=== PATIENT | male | born 1945 | race Caucasian/White ===

== ENCOUNTER 2018-05-27 09:39 | Inpatient (IN) ==
--- NOTE | 2018-05-27 11:04 | XR ---
EXAM DATE: 05/27/2018 10:58 AM EDT AGE/SEX: 72 years / Male INDICATIONS: Fever, chest pain and shortness of breath. CLINICAL DATA: This is the patient's initial encounter. Patient reports that signs and symptoms have been present for 1 week and indicates a pain score of 5/10. MEDICAL/SURGICAL HISTORY: Hypertension. AFIB. Metastatic adenocarcinoma. Arteriosclerotic heart disease. Splenectomy. Right lobectomy. COMPARISON: No prior exams available for comparison. FINDINGS: Elevated left hemidiaphragm. There is parenchymal density in the right mid to lower lung zone which i s likely related to scarring. Remote left sixth and seventh posterior rib fractures are seen. CONCLUSION: Parenchymal scarring right lung suspected and elevated left hemidiaphragm. Electronically signed by: Kvng Trevino MD 05/27/2018 11:03 AM EDT
[2018-05-27 11:24] LABS: Hematocrit 35.2 % (39.0-51.0); Hemoglobin 11.8 gm/dL (13.0-17.0); Mean Corpuscular HGB Conc 33.6 % (32.0-36.0); Mean Corpuscular Hemoglobin 33.4 pg (27.0-34.0); Mean Corpuscular Volume 99.3 fL (80.0-100.0); Mean Platelet Volume 8.7 fL (7.0-11.0); Platelet Count 131 th/mm3 (150-450); Red Blood Count 3.55 mil/mm3 (4.50-5.90); Red Cell Distribution Width 13.5 % (11.6-17.2)
[2018-05-27 11:39] LABS: Alanine Aminotransferase 30 U/L (12-78); Albumin 2.7 g/dL (3.4-5.0); Anion Gap 9 meq/L (5-15); Aspartate Aminotransferase 18 U/L (15-37); Blood Urea Nitrogen 27 mg/dL (7-18); Carbon Dioxide 25.3 meq/L (21.0-32.0); Chloride 104 meq/L (98-107); Glomerular Filtration Rate 38 mL/min (>89); Glucose,Random 104 mg/dL (74-106); Potassium 4.7 meq/L (3.5-5.1); Sodium 138 meq/L (136-145)
[2018-05-27 11:42] LABS: Alkaline Phosphatase 80 U/L (45-117); Total Protein 6.6 g/dL (6.4-8.2)
[2018-05-27 11:43] LABS: Bacteria,Urine Rare /hpf; Bilirubin,Urine Negative (Negative); Clarity,Urine Hazy (Clear); Color,Urine Yellow (Yellw/Straw); Glucose,Urine (UA) Negative (Negative); Leukocyte Esterase,Urine Negative (Negative); Mucus,Urine Few /lpf (Occasional); Nitrite,Urine Negative (Negative); Specific Gravity,Urine 1.017 (1.002-1.035); Squamous Epithelial Cell,Urine 1 /hpf (0-5)
[2018-05-27] MEDS ORDERED: Vancomycin Inj 1 GM/200 ML PIGGYBACK IV.SIG ONE (12:01)
--- NOTE | 2018-05-27 12:12 | ED ---
HPI General Chief Complaint: Fever Stated Complaint: fever Time Seen by Provider: 05/27/18 10:21 Source: patient Mode of arrival: ambulatory Limitations: no limitations History of Present Illness complaint: fever Onset (ago): hour(s) Temperature Source: oral Context: on chemotherapy Associated symptoms: cough and rash (Redness and warmth of the right lower extremity) Relieving factors: other (It spontaneously resolved prior to presentation) Exacerbating factors: nothing Treatments prior to arrival fever: none Related Data Home Medications Medication Instructions Recorded Confirmed albuterol sulfate 2 puff INHALATION Q4-6H PRN 05/27/18 05/27/18 amlodipine 10 mg PO DAILY 05/27/18 05/27/18 atorvastatin 80 mg PO DAILY 05/27/18 05/27/18 bupropion HCl 100 mg PO BID 05/27/18 05/27/18 colchicine 0.6 mg PO DAILY 05/27/18 05/27/18 digoxin 0.125 mg PO DAILY 05/27/18 05/27/18 folic acid 1 mg PO DAILY 05/27/18 05/27/18 metoprolol tartrate 1 mg/kg PO BID 05/27/18 05/27/18 ondansetron [Zofran ODT] 8 mg PO PRN 05/27/18 warfarin 05/27/18 05/27/18 Allergies Allergy/AdvReac Type Severity Reaction Status Date / Time penicillin G Allergy Severe EDEMA Verified 05/27/18 12:05 Review of Systems ROS: all other systems reviewed are negative [facility] Medical History Medical History Bone metastases (Acute) Gout (Acute) High cholesterol (Acute) Hypertension (Acute) Lung cancer (Acute) Social History Social History Substance History: Unable to Obtain Smoking Status: Unknown if ever smoked How Often Do You Have a Drink Containing Alcohol: Unable to Obtain Recent Travel in [facility] within the Last 8 Weeks: No Recent Out of Country Travel within the Last 8 Weeks: No Immunization History Tetanus Immunization: Unsure Exam Const General: cooperative, healthy appearing, comfortable, no acute distress and well developed Orientation: alert, awake and oriented x3 HENMT Head: normal to inspection, normocephalic and atraumatic Eyes Alignment and Position: alignment normal and position abnormal Conjunctivae: conjunctivae normal Sclera: sclerae normal EOM: EOM intact bilaterally Neck Neck: normal visual inspection and full ROM Chest Chest: normal inspection of the chest Resp Effort & Inspection: normal respiratory effort and able to speak in complete sentences Auscultation: clear to auscultation bilaterally Cardio Rate: regular rate Rhythm: regular rhythm GI Inspection: normal to inspection Palpation: soft Back/Spine/Pelvis Cervical Spine: cervical ROM normal Thoracic/Lumbar Spine: thoraco-lumbar ROM normal Skin General: no rashes or lesions noted, turgor normal, dry skin and erythema ( Right lower extremity redness, swelling and warmth from about one third of the way distal to the patella and extending to the foot) Neuro General: alert, awake, oriented x3, moves all extremities and CN's II-XI intact bilaterally Extrem General: normal to inspection and full ROM Psych Appearance: grossly normal Mental Status: mental status grossly normal Speech and Movement: speech and movement normal Mood: congruent mood Affect: normal affect Attitude: cooperative Thought Process: normal Thought Content: normal Judgment: judgment good Course Consultations Consultation #1: Dr. Powers Time: 12:49 Initial Documented Vital Signs Temperature 98.6 F 05/27/18 09:55 Pulse Rate 78 05/27/18 09:55 Respiratory Rate 16 05/27/18 09:55 Blood Pressure 129/78 05/27/18 09:55 Pulse Oximetry 98 05/27/18 09:55 Last Documented Vital Signs Temperature 98.6 F 05/27/18 09:55 Pulse Rate 78 05/27/18 09:55 Respiratory Rate 16 05/27/18 09:55 Blood Pressure 129/78 05/27/18 09:55 Pulse Oximetry 98 05/27/18 09:55 Medical Decision Making [facility] Narrative Medical decision making narrative: This is a patient who completed his first round of chemotherapy on May 18 who presents now with a fever. T-max was 100.7 at home last night. The most likely etiology for the fever is cellulitis of his right lower extremity. He has had a plantar foot wound for a while now which has been treated by wound care. He has recently developed the redness and the redness has become acutely worse and is now warm to the touch. Septic workup was initiated. The patient has been treated empirically for neutropenic fever with cefepime and vancomycin. I added the vancomycin because of the cellulitis of the right lower extremity. 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 Medical Screen Exam Complete: Yes Emergency Medical Condition: Yes Differential Diagnosis Differential Diagnosis: Differential diagnosis of fever includes but is not limited to viral illness, strep throat, otitis media, pneumonia, sepsis, UTI Lab Data Lab results reviewed: Yes I reviewed the patient's lab results. Lab results narrative: He is neutropenic Result diagrams: 05/27/18 11:10 05/27/18 11:10 Lab Results 05/27/18 05/27/18 05/27/18 Range/Units 11:10 11:10 11:15 WBC 1.0 L (4.0-11.0) th/mm3 RBC 3.55 L (4.50-5.90) mil/mm3 Hgb 11.8 L (13.0-17.0) gm/dL Hct 35.2 L (39.0-51.0) % MCV 99.3 (80.0-100.0) fL MCH 33.4 (27.0-34.0) pg MCHC 33.6 (32.0-36.0) % RDW 13.5 (11.6-17.2) % Plt Count 131 L (150-450) th/mm3 MPV 8.7 (7.0-11.0) fL Prelim Diff (Auto) Manual diff required WBC Differential Manual diff final Seg Neuts % (Manual) 3 L (16-70) % Lymphocytes % (Manual) 33 (9-44) % Monocytes % (Manual) 56 H (0-8) % Eosinophils % (Manual) 3 (0-4) % Basophils % (Manual) 4 H (0-2) % Blast Cells % (Manual) 1 H (0-0) % Abs Neuts (Manual) 0.0 L* (1.8-7.7) th/mm3 Differential Comment . Platelet Estimate Low L (Normal) Platelet Morphology Enlarged H (Normal) [place] Bodies Present H (None) Acanthocytes (Spur) Occ H (None) Sodium 138 (136-145) meq/L Potassium 4.7 (3.5-5.1) meq/L Chloride 104 (98-107) meq/L Carbon Dioxide 25.3 (21.0-32.0) meq/L Anion Gap 9 (5-15) meq/L BUN 27 H (7-18) mg/dL Creatinine 1.75 H (0.60-1.30) mg/dL Estimated GFR 38 L (>89) mL/min Random Glucose 104 (74-106) mg/dL Lactic Acid 1.1 (0.4-2.0) mmol/L Calcium 8.0 L (8.5-10.1) mg/dL Total Bilirubin 1.3 H (0.2-1.0) mg/dL AST 18 (15-37) U/L ALT 30 (12-78) U/L Alkaline Phosphatase 80 (45-117) U/L Total Protein 6.6 (6.4-8.2) g/dL Albumin 2.7 L (3.4-5.0) g/dL Urine Color (Yellw/Straw) Urine Clarity (Clear) Urine pH (5.0-8.5) Ur Specific [place] (1.002-1.035) Urine Protein (Neg-Trace) mg/dL Urine Glucose (UA) (Negative) mg/dL Urine Ketones (Negative) mg/dL Urine Occult Blood (Negative) Urine Nitrate (Negative) Urine Bilirubin (Negative) Urine Urobilinogen (Less than 2) mg/dL Ur Leukocyte Esterase (Negative) Urine RBC (0-3) /hpf Urine WBC (0-5) /hpf Ur Squamous Epith Cells (0-5) /hpf Urine Bacteria (None) /hpf Urine Mucus (Occasional) /lpf Micro UA Comment Ur Microscopic Review Urine Culture Comments 05/27/18 Range/Units 11:30 WBC (4.0-11.0) th/mm3 RBC (4.50-5.90) mil/mm3 Hgb (13.0-17.0) gm/dL Hct (39.0-51.0) % MCV (80.0-100.0) fL MCH (27.0-34.0) pg MCHC (32.0-36.0) % RDW (11.6-17.2) % Plt Count (150-450) th/mm3 MPV (7.0-11.0) fL Prelim Diff (Auto) WBC Differential Seg Neuts % (Manual) (16-70) % Lymphocytes % (Manual) (9-44) % Monocytes % (Manual) (0-8) % Eosinophils % (Manual) (0-4) % Basophils % (Manual) (0-2) % Blast Cells % (Manual) (0-0) % Abs Neuts (Manual) (1.8-7.7) th/mm3 Differential Comment Platelet Estimate (Normal) Platelet Morphology (Normal) [place] Bodies (None) Acanthocytes (Spur) (None) Sodium (136-145) meq/L Potassium (3.5-5.1) meq/L Chloride (98-107) meq/L Carbon Dioxide (21.0-32.0) meq/L Anion Gap (5-15) meq/L BUN (7-18) mg/dL Creatinine (0.60-1.30) mg/dL Estimated GFR (>89) mL/min Random Glucose (74-106) mg/dL Lactic Acid (0.4-2.0) mmol/L Calcium (8.5-10.1) mg/dL Total Bilirubin (0.2-1.0) mg/dL AST (15-37) U/L ALT (12-78) U/L Alkaline Phosphatase (45-117) U/L Total Protein (6.4-8.2) g/dL Albumin (3.4-5.0) g/dL Urine Color Yellow (Yellw/Straw) Urine Clarity Hazy H (Clear) Urine pH 5.0 (5.0-8.5) Ur Specific [place] 1.017 (1.002-1.035) Urine Protein 100 H (Neg-Trace) mg/dL Urine Glucose (UA) Negative (Negative) mg/dL Urine Ketones Negative (Negative) mg/dL Urine Occult Blood Small H (Negative) Urine Nitrate Negative (Negative) Urine Bilirubin Negative (Negative) Urine Urobilinogen Less than 2 (Less than 2) mg/dL Ur Leukocyte Esterase Negative (Negative) Urine RBC 2 (0-3) /hpf Urine WBC 1 (0-5) /hpf Ur Squamous Epith Cells 1 (0-5) /hpf Urine Bacteria Rare H (None) /hpf Urine Mucus Few H (Occasional) /lpf Micro UA Comment Culture not ind Ur Microscopic Review Not Reportable Urine Culture Comments Culture not ind Imaging Data Attestation: I personally reviewed and interpreted this imaging study as follows : Radiologist's impression: Chest X-Ray 05/27/18 10:20 CONCLUSION: Parenchymal scarring right lung suspected and elevated left hemidiaphragm. ECG Data EKG Prior to Arrival: Yes Attestation: I personally reviewed and interpreted this ECG as follows: (EKG shows atrial fibrillation with rate of 90. No acute STT wave changes.) Prior ECG tracings: available for review (He has had atrial fibrillation in the past.) Discharge Plan Discharge Disposition Patient Disposition: 30 Still Patient Discharge Details Diagnosis: Neutropenia with fever, Cellulitis Physicians Team ED Provider: Sammie Vines Primary Care Provider: Odette Rodas Rxs /Orders / Referrals /Forms Prescriptions: No Action atorvastatin 80 mg Tablet 80 mg PO DAILY RF: 0 metoprolol tartrate 100 mg Tablet 1 mg/kg PO BID RF: 0 bupropion HCl 100 mg Tablet Extended Release 12 Hr 100 mg PO BID RF: 0 ondansetron [Zofran ODT] 8 mg Tablet,Disintegrating 8 mg PO PRN (Reason: Nausea) RF: 0 warfarin 4 mg Tablet RF: 0 amlodipine 10 mg Tablet 10 mg PO DAILY RF: 0 folic acid 1 mg Tablet 1 mg PO DAILY RF: 0 digoxin 125 mcg Tablet 0.125 mg PO DAILY RF: 0 albuterol sulfate 90 mcg/actuation Hfa Aerosol Inhaler 2 puff INHALATION Q4-6H PRN (Reason: Shortness Of Breath Or Wheezing) RF: 0 colchicine 0.6 mg Capsule 0.6 mg PO DAILY RF: 0 Status ED Status: Pending Admission
[2018-05-27 12:24] LABS: Blast Cells 1 % (0-0); Eosinophils 3 % (0-4); Lymphocytes 33 % (9-44); Monocytes 56 % (0-8)
[2018-05-27 12:28] LABS: Acanthocytes Occ; Howell-Jolly Bodies Present
[2018-05-27] MEDS ORDERED: Bisacodyl 10 MG Supp RECTAL PRN (12:46)
--- NOTE | 2018-05-27 12:53 | P.HP ---
History of Present Illness Primary Care Physician: Odette Rodas History of Present Illness: The patient is a very pleasant 72-year-old male with past medical history of lung cancer with bone metastasis, gout, hyperlipidemia, hypertension. The patient came to the emergency room for further evaluation of fevers, shortness of breath. Patient also had diarrhea recently. He was recently hospitalized to another hospital with ileus which resolved. Since he does not have any more diarrhea and had a normal bowel movement. He was started on chemo paclitaxel and carboplatin per oncology. Follows with the [place] oncologist but also has seen Dr. Alonso. Will consult Dr. Knight oncology doctor. Patient is also complaining of left food redness and swelling. Labs reviewed this patient with neutropenia. Patient also with left foot cellulitis started on IV antibiotics. Blood cultures obtained in the emergency room. Creatinine is 1.7 at this time per patient baseline creatinine is 2. PMFSH - History History Provided By: Patient, Family Member - Medical History Medical History: Medical History (Last Updated 05/27/18 @ 13:47 by Debbie Powers MD) Aneurysm Bone metastases Gout High cholesterol Hypertension Lung cancer - Surgical History Surgical History: Surgical History (Last Reviewed 05/27/18 @ 17:57 by Debbie Powers MD) H/O pneumonectomy History of total right knee replacement - Family History Family History: Family History (Last Updated 05/27/18 @ 13:46 by Debbie Powers MD) Sister Aneurysm Father Heart attack Stroke - Tobacco History Tobacco Use In Past 30 Days: No Smoking Status: Former smoker (smoked for 20 years, quit 15 years ago) Packs Per Day: 2 Years Smoked: 20 - Alcohol History How Often Do You Have a Drink Containing Alcohol: Never - Substance Use History Substance History: No History of Abuse - Travel History History of Recent Travel: No Recent Travel in the [place] Within the Last 8 Weeks: No Recent Travel Out of the Country Within the Last 8 Weeks: No - Immunization History Tetanus Immunization: Unsure Medications and Allergies Active Medications: Active Medications Acetaminophen (Tylenol) 650 mg PO Q4H PRN PRN Reason: Temp > 100.4 Al Hydroxide/Mg Hydroxide (Milk Of Magnesia Liq) 30 ml PO Q12H PRN PRN Reason: Mild Constipation Bisacodyl (Dulcolax Supp) 10 mg RECTAL DAILY PRN PRN Reason: SEVERE CONSITIPATION Enoxaparin Sodium (Lovenox Inj) 40 mg SQ Q24H MAUDE Vancomycin HCl 1,000 mg/ (Sodium Chloride) 250 mls @ 250 mls/hr IV.SIG ONCE ONE Stop: 05/27/18 13:59 Lactated Ringer's (Lr 1000 Ml Inj) 1,000 mls @ 100 mls/hr IV.CONT .Q10H MAUDE Lactulose (Lactulose Liq) 30 ml PO DAILY PRN PRN Reason: SEVERE CONSITIPATION Metoclopramide HCl (Reglan Inj) 5 mg IV.PUSH Q6HR PRN; Protocol PRN Reason: NAUSEA OR VOMITING Senna/Docusate Sodium (Salma-Colace) 1 tab PO BID MAUDE Sennosides (Senokot) 17.2 mg PO Q12H PRN PRN Reason: Moderate Constipation Allergies Allergy/AdvReac Type Severity Reaction Status Date / Time penicillin G Allergy Severe EDEMA Verified 05/27/18 12:05 Home Medications Medication Instructions Recorded Confirmed Type albuterol sulfate 2 puff INHALATION Q4-6H PRN 05/27/18 05/27/18 History amlodipine 10 mg PO DAILY 05/27/18 05/27/18 History atorvastatin 80 mg PO DAILY 05/27/18 05/27/18 History bupropion HCl 100 mg PO BID 05/27/18 05/27/18 History colchicine 0.6 mg PO DAILY 05/27/18 05/27/18 History digoxin 0.125 mg PO DAILY 05/27/18 05/27/18 History folic acid 1 mg PO DAILY 05/27/18 05/27/18 History metoprolol tartrate 1 mg/kg PO BID 05/27/18 05/27/18 History ondansetron [Zofran ODT] 8 mg PO PRN 05/27/18 History warfarin 05/27/18 05/27/18 History Exam Vital signs: Vital Signs 05/27/18 09:55 Temperature 98.6 F Pulse Rate 78 Respiratory Rate 16 Blood Pressure 129/78 Pulse Oximetry 98 Intake & Output 05/26/18 05/27/18 05/27/18 18:59 06:59 18:59 Weight 106.594 kg Narrative: GENERAL: 72 yo male, in bed, doesn't appear in distress. SKIN: Right lower extremity with rash, redness and warmth, slightly tender to palpation, erythema up to the knee. HEAD: Atraumatic. Normocephalic. EYES: Pupils equal and round. No scleral icterus. No injection or drainage. ENT: No nasal bleeding or discharge. Mucous membranes pink and moist. NECK: Trachea midline. No JVD. CARDIOVASCULAR: Regular rate and rhythm. RESPIRATORY: No accessory muscle use. Decreased best breath sounds right lung. Surgical scar over the right side of chest extending to the back. GASTROINTESTINAL: Abdomen soft, old surgical scars, abdominal hernia reducible, non-tender, nondistended. Hepatic and splenic margins not palpable. MUSCULOSKELETAL: Extremities without clubbing, cyanosis, or edema. No obvious deformities. NEUROLOGICAL: Awake and alert. No obvious cranial nerve deficits. Motor grossly within normal limits. Five out of 5 muscle strength in the arms and legs. Normal speech. PSYCHIATRIC: Appropriate mood and affect; insight and judgment normal. Results - Labs CBC & Chem 7: 05/27/18 11:10 05/27/18 11:10 Labs: Laboratory Results - last 24 hr 05/27/18 05/27/18 05/27/18 11:10 11:10 11:15 WBC 1.0 L RBC 3.55 L Hgb 11.8 L Hct 35.2 L MCV 99.3 MCH 33.4 MCHC 33.6 RDW 13.5 Plt Count 131 L MPV 8.7 Prelim Diff (Auto) Manual diff required WBC Differential Manual diff final Seg Neuts % (Manual) 3 L Lymphocytes % (Manual) 33 Monocytes % (Manual) 56 H Eosinophils % (Manual) 3 Basophils % (Manual) 4 H Blast Cells % (Manual) 1 H Abs Neuts (Manual) 0.0 L* Differential Comment . Platelet Estimate Low L Platelet Morphology Enlarged H [place] Bodies Present H Acanthocytes (Spur) Occ H Sodium 138 Potassium 4.7 Chloride 104 Carbon Dioxide 25.3 Anion Gap 9 BUN 27 H Creatinine 1.75 H Estimated GFR 38 L Random Glucose 104 Lactic Acid 1.1 Calcium 8.0 L Total Bilirubin 1.3 H AST 18 ALT 30 Alkaline Phosphatase 80 Total Protein 6.6 Albumin 2.7 L Urine Color Urine Clarity Urine pH Ur Specific [place] Urine Protein Urine Glucose (UA) Urine Ketones Urine Occult Blood Urine Nitrate Urine Bilirubin Urine Urobilinogen Ur Leukocyte Esterase Urine RBC Urine WBC Ur Squamous Epith Cells Urine Bacteria Urine Mucus Micro UA Comment Ur Microscopic Review Urine Culture Comments 05/27/18 11:30 WBC RBC Hgb Hct MCV MCH MCHC RDW Plt Count MPV Prelim Diff (Auto) WBC Differential Seg Neuts % (Manual) Lymphocytes % (Manual) Monocytes % (Manual) Eosinophils % (Manual) Basophils % (Manual) Blast Cells % (Manual) Abs Neuts (Manual) Differential Comment Platelet Estimate Platelet Morphology [place] Bodies Acanthocytes (Spur) Sodium Potassium Chloride Carbon Dioxide Anion Gap BUN Creatinine Estimated GFR Random Glucose Lactic Acid Calcium Total Bilirubin AST ALT Alkaline Phosphatase Total Protein Albumin Urine Color Yellow Urine Clarity Hazy H Urine pH 5.0 Ur Specific [place] 1.017 Urine Protein 100 H Urine Glucose (UA) Negative Urine Ketones Negative Urine Occult Blood Small H Urine Nitrate Negative Urine Bilirubin Negative Urine Urobilinogen Less than 2 Ur Leukocyte Esterase Negative Urine RBC 2 Urine WBC 1 Ur Squamous Epith Cells 1 Urine Bacteria Rare H Urine Mucus Few H Micro UA Comment Culture not ind Ur Microscopic Review Not Reportable Urine Culture Comments Culture not ind - Imaging Impressions Chest X-Ray 05/27/18 10:20 CONCLUSION: Parenchymal scarring right lung suspected and elevated left hemidiaphragm. Caprini VTE Risk Assessment Caprini VTE Risk Assessment: Moderate/High Risk (score >= 2) Caprini Risk Assessment Model: Point Value = 1 Point Value = 2 Point Value = 3 Point Value = 5 Age 41-60 Minor surgery BMI > 25 kg/m2 Swollen legs Varicose veins or History of unexplained or recurrent spontaneous Oral contraceptives or hormone replacement Sepsis (< 1 month) Serious lung disease, including pneumonia (< 1 month) Abnormal pulmonary function Acute myocardial infarction Congestive heart failure (< 1 month) History of inflammatory bowel disease Medical patient at bed rest Age 61-74 Arthroscopic surgery Major open surgery (> 45 min) Laparoscopic surgery (> 45 min) Malignancy Confined to bed (> 72 hours) Immobilizing plaster cast Central venous access Age >= 75 History of VTE Family history of VTE Factor V Leiden Prothrombin [id number] Lupus anticoagulant Anticardiolipin antibodies Elevated serum homocysteine Heparin-induced thrombocytopenia Other congenital or acquired thrombophilia Stroke (< 1 month) Elective arthroplasty Hip, pelvis, or leg fracture Acute spinal cord injury (< 1 month) Prophylaxis Regimen: Total Risk Factor Score Risk Level Prophylaxis Regimen 0-1 Low Early ambulation 2 Moderate Order ONE of the following: *Sequential Compression Device (SCD) *Heparin 5000 units SQ BID 3-4 Higher Order ONE of the following medications: *Heparin 5000 units SQ TID *Enoxaparin/Lovenox 40 mg SQ daily (WT < 150 kg, CrCl > 30 mL/min) *Enoxaparin/Lovenox 30 mg SQ daily (WT < 150 kg, CrCl > 10-29 mL/min) *Enoxaparin/Lovenox 30 mg SQ BID (WT < 150 kg, CrCl > 30 mL/min) AND/OR *Sequential Compression Device (SCD) 5 or more Highest Order ONE of the following medications: *Heparin 5000 units SQ TID (Preferred with Epidurals) *Enoxaparin/Lovenox 40 mg SQ daily (WT < 150 kg, CrCl > 30 mL/min) *Enoxaparin/Lovenox 30 mg SQ daily (WT < 150 kg, CrCl > 10-29 mL/min) *Enoxaparin/Lovenox 30 mg SQ BID (WT < 150 kg, CrCl > 30 mL/min) AND *Sequential Compression Device (SCD) Assessment and Plan - Plan Pleasant 72-year-old male with history of lung cancer presents with neutropenia and fever, cellulitis Neutropenia with fever. Patient had fevers at home per at bedside 100.5. He is afebrile here on admission. Does not meet sepsis criteria. Cellulitis right lower leg Blood cultures obtained in the emergency room follow results Wound cultures right lower leg if obtainable Start IV vancomycin and cefepime Lactic acid is normal Lung cancer with metastasis Patient is on paclitaxel and carboplatin Now with neutropenia Consult oncology Per patient is weaned off of warfarin as plan for surgery Vas-Cath placement. The patient is currently on Lovenox 100 mg subcu twice daily. Monitor INR. The patient warfarin was tapered down. Hypertension. Blood pressure stable at this time. Can resume home medications Gout stable at this time. Resume home medications as indicated Resume home medications as appropriate DVT prophylaxis on Lovenox 100 mg subcu twice a day Discussed with the patient, family his at bedside, ED physician
[2018-05-27] MEDS ORDERED: Vancomycin Consult Pharmacy OTHER PRN (12:54)
[2018-05-27] MEDS ORDERED: Vancomycin Inj 1 GM/200 ML PIGGYBACK IV.SIG SCH (13:00)
[2018-05-27] MEDS ORDERED: Vancomycin Inj 1,000 MG in Sodium Chlor 0.9% Inj 250 ML IV.SIG ONE (13:00)
[2018-05-27] MEDS ORDERED: Enoxaparin Inj 40 MG/0.4 ML Syringe SQ SCH (13:00)
[2018-05-27 18:39] LABS: INR 3.1 Ratio; Prothrombin Time 31.2 sec (9.8-11.6)
[2018-05-27] MEDS: Senna/Docusate Sodium 8.6/50 MG Tablet PO SCH (23:56)
[2018-05-27] MEDS: Enoxaparin Inj 100 MG/ML Syringe SQ SCH (23:56)
[2018-05-27] MEDS: Metoprolol Tartrate 100 MG Tablet PO SCH (23:57)
[2018-05-28] MEDS: Acetaminophen 325 MG Tablet PO PRN (00:16)
[2018-05-28] MEDS: buPROPion 100 MG ER 12 HR Tablet PO SCH ×3 (02:08→21:57)
--- NOTE | 2018-05-28 07:05 | MB ---
cc: Teresa Velázquez MD,Debbie KUNZ DATE: 05/27/2018 REFERRING PHYSICIAN: Dr. Debbie Powers CHIEF COMPLAINT: Dr. Powers requested a consultation for Mr. Henry regarding neutropenic fever with a diagnosis of metastatic non-small cell lung cancer. HISTORY OF PRESENT ILLNESS: Mr. Henry is a 72-year-old man well known patient to Dr. Aracelis Knight. He has a history of non-small cell lung cancer that was resected. He developed recurrent metastatic disease. He has established care at the [facility] in [facility]. He was treated with his third cycle of palliative chemotherapy with carboplatin and Taxol on 05/18/2018. His history was supplemented by his who was present at the consultation. Mr. Henry developed severe diarrhea approximately 3-4 days after the administration of the chemotherapy. He was admitted for 24-hour observation at the [facility] in [facility]. It appears that his diarrhea improved. However, when he got home, his diarrhea came back. He was awake at night having bowel movements, which are large volume about every 3 hours. His diarrheal symptoms appear to have improved with the BRAT diet. He did not develop any fevers from that. No labs were available during the hospitalization at [facility]. The patient reports that C. difficile was negative. Eventually, the diarrhea resolved. Over the last 24 hours, he has had increasing symptoms of pain and swelling of the right lower extremity. He has chronic wound at the bottom of his right foot. He is under care of podiatry. He has chronic venous insufficiency with chronic erythema of right lower leg. There is some skin breakdown. He denies any mouth sores. Denies any other symptoms. He has no new cough. He clears his throat regularly. Denies any urinary complaints. He was advised by his [facility] physicians to come into the emergency room because of his fever. He did not receive GCSF support or Neulasta. On admission, his white blood cell count is 1.0, ANC of 0, hemoglobin 11.8, platelet count 131. His BUN is 27, creatinine 1.75. Labs and review of previous electronic medical record shows otherwise normal CBC prior to his admission. His baseline creatinine is 1.9. He is at the [facility] after administration of his chemotherapy. He received carboplatin and Taxol without bevacizumab. He was pending a port placement sometime next week. He was pending bridging of his anticoagulant therapy with warfarin. He denies any blood with his diarrhea. Denies any blood loss. He has fevers. He overall just felt weak and fatigued after administration of the chemotherapy. He seems more short of breath with activity. He never lost his appetite. PAST MEDICAL HISTORY: Atrial fibrillation, hypertension, right lower lung carcinoma status post resection in 2014, metastatic non-small cell lung cancer, adenocarcinoma histology in 2018. PAST SURGICAL HISTORY: Amputation of right big toe, right foot debridement, colonoscopy, right lower lobe wedge resection. ALLERGIES: PENICILLIN. FAMILY HISTORY: No significant family history of cancer. SOCIAL HISTORY: He is . He is retired. He quit smoking 15 years ago. He has a [id number] smoking history. He is a former drinker. Denies any illicit drug use. MEDICATIONS: From home include: 1. Albuterol. 2. Amlodipine. 3. Atorvastatin. 4. Bupropion. 5. Colchicine. 6. Digoxin. 7. Folic acid. 8. Metoprolol. 9. Ondansetron p.r.n. 10. Warfarin. PHYSICAL EXAMINATION: VITAL SIGNS: Temperature 98.3, heart rate 96, respiratory rate 20, blood pressure 168/92, saturation 100%. GENERAL: Mr. Henry is a well-developed, elderly man. He looks tired. HEENT: His pupils are round, reactive to light and accommodation. Oropharynx is clear. No oral lesion. NECK: Supple. No adenopathy. LUNGS: Clear to auscultation. CARDIOVASCULAR: Reveals mild tachycardia. ABDOMEN: Large and benign. LOWER EXTREMITIES: Right leg more prominent than the left. There is erythematous patch with diffuse margins in the inner aspect of the right lower leg. There is missing right great toe. There is a callus at the bottom of the foot. There seems to be no erythema there. There is erythema in the dorsum of the right foot. Good pulses appreciated. LABORATORY DATA: With pancytopenia, WBC 1.0, hemoglobin 11.8, platelet count 131, absolute neutrophil count is 0. Chemistry with BUN 27, creatinine 1.75, total bilirubin mildly elevated at 1.3. ASSESSMENT AND PLAN: Mr. Henry is a 72-year-old male with multiple medical problems. He has atrial fibrillation, on chronic anticoagulant therapy with Coumadin. He does not have a PT/INR during this admission. A PT/INR will be checked. We will ask pharmacy to adjust his Coumadin dose. We will visit on his PT/INR from this evening. He has not stopped his bridging therapy as yet. I anticipate that he would not be able to have his port placement on 06/01/2018. We discussed neutropenic fever. He seems to have a source of infection as the right foot and right lower leg. This may be a point of entry for bacteria. He is on cefepime. We will monitor his fevers. He is afebrile at present. Cultures have been obtained. Empiric antibiotic therapy will continue. He did not receive Neulasta support. He is at increased risk given his age, comorbidities, and the type of chemotherapy agent. He will need to follow up with his medical oncologist to see dose adjustment or the prophylactic use of Neulasta to avoid further admission for neutropenic fevers. We discussed the risks and benefit of Neupogen. We will initiate Neupogen treatment today. Dr. Francis will be back on Tuesday to resume his care while he is here. Ultimately, he plans to go back to [facility]. We will monitor for recurrence of the diarrhea. I anticipate that he will start to feel better as the chemo related toxicity resolves in the next upcoming week. In the meantime, supportive treatment continue. MD LUBA Gutierrez/guille , 06:05 PM , 06:19 PM
[2018-05-28] MEDS: Metoprolol Tartrate 100 MG Tablet PO SCH ×2 (08:26→21:57)
[2018-05-28] MEDS: amLODIPine 10 MG Tablet PO SCH (08:26)
[2018-05-28] MEDS: Digoxin 125 MCG Tablet PO SCH (08:26)
[2018-05-28] MEDS: Folic Acid 1 MG Tablet PO SCH (08:27)
[2018-05-28] MEDS: Enoxaparin Inj 100 MG/ML Syringe SQ SCH (08:27)
[2018-05-28] MEDS: Senna/Docusate Sodium 8.6/50 MG Tablet PO SCH ×2 (08:27→21:57)
--- NOTE | 2018-05-28 10:19 | P.PNONC ---
Subjective Interval history: T-max 101.4 overnight Patient resting in bed in no obvious distress Denies shortness of breath; endorses some mild pain in right foot Has not had a bowel movement since the diarrhea stopped on Objective Vital Signs/Intake & Output: Vital Signs 05/27/18 15:51 05/27/18 17:01 05/27/18 20:00 Temperature 98.3 F 99.1 F Pulse Rate 96 H 111 H Respiratory Rate 24 22 Blood Pressure 168/92 H 149/90 H Pulse Oximetry 100 97 05/27/18 21:00 05/27/18 22:00 05/27/18 23:00 Temperature Pulse Rate 104 H 102 H 104 H Respiratory Rate Blood Pressure Pulse Oximetry 05/28/18 00:00 05/28/18 01:15 05/28/18 04:00 Temperature 100.2 F H 101.4 F H 99.2 F Pulse Rate 105 H 120 H 86 Respiratory Rate 24 24 20 Blood Pressure 100/64 Pulse Oximetry 99 99 99 05/28/18 04:30 05/28/18 08:38 Temperature 99.2 F Pulse Rate 79 73 Respiratory Rate 22 Blood Pressure 129/80 Pulse Oximetry 99 Intake & Output 05/27/18 05/28/18 05/28/18 18:59 06:59 18:59 Intake Total 350 / 350 1340 / 1340 Output Total 175 / 175 Balance 350 / 350 1165 / 1165 Weight 235 lb 226 lb 6.636 oz Intake: IV 350 / 350 1100 / 1100 LR 1000 mL Inj 1,000 ML @ 100 1000 / 1000 mls/hr IV.CONT .Q10H [facility] Rx#: [id number] Maxipime Inj 2,000 MG In NS Inj 100 / 100 100 / 100 100 ML @ 200 mls/hr IV.SIG Q12H [facility] Rx#:[id number] Vancomycin Inj 1,000 MG In NS 250 / 250 Inj 250 ML @ 250 mls/hr IV.SIG ONCE ONE Rx#:[id number] Oral 240 / 240 Output: Urine 175 / 175 Other: Date of Last Bowel Movement 05/25/18 05/25/18 Result Diagrams: 05/28/18 11:45 05/28/18 11:45 Laboratory Results: Laboratory Results - last 24 hr 05/27/18 05/27/18 05/27/18 11:10 11:10 11:15 WBC 1.0 L RBC 3.55 L Hgb 11.8 L Hct 35.2 L MCV 99.3 MCH 33.4 MCHC 33.6 RDW 13.5 Plt Count 131 L MPV 8.7 Prelim Diff (Auto) Manual diff required WBC Differential Manual diff final Seg Neuts % (Manual) 3 L Lymphocytes % (Manual) 33 Monocytes % (Manual) 56 H Eosinophils % (Manual) 3 Basophils % (Manual) 4 H Blast Cells % (Manual) 1 H Abs Neuts (Manual) 0.0 L* Differential Comment . Platelet Estimate Low L Platelet Morphology Enlarged H Espinoza-Bird-In-Hand Bodies Present H Acanthocytes (Spur) Occ H PT INR Sodium 138 Potassium 4.7 Chloride 104 Carbon Dioxide 25.3 Anion Gap 9 BUN 27 H Creatinine 1.75 H Estimated GFR 38 L Random Glucose 104 Lactic Acid 1.1 Calcium 8.0 L Total Bilirubin 1.3 H AST 18 ALT 30 Alkaline Phosphatase 80 Total Protein 6.6 Albumin 2.7 L Urine Color Urine Clarity Urine pH Ur Specific [place] Urine Protein Urine Glucose (UA) Urine Ketones Urine Occult Blood Urine Nitrate Urine Bilirubin Urine Urobilinogen Ur Leukocyte Esterase Urine RBC Urine WBC Ur Squamous Epith Cells Urine Bacteria Urine Mucus Micro UA Comment Ur Microscopic Review Urine Culture Comments 05/27/18 05/27/18 11:30 18:21 WBC RBC Hgb Hct MCV MCH MCHC RDW Plt Count MPV Prelim Diff (Auto) WBC Differential Seg Neuts % (Manual) Lymphocytes % (Manual) Monocytes % (Manual) Eosinophils % (Manual) Basophils % (Manual) Blast Cells % (Manual) Abs Neuts (Manual) Differential Comment Platelet Estimate Platelet Morphology Espinoza-Bird-In-Hand Bodies Acanthocytes (Spur) PT 31.2 H INR 3.1 Sodium Potassium Chloride Carbon Dioxide Anion Gap BUN Creatinine Estimated GFR Random Glucose Lactic Acid Calcium Total Bilirubin AST ALT Alkaline Phosphatase Total Protein Albumin Urine Color Yellow Urine Clarity Hazy H Urine pH 5.0 Ur Specific [place] 1.017 Urine Protein 100 H Urine Glucose (UA) Negative Urine Ketones Negative Urine Occult Blood Small H Urine Nitrate Negative Urine Bilirubin Negative Urine Urobilinogen Less than 2 Ur Leukocyte Esterase Negative Urine RBC 2 Urine WBC 1 Ur Squamous Epith Cells 1 Urine Bacteria Rare H Urine Mucus Few H Micro UA Comment Culture not ind Ur Microscopic Review Not Reportable Urine Culture Comments Culture not ind Imaging Studies: Impressions Chest X-Ray 05/27/18 10:20 CONCLUSION: Parenchymal scarring right lung suspected and elevated left hemidiaphragm. Medications: Active Medications Generic Name Dose Route Start Last Admin Trade Name Freq PRN Reason Stop Dose Admin Acetaminophen 650 mg 05/27/18 12:46 05/28/18 00:16 Tylenol PO 650 mg Q4H PRN Administration Temp > 100.4 Amlodipine Besylate 10 mg 05/28/18 09:00 05/28/18 08:26 Norvasc PO 10 mg DAILY [facility] Administration Atorvastatin Calcium 80 mg 05/28/18 09:00 05/28/18 08:34 Lipitor PO 80 mg DAILY [facility]UDE Administration Bupropion HCl 100 mg 05/27/18 21:00 05/28/18 08:27 Wellbutrin Sr PO 100 mg BID [facility] Administration Colchicine 0.6 mg 05/28/18 09:00 05/28/18 08:27 Colcrys PO 0.6 mg DAILY MAUDE Administration Digoxin 125 mcg 05/28/18 09:00 05/28/18 08:26 Lanoxin PO 125 mcg DAILY [facility]UDE Administration Enoxaparin Sodium 100 mg 05/27/18 21:00 05/28/18 08:27 Lovenox Inj SQ 100 mg Q12HR [facility] Administration Filgrastim 480 mcg 05/27/18 18:00 05/27/18 18:22 Neupogen Inj SQ 05/29/18 14:01 480 mcg DAILY@1400 [facility] Administration Folic Acid 1 mg 05/28/18 09:00 05/28/18 08:27 Folic Acid PO 1 mg DAILY MAUDE Administration Lactated Ringer's 1,000 mls @ 100 mls/hr 05/27/18 13:00 05/27/18 23:57 Lr 1000 Ml Inj IV.CONT 100 mls/hr .Q10H [facility] Administration Cefepime HCl 2,000 mg/ Sodium 100 mls @ 200 mls/hr 05/27/18 13:00 05/28/18 02 :11 Chloride IV.SIG Infused Q12H [facility] Infusion Metoclopramide HCl 5 mg 05/27/18 12:46 05/28/18 08:46 Reglan Inj IV.PUSH 5 mg Q6HR PRN Administration NAUSEA OR VOMITING Protocol Metoprolol Tartrate 100 mg 05/27/18 21:00 05/28/18 08:26 Lopressor PO 100 mg BID [facility] Administration Senna/Docusate Sodium 1 tab 05/27/18 21:00 05/28/18 08:27 Salma-Colace PO 1 tab BID MAUDE Administration Objective Remarks: GENERAL: Older male resting in bed in no obvious distress SKIN: Warm and dry. HEAD: Normocephalic. EYES: No injection or drainage. NECK: Supple, trachea midline. CARDIOVASCULAR: Regular rate and rhythm without murmurs. RESPIRATORY: Breath sounds equal bilaterally. No accessory muscle use. GASTROINTESTINAL: Abdomen soft, non-tender, nondistended. EXTREMITIES: No cyanosis. Erythema in the dorsum of the right foot. Partial great toe amputation on the right. MUSCULOSKELETAL: Adequate muscle tone. NEUROLOGICAL: No obvious focal deficit. Awake, alert, and oriented x3. Assessment/Plan - Plan 72-year-old male with history of metastatic non-small cell lung cancer who gets his care through the [facility]. He was given his third cycle of palliative chemotherapy with carboplatin and Taxol on 05/18/18. Initially the patient had severe diarrhea after the chemotherapy which has been resolved. He was admitted with pain and swelling of the right lower extremity as he has a chronic venous insufficiency with skin breakdown. 1. Continue G-CSF support with Neupogen as patient remains neutropenic. 2. Patient had temperature overnight of 101.4. Blood cultures have been ordered ; I have been informed by nursing staff that the patient is refusing his labs. We can offer the patient a small dose of Ativan prior to lab draw. 3. Continue cefepime, vancomycin. - Attending Statement The exam, history, and the medical decision-making described in the above note were completed with the assistance of the mid-level provider. I reviewed and agree with the findings presented. I attest that I had a [id number] encounter with the patient on the same day, and personally performed and documented my assessment and findings in the medical record. Initially frustrated by the frequent lab draws. He required blood culture for temperature. He was better composed in the afternoon. He was feeling better in general. The right foot still feels swollen with redness. We discussed possible source of infection is the right foot. Podiatry will be consulted. Neutropenia improving. Continue G-CSF. Continue empiric antibiotic therapy. Clinically stable. Monitor for decompensation. Noted INR supratherapeutic. We discussed deferring plans for his MediPort placement on Tuesday in light of his acute illness and possible infection. For now we will continue Coumadin at his usual dose. Dosing adjusted by pharmacy.
--- NOTE | 2018-05-28 11:03 | P.PN ---
Subjective Interval history: Follow-up right lower extremity cellulitis/neutropenic fever May 28, 2018-patient seen and examined, positive for fever, positive for shortness of breath Physical Exam Vital signs: Vital Signs 05/27/18 15:51 05/27/18 17:01 05/27/18 20:00 Temperature 98.3 F 99.1 F Pulse Rate 96 H 111 H Respiratory Rate 24 22 Blood Pressure 168/92 H 149/90 H Pulse Oximetry 100 97 05/27/18 21:00 05/27/18 22:00 05/27/18 23:00 Temperature Pulse Rate 104 H 102 H 104 H Respiratory Rate Blood Pressure Pulse Oximetry 05/28/18 00:00 05/28/18 01:15 05/28/18 04:00 Temperature 100.2 F H 101.4 F H 99.2 F Pulse Rate 105 H 120 H 86 Respiratory Rate 24 24 20 Blood Pressure 100/64 Pulse Oximetry 99 99 99 05/28/18 04:30 05/28/18 08:38 Temperature 99.2 F Pulse Rate 79 73 Respiratory Rate 22 Blood Pressure 129/80 Pulse Oximetry 99 Intake & Output 05/27/18 05/28/18 05/28/18 18:59 06:59 18:59 Intake Total 350 / 350 1340 / 1340 Output Total 175 / 175 Balance 350 / 350 1165 / 1165 Weight 106.594 kg 102.7 kg Intake: IV 350 / 350 1100 / 1100 LR 1000 mL Inj 1,000 ML @ 100 1000 / 1000 mls/hr IV.CONT .Q10H [facility] Rx#: [id number] Maxipime Inj 2,000 MG In NS Inj 100 / 100 100 / 100 100 ML @ 200 mls/hr IV.SIG Q12H [facility] Rx#:[id number] Vancomycin Inj 1,000 MG In NS 250 / 250 Inj 250 ML @ 250 mls/hr IV.SIG ONCE ONE Rx#:[id number] Oral 240 / 240 Output: Urine 175 / 175 Other: Date of Last Bowel Movement 05/25/18 05/25/18 Narrative: GENERAL: NAD SKIN: Warm and dry. HEAD: Normocephalic. EYES: No scleral icterus. No injection or drainage. NECK: Supple, trachea midline. No JVD or lymphadenopathy. CARDIOVASCULAR: Regular rate and rhythm without murmurs, gallops, or rubs. RESPIRATORY: Breath sounds equal bilaterally. No accessory muscle use. GASTROINTESTINAL: Abdomen soft, non-tender, nondistended. MUSCULOSKELETAL: No cyanosis, or edema. RLE with spreading erythema BACK: Nontender without obvious deformity. No CVA tenderness. Results - Labs CBC & Chem 7: 05/27/18 11:10 05/27/18 11:10 Laboratory Results - last 24 hr 05/27/18 05/27/18 05/27/18 11:10 11:10 11:15 WBC 1.0 L RBC 3.55 L Hgb 11.8 L Hct 35.2 L MCV 99.3 MCH 33.4 MCHC 33.6 RDW 13.5 Plt Count 131 L MPV 8.7 Prelim Diff (Auto) Manual diff required WBC Differential Manual diff final Seg Neuts % (Manual) 3 L Lymphocytes % (Manual) 33 Monocytes % (Manual) 56 H Eosinophils % (Manual) 3 Basophils % (Manual) 4 H Blast Cells % (Manual) 1 H Abs Neuts (Manual) 0.0 L* Differential Comment . Platelet Estimate Low L Platelet Morphology Enlarged H Espinoza-Hanna Bodies Present H Acanthocytes (Spur) Occ H PT INR Sodium 138 Potassium 4.7 Chloride 104 Carbon Dioxide 25.3 Anion Gap 9 BUN 27 H Creatinine 1.75 H Estimated GFR 38 L Random Glucose 104 Lactic Acid 1.1 Calcium 8.0 L Total Bilirubin 1.3 H AST 18 ALT 30 Alkaline Phosphatase 80 Total Protein 6.6 Albumin 2.7 L Urine Color Urine Clarity Urine pH Ur Specific [place] Urine Protein Urine Glucose (UA) Urine Ketones Urine Occult Blood Urine Nitrate Urine Bilirubin Urine Urobilinogen Ur Leukocyte Esterase Urine RBC Urine WBC Ur Squamous Epith Cells Urine Bacteria Urine Mucus Micro UA Comment Ur Microscopic Review Urine Culture Comments 05/27/18 05/27/18 11:30 18:21 WBC RBC Hgb Hct MCV MCH MCHC RDW Plt Count MPV Prelim Diff (Auto) WBC Differential Seg Neuts % (Manual) Lymphocytes % (Manual) Monocytes % (Manual) Eosinophils % (Manual) Basophils % (Manual) Blast Cells % (Manual) Abs Neuts (Manual) Differential Comment Platelet Estimate Platelet Morphology Espinoza-Hanna Bodies Acanthocytes (Spur) PT 31.2 H INR 3.1 Sodium Potassium Chloride Carbon Dioxide Anion Gap BUN Creatinine Estimated GFR Random Glucose Lactic Acid Calcium Total Bilirubin AST ALT Alkaline Phosphatase Total Protein Albumin Urine Color Yellow Urine Clarity Hazy H Urine pH 5.0 Ur Specific [place] 1.017 Urine Protein 100 H Urine Glucose (UA) Negative Urine Ketones Negative Urine Occult Blood Small H Urine Nitrate Negative Urine Bilirubin Negative Urine Urobilinogen Less than 2 Ur Leukocyte Esterase Negative Urine RBC 2 Urine WBC 1 Ur Squamous Epith Cells 1 Urine Bacteria Rare H Urine Mucus Few H Micro UA Comment Culture not ind Ur Microscopic Review Not Reportable Urine Culture Comments Culture not ind - Imaging Impressions Chest X-Ray 05/27/18 10:20 CONCLUSION: Parenchymal scarring right lung suspected and elevated left hemidiaphragm. Assessment and Plan - Plan 72-year-old man with Neutropenic fever Currently on cefepime and vancomycin pending culture report Neutropenic precautions Consider ID consultation Right lower extremity cellulitis Currently on vancomycin and monitor cultures Consider ID consultation History of lung cancer with metastases Treatment with paclitaxel and carboplatin Appreciate input from oncology History of hypertension, gout and other chronic medical conditions Continue outpatient medications Plan for Vas-Cath placement Currently on Lovenox 100 mg twice daily
[2018-05-28 12:00] LABS: Hematocrit 34.3 % (39.0-51.0); Hemoglobin 11.3 gm/dL (13.0-17.0); Mean Corpuscular HGB Conc 32.8 % (32.0-36.0); Mean Corpuscular Hemoglobin 33.3 pg (27.0-34.0); Mean Corpuscular Volume 101.5 fL (80.0-100.0); Mean Platelet Volume 8.6 fL (7.0-11.0); Platelet Count 156 th/mm3 (150-450); Red Blood Count 3.38 mil/mm3 (4.50-5.90); Red Cell Distribution Width 13.8 % (11.6-17.2); White Blood Count 1.9 th/mm3 (4.0-11.0)
[2018-05-28] MEDS ORDERED: Vancomycin Inj 1,500 MG in Sodium Chlor 0.9% Inj 500 ML IV.SIG SCH (12:00)
[2018-05-28 12:17] LABS: Activated Partial Thrombo Time 60.2 sec (24.3-30.1); INR 3.6 Ratio; Prothrombin Time 36.7 sec (9.8-11.6)
[2018-05-28 12:18] LABS: Calcium 7.9 mg/dL (8.5-10.1); Carbon Dioxide 24.6 meq/L (21.0-32.0); Potassium 4.4 meq/L (3.5-5.1)
[2018-05-28 12:20] LABS: Vancomycin,Random 4.2 Comment
[2018-05-28 13:01] LABS: Bilirubin,Urine Negative (Negative); Clarity,Urine Hazy (Clear); Color,Urine Yellow (Yellw/Straw); Glucose,Urine (UA) Negative (Negative); Hyaline Casts,Urine 3 /lpf (0-3); Leukocyte Esterase,Urine Negative (Negative); Mucus,Urine Few /lpf (Occasional); Nitrite,Urine Negative (Negative); Specific Gravity,Urine 1.019 (1.002-1.035); Squamous Epithelial Cell,Urine <1 /hpf (0-5)
[2018-05-28 13:08] LABS: Eosinophils 5 % (0-4); Lymphocytes 49 % (9-44); Monocytes 37 % (0-8); Myelocytes 1 % (0-0)
[2018-05-28 13:11] LABS: Acanthocytes 1+; Platelet Estimate Normal (Normal)
[2018-05-28] MEDS: Vancomycin Inj 1,500 MG in Sodium Chlor 0.9% Inj 500 ML IV.SIG SCH (15:36)
--- NOTE | 2018-05-28 15:37 | ECG ---
Date Performed: 05/27/2018 Time Performed: 11:49:45 PTAGE: 72 years EKG: ATRIAL FIBRILLATION NONSPECIFIC T-WAVE ABNORMALITY ABNORMAL RHYTHM ECG Compared to PREVIOUS TRACING , ventricular response to the atrial fibrillation is faster, otherwise n o significant change. PREVIOUS TRACIN10/28/2015 12.25.19 DOCTOR: Prince Connolly Interpretating Date/Time 05/28/2018 15:36:31
[2018-05-29] MEDS: Acetaminophen 325 MG Tablet PO PRN (00:33)
[2018-05-29] MEDS: buPROPion 100 MG ER 12 HR Tablet PO SCH ×2 (09:02→21:59)
[2018-05-29] MEDS: Folic Acid 1 MG Tablet PO SCH (09:02)
[2018-05-29] MEDS: Metoprolol Tartrate 100 MG Tablet PO SCH ×2 (09:02→21:59)
[2018-05-29] MEDS: Senna/Docusate Sodium 8.6/50 MG Tablet PO SCH ×2 (09:02→21:59)
[2018-05-29] MEDS: Digoxin 125 MCG Tablet PO SCH (09:02)
[2018-05-29] MEDS: amLODIPine 10 MG Tablet PO SCH (09:03)
--- NOTE | 2018-05-29 12:22 | P.PN ---
Subjective Interval history: Follow-up right lower extremity cellulitis/neutropenic fever May 28, 2018-patient seen and examined, positive for fever, positive for shortness of breath May 29, 2018-patient seen and examined, T-max 100.6 at midnight. Some shortness of breath today. by the bedside and states yesterday patient had IV access infiltrated. Physical Exam Vital signs: Vital Signs 05/28/18 12:40 05/28/18 16:00 05/28/18 19:37 Temperature 98.2 F 98.5 F 100.4 F H Pulse Rate 83 88 88 Respiratory Rate 21 20 18 Blood Pressure 122/71 130/75 114/70 Pulse Oximetry 98 98 100 05/28/18 20:10 05/28/18 21:50 05/29/18 00:00 Temperature 100.6 F H Pulse Rate 91 H 80 Respiratory Rate 16 Blood Pressure 130/82 114/72 Pulse Oximetry 97 05/29/18 00:03 05/29/18 03:46 05/29/18 04:09 Temperature 98.1 F Pulse Rate 88 87 93 H Respiratory Rate 18 Blood Pressure 126/71 Pulse Oximetry 99 05/29/18 11:31 Temperature 98.9 F Pulse Rate 101 H Respiratory Rate 20 Blood Pressure 112/65 Pulse Oximetry 98 Intake & Output 05/28/18 05/29/18 05/29/18 18:59 06:59 18:59 Intake Total 2095 / 2095 1360 / 1360 Output Total 450 / 450 725 / 725 Balance 1645 / 1645 635 / 635 Weight 101.9 kg Intake: IV 1615 / 1615 1000 / 1000 LR 1000 mL Inj 1,000 ML @ 100 1000 / 1000 1000 / 1000 mls/hr IV.CONT .Q10H [facility] Rx#: [id number] Maxipime Inj 2,000 MG In NS Inj 100 / 100 100 ML @ 200 mls/hr IV.SIG Q12H [facility] Rx#:[id number] Vancomycin Inj 1,500 MG In NS 515 / 515 Inj 500 ML @ 257.5 mls/hr IV. SIG Q24H [facility] Rx#:[id number] Oral 480 / 480 360 / 360 Output: Urine 450 / 450 725 / 725 Other: Date of Last Bowel Movement 05/25/18 05/25/18 Narrative: GENERAL: NAD SKIN: Warm and dry. HEAD: Normocephalic. EYES: No scleral icterus. No injection or drainage. NECK: Supple, trachea midline. No JVD or lymphadenopathy. CARDIOVASCULAR: Regular rate and rhythm without murmurs, gallops, or rubs. RESPIRATORY: Breath sounds equal bilaterally. No accessory muscle use. GASTROINTESTINAL: Abdomen soft, non-tender, nondistended. MUSCULOSKELETAL: No cyanosis, or edema. RLE with spreading erythema BACK: Nontender without obvious deformity. No CVA tenderness. Results - Labs CBC & Chem 7: 05/28/18 11:45 05/28/18 11:45 Laboratory Results - last 24 hr 05/28/18 05/28/18 05/28/18 11:45 11:45 12:00 WBC Differential Manual diff final Seg Neuts % (Manual) 2 L Band Neuts % (Manual) 4 Lymphocytes % (Manual) 49 H Monocytes % (Manual) 37 H Eosinophils % (Manual) 5 H Basophils % (Manual) 2 Myelocytes % (Man) 1 H Abs Neuts (Manual) 0.1 L* Platelet Estimate Normal Platelet Morphology Enlarged H Acanthocytes (Spur) 1+ H Urine Color Yellow Urine Clarity Hazy H Urine pH 5.0 Ur Specific [place] 1.019 Urine Protein 100 H Urine Glucose (UA) Negative Urine Ketones Negative Urine Occult Blood Small H Urine Nitrate Negative Urine Bilirubin Negative Urine Urobilinogen Less than 2 Ur Leukocyte Esterase Negative Urine RBC 1 Urine WBC 1 Ur Squamous Epith Cells <1 Hyaline Casts 3 Urine Mucus Few H Micro UA Comment Culture not ind Ur Microscopic Review Not Reportable Urine Culture Comments Culture not ind Random Vancomycin 4.2 Microbiology 05/28/18 11:45 Blood - Peripheral Aerobic Blood Culture - Preliminary No growth in 1 day 05/28/18 11:45 Blood - Peripheral Anaerobic Blood Culture - Preliminary No growth in 1 day 05/28/18 11:40 Blood - Peripheral Aerobic Blood Culture - Preliminary No growth in 1 day 05/28/18 11:40 Blood - Peripheral Anaerobic Blood Culture - Preliminary No growth in 1 day 05/27/18 11:10 Blood - Peripheral Aerobic Blood Culture - Preliminary No growth in 2 days 05/27/18 11:10 Blood - Peripheral Anaerobic Blood Culture - Preliminary No growth in 2 days 05/27/18 11:15 Blood - Peripheral Aerobic Blood Culture - Preliminary No growth in 2 days 05/27/18 11:15 Blood - Peripheral Anaerobic Blood Culture - Preliminary No growth in 2 days Assessment and Plan - Plan 72-year-old man with Neutropenic fever Continue cefepime and vancomycin pending culture report Neutropenic precautions Appreciate input from oncology Consider ID consultation Right lower extremity cellulitis Currently on vancomycin and monitor cultures Consider ID consultation History of lung cancer with metastases Treatment with paclitaxel and carboplatin Appreciate input from oncology History of hypertension, gout and other chronic medical conditions Continue outpatient medications Plan for Vas-Cath placement Currently on Lovenox 100 mg twice daily
[2018-05-29] MEDS: Vancomycin Inj 1,500 MG in Sodium Chlor 0.9% Inj 500 ML IV.SIG SCH (13:28)
--- NOTE | 2018-05-29 14:18 | P.PNONC ---
Subjective Interval history: Resting in bed. Right leg with erythema. patient reports that he has recently been evaluated by the podiatry team. Objective Vital Signs/Intake & Output: Vital Signs 05/28/18 16:00 05/28/18 19:37 05/28/18 20:10 Temperature 98.5 F 100.4 F H Pulse Rate 88 88 91 H Respiratory Rate 20 18 Blood Pressure 130/75 114/70 Pulse Oximetry 98 100 05/28/18 21:50 05/29/18 00:00 05/29/18 00:03 Temperature 100.6 F H Pulse Rate 80 88 Respiratory Rate 16 Blood Pressure 130/82 114/72 Pulse Oximetry 97 05/29/18 03:46 05/29/18 04:09 05/29/18 11:31 Temperature 98.1 F 98.9 F Pulse Rate 87 93 H 101 H Respiratory Rate 18 20 Blood Pressure 126/71 112/65 Pulse Oximetry 99 98 05/29/18 14:12 Temperature Pulse Rate 104 H Respiratory Rate 32 H Blood Pressure Pulse Oximetry 98 Intake & Output 05/28/18 05/29/18 05/29/18 18:59 06:59 18:59 Intake Total 2095 / 2095 1460 / 1460 Output Total 450 / 450 725 / 725 Balance 1645 / 1645 735 / 735 Weight 101.9 kg Intake: IV 1615 / 1615 1100 / 1100 LR 1000 mL Inj 1,000 ML @ 100 1000 / 1000 1000 / 1000 mls/hr IV.CONT .Q10H [facility] Rx#: [id number] Maxipime Inj 2,000 MG In NS Inj 100 / 100 100 / 100 100 ML @ 200 mls/hr IV.SIG Q12H [facility] Rx#:[id number] Vancomycin Inj 1,500 MG In NS 515 / 515 Inj 500 ML @ 257.5 mls/hr IV. SIG Q24H [facility] Rx#:[id number] Oral 480 / 480 360 / 360 Output: Urine 450 / 450 725 / 725 Other: Date of Last Bowel Movement 05/25/18 05/25/18 Result Diagrams: 05/28/18 11:45 05/28/18 11:45 Culture Results: Microbiology 05/28/18 11:45 Aerobic Blood Culture - Preliminary Blood - Peripheral No growth in 1 day Anaerobic Blood Culture - Preliminary No growth in 1 day 05/28/18 11:40 Aerobic Blood Culture - Preliminary Blood - Peripheral No growth in 1 day Anaerobic Blood Culture - Preliminary No growth in 1 day 05/27/18 11:10 Aerobic Blood Culture - Preliminary Blood - Peripheral No growth in 2 days Anaerobic Blood Culture - Preliminary No growth in 2 days 05/27/18 11:15 Aerobic Blood Culture - Preliminary Blood - Peripheral No growth in 2 days Anaerobic Blood Culture - Preliminary No growth in 2 days Medications: Active Medications Generic Name Dose Route Start Last Admin Trade Name Roxann PRN Reason Stop Dose Admin Acetaminophen 650 mg 05/27/18 12:46 05/29/18 00:33 Tylenol PO 650 mg Q4H PRN Administration Temp > 100.4 Amlodipine Besylate 10 mg 05/28/18 09:00 05/29/18 09:03 Norvasc PO 10 mg DAILY [facility] Administration Atorvastatin Calcium 80 mg 05/28/18 09:00 05/29/18 09:02 Lipitor PO 80 mg DAILY [facility] Administration Bupropion HCl 100 mg 05/27/18 21:00 05/29/18 09:02 Wellbutrin Sr PO 100 mg BID [facility] Administration Colchicine 0.6 mg 05/28/18 09:00 05/29/18 09:02 Colcrys PO 0.6 mg DAILY [facility] Administration Digoxin 125 mcg 05/28/18 09:00 05/29/18 09:02 Lanoxin PO 125 mcg DAILY [facility] Administration Enoxaparin Sodium 100 mg 05/27/18 21:00 05/28/18 08:27 Lovenox Inj SQ 100 mg Q12HR [facility] Administration Folic Acid 1 mg 05/28/18 09:00 05/29/18 09:02 Folic Acid PO 1 mg DAILY [facility] Administration Lactated Ringer's 1,000 mls @ 100 mls/hr 05/27/18 13:00 05/29/18 06:29 Lr 1000 Ml Inj IV.CONT 100 mls/hr .Q10H [facility] Administration Cefepime HCl 2,000 mg/ Sodium 100 mls @ 200 mls/hr 05/27/18 13:00 05/29/18 13 :30 Chloride IV.SIG 200 mls/hr Q12H [facility] Administration Vancomycin HCl 1,500 mg/ 515 mls @ 257.5 mls/hr 05/28/18 14:00 05/29/18 13:28 Sodium Chloride IV.SIG 257.5 mls/hr Q24H [facility] Administration Metoclopramide HCl 5 mg 05/27/18 12:46 05/29/18 14:11 Reglan Inj IV.PUSH 5 mg Q6HR PRN Administration NAUSEA OR VOMITING Protocol Metoprolol Tartrate 100 mg 05/27/18 21:00 05/29/18 09:02 Lopressor PO 100 mg BID [facility] Administration Senna/Docusate Sodium 1 tab 05/27/18 21:00 05/29/18 09:02 Salma-Colace PO 1 tab BID [facility] Administration Objective Remarks: GENERAL: Well-nourished, well-developed patient. SKIN: Warm and dry. HEAD: Normocephalic. EYES: No scleral icterus. No injection or drainage. NECK: Supple, trachea midline. No JVD or lymphadenopathy. LYMPHATIC: No adenopathy. CARDIOVASCULAR: Regular rate and rhythm without murmurs. RESPIRATORY: Breath sounds equal bilaterally. No accessory muscle use. GASTROINTESTINAL: Abdomen soft, non-tender, nondistended. EXTREMITIES: No cyanosis, or edema. MUSCULOSKELETAL: Adequate muscle tone. NEUROLOGICAL: No obvious focal deficit. Awake, alert, and oriented x3. PSYCHIATRIC: Appropriate mood and affect; insight and judgment normal. Assessment/Plan - Plan 72-year-old male with history of metastatic non-small cell lung cancer who gets his care through the [facility]. He was given his third cycle of palliative chemotherapy with carboplatin and Taxol on 05/18/18. Initially the patient had severe diarrhea after the chemotherapy which has been resolved. He was admitted with pain and swelling of the right lower extremity as he has a chronic venous insufficiency with skin breakdown. 1. Metastatic lung adenocarcnioma: s/p intitaition of chemotherapy with carboplatin and paclitaxel at the [facility] on 05/18/2018. 2. Heme: cytopenias due to chemotherapy. Conitnue G-CSF. 3. ID: infection, likely with nidus of infection likely cellulitis. Will consult ID team. Podiatry team has been to see patient.
--- NOTE | 2018-05-29 15:08 | XR ---
EXAM DATE: 05/29/2018 3:05 PM EDT AGE/SEX: 72 years / Male INDICATIONS: Inflammation. CLINICAL DATA: This is the patient's subsequent encounter. Patient reports that signs and symptoms h ave been present for 3 days and indicates a pain score of 7/10. MEDICAL/SURGICAL HISTORY: Non-responsive. Cysts Non-responsive. COMPARISON: No prior exams available for comparison. FINDINGS: There is lucency involving the second distal metatarsal bone nonspecific, however osteomyel itis at this site is not excluded. There is amputation of the first distal phalanx and second digit a t the level of the metatarsophalangeal joint. Extensive arthritis is seen within the first metatarsop halangeal joint. CONCLUSION: Possible erosive changes and lucency of the distal second metatarsal bone nonspecific, however osteom yelitis at this site is not excluded. Electronically signed by: Zohra Palomares MD 05/29/2018 3:07 PM EDT
[2018-05-29] MEDS ORDERED: MethylPREDNISolone Sod Suc Inj 250 MG in Sodium Chlor 0.9% Inj 100 ML IV.SIG ONE (16:00)
[2018-05-29 16:39] LABS: Baso % (Auto) 0.3 % (0.0-2.0); Eos % (Auto) 0.2 % (0.0-4.0); Hematocrit 32.2 % (39.0-51.0); Lymph # (Auto) 0.4 th/mm3 (1.0-4.8); Lymph % (Auto) 4.6 % (9.0-44.0); Mean Corpuscular HGB Conc 34.1 % (32.0-36.0); Mean Corpuscular Hemoglobin 34.2 pg (27.0-34.0); Mean Corpuscular Volume 100.2 fL (80.0-100.0); Mono # (Auto) 0.8 th/mm3 (0.0-0.9); Mono % (Auto) 9.3 % (0.0-8.0); Neut # (Auto) 7.8 th/mm3 (1.8-7.7); Neut % (Auto) 85.6 % (16.0-70.0); Platelet Count 165 th/mm3 (150-450); Red Blood Count 3.22 mil/mm3 (4.50-5.90); White Blood Count 9.1 th/mm3 (4.0-11.0)
[2018-05-29 16:44] LABS: Calcium 7.9 mg/dL (8.5-10.1); Carbon Dioxide 20.8 meq/L (21.0-32.0); Potassium 4.4 meq/L (3.5-5.1)
--- NOTE | 2018-05-29 17:10 | XR ---
EXAM DATE: 05/29/2018 5:07 PM EDT AGE/SEX: 72 years / Male INDICATIONS: Chest congestion CLINICAL DATA: This is the patient's subsequent encounter. Patient reports that signs and symptoms h ave been present for 1 week and indicates a pain score of 0/10. MEDICAL/SURGICAL HISTORY: . Hypertension. AFIB. Metastatic adenocarcinoma. Arteriosclerotic hea rt disease. . Right lobectomy. Splenectomy. COMPARISON: [facility] [place], CHEST 1V SINGLE AP, 05/27/2018. . FINDINGS: The left hemidiaphragm is elevated and there is mild atelectasis left lung base. There is no appreciable pleural effusion for technique. Heart and mediastinum are unremarkable. CONCLUSION: Minimal left lung base atelectasis. Electronically signed by: Zohra Palomares MD 05/29/2018 5:09 PM EDT
[2018-05-29 17:35] LABS: Lymphocytes 13 % (9-44); Metamyelocytes 4 % (0-1); Monocytes 2 % (0-8); Myelocytes 1 % (0-0); Tallied Nucleated RBC 1 (0-0)
[2018-05-29 17:37] LABS: Acanthocytes Occ; Burr Cells 1+; Platelet Estimate Normal (Normal)
[2018-05-29 17:40] LABS: Toxic Granulation 1+
--- NOTE | 2018-05-29 18:03 | MB ---
cc: Rahel Henry DPM DATE: 05/29/2018 CHIEF COMPLAINT: Right foot pain. HISTORY OF PRESENT ILLNESS: The patient is a 72-year-old male with a history of non-small cell cancer with metastasis. He had established care and on palliative chemo on 05/18/2018. He is accompanied by his when seen at [place] today. PAST MEDICAL HISTORY: Atrial fibrillation, hypertension, right lower carcinoma, metastatic non-small carcinoma, adenocarcinoma. PAST SURGICAL HISTORY: Right second digit amputation, partial amputation of right hallux, right foot debridement, colonoscopy, right lower lobe wedge resection. ALLERGIES: PENICILLIN. FAMILY HISTORY: Noncontributory. SOCIAL HISTORY: , retired. Quit smoking 15 years ago, [id number] history. Former drinker. Denies illicit drugs. MEDICATIONS: 1. Albuterol. 2. Amlodipine. 3. Atorvastatin. 4. Bupropion. 5. Colchicine. 6. Digoxin. 7. Folic acid. 8. Metoprolol. 9. Ondansetron p.r.n. 10. Warfarin. PHYSICAL EXAMINATION: Lower extremities with increase in warmth, redness, swelling. Partial amputation of the right hallux. Second digit amputation noted. There is a keratoma at the plantar sub second metatarsal. Palpable pulses for the DP and PT. LABORATORY DATA: Pancytopenia, WBC of 1.0, hemoglobin 11.8, platelets 131. ASSESSMENT: 1. Right foot cellulitis. 2. Edema. PLAN: The patient will have a right foot x-ray as well as a right foot MRI without contrast. We will look to evaluate for abscess as well as osteomyelitis. We will continue to follow the patient while he is in house. Rahel Henry DPM SR/shirin , 05:22 PM , 05:30 PM
[2018-05-30] MEDS: Folic Acid 1 MG Tablet PO SCH (09:09)
[2018-05-30] MEDS: Senna/Docusate Sodium 8.6/50 MG Tablet PO SCH ×2 (09:09→23:25)
[2018-05-30] MEDS: amLODIPine 10 MG Tablet PO SCH (09:09)
[2018-05-30] MEDS: buPROPion 100 MG ER 12 HR Tablet PO SCH ×2 (09:09→23:25)
[2018-05-30] MEDS: Digoxin 125 MCG Tablet PO SCH (09:10)
[2018-05-30] MEDS: Metoprolol Tartrate 100 MG Tablet PO SCH ×2 (09:10→23:26)
--- NOTE | 2018-05-30 09:35 | P.PNONC ---
Subjective Interval history: T-max 100.2F. Patient reports that he is feeling much better today versus yesterday. He feels that the redness in his foot has decreased and is not very painful. The patients girlfriend is at the bedside, they are requesting to fill out POA paperwork. Objective Vital Signs/Intake & Output: Vital Signs 05/29/18 11:31 05/29/18 14:12 05/29/18 14:32 Temperature 98.9 F Pulse Rate 101 H 104 H 102 H Respiratory Rate 20 32 H 26 H Blood Pressure 112/65 Pulse Oximetry 98 98 05/29/18 16:00 05/29/18 19:53 05/29/18 20:00 Temperature 98.5 F 99.2 F Pulse Rate 114 H 108 H 101 H Respiratory Rate 26 H 22 22 Blood Pressure 100/60 106/54 L Pulse Oximetry 100 99 05/29/18 20:10 05/29/18 21:58 05/30/18 00:10 Temperature Pulse Rate 95 H 85 Respiratory Rate Blood Pressure 119/55 L Pulse Oximetry 05/30/18 00:55 05/30/18 03:33 05/30/18 04:55 Temperature 100.2 F H 98.2 F Pulse Rate 88 87 88 Respiratory Rate 16 24 Blood Pressure 107/53 L 117/73 Pulse Oximetry 97 99 05/30/18 05:19 05/30/18 07:54 05/30/18 08:00 Temperature 97.8 F Pulse Rate 87 92 H 116 H Respiratory Rate 23 18 20 Blood Pressure 112/66 Pulse Oximetry 97 Intake & Output 05/29/18 05/30/18 05/30/18 18:59 06:59 18:59 Intake Total 2155 / 2155 464 / 464 Output Total 150 / 150 Balance 2155 / 2155 314 / 314 Weight 101.8 kg Intake: IV 1315 / 1315 104 / 104 LR 1000 mL Inj 1,000 ML @ 100 700 / 700 mls/hr IV.CONT .Q10H [facility] Rx#: [id number] Maxipime Inj 2,000 MG In NS Inj 100 / 100 100 ML @ 200 mls/hr IV.SIG Q12H [facility] Rx#:[id number] SoluMEDROL Inj 250 MG In NS Inj 104 / 104 100 ML @ 200 mls/hr IV.SIG ONCE ONE Rx#:[id number] Vancomycin Inj 1,500 MG In NS 515 / 515 Inj 500 ML @ 257.5 mls/hr IV. SIG Q24H [facility] Rx#:[id number] Oral 840 / 840 360 / 360 Output: Urine 150 / 150 Other: # Voids 6 1 Date of Last Bowel Movement 05/29/18 05/29/18 # Bowel Movements 1 1 Result Diagrams: 05/29/18 15:55 05/29/18 15:55 Laboratory Results: Laboratory Results - last 24 hr 05/29/18 05/29/18 05/29/18 15:55 15:55 15:55 WBC 9.1 RBC 3.22 L Hgb 11.0 L Hct 32.2 L MCV 100.2 H MCH 34.2 H MCHC 34.1 RDW 14.0 Plt Count 165 MPV 9.0 Prelim Diff (Auto) Slide review pending Neut % (Auto) 85.6 H Lymph % (Auto) 4.6 L [place] % (Auto) 9.3 H Eos % (Auto) 0.2 Baso % (Auto) 0.3 Neut # (Auto) 7.8 H Lymph # (Auto) 0.4 L [place] # (Auto) 0.8 Eos # (Auto) 0.0 Baso # (Auto) 0.0 WBC Differential Manual diff final Seg Neuts % (Manual) 43 Band Neuts % (Manual) 36 H Lymphocytes % (Manual) 13 Monocytes % (Manual) 2 Basophils % (Manual) 1 Metamyelocytes % (Man) 4 H Myelocytes % (Man) 1 H Abs Neuts (Manual) 7.6 Nucleated RBCs/100 WBC 1 H Differential Comment . Toxic Granulation 1+ H Platelet Estimate Normal Platelet Morphology Enlarged H [place] Cells 1+ H Acanthocytes (Spur) Occ H Sodium 137 Potassium 4.4 Chloride 108 H Carbon Dioxide 20.8 L Anion Gap 8 BUN 35 H Creatinine 1.79 H Estimated GFR 37 L Random Glucose 92 Calcium 7.9 L B-Natriuretic Peptide 377 H Culture Results: Microbiology 05/28/18 11:45 Aerobic Blood Culture - Preliminary Blood - Peripheral No growth in 1 day Anaerobic Blood Culture - Preliminary No growth in 1 day 05/28/18 11:40 Aerobic Blood Culture - Preliminary Blood - Peripheral No growth in 1 day Anaerobic Blood Culture - Preliminary No growth in 1 day 05/27/18 11:10 Aerobic Blood Culture - Preliminary Blood - Peripheral No growth in 2 days Anaerobic Blood Culture - Preliminary No growth in 2 days 05/27/18 11:15 Aerobic Blood Culture - Preliminary Blood - Peripheral No growth in 2 days Anaerobic Blood Culture - Preliminary No growth in 2 days Imaging Studies: Impressions Chest X-Ray 05/29/18 00:00 CONCLUSION: Minimal left lung base atelectasis. Foot X-Ray 05/29/18 00:00 CONCLUSION: Possible erosive changes and lucency of the distal second metatarsal bone nonspecific, however osteomyelitis at this site is not excluded. Medications: Active Medications Generic Name Dose Route Start Last Admin Trade Name Freq PRN Reason Stop Dose Admin Acetaminophen 650 mg 05/27/18 12:46 05/29/18 00:33 Tylenol PO 650 mg Q4H PRN Administration Temp > 100.4 Albuterol 1 ampul 05/29/18 15:04 05/30/18 05:18 Duoneb Neb (Prn) NEB 1 ampul Q2HR NEB PRN Administration SHORTNESS OF BREATH Albuterol 1 ampul 05/29/18 20:00 05/30/18 07:50 Duoneb Neb (Mary) NEB 1 ampul Q6HR WHILE AWAKE NEB MARY Administration Amlodipine Besylate 10 mg 05/28/18 09:00 05/30/18 09:09 Norvasc PO 10 mg DAILY MARY Administration Atorvastatin Calcium 80 mg 05/28/18 09:00 05/30/18 09:09 Lipitor PO 80 mg DAILY MARY Administration Bupropion HCl 100 mg 05/27/18 21:00 05/30/18 09:09 Wellbutrin Sr PO 100 mg BID MARY Administration Colchicine 0.6 mg 05/28/18 09:00 05/30/18 09:09 Colcrys PO 0.6 mg DAILY MARY Administration Digoxin 125 mcg 05/28/18 09:00 05/30/18 09:10 Lanoxin PO 125 mcg DAILY MARY Administration Enoxaparin Sodium 100 mg 05/27/18 21:00 05/28/18 08:27 Lovenox Inj SQ 100 mg Q12HR MARY Administration Folic Acid 1 mg 05/28/18 09:00 05/30/18 09:09 Folic Acid PO 1 mg DAILY MARY Administration Cefepime HCl 2,000 mg/ Sodium 100 mls @ 200 mls/hr 05/27/18 13:00 05/30/18 01 :00 Chloride IV.SIG 200 mls/hr Q12H [facility]ARY Administration Vancomycin HCl 1,500 mg/ 515 mls @ 257.5 mls/hr 05/28/18 14:00 05/29/18 16:47 Sodium Chloride IV.SIG Infused Q24H [facility] Infusion Metoclopramide HCl 5 mg 05/27/18 12:46 05/29/18 14:11 Reglan Inj IV.PUSH 5 mg Q6HR PRN Administration NAUSEA OR VOMITING Protocol Metoprolol Tartrate 100 mg 05/27/18 21:00 05/30/18 09:10 Lopressor PO 100 mg BID MARY Administration Senna/Docusate Sodium 1 tab 05/27/18 21:00 05/30/18 09:09 Salma-Colace PO 1 tab BID MARY Administration Objective Remarks: GENERAL: Well-nourished, well-developed male patient, sitting in bed, in no acute distress. SKIN: Warm and dry. Erythema to RLE. Oozing of clear fluid right AC. HEAD: Normocephalic. EYES: No scleral icterus. No injection or drainage. NECK: Supple, trachea midline. CARDIOVASCULAR: Regular rate and rhythm without murmurs. RESPIRATORY: Posterior breath sounds clear, equal bilaterally. No accessory muscle use. GASTROINTESTINAL: Abdomen soft, non-tender, nondistended. EXTREMITIES: No cyanosis, or edema. MUSCULOSKELETAL: Adequate muscle tone. NEUROLOGICAL: No obvious focal deficit. Awake, alert, and oriented x3. PSYCHIATRIC: Appropriate mood and affect; insight and judgment normal. Assessment/Plan - Plan 72-year-old male with history of metastatic non-small cell lung cancer who gets his care through the [facility]. He was given his third cycle of palliative chemotherapy with carboplatin and Taxol on 05/18/18. Initially the patient had severe diarrhea after the chemotherapy which has been resolved. He was admitted with pain and swelling of the right lower extremity as he has a chronic venous insufficiency with skin breakdown. 1. Metastatic lung adenocarcnioma: s/p intitaition of chemotherapy with carboplatin and paclitaxel at the [facility] on 05/18/2018. 2. Cytopenias due to chemotherapy, improved with G-CSF support. 3. RLE cellulitis. ID and podiatry have been consulted. MRI right foot pending. Antibiotics per ID. 4. Consult palliative care for assistance with POA, healthcare surrogate, etc. - Attending Statement The exam, history, and the medical decision-making described in the above note were completed with the assistance of the mid-level provider. I reviewed and agree with the findings presented. I attest that I had a [id number] encounter with the patient on the same day, and personally performed and documented my assessment and findings in the medical record. 72 yoM with metastatic lung adenocarcinoma admitted s/p first cycle of chemotherapy on 05/18/2018 at the [facility] (carboplatin and paclitaxel) admitted with infection-nidus is right toe likely osteo. Podiatry plans to take to OR tomorrow. ID team following.
--- NOTE | 2018-05-30 10:04 | P.PN ---
Subjective Interval history: Follow-up right lower extremity cellulitis/neutropenic fever May 28, 2018-patient seen and examined, positive for fever, positive for shortness of breath May 29, 2018-patient seen and examined, T-max 100.6 at midnight. Some shortness of breath today. by the bedside and states yesterday patient had IV access infiltrated. May 30, 2018-patient seen and examined, T-max 100.2 at midnight, patient reported improvement of shortness of breath. Denies any right lower extremity pain and states the erythema has improved. Foot MRI pending to rule out osteomyelitis. Physical Exam Vital signs: Vital Signs 05/29/18 11:31 05/29/18 14:12 05/29/18 14:32 Temperature 98.9 F Pulse Rate 101 H 104 H 102 H Respiratory Rate 20 32 H 26 H Blood Pressure 112/65 Pulse Oximetry 98 98 05/29/18 16:00 05/29/18 19:53 05/29/18 20:00 Temperature 98.5 F 99.2 F Pulse Rate 114 H 108 H 101 H Respiratory Rate 26 H 22 22 Blood Pressure 100/60 106/54 L Pulse Oximetry 100 99 05/29/18 20:10 05/29/18 21:58 05/30/18 00:10 Temperature Pulse Rate 95 H 85 Respiratory Rate Blood Pressure 119/55 L Pulse Oximetry 05/30/18 00:55 05/30/18 03:33 05/30/18 04:55 Temperature 100.2 F H 98.2 F Pulse Rate 88 87 88 Respiratory Rate 16 24 Blood Pressure 107/53 L 117/73 Pulse Oximetry 97 99 05/30/18 05:19 05/30/18 07:54 05/30/18 08:00 Temperature 97.8 F Pulse Rate 87 92 H 116 H Respiratory Rate 23 18 20 Blood Pressure 112/66 Pulse Oximetry 97 Intake & Output 05/29/18 05/30/18 05/30/18 18:59 06:59 18:59 Intake Total 2155 / 2155 464 / 464 Output Total 150 / 150 Balance 2155 / 2155 314 / 314 Weight 101.8 kg Intake: IV 1315 / 1315 104 / 104 LR 1000 mL Inj 1,000 ML @ 100 700 / 700 mls/hr IV.CONT .Q10H [facility] Rx#: [id number] Maxipime Inj 2,000 MG In NS Inj 100 / 100 100 ML @ 200 mls/hr IV.SIG Q12H [facility] Rx#:[id number] SoluMEDROL Inj 250 MG In NS Inj 104 / 104 100 ML @ 200 mls/hr IV.SIG ONCE ONE Rx#:[id number] Vancomycin Inj 1,500 MG In NS 515 / 515 Inj 500 ML @ 257.5 mls/hr IV. SIG Q24H [facility] Rx#:[id number] Oral 840 / 840 360 / 360 Output: Urine 150 / 150 Other: # Voids 6 1 Date of Last Bowel Movement 05/29/18 05/29/18 # Bowel Movements 1 1 Narrative: GENERAL: NAD SKIN: Warm and dry. HEAD: Normocephalic. EYES: No scleral icterus. No injection or drainage. NECK: Supple, trachea midline. No JVD or lymphadenopathy. CARDIOVASCULAR: Regular rate and rhythm without murmurs, gallops, or rubs. RESPIRATORY: Breath sounds equal bilaterally. No accessory muscle use. GASTROINTESTINAL: Abdomen soft, non-tender, nondistended. MUSCULOSKELETAL: No cyanosis, or edema. RLE with improving erythema BACK: Nontender without obvious deformity. No CVA tenderness. Results - Labs CBC & Chem 7: 05/29/18 15:55 05/29/18 15:55 Laboratory Results - last 24 hr 05/29/18 05/29/18 05/29/18 15:55 15:55 15:55 WBC 9.1 RBC 3.22 L Hgb 11.0 L Hct 32.2 L MCV 100.2 H MCH 34.2 H MCHC 34.1 RDW 14.0 Plt Count 165 MPV 9.0 Prelim Diff (Auto) Slide review pending Neut % (Auto) 85.6 H Lymph % (Auto) 4.6 L [place] % (Auto) 9.3 H Eos % (Auto) 0.2 Baso % (Auto) 0.3 Neut # (Auto) 7.8 H Lymph # (Auto) 0.4 L [place] # (Auto) 0.8 Eos # (Auto) 0.0 Baso # (Auto) 0.0 WBC Differential Manual diff final Seg Neuts % (Manual) 43 Band Neuts % (Manual) 36 H Lymphocytes % (Manual) 13 Monocytes % (Manual) 2 Basophils % (Manual) 1 Metamyelocytes % (Man) 4 H Myelocytes % (Man) 1 H Abs Neuts (Manual) 7.6 Nucleated RBCs/100 WBC 1 H Differential Comment . Toxic Granulation 1+ H Platelet Estimate Normal Platelet Morphology Enlarged H [place] Cells 1+ H Acanthocytes (Spur) Occ H Sodium 137 Potassium 4.4 Chloride 108 H Carbon Dioxide 20.8 L Anion Gap 8 BUN 35 H Creatinine 1.79 H Estimated GFR 37 L Random Glucose 92 Calcium 7.9 L B-Natriuretic Peptide 377 H Microbiology 05/28/18 11:45 Blood - Peripheral Aerobic Blood Culture - Preliminary No growth in 1 day 05/28/18 11:45 Blood - Peripheral Anaerobic Blood Culture - Preliminary No growth in 1 day 05/28/18 11:40 Blood - Peripheral Aerobic Blood Culture - Preliminary No growth in 1 day 05/28/18 11:40 Blood - Peripheral Anaerobic Blood Culture - Preliminary No growth in 1 day 05/27/18 11:10 Blood - Peripheral Aerobic Blood Culture - Preliminary No growth in 2 days 05/27/18 11:10 Blood - Peripheral Anaerobic Blood Culture - Preliminary No growth in 2 days 05/27/18 11:15 Blood - Peripheral Aerobic Blood Culture - Preliminary No growth in 2 days 05/27/18 11:15 Blood - Peripheral Anaerobic Blood Culture - Preliminary No growth in 2 days - Imaging Impressions Chest X-Ray 05/29/18 00:00 CONCLUSION: Minimal left lung base atelectasis. Foot X-Ray 05/29/18 00:00 CONCLUSION: Possible erosive changes and lucency of the distal second metatarsal bone nonspecific, however osteomyelitis at this site is not excluded. Assessment and Plan - Plan 72-year-old man with Neutropenic fever Continue cefepime and vancomycin pending culture report Neutropenic precautions Appreciate input from oncology Consider ID consultation Right lower extremity cellulitis Currently on vancomycin and monitor cultures Foot x-ray with finding of possible erosive changes and lucency of the distal second metatarsal bone nonspecific, however osteomyelitis at this site is not excluded Foot MRI pending to rule out osteomyelitis Appreciate input from podiatry History of lung cancer with metastases Treatment with paclitaxel and carboplatin Appreciate input from oncology History of hypertension, gout and other chronic medical conditions Continue outpatient medications Plan for Vas-Cath placement when medically stable Currently on Lovenox 100 mg twice daily
[2018-05-30] MEDS ORDERED: Gadobutrol PF 10 MMOL/10 ML Vial (for RAD) IV.SIG ONE (11:52)
--- NOTE | 2018-05-30 12:18 | MR ---
EXAM DATE: 05/30/2018 12:05 PM EDT AGE/SEX: 72 years / Male INDICATIONS: . Right distal foot redness after 1 week of chemo. CLINICAL DATA: This is the patient's subsequent encounter. Patient reports that signs and symptoms h ave been present for 4 - 6 days and indicates a pain score of 2/10. MEDICAL/SURGICAL HISTORY: Carcinoma, lung. Hypertension. Hypercholesterolemia. . Right total knee replacement, AAA, Rt 1 st toe removed COMPARISON: [facility], FOOT COMPLETE RIGHT 3V, 05/29/2018. . TECHNIQUE: Multiplanar, multisequence MRI examination was performed without contrast and after th e intravenous administration of 10 ml Gadavist (gadobutrol) single exam dose. FINDINGS: Bones: There is normal signal intensity in the bony structures of the hindfoot and midfoot. There is evidence of a previous amputation of the second toe. However, there is abnormal soft tissue and fluid involving the distal portion of the second metatarsal with abnormal signal within the bone marrow in volving the distal half to one third portion of the second metatarsal highly suspicious for osteomyel itis. There is degenerative arthritis involving the first metatarsal-phalangeal joint with hallux teri hanna angulation. The rest of the metatarsals demonstrate normal signal intensity. Soft Tissues: There is abnormal soft tissue adjacent to the distal portion of the second metatarsal a long with some adjacent fluid in this location. There is nonspecific edema in the subcutaneous soft t issues involving the dorsum of the distal foot. Other: The plantar fascia is intact. No signal abnormalities are seen in the plantar musculature. CONCLUSION: 1. There is abnormal soft tissue and fluid adjacent to the distal portion of the second metatarsal. There is abnormal bone marrow edema in the distal half to one third portion of the second metatarsal highly suspicious for osteomyelitis. 2. Degenerative arthritis involving the first metatarsal-phalangeal joint with hallux valgus angulat ion. 3. Status post previous amputation of the second toe. Electronically signed by: Terence Kilgore MD 05/30/2018 12:16 PM EDT
[2018-05-30] MEDS: Vancomycin Inj 1,500 MG in Sodium Chlor 0.9% Inj 500 ML IV.SIG SCH (13:45)
--- NOTE | 2018-05-30 14:56 | P.PNPAL ---
Palliative care consulted to assist with completion of written advance directives. Introduced Palliative Care service within the hospital. Met with Mr. Henry and significant other Sulma at bedside. Sulma states they wish to complete Power of Dredging Inspector. Explained the hospital cannot assist with any financial directives but would be happy to assist with completion of Health Care Surrogate and/or Living Will. Mr. Henry confirms desire to complete Health Care Surrogate. States he has a Living Will with the CT. Requested a copy be brought in. Mr. Henry also has a copy of [facility] at bedside, states he is thinking about completing this to update his Living Will. Health Care Surrogate completed. Mr. Henry elects Sulma Bethea/ significant other ([phone]) OR Medardo Johnsontalethea/sister (C: [phone]; H: [phone]). No other questions/concerns at this time. Desires to just complete paperwork today. Palliative care will continue to follow throughout hospitalization.
[2018-05-30] MEDS ORDERED: fentaNYL Citrate Inj 100 MCG/2 ML Ampul ONE (16:06)
[2018-05-30] MEDS ORDERED: Lidocaine 1%/Epinephrine 1:100,000 Inj 20 ML Vial ONE (16:27)
[2018-05-30] MEDS ORDERED: *Heparin Central Flush 100 UNIT/ML 5 ML Vial PERIprocedural ONLY IV.FLUSH ONE (16:27)
--- NOTE | 2018-05-30 16:46 | P.RAD ---
Post Procedure Progress Note - Procedure Information Procedure Date: 05/30/18 Supervising Radiologist: Luis Thomson MD Estimated blood loss (mL): 5 Anesthesia: Conscious Sedation - Plan of Activity Patient to Unit: [facility] Patient Condition: Good See PACS Report for procedural detail/treatment.
--- NOTE | 2018-05-30 18:42 | P.CONID ---
History of Present Illness Service: ID Consult date: 05/30/18 Requesting Physician: Aracelis Knight Reason for Consult: R foot osteo Primary Care Provider: Odette Rodas History of Present Illness: 72 yo male with PVD remote 2 nd R toe amputation (in 2000) sp b/l LE bypassess in 2000 and 2001 along with multiple other medical problems including Rt lung cancer 1st diagnosed on 2013 presented with neutropenia and diarrhea. C.diff negative Yday he recovered his counts He also has persistent swelling and redness of R foot entendint to lower leg THat started nearly 1 yr ago after he stepped on a glass in the pool He now has worsrning dry white patch over 2 nd R toe amputaiton site The foot is swollen, red MRI suspcicious for osteo no fever Styarted on vanco, cefepime and pt reports improvement in redness of RLE Review of Systems All other systems reviewed negative except as stated in HPI PMFSH - History History Provided By: Patient, Family Member - Medical History Medical History: Medical History (Last Reviewed 05/30/18 @ 18:41 by Patricia Angel MD) Aneurysm Bone metastases Gout Hernia High cholesterol History of complete ray amputation of second toe of right foot Hypertension Left cavernous carotid aneurysm Lung cancer Renal artery bypass graft pseudoaneurysm Stroke Thoracoabdominal aortic aneurysm (TAAA) - Surgical History Surgical History: Surgical History (Last Reviewed 05/30/18 @ 18:41 by Patricia Angel MD) H/O pneumonectomy H/O splenectomy History of total right knee replacement S/P AAA (abdominal aortic aneurysm) repair - Family History Family History: Family History (Last Reviewed 05/30/18 @ 18:41 by Patricia Angel MD) Sister Aneurysm Father Heart attack Stroke - Tobacco History Second Hand Smoke Exposure: No Tobacco Use In Past 30 Days: No Smoking Status: Former smoker (smoked for 20 years, quit 15 years ago) Packs Per Day: 2 Years Smoked: 20 - Alcohol History How Often Do You Have a Drink Containing Alcohol: Never - Substance Use History Substance History: No History of Abuse - Travel History History of Recent Travel: No Recent Travel in the [place] Within the Last 8 Weeks: No Recent Travel Out of the Country Within the Last 8 Weeks: No - Immunization History Tetanus Immunization: Unsure Hx Influenza Vaccine This Season: Yes Medications and Allergies Active Medications: Active Medications Acetaminophen (Tylenol) 650 mg PO Q4H PRN PRN Reason: Temp > 100.4 Last Admin: 05/29/18 00:33 Dose: 650 mg Al Hydroxide/Mg Hydroxide (Milk Of Magnesia Liq) 30 ml PO Q12H PRN PRN Reason: Mild Constipation Albuterol (Duoneb Neb (Prn)) 1 ampul NEB Q2HR NEB PRN PRN Reason: SHORTNESS OF BREATH Last Admin: 05/30/18 05:18 Dose: 1 ampul Albuterol (Duoneb Neb (Mary)) 1 ampul NEB Q6HR WHILE AWAKE NEB [facility] Last Admin: 05/30/18 13:53 Dose: 1 ampul Amlodipine Besylate (Norvasc) 10 mg PO DAILY [facility] Last Admin: 05/30/18 09:09 Dose: 10 mg Atorvastatin Calcium (Lipitor) 80 mg PO DAILY [facility] Last Admin: 05/30/18 09:09 Dose: 80 mg Bisacodyl (Dulcolax Supp) 10 mg RECTAL DAILY PRN PRN Reason: SEVERE CONSITIPATION Bupropion HCl (Wellbutrin Sr) 100 mg PO BID [facility] Last Admin: 05/30/18 09:09 Dose: 100 mg Colchicine (Colcrys) 0.6 mg PO DAILY [facility] Last Admin: 05/30/18 09:09 Dose: 0.6 mg Digoxin (Lanoxin) 125 mcg PO DAILY [facility] Last Admin: 05/30/18 09:10 Dose: 125 mcg Enoxaparin Sodium (Lovenox Inj) 100 mg SQ Q12HR [facility] Last Admin: 05/28/18 08:27 Dose: 100 mg Folic Acid (Folic Acid) 1 mg PO DAILY [facility] Last Admin: 05/30/18 09:09 Dose: 1 mg Cefepime HCl 2,000 mg/ Sodium (Chloride) 100 mls @ 200 mls/hr IV.SIG Q12H [facility] Last Admin: 05/30/18 12:47 Dose: 200 mls/hr Vancomycin HCl 1,500 mg/ (Sodium Chloride) 515 mls @ 257.5 mls/hr IV.SIG Q24H [facility] Last Admin: 05/30/18 13:45 Dose: 257.5 mls/hr Lactulose (Lactulose Liq) 30 ml PO DAILY PRN PRN Reason: SEVERE CONSITIPATION Lorazepam (Ativan) 0.5 mg PO ONCE PRN PRN Reason: prior to lab draw Metoclopramide HCl (Reglan Inj) 5 mg IV.PUSH Q6HR PRN; Protocol PRN Reason: NAUSEA OR VOMITING Last Admin: 05/29/18 14:11 Dose: 5 mg Metoprolol Tartrate (Lopressor) 100 mg PO BID [facility] Last Admin: 05/30/18 09:10 Dose: 100 mg Miscellaneous Information ([facility] [place]dered Lab Info) 0 each OTHER ONCE ONE Stop: 05/31/18 13:46 Pharmacy Profile Note (Vancomycin Consult Pharmacy) 1 each OTHER UNSCH PRN PRN Reason: Pharmacy to dose Senna/Docusate Sodium (Salma-Colace) 1 tab PO BID [facility] Last Admin: 05/30/18 09:09 Dose: 1 tab Sennosides (Senokot) 17.2 mg PO Q12H PRN PRN Reason: Moderate Constipation Allergies Allergy/AdvReac Type Severity Reaction Status Date / Time penicillin G Allergy Severe EDEMA Verified 05/27/18 12:05 Home Medications Medication Instructions Recorded Confirmed Type albuterol sulfate 2 puff INHALATION Q4-6H PRN 05/27/18 05/27/18 History amlodipine 10 mg PO DAILY 05/27/18 05/27/18 History atorvastatin 80 mg PO DAILY 05/27/18 05/27/18 History bupropion HCl 100 mg PO BID 05/27/18 05/27/18 History colchicine 0.6 mg PO DAILY 05/27/18 05/27/18 History digoxin 0.125 mg PO DAILY 05/27/18 05/27/18 History folic acid 1 mg PO DAILY 05/27/18 05/27/18 History metoprolol tartrate 1 mg/kg PO BID 05/27/18 05/27/18 History ondansetron [Zofran ODT] 8 mg PO Q8HR PRN 05/27/18 05/29/18 History warfarin 05/27/18 05/27/18 History Exam Vital signs: Vital Signs 05/29/18 19:53 05/29/18 20:00 05/29/18 20:10 Temperature 99.2 F Pulse Rate 108 H 101 H 95 H Respiratory Rate 22 22 Blood Pressure 106/54 L Pulse Oximetry 99 05/29/18 21:58 05/30/18 00:10 05/30/18 00:55 Temperature 100.2 F H Pulse Rate 85 88 Respiratory Rate 16 Blood Pressure 119/55 L 107/53 L Pulse Oximetry 97 05/30/18 03:33 05/30/18 04:55 05/30/18 05:19 Temperature 98.2 F Pulse Rate 87 88 87 Respiratory Rate 24 23 Blood Pressure 117/73 Pulse Oximetry 99 05/30/18 07:54 05/30/18 08:00 05/30/18 12:53 Temperature 97.8 F 97.8 F Pulse Rate 92 H 116 H 96 H Respiratory Rate 18 20 20 Blood Pressure 112/66 127/85 Pulse Oximetry 97 96 05/30/18 14:02 05/30/18 15:30 Temperature 97.9 F Pulse Rate 100 H 105 H Respiratory Rate 20 22 Blood Pressure 114/65 Pulse Oximetry 98 Intake & Output 05/29/18 05/30/18 05/30/18 18:59 06:59 18:59 Intake Total 2155 / 2155 564 / 564 790 / 790 Output Total 150 / 150 Balance 2155 / 2155 414 / 414 790 / 790 Weight 101.8 kg Intake: IV 1315 / 1315 204 / 204 LR 1000 mL Inj 1,000 ML @ 100 700 / 700 mls/hr IV.CONT .Q10H [facility] Rx#: [id number] Maxipime Inj 2,000 MG In NS Inj 100 / 100 100 / 100 100 ML @ 200 mls/hr IV.SIG Q12H [facility] Rx#:[id number] SoluMEDROL Inj 250 MG In NS Inj 104 / 104 100 ML @ 200 mls/hr IV.SIG ONCE ONE Rx#:[id number] Vancomycin Inj 1,500 MG In NS 515 / 515 Inj 500 ML @ 257.5 mls/hr IV. SIG Q24H [facility] Rx#:[id number] Oral 840 / 840 360 / 360 790 / 790 Output: Urine 150 / 150 Other: # Voids 6 1 5 Date of Last Bowel Movement 05/29/18 05/29/18 05/30/18 # Bowel Movements 1 1 1 - Constitutional no acute distress, average body habitus - Routine HEENT Exam Head: Present: normocephalic, atraumatic Eye: Present: EOMI, PERRL ENT: Present: mucous membranes moist, oropharynx clear - Routine Neck Exam Present: supple, full ROM - Routine Respiratory Exam Present: decreased breath sounds, CTA bilaterally - Routine Cardiovascular Exam Present: RRR, S1, S2 - Routine Abdominal Exam Present: soft, normoactive bowel sounds - Routine Extremities Exam Present: cyanosis, clubbing, edema (R foot) Comments: Status localis: R foot edematous erythemaout with white necrotic appearing tissue at 2 nd toe amputation site No fluctuance or drainage not much tender extensive erythemas of ankle as well Markedly prominent but not tender R inguinal lymph nodules - Routine Skin Exam Present: intact, lesions (pustules on R lower leg) - Routine Neurological Exam Present: alert, oriented X3, CN II-XII intact, moving all extremities, vision grossly intact, hearing grossly intact, normal speech - Routine Psychiatric Exam Present: normal affect, cooperative Results - Labs CBC & Chem 7: 05/29/18 15:55 05/29/18 15:55 - Imaging Impressions Foot MRI 05/30/18 00:00 CONCLUSION: 1. There is abnormal soft tissue and fluid adjacent to the distal portion of the second metatarsal. There is abnormal bone marrow edema in the distal half to one third portion of the second metatarsal highly suspicious for osteomyelitis. 2. 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 3. Status post previous amputation of the second toe. Assessment and Plan - Plan Probable R foot osteo cionically and radiologically very suspicious for R foot osteo taking in to account chronicity of his problem atypical mycobacterial infx should be consuidered along with routine bacteria R lung cancer on chemo PVD Lung ca Mult med probx needs biopsy by equipment planner with path and cultures including AFB dw pt, his s/o dw Dr Henry
--- NOTE | 2018-05-30 19:46 | MB ---
cc: Uvaldo Hayes MD DATE: 05/30/2018 REASON FOR CONSULTATION: Evaluation of atrial fibrillation. HISTORY OF PRESENT ILLNESS: Mr. Henry is a 72-year-old male with chronic atrial fibrillation going back he says to around the year 1999. He has been on digoxin, metoprolol, and warfarin since then. He is off warfarin currently. He has metastatic lung cancer with bone metastases and he was admitted for cellulitis of his right foot, getting IV antibiotics. The patient has not had angina or coronary disease that we are aware of. He did have breathing difficulty yesterday and his girlfriend notes that they cut back his IV fluids when that happened and his breathing is better today. He has chronic renal insufficiency. The patient denies any angina. He is not aware of the atrial fibrillation bothering him in any way. 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 PAST SURGICAL HISTORY: Includes partial right pneumonectomy, right total knee replacement. FAMILY HISTORY: Notable for coronary disease in his father. SOCIAL HISTORY: He was a 2-pack per day smoker but quit about 15 years ago. His medication list is charted. MEDICATIONS: He is on multiple medications includin. Metoprolol 100 mg p.o. b.i.d. 2. Digoxin 0.125 mg daily. 3. Amlodipine 10 mg daily. 4. Atorvastatin 80 mg. PHYSICAL EXAMINATION: GENERAL: Shows a large robust-appearing white male. He is in no acute distress. Vital signs are charted. HEENT: Unremarkable. NECK: No JVD. No bruits. LUNGS: Mostly clear to auscultation. CARDIOVASCULAR: S1, S2, irregular rate and rhythm. Rate is 90-100 primarily. ABDOMEN: Soft. EXTREMITIES: Reveal mild erythema and increased warmth of the right foot. LABORATORY DATA: EKG on admission shows atrial fibrillation, nonspecific ST-T wave change. His chest x-ray from yesterday showed minimal left lung basal atelectasis. His laboratories show a mild anemia. White count has recovered to normal. Creatinine is 1.79. IMPRESSION: Chronic atrial fibrillation. He is on metoprolol 100 b.i.d., and Digoxin 0.125 daily. Heart rates are 90-100. I probably would let this be adequate for rate control. He has had a prior transient ischemic attack and is at risk of stroke. He is currently on Lovenox 100 mg subcutaneous b.i.d. Discussed the option of warfarin versus Eliquis. He could use his [employer] insurance to cover Eliquis. I think he would prefer that. Based on his weight, age and creatinine he only has one of the 3 parameters that would justify reduced dose, so for him the correct dose will be 5 mg twice a day. If the medical team is ready to switch him from Lovenox one can just stop Lovenox and start the Eliquis at about the same time. I am not making any other medication changes. I will be out of town the rest of the week, but my partners at [facility] are available to cover if there are any questions. Thank you for asking me to see him. Uvaldo Hayes MD VEW/ct , 06:34 PM , 06:43 PM
--- NOTE | 2018-05-30 20:31 | P.PNPOD ---
Subjective Interval history: Right foot pain and swelling. Right foot possible osteomyelitis. Physical Exam Vital signs: Vital Signs 05/29/18 21:58 05/30/18 00:10 05/30/18 00:55 Temperature 100.2 F H Pulse Rate 85 88 Respiratory Rate 16 Blood Pressure 119/55 L 107/53 L Pulse Oximetry 97 05/30/18 03:33 05/30/18 04:55 05/30/18 05:19 Temperature 98.2 F Pulse Rate 87 88 87 Respiratory Rate 24 23 Blood Pressure 117/73 Pulse Oximetry 99 05/30/18 07:54 05/30/18 08:00 05/30/18 12:53 Temperature 97.8 F 97.8 F Pulse Rate 92 H 116 H 96 H Respiratory Rate 18 20 20 Blood Pressure 112/66 127/85 Pulse Oximetry 97 96 05/30/18 14:02 05/30/18 15:30 05/30/18 19:00 Temperature 97.9 F 98.2 F Pulse Rate 100 H 105 H 90 Respiratory Rate 20 22 18 Blood Pressure 114/65 126/78 Pulse Oximetry 98 99 05/30/18 19:27 Temperature Pulse Rate 99 H Respiratory Rate 18 Blood Pressure Pulse Oximetry 99 Intake & Output 05/30/18 05/30/18 05/31/18 06:59 18:59 06:59 Intake Total 564 / 564 790 / 790 515 / 515 Output Total 150 / 150 Balance 414 / 414 790 / 790 515 / 515 Weight 101.8 kg Intake: IV 204 / 204 515 / 515 Maxipime Inj 2,000 MG In NS Inj 100 / 100 100 ML @ 200 mls/hr IV.SIG Q12H [facility] Rx#:[id number] SoluMEDROL Inj 250 MG In NS Inj 104 / 104 100 ML @ 200 mls/hr IV.SIG ONCE ONE Rx#:[id number] Vancomycin Inj 1,500 MG In NS 515 / 515 Inj 500 ML @ 257.5 mls/hr IV. SIG Q24H [facility] Rx#:[id number] Oral 360 / 360 790 / 790 Output: Urine 150 / 150 Other: # Voids 1 5 Date of Last Bowel Movement 05/29/18 05/30/18 05/30/18 # Bowel Movements 1 1 Medications and Allergies Active Medications: Active Medications Acetaminophen (Tylenol) 650 mg PO Q4H PRN PRN Reason: Temp > 100.4 Last Admin: 05/29/18 00:33 Dose: 650 mg Al Hydroxide/Mg Hydroxide (Milk Of Magnesia Liq) 30 ml PO Q12H PRN PRN Reason: Mild Constipation Albuterol (Duoneb Neb (Prn)) 1 ampul NEB Q2HR NEB PRN PRN Reason: SHORTNESS OF BREATH Last Admin: 05/30/18 05:18 Dose: 1 ampul Albuterol (Duoneb Neb (Mary)) 1 ampul NEB Q6HR WHILE AWAKE NEB [facility] Last Admin: 05/30/18 19:24 Dose: 1 ampul Amlodipine Besylate (Norvasc) 10 mg PO DAILY [facility] Last Admin: 05/30/18 09:09 Dose: 10 mg Atorvastatin Calcium (Lipitor) 80 mg PO DAILY [facility] Last Admin: 05/30/18 09:09 Dose: 80 mg Bisacodyl (Dulcolax Supp) 10 mg RECTAL DAILY PRN PRN Reason: SEVERE CONSITIPATION Bupropion HCl (Wellbutrin Sr) 100 mg PO BID [facility] Last Admin: 05/30/18 09:09 Dose: 100 mg Colchicine (Colcrys) 0.6 mg PO DAILY [facility] Last Admin: 05/30/18 09:09 Dose: 0.6 mg Digoxin (Lanoxin) 125 mcg PO DAILY [facility] Last Admin: 05/30/18 09:10 Dose: 125 mcg Enoxaparin Sodium (Lovenox Inj) 100 mg SQ Q12HR [facility] Last Admin: 05/28/18 08:27 Dose: 100 mg Folic Acid (Folic Acid) 1 mg PO DAILY [facility] Last Admin: 05/30/18 09:09 Dose: 1 mg Cefepime HCl 2,000 mg/ Sodium (Chloride) 100 mls @ 200 mls/hr IV.SIG Q12H [facility] Last Admin: 05/30/18 12:47 Dose: 200 mls/hr Vancomycin HCl 1,500 mg/ (Sodium Chloride) 515 mls @ 257.5 mls/hr IV.SIG Q24H [facility] Last Infusion: 05/30/18 19:37 Dose: Infused Lactulose (Lactulose Liq) 30 ml PO DAILY PRN PRN Reason: SEVERE CONSITIPATION Lorazepam (Ativan) 0.5 mg PO ONCE PRN PRN Reason: prior to lab draw Metoclopramide HCl (Reglan Inj) 5 mg IV.PUSH Q6HR PRN; Protocol PRN Reason: NAUSEA OR VOMITING Last Admin: 05/29/18 14:11 Dose: 5 mg Metoprolol Tartrate (Lopressor) 100 mg PO BID [facility] Last Admin: 05/30/18 09:10 Dose: 100 mg Miscellaneous Information ([facility] Ordered Lab Info) 0 each OTHER ONCE ONE Stop: 05/31/18 13:46 Pharmacy Profile Note (Vancomycin Consult Pharmacy) 1 each OTHER UNSCH PRN PRN Reason: Pharmacy to dose Senna/Docusate Sodium (Salma-Colace) 1 tab PO BID [facility] Last Admin: 05/30/18 09:09 Dose: 1 tab Sennosides (Senokot) 17.2 mg PO Q12H PRN PRN Reason: Moderate Constipation Allergies Allergy/AdvReac Type Severity Reaction Status Date / Time penicillin G Allergy Severe EDEMA Verified 05/27/18 12:05 Home Medications Medication Instructions Recorded Confirmed Type albuterol sulfate 2 puff INHALATION Q4-6H PRN 05/27/18 05/27/18 History amlodipine 10 mg PO DAILY 05/27/18 05/27/18 History atorvastatin 80 mg PO DAILY 05/27/18 05/27/18 History bupropion HCl 100 mg PO BID 05/27/18 05/27/18 History colchicine 0.6 mg PO DAILY 05/27/18 05/27/18 History digoxin 0.125 mg PO DAILY 05/27/18 05/27/18 History folic acid 1 mg PO DAILY 05/27/18 05/27/18 History metoprolol tartrate 1 mg/kg PO BID 05/27/18 05/27/18 History ondansetron [Zofran ODT] 8 mg PO Q8HR PRN 05/27/18 05/29/18 History warfarin 05/27/18 05/27/18 History Results - Labs CBC & Chem 7: 05/29/18 15:55 05/29/18 15:55 Microbiology 05/28/18 11:45 Blood - Peripheral Aerobic Blood Culture - Preliminary No growth in 2 days 05/28/18 11:45 Blood - Peripheral Anaerobic Blood Culture - Preliminary No growth in 2 days 05/28/18 11:40 Blood - Peripheral Aerobic Blood Culture - Preliminary No growth in 2 days 05/28/18 11:40 Blood - Peripheral Anaerobic Blood Culture - Preliminary No growth in 2 days 05/27/18 11:10 Blood - Peripheral Aerobic Blood Culture - Preliminary No growth in 3 days 05/27/18 11:10 Blood - Peripheral Anaerobic Blood Culture - Preliminary No growth in 3 days 05/27/18 11:15 Blood - Peripheral Aerobic Blood Culture - Preliminary No growth in 3 days 05/27/18 11:15 Blood - Peripheral Anaerobic Blood Culture - Preliminary No growth in 3 days - Imaging Impressions Foot MRI 05/30/18 00:00 CONCLUSION: 1. There is abnormal soft tissue and fluid adjacent to the distal portion of the second metatarsal. There is abnormal bone marrow edema in the distal half to one third portion of the second metatarsal highly suspicious for osteomyelitis. 2. 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 3. Status post previous amputation of the second toe. Assessment and Plan - Assessment (1) Cellulitis Code(s): L03.90 - Cellulitis, unspecified Status: Acute - Plan Plan for OR on 05/30/18 Consent for right foot I and D and right 2nd metatarsal bone biopsy. NPO at midnight. Discussed with Dr Angel MRI completed. (1) Cellulitis Qualifiers: Site of cellulitis: extremity Site of cellulitis of extremity: lower extremity Laterality: right Qualified Code(s): L03.115 - Cellulitis of right lower limb
[2018-05-31] MEDS: Enoxaparin Inj 100 MG/ML Syringe SQ SCH ×2 (00:36→09:46)
[2018-05-31] MEDS ORDERED: Metoprolol Tartrate 25 MG Tablet PO ONE (04:31)
[2018-05-31] MEDS ORDERED: Chlorhexidine Gluconate 2% 1 Pack (2 Cloths) TOPICAL ONE (04:31)
[2018-05-31] MEDS ORDERED: Sodium Chlor 0.9% Inj 500 ML IV.SIG SCH (05:00)
--- NOTE | 2018-05-31 07:50 | IR ---
EXAM DATE: 05/30/2018 5:26 PM EDT AGE/SEX: 72 years / Male INDICATIONS: History of chronic renal insufficiency and newly diagnosed lower extremity osteomyeliti s requiring long-term IV antibiotics. CLINICAL DATA: This is the patient's initial encounter. Patient reports that signs and symptoms have been present for 1 week and indicates a pain score of 4/10. MEDICAL/SURGICAL HISTORY: Aneurysm, Bone metastases, Gout, High, Cholesterol, Hypertension, Lung canc er. H/O Pneumonectomy, History of total right knee replacement. COMPARISON: No prior exams available for comparison. 0.1 IMAGE SERIES: 2 MEDICATION(S): 25 mcg fentanyl (Sublimaze) IV 2 mg lorazepam (Ativan) IV 4 mg Zofran DEVICE(S): Right 7fr . . PROCEDURE: 1. Ultrasound-guided puncture of the prescribed vein. 2. Fluoroscopic guidance. 3. Tunneled Groshong catheter placement 4. Conscious sedation with continuous EKG and oximetry monitoring. The risks, benefits and alternatives to the procedure were explained and verbal and written consent w as obtained. The site was prepped in sterile fashion. Full sterile technique was used, including ca p, mask, sterile gloves and gown and a large sterile sheet. Hand hygiene and 2% chlorhexidine Betadi ne was utilized per protocol for cutaneous antisepsis with appropriate dry time for site. Sterile ge l and sterile probe cover were utilized for ultrasound guidance. The skin and subcutaneous tissues w ere infiltrated with local anesthetic solution. With ultrasound and fluoroscopic guidance a dermatotomy was created in the supraclavicular region. A micropuncture set was used to access to the prescribed vein and serial dilatation was performed to a ccept a 7 [place] single lumen Groshong catheter. A subcutaneous tunnel was created and in antegrade fashion the catheter was pulled through the tunnel, cut to the appropriate length and place through t he sheath. The catheter was locked with heparin and sutured in place. Conscious sedation was performed with the prescribed dosages and duration as above in the presence of an independent trained radiology nurse to assist in the monitoring of the patient. EKG and oximetry remained stable throughout the procedure. The patient tolerated the procedure well and there were no complications. The patient was sent to post anesthesia recovery in stable condition. CONCLUSION: 1. Uncomplicated tunneled Groshong catheter placement as above. Electronically signed by: Luis Thomson MD 05/31/2018 7:49 AM EDT
[2018-05-31] MEDS: buPROPion 100 MG ER 12 HR Tablet PO SCH ×2 (09:54→20:36)
[2018-05-31] MEDS: Metoprolol Tartrate 100 MG Tablet PO SCH ×2 (09:54→20:36)
[2018-05-31] MEDS: Folic Acid 1 MG Tablet PO SCH (09:54)
[2018-05-31] MEDS: Digoxin 125 MCG Tablet PO SCH (09:54)
[2018-05-31] MEDS: Senna/Docusate Sodium 8.6/50 MG Tablet PO SCH ×2 (09:54→20:36)
[2018-05-31] MEDS: amLODIPine 10 MG Tablet PO SCH (09:54)
--- NOTE | 2018-05-31 10:29 | P.CONPAL ---
Consult Service: Palliative Care Requesting Physician: Gloria Sullivan Reason for Consult: a. To assist with evaluation and management of symptoms including:pain, shortness of breath, diarrhea. b. To assist medical decision maker(s) with: better understanding of current medical conditions; weighing benefits/burdens of medical treatment options; making medical treatment decisions. Primary Care Provider: Odette Rodas History of Present Illness History of Present Illness: Mr. 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 Patient was diagnosed with metastatic non-small cell lung cancer status post resection in 2013. He developed recurrent metastatic disease to the bone. Patient was recently treated with Cycle 3 of palliative chemotherapy (Taxol and Carboplatin) on 05/18/18 under the direction of [place]. 3-4 days after chemotherapy he was admitted to the [facility] in [facility] with severe diarrhea with improvement until after he retuned home. Reportedly was negative for C. Diff. Patient presented to [facility] emergency department on 05/27/18 with fever ( night prior 100.7), cough, shortness of breath and right lower extremity rash. He apparently had a right plantar foot wound which was being cared for by wound care prior to presentation. He developed increased redness and area became warm to touch. Findings since admission: * VS: 98.6, Pulse 78, RR 16, BP 129/78, oxygen sat 98% * WBC 1.0, hemoglobin 11.8, hematocrit 35.2, platelets 131, neutrophils 3%, ANC 0 * Sodium 138, potassium 4.7, carbon diaoxide 25.3, BUN 27, creatinine 1.75, GFR 38 * Lactic acid 1.1 * T bili 1.3, AST 18, ALT 30, Alk phos 80 * Total protein 6.6, albumin 2.7 * Urinalysis negative * EKG - atrial fibrillation, rate 90, no ST-T wave changes * Chest x-ray - parenchymal scarring right lung suspected and elevated left hemidiaphragm. * Foot x-ray - possible erosive changes and lucency of the distal second metatarsal bone nonspecific, however osteomyelitis of site not excluded. * Foot MRI - abnormal soft tissue and fluid adjacent to the distal portion of the second metatarsal, abnormal bone marrow edema in the distal half to one third portion of the second metatarsal highly suspicious for osteomyelitis, degenerative arthritis involving the first metatarsal-phalangeal joint with hallux valgus angulation, post amputation second toe. Patient was started on IV Vancomycin and Cefepime. Medical oncology, Dr. Velázquez was consulted, he was started on Neupogen and supportive treatment. Podiatry, Dr. Henry was consulted. Groshong catheter was placed for IV access on 05/30/18. Infectious disease. Dr. Angel was consulted with recommendation for biopsy with pathology and cultures including AFB. Patient was scheduled for right foot I&D and right metatarsal bone biopsy by podiatry. Dr. Hayes, cardiology was consulted for evaluation of atrial fibrillation with medication recommendations. Palliative care was consulted to assist with completion of written advanced directives. Patient completed Designation of Health care surrogate on 05/30/18 with Palliative care social security benefits interviewer, Lori Osullivan. He named Sulma Bethea OR Medardo Sprague as health care surrogate should he lose capacity. Oncology team did not desire full palliative care consultation at that time. Lori Osullivan received a call from significant other, Sulma at 7:30am this morning to request Palliative care to see patient as she was concerned about a change in clinical status. I am asked to see patient to assist with communication and further clarification of goals of medical treatment. Patient seen and examined in room. Sulma Bethea, significant other/HCS at bedside. Also present Lori Osullivan LCSW. Patient is awake and alert, able to answer all questions appropriately. He is pleasant, making jokes intermittently. Patient has intermittent sharp twinges of pain in right foot. Denies pain during my visit. No pain medications ordered, he does not feel he needs medication for pain at this time. He reports shortness of breath yesterday that is "better" today. On oxygen via [place]. He denies diarrhea and reports he is actually using stool softeners now. LBM 05/30/18. Sulma is immediately verbalizing frustrations about communication with medical team and blood draw/ IV access issues. She is worried about proceeding with surgery (I&D, foot biopsy) today given the length of time it took for effects of anesthesia meds used prior to Groshong placement yesterday. Patient was reportedly confused until this morning. Sulma indicates she has spoken with podiatry and plan is to wait until 06/01/18 to proceed with surgery. Patient and Sulma have a good understanding of current medical condition, reason for foot biopsy and that chemotherapy will be on hold for now as we determine treatment plan for osteomyelitis. They are very appreciative of time spent answering questions and welcome continued visits. Goals remain aggressive including FULL CODE at this time, though they do mention their hopes to buy and travel in an RV in the coming weeks. . Function/Cognitive Trajectory: Mr. Henry was living at home with his significant other prior to admission, he was able to care for himself. Review of Systems Constitutional: Reports anorexia, Reports fatigue, Reports fever(s), Reports weakness Ears, Nose, Mouth, and Throat: Reports dry mouth Cardiovascular: Reports leg sores (right LE for the past 1 year), Reports rapid , pounding, or irregular heartbeat, Reports shortness of breath Respiratory: Reports cough Gastrointestinal: Reports change in bowel habits, Reports loose stools Neurologic: Reports abnormal speech, Reports confusion Psychiatric: Reports anxiety, Reports change in appetite (decreased) Endocrine: Reports rapid, pounding, or irregular heartbeat Hematologic/Lymphatic: Reports easy bruising PMFSH - History History Provided By: Patient, Family Member - Medical History Medical History: Medical History (Last Updated 05/31/18 @ 15:32 by Fina Smallwood) Aneurysm Bone metastases Gout Hernia High cholesterol Hypertension Left cavernous carotid aneurysm Lung cancer Stroke Thoracoabdominal aortic aneurysm (TAAA) - Surgical History Surgical History: Surgical History (Last Updated 05/31/18 @ 15:38 by Fina Smallwood) Status post carotid surgery (Inactive) Atherosclerosis of bypass graft of lower extremity (Resolved) Renal artery bypass graft pseudoaneurysm (Acute) H/O pneumonectomy H/O splenectomy History of complete ray amputation of second toe of right foot History of incisional hernia repair History of total right knee replacement S/P AAA (abdominal aortic aneurysm) repair - Family History Family History: Family History (Last Reviewed 05/30/18 @ 18:41 by Patricia Angel MD) Sister Aneurysm Father Heart attack Stroke - Tobacco History Second Hand Smoke Exposure: No Tobacco Use In Past 30 Days: No Smoking Status: Former smoker (smoked for 20 years, quit 15 years ago) Packs Per Day: 2 Years Smoked: 20 - Alcohol History How Often Do You Have a Drink Containing Alcohol: Never - Substance Use History Substance History: No History of Abuse - Travel History History of Recent Travel: No Recent Travel in the [place] Within the Last 8 Weeks: No Recent Travel Out of the Country Within the Last 8 Weeks: No - Immunization History Tetanus Immunization: Unsure Hx Influenza Vaccine This Season: Yes Medications and Allergies Active Medications: Active Medications Acetaminophen (Tylenol) 650 mg PO Q4H PRN PRN Reason: Temp > 100.4 Last Admin: 05/29/18 00:33 Dose: 650 mg Al Hydroxide/Mg Hydroxide (Milk Of Magnirma Liq) 30 ml PO Q12H PRN PRN Reason: Mild Constipation Albuterol (Duoneb Neb (Prn)) 1 ampul NEB Q2HR NEB PRN PRN Reason: SHORTNESS OF BREATH Last Admin: 05/31/18 03:08 Dose: 1 ampul Albuterol (Duoneb Neb (Mary)) 1 ampul NEB Q6HR WHILE AWAKE NEB [facility] Last Admin: 05/30/18 19:24 Dose: 1 ampul Amlodipine Besylate (Norvasc) 10 mg PO DAILY [facility] Last Admin: 05/30/18 09:09 Dose: 10 mg Atorvastatin Calcium (Lipitor) 80 mg PO DAILY [facility] Last Admin: 05/30/18 09:09 Dose: 80 mg Bisacodyl (Dulcolax Supp) 10 mg RECTAL DAILY PRN PRN Reason: SEVERE CONSITIPATION Bupropion HCl (Wellbutrin Sr) 100 mg PO BID [facility] Last Admin: 05/30/18 23:25 Dose: 100 mg Colchicine (Colcrys) 0.6 mg PO DAILY [facility] Last Admin: 05/30/18 09:09 Dose: 0.6 mg Digoxin (Lanoxin) 125 mcg PO DAILY [facility] Last Admin: 05/30/18 09:10 Dose: 125 mcg Enoxaparin Sodium (Lovenox Inj) 100 mg SQ Q12HR [facility] Last Admin: 05/31/18 00:36 Dose: Not Given Folic Acid (Folic Acid) 1 mg PO DAILY [facility] Last Admin: 05/30/18 09:09 Dose: 1 mg Cefepime HCl 2,000 mg/ Sodium (Chloride) 100 mls @ 200 mls/hr IV.SIG Q12H [facility] Last Admin: 05/31/18 01:52 Dose: 200 mls/hr Vancomycin HCl 1,500 mg/ (Sodium Chloride) 515 mls @ 257.5 mls/hr IV.SIG Q24H [facility] Last Infusion: 05/30/18 19:37 Dose: Infused Lactated Ringer's (Lr 1000 Ml Inj) 1,000 mls @ 30 mls/hr IV.SIG .Q24H MARY Stop: 06/01/18 04:44 Sodium Chloride (Ns Inj) 500 mls @ 30 mls/hr IV.SIG .Q10H MARY Lactulose (Lactulose Liq) 30 ml PO DAILY PRN PRN Reason: SEVERE CONSITIPATION Lorazepam (Ativan) 0.5 mg PO ONCE PRN PRN Reason: prior to lab draw Metoclopramide HCl (Reglan Inj) 5 mg IV.PUSH Q6HR PRN; Protocol PRN Reason: NAUSEA OR VOMITING Last Admin: 05/29/18 14:11 Dose: 5 mg Metoprolol Tartrate (Lopressor) 100 mg PO BID [facility] Last Admin: 05/30/18 23:26 Dose: 100 mg Miscellaneous Information ([facility] Ordered Lab Info) 0 each OTHER ONCE ONE Stop: 05/31/18 13:46 Pharmacy Profile Note (Vancomycin Consult Pharmacy) 1 each OTHER UNSCH PRN PRN Reason: Pharmacy to dose Senna/Docusate Sodium (Salam-Colace) 1 tab PO BID [facility] Last Admin: 05/30/18 23:25 Dose: 1 tab Sennosides (Senokot) 17.2 mg PO Q12H PRN PRN Reason: Moderate Constipation Allergies Allergy/AdvReac Type Severity Reaction Status Date / Time penicillin G Allergy Severe EDEMA Verified 05/27/18 12:05 Home Medications Medication Instructions Recorded Confirmed Type albuterol sulfate 2 puff INHALATION Q4-6H PRN 05/27/18 05/27/18 History amlodipine 10 mg PO DAILY 05/27/18 05/27/18 History atorvastatin 80 mg PO DAILY 05/27/18 05/27/18 History bupropion HCl 100 mg PO BID 05/27/18 05/27/18 History colchicine 0.6 mg PO DAILY 05/27/18 05/27/18 History digoxin 0.125 mg PO DAILY 05/27/18 05/27/18 History folic acid 1 mg PO DAILY 05/27/18 05/27/18 History metoprolol tartrate 1 mg/kg PO BID 05/27/18 05/27/18 History ondansetron [Zofran ODT] 8 mg PO Q8HR PRN 05/27/18 05/29/18 History warfarin 05/27/18 05/27/18 History Advance Directives Healthcare Surrogate: Yes (Sulma Bethea OR Medardo Sprague ) Health Care Surrogate Name and Number: Sulma Bethea [phone] OR Medardo Sprague [phone] Documented care wishes: Patient is capacitated to make his own health care decisions. No Living Will. Patient completed Designation of Health Care Surrogate paperwork on 05/30/18 naming his significant other, Sulma Bethea OR eMdardo Sprague as health care surrogate should he lose capacity. Today's verbally stated goals: Patient desires care including FULL CODE, treatment of infection, bone biopsy and additional treatment for chemotherapy if and when cleared by oncology. Family/friends goals: Significant other, Nicole supports patient wishes for continued aggressive care. Ethical and Legal Issues: No known concerns at this time. Physical Exam Vital Signs: Vital Signs - 24 hr 05/30/18 12:53 05/30/18 14:02 05/30/18 15:30 Temperature 97.8 F 97.9 F Pulse Rate 96 H 100 H 105 H Respiratory Rate 20 20 22 Blood Pressure 127/85 114/65 Pulse Oximetry 96 98 05/30/18 19:00 05/30/18 19:27 05/30/18 20:28 Temperature 98.2 F Pulse Rate 90 99 H 109 H Respiratory Rate 18 18 Blood Pressure 126/78 Pulse Oximetry 99 99 05/30/18 23:24 05/30/18 23:49 05/31/18 03:08 Temperature 98.9 F Pulse Rate 100 H 100 H 82 Respiratory Rate 18 24 Blood Pressure 109/62 Pulse Oximetry 99 93 L 05/31/18 04:55 05/31/18 06:32 Temperature 99.7 F H Pulse Rate 110 H 107 H Respiratory Rate 20 Blood Pressure 144/87 H Pulse Oximetry 97 I&O: Intake & Output 05/29/18 05/30/18 05/31/18 06/01/18 06:59 06:59 06:59 06:59 Intake Total 3555 / 3555 2719 / 2719 1405 / 1405 Output Total 1175 / 1175 150 / 150 200 / 200 Balance 2380 / 2380 2569 / 2569 1205 / 1205 Weight 101.9 kg 101.8 kg 109.3 kg Physical Exam: CONSTITUTIONAL/GENERAL: This is an adequately nourished patient, in no apparent distress. TUBES/LINES/DRAINS: right Groshong subclavian, PIV left SKIN: No jaundice, rashes, or lesions. Ecchymoses on upper extremities. No wounds seen anteriorly. Skin temperature appropriate. Not diaphoretic. HEAD: Atraumatic. Normocephalic. EYES: Pupils equal and round and reactive. Extraocular motions intact. No scleral icterus. No injection or drainage. Fundi not examined. ENT: Hearing grossly normal. Nose without bleeding or purulent drainage. Throat without visible erythema, exudates, masses, or lesions. NECK: Trachea midline. CARDIOVASCULAR: Mild tachycardic. RESPIRATORY/CHEST: Symmetric, unlabored respirations. Clear to auscultation. Breath sounds equal bilaterally. GASTROINTESTINAL: Abdomen soft, non-tender, nondistended. abdominal hernia. + BS. GENITOURINARY: Without palpable bladder distension. Olson catheter in place. MUSCULOSKELETAL: Right LE erythema from toes to calf. Area of white necrotic appearing tissue on right foot, 2nd toe amputation noted. No drainage noted. LYMPHATICS: + right inguinal adenopathy. NEUROLOGICAL: Awake and alert. Motor and sensory grossly within normal limits. Follows commands. Cognitively sharp. Moves all extremities. PSYCHIATRIC: No obvious anxiety/depression. no apparent hallucinations or other psychotic thought process. Diagnostic Tests Laboratory: Laboratory Results - last 72 hr 05/28/18 05/28/18 05/28/18 11:45 11:45 11:45 WBC 1.9 L RBC 3.38 L Hgb 11.3 L Hct 34.3 L MCV 101.5 H MCH 33.3 MCHC 32.8 RDW 13.8 Plt Count 156 MPV 8.6 Prelim Diff (Auto) Manual diff required Neut % (Auto) Lymph % (Auto) [place] % (Auto) Eos % (Auto) Baso % (Auto) Neut # (Auto) Lymph # (Auto) [place] # (Auto) Eos # (Auto) Baso # (Auto) WBC Differential Manual diff final Seg Neuts % (Manual) 2 L Band Neuts % (Manual) 4 Lymphocytes % (Manual) 49 H Monocytes % (Manual) 37 H Eosinophils % (Manual) 5 H Basophils % (Manual) 2 Metamyelocytes % (Man) Myelocytes % (Man) 1 H Abs Neuts (Manual) 0.1 L* Nucleated RBCs/100 WBC Differential Comment . Toxic Granulation Platelet Estimate Normal Platelet Morphology Enlarged H Early Cells Acanthocytes (Spur) 1+ H PT 36.7 H INR 3.6 APTT 60.2 H Sodium 139 Potassium 4.4 Chloride 106 Carbon Dioxide 24.6 Anion Gap 8 BUN 33 H Creatinine 1.68 H Estimated GFR 40 L Random Glucose 96 Calcium 7.9 L B-Natriuretic Peptide Urine Color Urine Clarity Urine pH Ur Specific [place] Urine Protein Urine Glucose (UA) Urine Ketones Urine Occult Blood Urine Nitrate Urine Bilirubin Urine Urobilinogen Ur Leukocyte Esterase Urine RBC Urine WBC Ur Squamous Epith Cells Hyaline Casts Urine Mucus Micro UA Comment Ur Microscopic Review Urine Culture Comments Random Vancomycin 4.2 05/28/18 05/29/18 05/29/18 12:00 15:55 15:55 WBC 9.1 RBC 3.22 L Hgb 11.0 L Hct 32.2 L MCV 100.2 H MCH 34.2 H MCHC 34.1 RDW 14.0 Plt Count 165 MPV 9.0 Prelim Diff (Auto) Slide review pending Neut % (Auto) 85.6 H Lymph % (Auto) 4.6 L [place] % (Auto) 9.3 H Eos % (Auto) 0.2 Baso % (Auto) 0.3 Neut # (Auto) 7.8 H Lymph # (Auto) 0.4 L [place] # (Auto) 0.8 Eos # (Auto) 0.0 Baso # (Auto) 0.0 WBC Differential Manual diff final Seg Neuts % (Manual) 43 Band Neuts % (Manual) 36 H Lymphocytes % (Manual) 13 Monocytes % (Manual) 2 Eosinophils % (Manual) Basophils % (Manual) 1 Metamyelocytes % (Man) 4 H Myelocytes % (Man) 1 H Abs Neuts (Manual) 7.6 Nucleated RBCs/100 WBC 1 H Differential Comment . Toxic Granulation 1+ H Platelet Estimate Normal Platelet Morphology Enlarged H Mary Cells 1+ H Acanthocytes (Spur) Occ H PT INR APTT Sodium 137 Potassium 4.4 Chloride 108 H Carbon Dioxide 20.8 L Anion Gap 8 BUN 35 H Creatinine 1.79 H Estimated GFR 37 L Random Glucose 92 Calcium 7.9 L B-Natriuretic Peptide Urine Color Yellow Urine Clarity Hazy H Urine pH 5.0 Ur Specific [place] 1.019 Urine Protein 100 H Urine Glucose (UA) Negative Urine Ketones Negative Urine Occult Blood Small H Urine Nitrate Negative Urine Bilirubin Negative Urine Urobilinogen Less than 2 Ur Leukocyte Esterase Negative Urine RBC 1 Urine WBC 1 Ur Squamous Epith Cells <1 Hyaline Casts 3 Urine Mucus Few H Micro UA Comment Culture not ind Ur Microscopic Review Not Reportable Urine Culture Comments Culture not ind Random Vancomycin 05/29/18 15:55 WBC RBC Hgb Hct MCV MCH MCHC RDW Plt Count MPV Prelim Diff (Auto) Neut % (Auto) Lymph % (Auto) [place] % (Auto) Eos % (Auto) Baso % (Auto) Neut # (Auto) Lymph # (Auto) [place] # (Auto) Eos # (Auto) Baso # (Auto) WBC Differential Seg Neuts % (Manual) Band Neuts % (Manual) Lymphocytes % (Manual) Monocytes % (Manual) Eosinophils % (Manual) Basophils % (Manual) Metamyelocytes % (Man) Myelocytes % (Man) Abs Neuts (Manual) Nucleated RBCs/100 WBC Differential Comment Toxic Granulation Platelet Estimate Platelet Morphology Mary Cells Acanthocytes (Spur) PT INR APTT Sodium Potassium Chloride Carbon Dioxide Anion Gap BUN Creatinine Estimated GFR Random Glucose Calcium B-Natriuretic Peptide 377 H Urine Color Urine Clarity Urine pH Ur Specific [place] Urine Protein Urine Glucose (UA) Urine Ketones Urine Occult Blood Urine Nitrate Urine Bilirubin Urine Urobilinogen Ur Leukocyte Esterase Urine RBC Urine WBC Ur Squamous Epith Cells Hyaline Casts Urine Mucus Micro UA Comment Ur Microscopic Review Urine Culture Comments Random Vancomycin Result Diagrams: 05/31/18 10:56 05/31/18 10:56 Microbiology: Microbiology 05/28/18 11:45 Aerobic Blood Culture - Preliminary Blood - Peripheral No growth in 2 days Anaerobic Blood Culture - Preliminary No growth in 2 days 05/28/18 11:40 Aerobic Blood Culture - Preliminary Blood - Peripheral No growth in 2 days Anaerobic Blood Culture - Preliminary No growth in 2 days 05/27/18 11:10 Aerobic Blood Culture - Preliminary Blood - Peripheral No growth in 3 days Anaerobic Blood Culture - Preliminary No growth in 3 days 05/27/18 11:15 Aerobic Blood Culture - Preliminary Blood - Peripheral No growth in 3 days Anaerobic Blood Culture - Preliminary No growth in 3 days Imaging: Chest X-Ray 05/29/18 00:00 CONCLUSION: Minimal left lung base atelectasis. Foot X-Ray 05/29/18 00:00 CONCLUSION: Possible erosive changes and lucency of the distal second metatarsal bone nonspecific, however osteomyelitis at this site is not excluded. Foot MRI 05/30/18 00:00 CONCLUSION: 1. There is abnormal soft tissue and fluid adjacent to the distal portion of the second metatarsal. There is abnormal bone marrow edema in the distal half to one third portion of the second metatarsal highly suspicious for osteomyelitis. 2. 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 3. Status post previous amputation of the second toe. Lisa Line Insertion 05/30/18 00:00 CONCLUSION: 1. Uncomplicated tunneled Groshong catheter placement as above. Procedures: * 05/30/18 - right Groshong catheter placement. Patient/Family Conference Present at Family Conference: Met with patient and significant other at bedside. Also present Lori Osullivan LCSW. Family Conference Time: 90 Family Conference Location: Bedside Issues Discussed: * Palliative care role, purpose, approach * Additional medical, psychosocial, and spiritual history * Patients general health, functional status, and cognitive changes in the months leading up to the current hospitalization * Patient/family understanding of the current medical problems * Patient/family understanding of prognosis * Patients goals of care as best understood from advance directives and/or conversations and/or values * Current medical treatment options and benefits/burdens of those options * Likely scenarios comparing ongoing aggressive care with a transition to comfort measures only * Questions answered to the best of my ability * Palliative care contact information provided Assessment and Plan Pertinent Non-Medical Issues: Psychosocial: Lives with his significant other, Sulma. Also supported by his sister in [place]. Spiritual: Gnosticist hernan. Legal:Patient is capacitated to make his own health care decisions. No Living Will. Patient completed Designation of Health Care Surrogate paperwork on naming his significant other, Sulma Bethea OR Medardo Sprague as health care surrogate should he lose capacity. Ethical issues impacting care: No known concerns at this time. . Important Contacts: * Sulma Bethea, significant other/[facility]: [phone] * Medardo Sprague, sister: [phone] Prognosis: Mr. 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 Patient remains high risk for repeat infections and related complications and possible cancer progression well infections are being treated. Code Status: Full Code Plan: * Patient is capacitated to make his own health care decisions. No Living Will. Patient completed Designation of Health Care Surrogate paperwork on 05/30/18 naming his significant other, Sulma Bethea OR Medardo Celestine as health care surrogate should he lose capacity. * FULL CODE * Patient and Sulma have a good understanding of current medical condition, reason for foot biopsy and that chemotherapy will be on hold for now as we determine treatment plan for osteomyelitis. They are very appreciative of time spent answering questions and welcome continued visits. Goals remain aggressive including FULL CODE at this time, though they do mention their hopes to buy and travel in an RV in the coming weeks. * SYMPTOMS: Pain: intermittent sharp, brief twinges of pain in right foot. Denies during my visit today. No pain meds ordered, he declines need for pain med. Shortness of breath: on oxygen via [place]. Denies during my visit today. Diarrhea: resolved. * Palliative care number provided. * Palliative care will continue to follow throughout hospital course to assist with symptom management and further clarification of medical treatment goals as needed. . Appreciation Thank you for the opportunity to participate in the care of Marko Henry. Attestation Attestation: To help prompt me to consider important information that might be impacting today's encounter and assessment, information from prior notes written by myself or my colleagues may have been "brought forward" into today's note. My signature on this note, however, is an attestation that I personally performed the exam, history, and/or decision-making noted today, and, unless otherwise indicated, the interactions with patient, family, and staff as well as the review of records all occurred today. I also attest that the listed assessment and stated plan reflect my best clinical judgment today based on the combination of historical information, prior notes, and today's exam/ interactions. When time spent is documented, it refers only to time spent today by the signer, or if indicated, combined time spent today by collaborating physician/nurse practitioner.
[2018-05-31 11:29] LABS: Hematocrit 30.5 % (39.0-51.0); Hemoglobin 9.8 gm/dL (13.0-17.0); Mean Corpuscular HGB Conc 32.1 % (32.0-36.0); Mean Corpuscular Hemoglobin 32.3 pg (27.0-34.0); Mean Corpuscular Volume 100.6 fL (80.0-100.0); Mean Platelet Volume 8.2 fL (7.0-11.0); Platelet Count 217 th/mm3 (150-450); Red Blood Count 3.03 mil/mm3 (4.50-5.90); Red Cell Distribution Width 14.1 % (11.6-17.2); White Blood Count 31.2 th/mm3 (4.0-11.0)
[2018-05-31 11:42] LABS: Activated Partial Thrombo Time 41.9 sec (24.3-30.1); INR 3.6 Ratio; Prothrombin Time 35.8 sec (9.8-11.6)
[2018-05-31 12:06] LABS: Alanine Aminotransferase 76 U/L (12-78); Alkaline Phosphatase 166 U/L (45-117); Anion Gap 10 meq/L (5-15); Aspartate Aminotransferase 61 U/L (15-37); Blood Urea Nitrogen 54 mg/dL (7-18); Calcium 8.3 mg/dL (8.5-10.1); Carbon Dioxide 21.9 meq/L (21.0-32.0); Chloride 108 meq/L (98-107); Glomerular Filtration Rate 29 mL/min (>89); Glucose,Random 130 mg/dL (74-106); Potassium 4.1 meq/L (3.5-5.1); Sodium 140 meq/L (136-145); Total Protein 5.9 g/dL (6.4-8.2)
--- NOTE | 2018-05-31 13:13 | ECG ---
Date Performed: 05/30/2018 Time Performed: 18:42:48 PTAGE: 72 years EKG: ATRIAL FIBRILLATION NONSPECIFIC T-WAVE ABNORMALITY ABNORMAL RHYTHM ECG PREVIOUS TRACING : 05/27/2018 11.49 DOCTOR: Kana Saldana Interpretating Date/Time 05/31/2018 13:08:03
--- NOTE | 2018-05-31 13:33 | P.PNONC ---
Subjective Interval history: Afebrile. Patient without complaints at this time. His significant other is at the bedside, she appears frustrated, she states patient had a reaction to "whatever they gave him when he got the central line. " When I inquire about what type of reaction, she states "he was out of it until this morning." She also has concerns about whether the patient is going to the OR today for his foot. Objective Vital Signs/Intake & Output: Vital Signs 05/30/18 14:02 05/30/18 15:30 05/30/18 19:00 Temperature 97.9 F 98.2 F Pulse Rate 100 H 105 H 90 Respiratory Rate 20 22 18 Blood Pressure 114/65 126/78 Pulse Oximetry 98 99 05/30/18 19:27 05/30/18 20:28 05/30/18 23:24 Temperature 98.9 F Pulse Rate 99 H 109 H 100 H Respiratory Rate 18 18 Blood Pressure 109/62 Pulse Oximetry 99 99 05/30/18 23:49 05/31/18 03:08 05/31/18 04:55 Temperature 99.7 F H Pulse Rate 100 H 82 110 H Respiratory Rate 24 20 Blood Pressure 144/87 H Pulse Oximetry 93 L 97 05/31/18 06:32 05/31/18 09:19 05/31/18 10:00 Temperature 98.4 F Pulse Rate 107 H 105 H 106 H Respiratory Rate 20 16 Blood Pressure 110/63 Pulse Oximetry 99 96 05/31/18 12:00 Temperature 98.3 F Pulse Rate 103 H Respiratory Rate 19 Blood Pressure 118/63 Pulse Oximetry 95 Intake & Output 05/30/18 05/31/18 05/31/18 18:59 06:59 18:59 Intake Total 890 / 890 515 / 515 Output Total 200 / 200 Balance 890 / 890 315 / 315 Weight 109.3 kg Intake: IV 100 / 100 515 / 515 Maxipime Inj 2,000 MG In NS Inj 100 / 100 100 ML @ 200 mls/hr IV.SIG Q12H MARY Rx#:[id number] Vancomycin Inj 1,500 MG In NS 515 / 515 Inj 500 ML @ 257.5 mls/hr IV. SIG Q24H MARY Rx#:[id number] Oral 790 / 790 Output: Urine 200 / 200 Other: # Voids 5 2 Date of Last Bowel Movement 05/30/18 05/30/18 # Bowel Movements 1 0 Result Diagrams: 05/31/18 10:56 05/31/18 10:56 Laboratory Results: Laboratory Results - last 24 hr 05/31/18 05/31/18 05/31/18 10:56 10:56 10:56 WBC 31.2 H RBC 3.03 L Hgb 9.8 L Hct 30.5 L MCV 100.6 H MCH 32.3 MCHC 32.1 RDW 14.1 Plt Count 217 D MPV 8.2 Prelim Diff (Auto) Manual diff required Differential Comment . PT 35.8 H INR 3.6 APTT 41.9 H Sodium 140 Potassium 4.1 Chloride 108 H Carbon Dioxide 21.9 Anion Gap 10 BUN 54 H Creatinine 2.25 H Estimated GFR 29 L Random Glucose 130 H Calcium 8.3 L Total Bilirubin 0.4 AST 61 H ALT 76 Alkaline Phosphatase 166 H Total Protein 5.9 L D Albumin 2.0 L Culture Results: Microbiology 05/28/18 11:45 Aerobic Blood Culture - Preliminary Blood - Peripheral No growth in 3 days Anaerobic Blood Culture - Preliminary No growth in 3 days 05/28/18 11:40 Aerobic Blood Culture - Preliminary Blood - Peripheral No growth in 3 days Anaerobic Blood Culture - Preliminary No growth in 3 days 05/27/18 11:10 Aerobic Blood Culture - Preliminary Blood - Peripheral No growth in 4 days Anaerobic Blood Culture - Preliminary No growth in 4 days 05/27/18 11:15 Aerobic Blood Culture - Preliminary Blood - Peripheral No growth in 4 days Anaerobic Blood Culture - Preliminary No growth in 4 days Imaging Studies: Impressions Lisa Line Insertion 05/30/18 00:00 CONCLUSION: 1. Uncomplicated tunneled Groshong catheter placement as above. Medications: Active Medications Generic Name Dose Route Start Last Admin Trade Name Freq PRN Reason Stop Dose Admin Acetaminophen 650 mg 05/27/18 12:46 05/29/18 00:33 Tylenol PO 650 mg Q4H PRN Administration Temp > 100.4 Albuterol 1 ampul 05/29/18 15:04 05/31/18 03:08 Duoneb Neb (Prn) NEB 1 ampul Q2HR NEB PRN Administration SHORTNESS OF BREATH Albuterol 1 ampul 05/29/18 20:00 05/31/18 09:17 Duoneb Neb (Mary) NEB 1 ampul Q6HR WHILE AWAKE NEB MARY Administration Amlodipine Besylate 10 mg 05/28/18 09:00 05/31/18 09:54 Norvasc PO 10 mg DAILY MARY Administration Atorvastatin Calcium 80 mg 05/28/18 09:00 05/31/18 09:54 Lipitor PO 80 mg DAILY MARY Administration Bupropion HCl 100 mg 05/27/18 21:00 05/31/18 09:54 Wellbutrin Sr PO 100 mg BID MARY Administration Colchicine 0.6 mg 05/28/18 09:00 05/31/18 09:54 Colcrys PO 0.6 mg DAILY MARY Administration Digoxin 125 mcg 05/28/18 09:00 05/31/18 09:54 Lanoxin PO 125 mcg DAILY MARY Administration Enoxaparin Sodium 100 mg 05/27/18 21:00 05/31/18 09:46 Lovenox Inj SQ Not Given Q12HR MARY Folic Acid 1 mg 05/28/18 09:00 05/31/18 09:54 Folic Acid PO 1 mg DAILY MARY Administration Cefepime HCl 2,000 mg/ Sodium 100 mls @ 200 mls/hr 05/27/18 13:00 05/31/18 01 :52 Chloride IV.SIG 200 mls/hr Q12H MARY Administration Vancomycin HCl 1,500 mg/ 515 mls @ 257.5 mls/hr 05/28/18 14:00 05/30/18 19:37 Sodium Chloride IV.SIG Infused Q24H MARY Infusion Metoclopramide HCl 5 mg 05/27/18 12:46 05/29/18 14:11 Reglan Inj IV.PUSH 5 mg Q6HR PRN Administration NAUSEA OR VOMITING Protocol Metoprolol Tartrate 100 mg 05/27/18 21:00 05/31/18 09:54 Lopressor PO 100 mg BID MARY Administration Senna/Docusate Sodium 1 tab 05/27/18 21:00 05/31/18 09:54 Salma-Colace PO 1 tab BID MARY Administration Objective Remarks: GENERAL: Well-nourished, well-developed male patient, resting comfortably in bed , in no acute distress. SKIN: Warm and dry. Erythema to RLE. HEAD: Normocephalic. EYES: No scleral icterus. No injection or drainage. NECK: Supple, trachea midline. CARDIOVASCULAR: Distant heart sounds. RESPIRATORY: Posterior breath sounds clear, equal bilaterally. No accessory muscle use. GASTROINTESTINAL: Abdomen soft, non-tender, nondistended. EXTREMITIES: No cyanosis. Amputation to right great toe. Erythema to RLE, small area of yellowing at base of right second toe. MUSCULOSKELETAL: Adequate muscle tone. NEUROLOGICAL: No obvious focal deficit. Awake, alert, and oriented x3. PSYCHIATRIC: Appropriate mood and affect; insight and judgment normal. Assessment/Plan - Plan 72-year-old male with history of metastatic non-small cell lung cancer who gets his care through the [facility]. He was given his third cycle of palliative chemotherapy with carboplatin and Taxol on 05/18/18. Initially the patient had severe diarrhea after the chemotherapy which has been resolved. He was admitted with pain and swelling of the right lower extremity as he has a chronic venous insufficiency with skin breakdown. 1. Metastatic lung adenocarcinoma: s/p initiation of chemotherapy with carboplatin and paclitaxel at the [facility] on 05/18/2018. 2. Cytopenias due to chemotherapy, improved with G-CSF support. 3. RLE cellulitis. ID and podiatry have been consulted. MRI right foot: abnormal soft tissue and fluid adjacent to the distal portion of the second metatarsal. There is abnormal bone marrow edema in the distal half to one third portion of the second metatarsal highly suspicious for osteomyelitis. Antibiotics per ID. Pending OR for right foot I&D and second metatarsal bone biopsy, per podiatry. 4. We appreciate palliative care's assistance with written advanced directives and clarification of goals and treatments. 5. INR today 3.6. Patient has not had Coumadin during this hospitalization. Lovenox is currently on hold given his supra-therapeutic INR. Cardiology was consulted and recommended possibly switching to Eliquis instead of Coumadin, once patient is stable to resume anticoagulation and procedures have been completed. 6. Worsening renal function, management per attending. - Attending Statement The exam, history, and the medical decision-making described in the above note were completed with the assistance of the mid-level provider. I reviewed and agree with the findings presented. I attest that I had a [id number] encounter with the patient on the same day, and personally performed and documented my assessment and findings in the medical record. 72 yoM with metastatic lung adenocarcinoma s/p intiation of chemotherapy [facility] He is admitted with neutropenic fever and is currently on antibiotic therapy. ID and podiatry teams following plan for debridement. Creatinine clerance 44 ml/min
[2018-05-31 13:35] LABS: Lymphocytes 3 % (9-44); Metamyelocytes 4 % (0-1); Monocytes 8 % (0-8); Tallied Nucleated RBC 1 (0-0)
[2018-05-31 13:36] LABS: Burr Cells 1+; Platelet Estimate Normal (Normal); Toxic Granulation 2+
[2018-05-31] MEDS ORDERED: Pharmacy Ordered Lab Info OTHER ONE (13:45)
--- NOTE | 2018-05-31 14:05 | P.PN ---
Subjective Interval history: no fever, awake and alert, oriented x 3, ff all commands denies any pain poor po intake d/w staff nurse- - states some confusion yesterday after central line placement Physical Exam Vital signs: Vital Signs 05/30/18 15:30 05/30/18 19:00 05/30/18 19:27 Temperature 97.9 F 98.2 F Pulse Rate 105 H 90 99 H Respiratory Rate 22 18 18 Blood Pressure 114/65 126/78 Pulse Oximetry 98 99 99 05/30/18 20:28 05/30/18 23:24 05/30/18 23:49 Temperature 98.9 F Pulse Rate 109 H 100 H 100 H Respiratory Rate 18 Blood Pressure 109/62 Pulse Oximetry 99 05/31/18 03:08 05/31/18 04:55 05/31/18 06:32 Temperature 99.7 F H Pulse Rate 82 110 H 107 H Respiratory Rate 24 20 Blood Pressure 144/87 H Pulse Oximetry 93 L 97 05/31/18 09:19 05/31/18 10:00 05/31/18 12:00 Temperature 98.4 F 98.3 F Pulse Rate 105 H 106 H 103 H Respiratory Rate 20 16 19 Blood Pressure 110/63 118/63 Pulse Oximetry 99 96 95 Intake & Output 05/30/18 05/31/18 05/31/18 18:59 06:59 18:59 Intake Total 890 / 890 515 / 515 Output Total 200 / 200 Balance 890 / 890 315 / 315 Weight 109.3 kg Intake: IV 100 / 100 515 / 515 Maxipime Inj 2,000 MG In NS Inj 100 / 100 100 ML @ 200 mls/hr IV.SIG Q12H MAUDE Rx#:[id number] Vancomycin Inj 1,500 MG In NS 515 / 515 Inj 500 ML @ 257.5 mls/hr IV. SIG Q24H MAUDE Rx#:[id number] Oral 790 / 790 Output: Urine 200 / 200 Other: # Voids 5 2 Date of Last Bowel Movement 05/30/18 05/30/18 # Bowel Movements 1 0 Narrative: Physical Exam awake and alert, oriented x 3, speech clear ff all commands anciteric neck supple lungs- no rales, no wheezes irregularly irregular rhythm abdomen soft right foot- + erythema, mild swelling, distal tip of right big toe - amputated sole of the foot - callus Results - Labs CBC & Chem 7: 05/31/18 10:56 05/31/18 10:56 Laboratory Results - last 24 hr 05/31/18 05/31/18 05/31/18 10:56 10:56 10:56 WBC 31.2 H RBC 3.03 L Hgb 9.8 L Hct 30.5 L MCV 100.6 H MCH 32.3 MCHC 32.1 RDW 14.1 Plt Count 217 D MPV 8.2 Prelim Diff (Auto) Manual diff required WBC Differential Manual diff final Seg Neuts % (Manual) 69 Band Neuts % (Manual) 16 H Lymphocytes % (Manual) 3 L Monocytes % (Manual) 8 Metamyelocytes % (Man) 4 H Abs Neuts (Manual) 27.8 H Nucleated RBCs/100 WBC 1 H Differential Comment . Toxic Granulation 2+ H Platelet Estimate Normal Platelet Morphology Enlarged H Mary Cells 1+ H PT 35.8 H INR 3.6 APTT 41.9 H Sodium 140 Potassium 4.1 Chloride 108 H Carbon Dioxide 21.9 Anion Gap 10 BUN 54 H Creatinine 2.25 H Estimated GFR 29 L Random Glucose 130 H Calcium 8.3 L Total Bilirubin 0.4 AST 61 H ALT 76 Alkaline Phosphatase 166 H Total Protein 5.9 L D Albumin 2.0 L Microbiology 05/28/18 11:45 Blood - Peripheral Aerobic Blood Culture - Preliminary No growth in 3 days 05/28/18 11:45 Blood - Peripheral Anaerobic Blood Culture - Preliminary No growth in 3 days 05/28/18 11:40 Blood - Peripheral Aerobic Blood Culture - Preliminary No growth in 3 days 05/28/18 11:40 Blood - Peripheral Anaerobic Blood Culture - Preliminary No growth in 3 days 05/27/18 11:10 Blood - Peripheral Aerobic Blood Culture - Preliminary No growth in 4 days 05/27/18 11:10 Blood - Peripheral Anaerobic Blood Culture - Preliminary No growth in 4 days 05/27/18 11:15 Blood - Peripheral Aerobic Blood Culture - Preliminary No growth in 4 days 05/27/18 11:15 Blood - Peripheral Anaerobic Blood Culture - Preliminary No growth in 4 days - Imaging Impressions Lisa Line Insertion 05/30/18 00:00 CONCLUSION: 1. Uncomplicated tunneled Groshong catheter placement as above. Assessment and Plan - Plan 72-year-old man with Neutropenic fever- patient received Neuprogen x 3 doses - 05/27-3 now with leukocytosis from Neupogen Continue cefepime and vancomycin Neutropenic precautions Appreciate input from oncology Right lower extremity cellulitis/Osteomyelitis Currently on vancomycin and monitor cultures Appreciate input from podiatry- planning to take him to OR- needs biopsy ID ff History of lung cancer with metastases Treatment with paclitaxel and carboplatin Appreciate input from oncology History of hypertension, gout and other chronic medical conditions Chronic atrial fibrillation Coumain excess INR 3.6 Continue outpatient medications ff INR if plan for procedure- will reverse with FFP ALEXANDER- gentle hydration- NS dietitian consult- poor po Transient change in MS- - reported confusion - 05/30 post procedure- VAS cath now neuro stable- awake and alert, interactive get a head CT Plan for Vas-Cath placement when medically stable Lovenox - -DC - INR 3.6
--- NOTE | 2018-05-31 15:44 | P.CONNP ---
<Ibis Fierro - Last Filed: 05/31/18 16:12> History of Present Illness Service: Nephrology Consult date: 05/31/18 Reason for Consult: Need for PICC placement Primary Care Provider: Odette Rodas History of Present Illness: This is a 72 y/o male admitted 05/27 for fever and shortness of breath. He has a hx of metastatic lung cancer, HTN, AAA repair, A fib on Coumadin, and renal artery bypass graft (pseudoaneurysm). He is being treated for RLE osteomyelitis and cellulitis, is being followed by ID, heme/onc, podiatry, and palliative care. It looks like the patient has CKD 3. His creatinine was 1.75 on arrival ( it was the same in 2016), has increased slightly to 2.25. We were consulted to give recommendations regarding ocean transportation intermediary IV access. He has a Groshong catheter, however it does not allow blood draws per the nurse and the family is requesting a different catheter. On exam he has erythema to the RLE, is ill appearing, and his is at the bedside. As of now he is a full code, and there is plans for upcoming surgery on his foot. Review of Systems All other systems reviewed negative except as stated in HPI PMFSH - History History Provided By: Patient, Family Member - Medical History Medical History: Medical History (Last Updated 05/31/18 @ 15:32 by Fina Smallwood) Aneurysm Bone metastases Gout Hernia High cholesterol Hypertension Left cavernous carotid aneurysm Lung cancer Stroke Thoracoabdominal aortic aneurysm (TAAA) - Surgical History Surgical History: Surgical History (Last Updated 05/31/18 @ 15:38 by Fina Smallwood) Status post carotid surgery (Inactive) Atherosclerosis of bypass graft of lower extremity (Resolved) Renal artery bypass graft pseudoaneurysm (Acute) H/O pneumonectomy H/O splenectomy History of complete ray amputation of second toe of right foot History of incisional hernia repair History of total right knee replacement S/P AAA (abdominal aortic aneurysm) repair - Family History Family History: Family History (Last Reviewed 05/30/18 @ 18:41 by Patricia Angel MD) Sister Aneurysm Father Heart attack Stroke - Tobacco History Second Hand Smoke Exposure: No Tobacco Use In Past 30 Days: No Smoking Status: Former smoker (smoked for 20 years, quit 15 years ago) Packs Per Day: 2 Years Smoked: 20 - Alcohol History How Often Do You Have a Drink Containing Alcohol: Never - Substance Use History Substance History: No History of Abuse - Travel History History of Recent Travel: No Recent Travel in the [place] Within the Last 8 Weeks: No Recent Travel Out of the Country Within the Last 8 Weeks: No - Immunization History Tetanus Immunization: Unsure Hx Influenza Vaccine This Season: Yes Medications and Allergies Allergies Allergy/AdvReac Type Severity Reaction Status Date / Time penicillin G Allergy Severe EDEMA Verified 05/27/18 12:05 Home Medications Medication Instructions Recorded Confirmed Type albuterol sulfate 2 puff INHALATION Q4-6H PRN 05/27/18 05/27/18 History amlodipine 10 mg PO DAILY 05/27/18 05/27/18 History atorvastatin 80 mg PO DAILY 05/27/18 05/27/18 History bupropion HCl 100 mg PO BID 05/27/18 05/27/18 History colchicine 0.6 mg PO DAILY 05/27/18 05/27/18 History digoxin 0.125 mg PO DAILY 05/27/18 05/27/18 History folic acid 1 mg PO DAILY 05/27/18 05/27/18 History metoprolol tartrate 1 mg/kg PO BID 05/27/18 05/27/18 History ondansetron [Zofran ODT] 8 mg PO Q8HR PRN 05/27/18 05/29/18 History warfarin 05/27/18 05/27/18 History Active Medications: Active Medications Acetaminophen (Tylenol) 650 mg PO Q4H PRN PRN Reason: Temp > 100.4 Last Admin: 05/29/18 00:33 Dose: 650 mg Al Hydroxide/Mg Hydroxide (Milk Of Magnesia Liq) 30 ml PO Q12H PRN PRN Reason: Mild Constipation Albuterol (Duoneb Neb (Prn)) 1 ampul NEB Q2HR NEB PRN PRN Reason: SHORTNESS OF BREATH Last Admin: 05/31/18 03:08 Dose: 1 ampul Albuterol (Duoneb Neb (Mary)) 1 ampul NEB Q6HR WHILE AWAKE NEB MARY Last Admin: 05/31/18 13:50 Dose: Not Given Amlodipine Besylate (Norvasc) 10 mg PO DAILY MARY Last Admin: 05/31/18 09:54 Dose: 10 mg Atorvastatin Calcium (Lipitor) 80 mg PO DAILY [facility] Last Admin: 05/31/18 09:54 Dose: 80 mg Bisacodyl (Dulcolax Supp) 10 mg RECTAL DAILY PRN PRN Reason: SEVERE CONSITIPATION Bupropion HCl (Wellbutrin Sr) 100 mg PO BID [facility] Last Admin: 05/31/18 09:54 Dose: 100 mg Colchicine (Colcrys) 0.6 mg PO DAILY [facility] Last Admin: 05/31/18 09:54 Dose: 0.6 mg Digoxin (Lanoxin) 125 mcg PO DAILY [facility] Last Admin: 05/31/18 09:54 Dose: 125 mcg Enoxaparin Sodium (Lovenox Inj) 100 mg SQ Q12HR [facility] Last Admin: 05/31/18 09:46 Dose: Not Given Folic Acid (Folic Acid) 1 mg PO DAILY [facility] Last Admin: 05/31/18 09:54 Dose: 1 mg Cefepime HCl 2,000 mg/ Sodium (Chloride) 100 mls @ 200 mls/hr IV.SIG Q12H [facility] Last Admin: 05/31/18 14:06 Dose: 200 mls/hr Vancomycin HCl 1,500 mg/ (Sodium Chloride) 515 mls @ 257.5 mls/hr IV.SIG Q24H [facility] Last Infusion: 05/30/18 19:37 Dose: Infused Lactated Ringer's (Lr 1000 Ml Inj) 1,000 mls @ 30 mls/hr IV.SIG .Q24H [facility] Stop: 06/01/18 04:44 Sodium Chloride (Ns Inj) 500 mls @ 30 mls/hr IV.SIG .Q10H [facility] Sodium Chloride (Ns Inj) 1,000 mls @ 60 mls/hr IV.CONT .[id number] [facility] Lactulose (Lactulose Liq) 30 ml PO DAILY PRN PRN Reason: SEVERE CONSITIPATION Lorazepam (Ativan) 0.5 mg PO ONCE PRN PRN Reason: prior to lab draw Metoclopramide HCl (Reglan Inj) 5 mg IV.PUSH Q6HR PRN; Protocol PRN Reason: NAUSEA OR VOMITING Last Admin: 05/29/18 14:11 Dose: 5 mg Metoprolol Tartrate (Lopressor) 100 mg PO BID [facility] Last Admin: 05/31/18 09:54 Dose: 100 mg Pharmacy Profile Note (Vancomycin Consult Pharmacy) 1 each OTHER UNSCH PRN PRN Reason: Pharmacy to dose Senna/Docusate Sodium (Salma-Colace) 1 tab PO BID MARY Last Admin: 05/31/18 09:54 Dose: 1 tab Sennosides (Senokot) 17.2 mg PO Q12H PRN PRN Reason: Moderate Constipation Exam Vital signs: Vital Signs 05/30/18 15:30 05/30/18 19:00 05/30/18 19:27 Temperature 97.9 F 98.2 F Pulse Rate 105 H 90 99 H Respiratory Rate 22 18 18 Blood Pressure 114/65 126/78 Pulse Oximetry 98 99 99 05/30/18 20:28 05/30/18 23:24 05/30/18 23:49 Temperature 98.9 F Pulse Rate 109 H 100 H 100 H Respiratory Rate 18 Blood Pressure 109/62 Pulse Oximetry 99 05/31/18 03:08 05/31/18 04:55 05/31/18 06:32 Temperature 99.7 F H Pulse Rate 82 110 H 107 H Respiratory Rate 24 20 Blood Pressure 144/87 H Pulse Oximetry 93 L 97 05/31/18 09:19 05/31/18 10:00 05/31/18 12:00 Temperature 98.4 F 98.3 F Pulse Rate 105 H 106 H 103 H Respiratory Rate 20 16 19 Blood Pressure 110/63 118/63 Pulse Oximetry 99 96 95 Intake & Output 05/30/18 05/31/18 05/31/18 18:59 06:59 18:59 Intake Total 890 / 890 515 / 515 100 / 100 Output Total 200 / 200 Balance 890 / 890 315 / 315 100 / 100 Weight 109.3 kg Intake: IV 100 / 100 515 / 515 100 / 100 Maxipime Inj 2,000 MG In NS Inj 100 / 100 100 / 100 100 ML @ 200 mls/hr IV.SIG Q12H MARY Rx#:[id number] Vancomycin Inj 1,500 MG In NS 515 / 515 Inj 500 ML @ 257.5 mls/hr IV. SIG Q24H MARY Rx#:[id number] Oral 790 / 790 Output: Urine 200 / 200 Other: # Voids 5 2 Date of Last Bowel Movement 05/30/18 05/30/18 # Bowel Movements 1 0 - Constitutional no acute distress, obese, chronically ill appearing, cooperative - Routine HEENT Exam Head: Present: normocephalic - Routine Neck Exam Present: supple, full ROM - Routine Respiratory Exam Present: accessory muscle use, decreased breath sounds, rales - Routine Cardiovascular Exam Present: S1, S2, irregular rhythm, irregularly irregular - Routine Abdominal Exam Present: soft, normoactive bowel sounds - Routine Extremities Exam Present: edema, tenderness - Routine Skin Exam Present: mottling, warm Comments: RLE erythema, edema Results - Lab Results 05/31/18 10:56 05/31/18 10:56 Most recent lab results Calcium 8.3 mg/dL (8.5-10.1) L 05/31/18 10:56 - Image Kidney/bladder ultrasound: other (not taken) Assessment and Plan - Plan The patient has a Groshong catheter, but apparently it does not allow for lab draws. They are requesting different access. We prefer to avoid PICC lines in patient with preexisting CKD, however given the patient's overall health status and need for chemotherapy with monitoring, it may be appropriate. He may not survive long enough until his CKD progressed until the point of needing HD. Therefore we recommend a tunneled Lisa catheter over a PICC line for ocean transportation intermediary IV medications, lab draws, possible chemotherapy. We discussed with the , she is resistant to any type of recommendations. Therefore we will sign off. Please call us if needed. <Lambert Medina - Last Filed: 06/01/18 20:51> History of Present Illness Primary Care Provider: Odette Rodas [facility] - Medical History Medical History: Medical History (Last Updated 05/31/18 @ 15:32 by Fina Smallwood) Aneurysm Bone metastases Gout Hernia High cholesterol Hypertension Left cavernous carotid aneurysm Lung cancer Stroke Thoracoabdominal aortic aneurysm (TAAA) - Surgical History Surgical History: Surgical History (Last Updated 05/31/18 @ 15:38 by Fina Smallwood) Status post carotid surgery (Inactive) Atherosclerosis of bypass graft of lower extremity (Resolved) Renal artery bypass graft pseudoaneurysm (Acute) H/O pneumonectomy H/O splenectomy History of complete ray amputation of second toe of right foot History of incisional hernia repair History of total right knee replacement S/P AAA (abdominal aortic aneurysm) repair - Family History Family History: Family History (Last Reviewed 05/30/18 @ 18:41 by Patricia Angel MD) Sister Aneurysm Father Heart attack Stroke Medications and Allergies Active Medications: Active Medications Acetaminophen (Tylenol) 650 mg PO Q4H PRN PRN Reason: Temp > 100.4 Last Admin: 05/29/18 00:33 Dose: 650 mg Al Hydroxide/Mg Hydroxide (Milk Of Magnesia Liq) 30 ml PO Q12H PRN PRN Reason: Mild Constipation Albuterol (Duoneb Neb (Prn)) 1 ampul NEB Q2HR NEB PRN PRN Reason: SHORTNESS OF BREATH Last Admin: 05/31/18 16:28 Dose: 1 ampul Albuterol (Duoneb Neb (Mary)) 1 ampul NEB Q6HR WHILE AWAKE NEB [facility] Last Admin: 06/01/18 20:27 Dose: 1 ampul Amlodipine Besylate (Norvasc) 10 mg PO DAILY [facility] Last Admin: 06/01/18 08:43 Dose: 10 mg Atorvastatin Calcium (Lipitor) 80 mg PO DAILY [facility] Last Admin: 06/01/18 08:46 Dose: 80 mg Bisacodyl (Dulcolax Supp) 10 mg RECTAL DAILY PRN PRN Reason: SEVERE CONSITIPATION Bupropion HCl (Wellbutrin Sr) 100 mg PO BID [facility] Last Admin: 06/01/18 08:43 Dose: 100 mg Colchicine (Colcrys) 0.6 mg PO DAILY [facility] Last Admin: 06/01/18 08:42 Dose: 0.6 mg Digoxin (Lanoxin) 125 mcg PO DAILY [facility] Last Admin: 06/01/18 08:43 Dose: 125 mcg Enoxaparin Sodium (Lovenox Inj) 100 mg SQ Q12HR [facility] Last Admin: 05/31/18 09:46 Dose: Not Given Folic Acid (Folic Acid) 1 mg PO DAILY [facility] Last Admin: 06/01/18 08:43 Dose: 1 mg Cefepime HCl 2,000 mg/ Sodium (Chloride) 100 mls @ 200 mls/hr IV.SIG Q12H [facility] Last Infusion: 06/01/18 12:41 Dose: Infused Sodium Chloride (Ns Inj) 500 mls @ 30 mls/hr IV.SIG .Q10H [facility]ARY Sodium Chloride (Ns Inj) 1,000 mls @ 60 mls/hr IV.CONT .[id number] [facility] Last Admin: 06/01/18 09:20 Dose: 60 mls/hr Vancomycin HCl 1,500 mg/ (Sodium Chloride) 515 mls @ 257.5 mls/hr IV.SIG ONCE ONE Stop: 06/01/18 21:59 Lactulose (Lactulose Liq) 30 ml PO DAILY PRN PRN Reason: SEVERE CONSITIPATION Lorazepam (Ativan) 0.5 mg PO ONCE PRN PRN Reason: prior to lab draw Methylprednisolone Sodium Succinate (Solumedrol Inj) 60 mg IV.PUSH Q12HR [facility] Last Admin: 06/01/18 14:16 Dose: 60 mg Metoclopramide HCl (Reglan Inj) 5 mg IV.PUSH Q6HR PRN; Protocol PRN Reason: NAUSEA OR VOMITING Last Admin: 05/29/18 14:11 Dose: 5 mg Metoprolol Tartrate (Lopressor) 100 mg PO BID [facility] Last Admin: 06/01/18 08:43 Dose: 100 mg Pharmacy Profile Note (Vancomycin Consult Pharmacy) 1 each OTHER UNSCH PRN PRN Reason: Pharmacy to dose Senna/Docusate Sodium (Salma-Colace) 1 tab PO BID [facility] Last Admin: 06/01/18 14:18 Dose: 1 tab Sennosides (Senokot) 17.2 mg PO Q12H PRN PRN Reason: Moderate Constipation Exam Vital signs: Vital Signs 06/01/18 00:00 06/01/18 04:00 06/01/18 04:13 Temperature 97.9 F Pulse Rate 107 H 107 H 175 H Respiratory Rate 20 Blood Pressure 143/97 H Pulse Oximetry 97 06/01/18 04:18 06/01/18 08:32 06/01/18 08:41 Temperature 98.1 F 98.2 F Pulse Rate 106 H 105 H 106 H Respiratory Rate 19 26 H 24 Blood Pressure 134/88 135/76 Pulse Oximetry 96 98 94 L 06/01/18 11:50 06/01/18 18:09 06/01/18 18:15 Temperature 98.2 F 97.9 F Pulse Rate 95 H 95 H 100 H Respiratory Rate 24 24 22 Blood Pressure 135/81 111/65 118/70 Pulse Oximetry 94 L 94 L 06/01/18 18:30 06/01/18 18:45 06/01/18 18:55 Temperature Pulse Rate 99 H 97 H 102 H Respiratory Rate 22 22 22 Blood Pressure 140/85 131/80 133/81 Pulse Oximetry 90 L 92 L 92 L Intake & Output 06/01/18 06/01/18 06/02/18 06:59 18:59 06:59 Intake Total 340 / 340 1200 / 1200 Output Total 750 / 750 Balance -410 / -410 1190 / 1190 Weight 109 kg Intake: IV 100 / 100 1100 / 1100 NS Inj 1,000 ML @ 60 mls/hr IV. 1000 / 1000 CONT .[id number] [facility] Rx#:[id number] Maxipime Inj 2,000 MG In NS Inj 100 / 100 100 / 100 100 ML @ 200 mls/hr IV.SIG Q12H [facility]ARY Rx#:[id number] Oral 240 / 240 Anesthesia Amount 100 / 100 Output: Urine 750 / 750 Estimated Blood Loss Other: Date of Last Bowel Movement 05/31/18 Results - Lab Results 06/01/18 05:58 06/01/18 05:58 Most recent lab results ABG pH 7.42 (7.380-7.420) 06/01/18 14:04 ABG pCO2 29 mmHg (38-42) L 06/01/18 14:04 ABG pO2 83 mmHG (61-120) 06/01/18 14:04 ABG HCO3 18 mmol/L (22-26) L 06/01/18 14:04 Calcium 8.2 mg/dL (8.5-10.1) L 06/01/18 05:58 Assessment and Plan - Attending Attestation patient was seen and examined. on 05/31/18. He has metastatic malignancy, I do not believe he will be a candidate for dialysis. OK to place Piccline from renal standpoint. Groshong that was placed apparently is not useful, as they are unable to draw blood from it.
[2018-05-31] MEDS: Vancomycin Inj 1,500 MG in Sodium Chlor 0.9% Inj 500 ML IV.SIG SCH (15:56)
--- NOTE | 2018-05-31 16:06 | CT ---
EXAM DATE: 05/31/2018 4:02 PM EDT AGE/SEX: 72 years / Male INDICATIONS: Altered mental status. CLINICAL DATA: This is the patient's initial encounter. Patient reports that signs and symptoms have been present for 1 day and indicates a pain score of 0/10. MEDICAL/SURGICAL HISTORY: Hypertension. Carcinoma, lung. Metastatic disease. Aneurysm, stroke. None. RADIATION DOSE: 52.18 CTDI (mGy) COMPARISON: [facility], MR BRAIN W/O CONTRAST, 01/04/2017. . TECHNIQUE: CT of the head without contrast. Using automated exposure control and adjustment of the mA and/or kV according to patient size, radiation dose was kept as low as reasonably achievable to ob tain optimal diagnostic quality images. DICOM format image data is available electronically for revi ew and comparison. FINDINGS: Remote infarcts in the right cerebellar hemisphere. Remote left occipital infarct in left frontal inf arct with encephalomalacia. There is mild ex vacuo dilatation of left lateral ventricle frontal horn from previous periventricular infarct. Patchy and confluent attenuation of the white matter in the bi lateral centrum semiovale and periventricular white matter noted. This is stable. No fractures. No si gns of intracranial hemorrhage or mass. CONCLUSION: 1. 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 . Electronically signed by: Kvng Trevino MD 05/31/2018 4:04 PM EDT
[2018-05-31] MEDS: Sod Chloride 0.9% Inj 1,000 ML IV.CONT SCH (20:37)
[2018-06-01 07:12] LABS: Baso % (Auto) 0.1 % (0.0-2.0); Hematocrit 30.8 % (39.0-51.0); Hemoglobin 10.2 gm/dL (13.0-17.0); Lymph # (Auto) 0.7 th/mm3 (1.0-4.8); Lymph % (Auto) 2.6 % (9.0-44.0); Mean Corpuscular HGB Conc 32.9 % (32.0-36.0); Mean Corpuscular Hemoglobin 32.9 pg (27.0-34.0); Mean Platelet Volume 8.6 fL (7.0-11.0); Mono # (Auto) 0.8 th/mm3 (0.0-0.9); Mono % (Auto) 2.9 % (0.0-8.0); Neut # (Auto) 24.2 th/mm3 (1.8-7.7); Neut % (Auto) 94.4 % (16.0-70.0); Platelet Count 209 th/mm3 (150-450); Red Blood Count 3.08 mil/mm3 (4.50-5.90); Red Cell Distribution Width 14.1 % (11.6-17.2); White Blood Count 25.6 th/mm3 (4.0-11.0)
[2018-06-01 07:20] LABS: Activated Partial Thrombo Time 41.5 sec (24.3-30.1); INR 2.7 Ratio; Prothrombin Time 27.1 sec (9.8-11.6)
[2018-06-01 07:35] LABS: Alanine Aminotransferase 83 U/L (12-78); Anion Gap 11 meq/L (5-15); Aspartate Aminotransferase 57 U/L (15-37); Blood Urea Nitrogen 53 mg/dL (7-18); Calcium 8.2 mg/dL (8.5-10.1); Carbon Dioxide 23.4 meq/L (21.0-32.0); Chloride 107 meq/L (98-107); Glomerular Filtration Rate 31 mL/min (>89); Glucose,Random 87 mg/dL (74-106); Potassium 4.5 meq/L (3.5-5.1); Sodium 141 meq/L (136-145)
[2018-06-01 07:38] LABS: Alkaline Phosphatase 174 U/L (45-117); Total Protein 6.3 g/dL (6.4-8.2); Vancomycin,Random 16.2 Comment
[2018-06-01 08:40] LABS: Lymphocytes 4 % (9-44); Monocytes 1 % (0-8); Platelet Estimate Normal (Normal); Platelet Morphology Normal (Normal)
[2018-06-01 08:41] LABS: Acanthocytes Occ
[2018-06-01] MEDS: Metoprolol Tartrate 100 MG Tablet PO SCH ×2 (08:43→21:21)
[2018-06-01] MEDS: amLODIPine 10 MG Tablet PO SCH (08:43)
[2018-06-01] MEDS: Digoxin 125 MCG Tablet PO SCH (08:43)
[2018-06-01] MEDS: buPROPion 100 MG ER 12 HR Tablet PO SCH ×2 (08:43→21:21)
[2018-06-01] MEDS: Folic Acid 1 MG Tablet PO SCH (08:43)
[2018-06-01] MEDS: Sod Chloride 0.9% Inj 1,000 ML IV.CONT SCH (09:20)
[2018-06-01] MEDS ORDERED: Phytonadione 5 MG/SWFI 5 ML Oral Syringe PO ONE (10:00)
[2018-06-01] MEDS ORDERED: Vancomycin Inj 1,500 MG in Sodium Chlor 0.9% Inj 500 ML IV.SIG ONE ×2 (12:00→20:00)
--- NOTE | 2018-06-01 12:17 | P.PNONC ---
Subjective Interval history: Afebrile. Patient sleeping on approach, awakens easily to voice. He has no complaints at this time. Awaiting debridement of right foot. Objective Vital Signs/Intake & Output: Vital Signs 05/31/18 16:00 05/31/18 16:32 05/31/18 19:48 Temperature 98.4 F Pulse Rate 89 89 91 H Respiratory Rate 20 22 20 Blood Pressure 123/78 Pulse Oximetry 98 93 L 05/31/18 20:00 05/31/18 20:20 06/01/18 00:00 Temperature 97.8 F 97.9 F Pulse Rate 120 H 107 H 107 H Respiratory Rate 20 20 Blood Pressure 155/91 H 143/97 H Pulse Oximetry 98 97 06/01/18 04:00 06/01/18 04:13 06/01/18 04:18 Temperature 98.1 F Pulse Rate 107 H 175 H 106 H Respiratory Rate 19 Blood Pressure 134/88 Pulse Oximetry 96 06/01/18 08:32 06/01/18 08:41 06/01/18 11:50 Temperature 98.2 F 98.2 F Pulse Rate 105 H 106 H 95 H Respiratory Rate 26 H 24 24 Blood Pressure 135/76 135/81 Pulse Oximetry 98 94 L Intake & Output 05/31/18 06/01/18 06/01/18 18:59 06:59 18:59 Intake Total 300 / 300 340 / 340 Output Total 550 / 550 750 / 750 Balance -250 / -250 -410 / -410 Weight 109 kg Intake: IV 200 / 200 100 / 100 Maxipime Inj 2,000 MG In NS Inj 200 / 200 100 / 100 100 ML @ 200 mls/hr IV.SIG Q12H [facility] Rx#:[id number] Oral 100 / 100 240 / 240 Output: Urine 550 / 550 750 / 750 Other: Date of Last Bowel Movement 05/31/18 Result Diagrams: 06/01/18 05:58 06/01/18 05:58 Laboratory Results: Laboratory Results - last 24 hr 05/31/18 05/31/18 05/31/18 10:56 10:56 19:45 WBC RBC Hgb Hct MCV MCH MCHC RDW Plt Count MPV Prelim Diff (Auto) Neut % (Auto) Lymph % (Auto) [place] % (Auto) Eos % (Auto) Baso % (Auto) Neut # (Auto) Lymph # (Auto) [place] # (Auto) Eos # (Auto) Baso # (Auto) WBC Differential Manual diff final Seg Neuts % (Manual) 69 Band Neuts % (Manual) 16 H Lymphocytes % (Manual) 3 L Monocytes % (Manual) 8 Metamyelocytes % (Man) 4 H Abs Neuts (Manual) 27.8 H Nucleated RBCs/100 WBC 1 H Differential Comment Toxic Granulation 2+ H Platelet Estimate Normal Platelet Morphology Enlarged H [place] Cells 1+ H Acanthocytes (Spur) Keratocytes PT INR APTT Sodium 140 Potassium 4.1 Chloride 108 H Carbon Dioxide 21.9 Anion Gap 10 BUN 54 H Creatinine 2.25 H Estimated GFR 29 L Random Glucose 130 H Calcium 8.3 L Total Bilirubin 0.4 AST 61 H ALT 76 Alkaline Phosphatase 166 H Total Protein 5.9 L D Albumin 2.0 L Vancomycin Trough 14.7 H Random Vancomycin 06/01/18 06/01/18 06/01/18 05:58 05:58 05:58 WBC 25.6 H RBC 3.08 L Hgb 10.2 L Hct 30.8 L MCV 100.0 MCH 32.9 MCHC 32.9 RDW 14.1 Plt Count 209 MPV 8.6 Prelim Diff (Auto) Slide review pending Neut % (Auto) 94.4 H Lymph % (Auto) 2.6 L [place] % (Auto) 2.9 Eos % (Auto) 0.0 Baso % (Auto) 0.1 Neut # (Auto) 24.2 H Lymph # (Auto) 0.7 L [place] # (Auto) 0.8 Eos # (Auto) 0.0 Baso # (Auto) 0.0 WBC Differential Manual diff final Seg Neuts % (Manual) 82 H Band Neuts % (Manual) 13 H Lymphocytes % (Manual) 4 L Monocytes % (Manual) 1 Metamyelocytes % (Man) Abs Neuts (Manual) 24.3 H Nucleated RBCs/100 WBC Differential Comment . Toxic Granulation Platelet Estimate Normal Platelet Morphology Normal [place] Cells Acanthocytes (Spur) Occ H Keratocytes Occ H PT 27.1 H INR 2.7 APTT 41.5 H Sodium 141 Potassium 4.5 Chloride 107 Carbon Dioxide 23.4 Anion Gap 11 BUN 53 H Creatinine 2.13 H Estimated GFR 31 L Random Glucose 87 Calcium 8.2 L Total Bilirubin 0.5 AST 57 H ALT 83 H Alkaline Phosphatase 174 H Total Protein 6.3 L Albumin 2.0 L Vancomycin Trough Random Vancomycin 16.2 Culture Results: Microbiology 05/28/18 11:45 Aerobic Blood Culture - Preliminary Blood - Peripheral No growth in 4 days Anaerobic Blood Culture - Preliminary No growth in 4 days 05/28/18 11:40 Aerobic Blood Culture - Preliminary Blood - Peripheral No growth in 4 days Anaerobic Blood Culture - Preliminary No growth in 4 days 05/27/18 11:10 Aerobic Blood Culture - Final Blood - Peripheral No growth in 5 days Anaerobic Blood Culture - Final No growth in 5 days 05/27/18 11:15 Aerobic Blood Culture - Final Blood - Peripheral No growth in 5 days Anaerobic Blood Culture - Final No growth in 5 days Imaging Studies: Impressions Head CT 05/31/18 13:33 CONCLUSION: 1. 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 . Medications: Active Medications Generic Name Dose Route Start Last Admin Trade Name Freq PRN Reason Stop Dose Admin Acetaminophen 650 mg 05/27/18 12:46 05/29/18 00:33 Tylenol PO 650 mg Q4H PRN Administration Temp > 100.4 Albuterol 1 ampul 05/29/18 15:04 05/31/18 16:28 Duoneb Neb (Prn) NEB 1 ampul Q2HR NEB PRN Administration SHORTNESS OF BREATH Albuterol 1 ampul 05/29/18 20:00 06/01/18 08:31 Duoneb Neb (Mary) NEB 1 ampul Q6HR WHILE AWAKE NEB MARY Administration Amlodipine Besylate 10 mg 05/28/18 09:00 06/01/18 08:43 Norvasc PO 10 mg DAILY MARY Administration Atorvastatin Calcium 80 mg 05/28/18 09:00 06/01/18 08:46 Lipitor PO 80 mg DAILY MARY Administration Bupropion HCl 100 mg 05/27/18 21:00 06/01/18 08:43 Wellbutrin Sr PO 100 mg BID MARY Administration Colchicine 0.6 mg 05/28/18 09:00 06/01/18 08:42 Colcrys PO 0.6 mg DAILY MARY Administration Digoxin 125 mcg 05/28/18 09:00 06/01/18 08:43 Lanoxin PO 125 mcg DAILY MARY Administration Enoxaparin Sodium 100 mg 05/27/18 21:00 05/31/18 09:46 Lovenox Inj SQ Not Given Q12HR [facility] Folic Acid 1 mg 05/28/18 09:00 06/01/18 08:43 Folic Acid PO 1 mg DAILY MARY Administration Cefepime HCl 2,000 mg/ Sodium 100 mls @ 200 mls/hr 05/27/18 13:00 06/01/18 02 :00 Chloride IV.SIG Infused Q12H MARY Infusion Sodium Chloride 1,000 mls @ 60 mls/hr 05/31/18 14:02 05/31/18 20:37 Ns Inj IV.CONT 60 mls/hr .[id number] MARY Administration Metoclopramide HCl 5 mg 05/27/18 12:46 05/29/18 14:11 Reglan Inj IV.PUSH 5 mg Q6HR PRN Administration NAUSEA OR VOMITING Protocol Metoprolol Tartrate 100 mg 05/27/18 21:00 06/01/18 08:43 Lopressor PO 100 mg BID MARY Administration Senna/Docusate Sodium 1 tab 05/27/18 21:00 05/31/18 20:36 Salma-Colace PO 1 tab BID MARY Administration Objective Remarks: GENERAL: Well-nourished, well-developed male patient, sleeping on approach, awakens easily. In no acute distress. SKIN: Warm and dry. Erythema to RLE to midcalf. HEAD: Normocephalic. EYES: No scleral icterus. No injection or drainage. NECK: Supple, trachea midline. CARDIOVASCULAR: Irregularly irregular heart rate without murmurs. RESPIRATORY: Anterior breath sounds clear, equal bilaterally. No accessory muscle use. GASTROINTESTINAL: Abdomen soft, non-tender, nondistended. EXTREMITIES: No cyanosis. Amputation to right great toe. Erythema to RLE to midcalf region, small area of yellowing at dorsal base of right second toe. MUSCULOSKELETAL: Adequate muscle tone. NEUROLOGICAL: No obvious focal deficit. Awake, alert, and oriented x3. PSYCHIATRIC: Appropriate mood and affect; insight and judgment normal. Assessment/Plan - Plan 72-year-old male with history of metastatic non-small cell lung cancer who gets his care through the [facility]. He was given his third cycle of palliative chemotherapy with carboplatin and Taxol on 05/18/18. Initially the patient had severe diarrhea after the chemotherapy which has been resolved. He was admitted with pain and swelling of the right lower extremity as he has a chronic venous insufficiency with skin breakdown. 1. Metastatic lung adenocarcinoma: s/p initiation of chemotherapy [facility] on 05[facility]18[facility]2018. 2. Cytopenias due to chemotherapy, improved with G-CSF support, with some rebound leukocytosis. 3. RLE cellulitis. ID and podiatry have been consulted. MRI right foot: abnormal soft tissue and fluid adjacent to the distal portion of the second metatarsal. There is abnormal bone marrow edema in the distal half to one third portion of the second metatarsal highly suspicious for osteomyelitis. Blood cultures negative thus far. Continue antibiotics per ID. Pending OR for right foot debridement and second metatarsal bone biopsy, per podiatry. 4. INR today 2.7. Patient has not had Coumadin during this hospitalization. Lovenox is currently on hold given his therapeutic INR and pending debridement. 5. Renal function, with mild improvement today. Nephrology has been consulted and is following. - Attending Statement The exam, history, and the medical decision-making described in the above note were completed with the assistance of the mid-level provider. I reviewed and agree with the findings presented. I attest that I had a [id number] encounter with the patient on the same day, and personally performed and documented my assessment and findings in the medical record. 72 yoF with metastatic lung adenocarcinoma admitted with sepsis. S/p ID of right foot with finding of osteomyelitis. ID team following.
--- NOTE | 2018-06-01 12:36 | P.PN ---
Subjective Interval history: awake and alert "no pain, but discomfort" on the foot Physical Exam Vital signs: Vital Signs 05/31/18 16:00 05/31/18 16:32 05/31/18 19:48 Temperature 98.4 F Pulse Rate 89 89 91 H Respiratory Rate 20 22 20 Blood Pressure 123/78 Pulse Oximetry 98 93 L 05/31/18 20:00 05/31/18 20:20 06/01/18 00:00 Temperature 97.8 F 97.9 F Pulse Rate 120 H 107 H 107 H Respiratory Rate 20 20 Blood Pressure 155/91 H 143/97 H Pulse Oximetry 98 97 06/01/18 04:00 06/01/18 04:13 06/01/18 04:18 Temperature 98.1 F Pulse Rate 107 H 175 H 106 H Respiratory Rate 19 Blood Pressure 134/88 Pulse Oximetry 96 06/01/18 08:32 06/01/18 08:41 06/01/18 11:50 Temperature 98.2 F 98.2 F Pulse Rate 105 H 106 H 95 H Respiratory Rate 26 H 24 24 Blood Pressure 135/76 135/81 Pulse Oximetry 98 94 L Intake & Output 05/31/18 06/01/18 06/01/18 18:59 06:59 18:59 Intake Total 300 / 300 340 / 340 Output Total 550 / 550 750 / 750 Balance -250 / -250 -410 / -410 Weight 109 kg Intake: IV 200 / 200 100 / 100 Maxipime Inj 2,000 MG In NS Inj 200 / 200 100 / 100 100 ML @ 200 mls/hr IV.SIG Q12H [facility] Rx#:[id number] Oral 100 / 100 240 / 240 Output: Urine 550 / 550 750 / 750 Other: Date of Last Bowel Movement 05/31/18 Narrative: Physical Exam awake and alert, oriented x 3, speech clear ff all commands anciteric neck supple lungs- + rales left base, + few inspiratory wheezes irregularly irregular rhythm abdomen soft right foot- + erythema, mild swelling, distal tip of right big toe - amputated sole of the foot - callus Results - Labs CBC & Chem 7: 06/01/18 05:58 06/01/18 05:58 Laboratory Results - last 24 hr 05/31/18 05/31/18 06/01/18 10:56 19:45 05:58 WBC 25.6 H RBC 3.08 L Hgb 10.2 L Hct 30.8 L MCV 100.0 MCH 32.9 MCHC 32.9 RDW 14.1 Plt Count 209 MPV 8.6 Prelim Diff (Auto) Slide review pending Neut % (Auto) 94.4 H Lymph % (Auto) 2.6 L [place] % (Auto) 2.9 Eos % (Auto) 0.0 Baso % (Auto) 0.1 Neut # (Auto) 24.2 H Lymph # (Auto) 0.7 L [place] # (Auto) 0.8 Eos # (Auto) 0.0 Baso # (Auto) 0.0 WBC Differential Manual diff final Manual diff final Seg Neuts % (Manual) 69 82 H Band Neuts % (Manual) 16 H 13 H Lymphocytes % (Manual) 3 L 4 L Monocytes % (Manual) 8 1 Metamyelocytes % (Man) 4 H Abs Neuts (Manual) 27.8 H 24.3 H Nucleated RBCs/100 WBC 1 H Differential Comment . Toxic Granulation 2+ H Platelet Estimate Normal Normal Platelet Morphology Enlarged H Normal [place] Cells 1+ H Acanthocytes (Spur) Occ H Keratocytes Occ H PT INR APTT Sodium Potassium Chloride Carbon Dioxide Anion Gap BUN Creatinine Estimated GFR Random Glucose Calcium Total Bilirubin AST ALT Alkaline Phosphatase Total Protein Albumin Vancomycin Trough 14.7 H Random Vancomycin 06/01/18 06/01/18 05:58 05:58 WBC RBC Hgb Hct MCV MCH MCHC RDW Plt Count MPV Prelim Diff (Auto) Neut % (Auto) Lymph % (Auto) [place] % (Auto) Eos % (Auto) Baso % (Auto) Neut # (Auto) Lymph # (Auto) [place] # (Auto) Eos # (Auto) Baso # (Auto) WBC Differential Seg Neuts % (Manual) Band Neuts % (Manual) Lymphocytes % (Manual) Monocytes % (Manual) Metamyelocytes % (Man) Abs Neuts (Manual) Nucleated RBCs/100 WBC Differential Comment Toxic Granulation Platelet Estimate Platelet Morphology [place] Cells Acanthocytes (Spur) Keratocytes PT 27.1 H INR 2.7 APTT 41.5 H Sodium 141 Potassium 4.5 Chloride 107 Carbon Dioxide 23.4 Anion Gap 11 BUN 53 H Creatinine 2.13 H Estimated GFR 31 L Random Glucose 87 Calcium 8.2 L Total Bilirubin 0.5 AST 57 H ALT 83 H Alkaline Phosphatase 174 H Total Protein 6.3 L Albumin 2.0 L Vancomycin Trough Random Vancomycin 16.2 Microbiology 05/28/18 11:45 Blood - Peripheral Aerobic Blood Culture - Preliminary No growth in 4 days 05/28/18 11:45 Blood - Peripheral Anaerobic Blood Culture - Preliminary No growth in 4 days 05/28/18 11:40 Blood - Peripheral Aerobic Blood Culture - Preliminary No growth in 4 days 05/28/18 11:40 Blood - Peripheral Anaerobic Blood Culture - Preliminary No growth in 4 days 05/27/18 11:10 Blood - Peripheral Aerobic Blood Culture - Final No growth in 5 days 05/27/18 11:10 Blood - Peripheral Anaerobic Blood Culture - Final No growth in 5 days 05/27/18 11:15 Blood - Peripheral Aerobic Blood Culture - Final No growth in 5 days 05/27/18 11:15 Blood - Peripheral Anaerobic Blood Culture - Final No growth in 5 days - Imaging Impressions Head CT 05/31/18 13:33 CONCLUSION: 1. 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 . Assessment and Plan - Plan 72-year-old man with Neutropenic fever- patient received Neuprogen x 3 doses - 05/27-3 now with leukocytosis from Neupogen Continue cefepime and vancomycin Neutropenic precautions Appreciate input from oncology Right lower extremity cellulitis/Osteomyelitis Currently on vancomycin and monitor cultures Appreciate input from podiatry- planning to take him to OR- needs biopsy ID ff History of lung cancer with metastases Treatment with paclitaxel and carboplatin Appreciate input from oncology - exam with wheezing -stat CXR - give IV Solumedrol q 8 - duoneb treatment - stat ABG now History of hypertension, gout and other chronic medical conditions Chronic atrial fibrillation Coumadin excess INR 3.6- down Continue outpatient medications ff INR- per staff- patient received Vit K ALEXANDER- gentle hydration- NS, Npehrology ff dietitian consult- poor po Transient change in MS- - reported confusion - 05/30 post procedure- VAS cath now neuro stable- awake and alert, interactive negative head CT Plan for Vas-Cath placement when medically stable Lovenox - -DC - INR 2-3
--- NOTE | 2018-06-01 13:46 | P.PNPAL ---
Reason for Visit Reason for visit: a. To assist with evaluation and management of symptoms including:pain, shortness of breath. b. To assist medical decision maker(s) with: better understanding of current medical conditions; weighing benefits/burdens of medical treatment options; making medical treatment decisions. Subjective Subjective/Interval History: Patient seen and examined in room. Sulma Bethea, significant other/HCS at bedside. Also present Lori Osullivan LCSW. Patient is awake, sleepy. He denies pain or anxiety. He reports "feeling okay" during my visit. He then falls off to sleep. His respirations appear mildly labored at rest, tachypneic. Has PRN Lorazepam, encouraged use PRN SOB or anxiety. Sulma states he does not like to take those medications. Sulma, SO at bedside reports she and patient are anxious to move forward with I & D and biopsy planned for this afternoon. She again verbalizes hopes to get him home again. She spent some time telling stories about Mart and their life together. She shows us some pictures. She feels much better today and verbalizes how great the staff was yesterday. Clinical data: * Afebrile. HR 95-106, RR 24, BP 135/81 * Oxygen saturation 94% on NC 4 LPM. Has ATC and PRN Duonebs. * LBM 05/30/18. On BID Salma-colace. Has PRN meds available. * Blood cultures negative to date. * WBC 25.6, hemoglobin 10.2, hematocrit 30.8, platelets 209, neutrophils 94.4% * BUN 53, creatinine 2.13, GFR 31 * T. Bili 0.5, AST 57, ALT 83 * Total protein 6.3, Albumin 2.0 * PT 27.1, INR 2.7, PTT 41.5. Had Vitamin K 5mg PO at 930am. Palliative care will continue to follow. Family/Friend Interactions: See interval note. Advance Directives Health Care Surrogate Name and Number: Sulma Bethea [phone] OR Medardo Celestine [phone] Documented care wishes:: Patient is capacitated to make his own health care decisions. No Living Will. Patient completed Designation of Health Care Surrogate paperwork on 05/30/18 naming his significant other, Sulma Bethea OR Medardo Diptula as health care surrogate should he lose capacity. Significant change in goals:: FULL CODE. Goals remain aggressive to include I & D, biopsy, possible amputation and antibiotics to treat possible osteomyelitis. Objective Vital Signs: Vital Signs 05/31/18 16:00 05/31/18 16:32 05/31/18 19:48 Temperature 98.4 F Pulse Rate 89 89 91 H Respiratory Rate 20 22 20 Blood Pressure 123/78 Pulse Oximetry 98 93 L 05/31/18 20:00 05/31/18 20:20 06/01/18 00:00 Temperature 97.8 F 97.9 F Pulse Rate 120 H 107 H 107 H Respiratory Rate 20 20 Blood Pressure 155/91 H 143/97 H Pulse Oximetry 98 97 06/01/18 04:00 06/01/18 04:13 06/01/18 04:18 Temperature 98.1 F Pulse Rate 107 H 175 H 106 H Respiratory Rate 19 Blood Pressure 134/88 Pulse Oximetry 96 06/01/18 08:32 06/01/18 08:41 06/01/18 11:50 Temperature 98.2 F 98.2 F Pulse Rate 105 H 106 H 95 H Respiratory Rate 26 H 24 24 Blood Pressure 135/76 135/81 Pulse Oximetry 98 94 L Intake & Output 05/31/18 06/01/18 06/01/18 18:59 06:59 18:59 Intake Total 300 / 300 340 / 340 100 / 100 Output Total 550 / 550 750 / 750 Balance -250 / -250 -410 / -410 100 / 100 Weight 109 kg Intake: IV 200 / 200 100 / 100 100 / 100 Maxipime Inj 2,000 MG In NS Inj 200 / 200 100 / 100 100 / 100 100 ML @ 200 mls/hr IV.SIG Q12H [facility] Rx#:[id number] Oral 100 / 100 240 / 240 Output: Urine 550 / 550 750 / 750 Other: Date of Last Bowel Movement 05/31/18 Physical Exam: CONSTITUTIONAL/GENERAL: This is an adequately nourished patient, in no apparent distress. TUBES/LINES/DRAINS: right Groshong subclavian, PIV left SKIN: No jaundice, rashes, or lesions. Ecchymoses on upper extremities. No wounds seen anteriorly. Skin temperature appropriate. Not diaphoretic. EYES: eyes closed. ENT: Hearing grossly normal. Nose without bleeding or purulent drainage. Throat without visible erythema, exudates, masses, or lesions. CARDIOVASCULAR: Mild tachycardic, irregular. RESPIRATORY/CHEST: Tachypneic, mildly labored respirations at rest. Scattered wheezing noted. GASTROINTESTINAL: Abdomen soft, non-tender, nondistended. abdominal hernia. + BS. GENITOURINARY: Without palpable bladder distension. MUSCULOSKELETAL: Right LE erythema from toes to calf. Area of white necrotic appearing tissue on right foot, 2nd toe amputation noted. No drainage noted. NEUROLOGICAL: Awake briefly, then falls off to sleep. Moves all extremities. PSYCHIATRIC: Denies anxiety/depression. no apparent hallucinations or other psychotic thought process. Diagnostic Tests Laboratory: Laboratory Results - last 72 hr 05/29/18 05/29/18 05/29/18 15:55 15:55 15:55 WBC 9.1 RBC 3.22 L Hgb 11.0 L Hct 32.2 L MCV 100.2 H MCH 34.2 H MCHC 34.1 RDW 14.0 Plt Count 165 MPV 9.0 Prelim Diff (Auto) Slide review pending Neut % (Auto) 85.6 H Lymph % (Auto) 4.6 L Lynn % (Auto) 9.3 H Eos % (Auto) 0.2 Baso % (Auto) 0.3 Neut # (Auto) 7.8 H Lymph # (Auto) 0.4 L Lynn # (Auto) 0.8 Eos # (Auto) 0.0 Baso # (Auto) 0.0 WBC Differential Manual diff final Seg Neuts % (Manual) 43 Band Neuts % (Manual) 36 H Lymphocytes % (Manual) 13 Monocytes % (Manual) 2 Basophils % (Manual) 1 Metamyelocytes % (Man) 4 H Myelocytes % (Man) 1 H Abs Neuts (Manual) 7.6 Nucleated RBCs/100 WBC 1 H Differential Comment . Toxic Granulation 1+ H Platelet Estimate Normal Platelet Morphology Enlarged H Avon Cells 1+ H Acanthocytes (Spur) Occ H Keratocytes PT INR APTT Sodium 137 Potassium 4.4 Chloride 108 H Carbon Dioxide 20.8 L Anion Gap 8 BUN 35 H Creatinine 1.79 H Estimated GFR 37 L Random Glucose 92 Calcium 7.9 L Total Bilirubin AST ALT Alkaline Phosphatase B-Natriuretic Peptide 377 H Total Protein Albumin Vancomycin Trough Random Vancomycin 05/31/18 05/31/18 05/31/18 10:56 10:56 10:56 WBC 31.2 H RBC 3.03 L Hgb 9.8 L Hct 30.5 L MCV 100.6 H MCH 32.3 MCHC 32.1 RDW 14.1 Plt Count 217 D MPV 8.2 Prelim Diff (Auto) Manual diff required Neut % (Auto) Lymph % (Auto) Lynn % (Auto) Eos % (Auto) Baso % (Auto) Neut # (Auto) Lymph # (Auto) Lynn # (Auto) Eos # (Auto) Baso # (Auto) WBC Differential Manual diff final Seg Neuts % (Manual) 69 Band Neuts % (Manual) 16 H Lymphocytes % (Manual) 3 L Monocytes % (Manual) 8 Basophils % (Manual) Metamyelocytes % (Man) 4 H Myelocytes % (Man) Abs Neuts (Manual) 27.8 H Nucleated RBCs/100 WBC 1 H Differential Comment . Toxic Granulation 2+ H Platelet Estimate Normal Platelet Morphology Enlarged H Mary Cells 1+ H Acanthocytes (Spur) Keratocytes PT 35.8 H INR 3.6 APTT 41.9 H Sodium 140 Potassium 4.1 Chloride 108 H Carbon Dioxide 21.9 Anion Gap 10 BUN 54 H Creatinine 2.25 H Estimated GFR 29 L Random Glucose 130 H Calcium 8.3 L Total Bilirubin 0.4 AST 61 H ALT 76 Alkaline Phosphatase 166 H B-Natriuretic Peptide Total Protein 5.9 L D Albumin 2.0 L Vancomycin Trough Random Vancomycin 05/31/18 06/01/18 06/01/18 19:45 05:58 05:58 WBC 25.6 H RBC 3.08 L Hgb 10.2 L Hct 30.8 L MCV 100.0 MCH 32.9 MCHC 32.9 RDW 14.1 Plt Count 209 MPV 8.6 Prelim Diff (Auto) Slide review pending Neut % (Auto) 94.4 H Lymph % (Auto) 2.6 L Lynn % (Auto) 2.9 Eos % (Auto) 0.0 Baso % (Auto) 0.1 Neut # (Auto) 24.2 H Lymph # (Auto) 0.7 L Lynn # (Auto) 0.8 Eos # (Auto) 0.0 Baso # (Auto) 0.0 WBC Differential Manual diff final Seg Neuts % (Manual) 82 H Band Neuts % (Manual) 13 H Lymphocytes % (Manual) 4 L Monocytes % (Manual) 1 Basophils % (Manual) Metamyelocytes % (Man) Myelocytes % (Man) Abs Neuts (Manual) 24.3 H Nucleated RBCs/100 WBC Differential Comment . Toxic Granulation Platelet Estimate Normal Platelet Morphology Normal Avon Cells Acanthocytes (Spur) Occ H Keratocytes Occ H PT 27.1 H INR 2.7 APTT 41.5 H Sodium Potassium Chloride Carbon Dioxide Anion Gap BUN Creatinine Estimated GFR Random Glucose Calcium Total Bilirubin AST ALT Alkaline Phosphatase B-Natriuretic Peptide Total Protein Albumin Vancomycin Trough 14.7 H Random Vancomycin 06/01/18 05:58 WBC RBC Hgb Hct MCV MCH MCHC RDW Plt Count MPV Prelim Diff (Auto) Neut % (Auto) Lymph % (Auto) Lynn % (Auto) Eos % (Auto) Baso % (Auto) Neut # (Auto) Lymph # (Auto) Lynn # (Auto) Eos # (Auto) Baso # (Auto) WBC Differential Seg Neuts % (Manual) Band Neuts % (Manual) Lymphocytes % (Manual) Monocytes % (Manual) Basophils % (Manual) Metamyelocytes % (Man) Myelocytes % (Man) Abs Neuts (Manual) Nucleated RBCs/100 WBC Differential Comment Toxic Granulation Platelet Estimate Platelet Morphology Mary Cells Acanthocytes (Spur) Keratocytes PT INR APTT Sodium 141 Potassium 4.5 Chloride 107 Carbon Dioxide 23.4 Anion Gap 11 BUN 53 H Creatinine 2.13 H Estimated GFR 31 L Random Glucose 87 Calcium 8.2 L Total Bilirubin 0.5 AST 57 H ALT 83 H Alkaline Phosphatase 174 H B-Natriuretic Peptide Total Protein 6.3 L Albumin 2.0 L Vancomycin Trough Random Vancomycin 16.2 Result Diagrams: 06/01/18 05:58 06/01/18 05:58 Microbiology: Microbiology 05/28/18 11:45 Aerobic Blood Culture - Preliminary Blood - Peripheral No growth in 4 days Anaerobic Blood Culture - Preliminary No growth in 4 days 05/28/18 11:40 Aerobic Blood Culture - Preliminary Blood - Peripheral No growth in 4 days Anaerobic Blood Culture - Preliminary No growth in 4 days 05/27/18 11:10 Aerobic Blood Culture - Final Blood - Peripheral No growth in 5 days Anaerobic Blood Culture - Final No growth in 5 days 05/27/18 11:15 Aerobic Blood Culture - Final Blood - Peripheral No growth in 5 days Anaerobic Blood Culture - Final No growth in 5 days Imaging: Foot X-Ray 05/29/18 00:00 CONCLUSION: Possible erosive changes and lucency of the distal second metatarsal bone nonspecific, however osteomyelitis at this site is not excluded. Foot MRI 05/30/18 00:00 CONCLUSION: 1. There is abnormal soft tissue and fluid adjacent to the distal portion of the second metatarsal. There is abnormal bone marrow edema in the distal half to one third portion of the second metatarsal highly suspicious for osteomyelitis. 2. 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 3. Status post previous amputation of the second toe. Lisa Line Insertion 05/30/18 00:00 CONCLUSION: 1. Uncomplicated tunneled Groshong catheter placement as above. Head CT 05/31/18 13:33 CONCLUSION: 1. 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 . Procedures: * 05/30/18 - right Groshong catheter placement. Assessment and Plan Pertinent Non-Medical Issues: Psychosocial: Lives with his significant other, Sluma. Also supported by his sister in [place]. Spiritual: [employer]. Legal:Patient is capacitated to make his own health care decisions. No Living Will. Patient completed Designation of Health Care Surrogate paperwork on naming his significant other, Sulma Bethea OR Medardocorby Sprague as health care surrogate should he lose capacity. Ethical issues impacting care: No known concerns at this time. . Important Contacts: * Sulma Bethea, significant other/[facility]: [phone] * Medardo Quinnalethea, sister: [phone] Prognosis: Mr. 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 Patient remains high risk for repeat infections and related complications and possible cancer progression well infections are being treated. Code Status: Full Code Plan: * Patient is capacitated to make his own health care decisions. No Living Will. Patient completed Designation of Health Care Surrogate paperwork on 05/30/18 naming his significant other, Sulma Bethea OR Medardo Sprague as health care surrogate should he lose capacity. * FULL CODE * Goals remain aggressive including FULL CODE, desire to proceedw ith right foot I & D, biopsy, amputation if needed and antibiotics for treatment of infection. * SYMPTOMS: Pain: intermittent sharp, brief twinges of pain in right foot. Denies during my visit today. No pain meds ordered, he declines need for pain med. Shortness of breath: on oxygen via NC. Tachpneic today. Denies SOB during my visit today. Diarrhea: resolved. * Palliative care will continue to follow throughout hospital course to assist with symptom management and further clarification of medical treatment goals as needed. . Attestation Attestation: To help prompt me to consider important information that might be impacting today's encounter and assessment, information from prior notes written by myself or my colleagues may have been "brought forward" into today's note. My signature on this note, however, is an attestation that I personally performed the exam, history, and/or decision-making noted today, and, unless otherwise indicated, the interactions with patient, family, and staff as well as the review of records all occurred today. I also attest that the listed assessment and stated plan reflect my best clinical judgment today based on the combination of historical information, prior notes, and today's exam/ interactions. When time spent is documented, it refers only to time spent today by the signer, or if indicated, combined time spent today by collaborating physician/nurse practitioner.
--- NOTE | 2018-06-01 13:52 | XR ---
EXAM DATE: 06/01/2018 1:28 PM EDT AGE/SEX: 72 years / Male INDICATIONS: Shortness of breath. CLINICAL DATA: This is the patient's subsequent encounter. Patient reports that signs and symptoms h ave been present for 4 - 6 days and indicates a pain score of 0/10. MEDICAL/SURGICAL HISTORY: Hypertension. Carcinoma, lung. Abdominal aortic aneurysm repair. Sp lenectomy. Total knee replacement, right. Incisional hernia. Carotid repair. Right great toe part ial amputation. COMPARISON: [facility], CV [facility] CATH [facility] , 05/30/2018. . FINDINGS: Mild bibasilar infiltrates persist. Mild apical capping on the right, unchanged. Groshong catheter stable in good position. Hernia contours unchanged. CONCLUSION: No significant change Electronically signed by: Tyler Norman MD 06/01/2018 1:51 PM EDT
[2018-06-01] MEDS: MethylPREDNISolone Sod Succinate Inj 125 MG/2 ML Vial IV.PUSH SCH ×2 (14:16→21:21)
[2018-06-01] MEDS: Senna/Docusate Sodium 8.6/50 MG Tablet PO SCH ×2 (14:18→21:21)
[2018-06-01 14:22] LABS: ABG Base Excess -5.7 mmol/L (-2-2); ABG PCO2 29 mmHg (38-42); ABG PO2 83 mmHG (61-120)
--- NOTE | 2018-06-01 14:48 | P.DIET ---
Nutritional Evaluation Type of nutrition evaluation: initial Nutrition consult regarding: Diet Evaluation (MDC for Poor PO Intake) Subjective Subjective Comments: Pt seen in his room w/ his significant other. He appeared sleepy and most of the discussion was between myself and his significant other. She states she's been taking care of him very well and that their friend is a registered dietitian who is board certified in oncologic nutrition. We reviewed pt's meal patterns at home. She states he eats fruits, vegetables, soups, etc. and has been drinking a high protein Equate supplement every day at breakfast. Pt denied trouble chewing/swallowing. No c/o N/V/D/C. No issues w/ his appetite. Says he has not lost any wt, UBW is around 235#. He takes folic acid and a daily multivitamin daily at home. Says he's been eating ~75% of his meals here. Objective - Diagnosis Cellulitis RLE, Neutropenic Fever - Objective % IBW: 112 (FIL=076#) Body Weight Used for Calculations: IBW (97.3kg) Energy Needs - Lower Range (kCal/kg): 28 Energy Needs - Upper Range (kCal/kg): 32 Lower Limit kCal/kg (kCals): 2,724 Upper Limit kCal/kg (kCals): 3,114 Lower Limit Protein Factor (Grams per Kg): 1.2 Upper Limit Protein Factor (Grams per Kg): 1.5 Lower Protein Needs (Protein): 117 Upper Protein Needs (Protein): 146 Dietitian Reviewed in Medical Record: Current diet, Curent medications, Intake & Output, Labs, Medical history Diet Order: Regular Oral Diet Intake Amount: Good 75-90% Objective Comments: Meds: Folic Acid Labs: BUN 53, special procedure technologist 2.13, eGFR 31 LBM 05/31 Received 3 cycles of carboplatin & taxol per oncology notes Assessment Assessment: Pt admitted for cellulitis of RLE and neutropenic fever. He has lung CA and has received 3 cycles of carboplatin and taxol therapy per oncology notes. He has not had any complaints r/t changes in appetite, wt loss/gain, N/V, trouble chewing/swallowing, mouth sores, etc. Pt states he's been doing relatively well until his most recent chemo when he started experiencing diarrhea. This has now subsided. He's currently NPO for a procedure, but was previously on a Regular diet and eating well. Pt states he's been eating ~75% of all meals here and his significant other verified that. Will add Enlive at breakfast to continue his home routine. Continue current POC. Will continue to monitor. Recommendations: 1. Continue Regular diet. 2. Enlive at breakfast. Dietitian to Monitor: Lab values, Supplement acceptance, Intake & Output, Diet tolerance, Weight change, PO Intake, Medical course
[2018-06-01] MEDS ORDERED: Bupivacaine PF 0.25% Inj 30 ML Vial ONE (16:52)
--- NOTE | 2018-06-01 18:13 | P.BOP ---
- Preoperative Diagnosis (1) Osteomyelitis of right foot (2) Abscess of right foot - Postoperative Diagnosis (1) Abscess of right foot (2) Osteomyelitis of right foot Date of procedure: 06/01/18 Procedure: 1. Incision and drainage right foot abscess 2. bone biopsy right 2nd metatarsal head Incision made plantarly where previous wound located. Immediate flow of milky pink purulence from the area with probing directly to bone of 2nd met head/neck area and continuing to dorsal foot above 2nd metatarsal area. Incision made dorsally and irrigation through wound with debridement of nonviable tissue with rongeur and curette. Culture taken. Closure dorsally with 2-0 nylon, followed by packing to plantar wound area with 1/4'' iodoform gauze, 4x4, abd pad, soft roll and joseph wrap to right foot. Weightbearing to heel only in surgical shoe R foot. Avoid forefoot pressure Await bone biopsy and culture results Likely need to long-term IV antibiotics No further surgery anticipated. Will need home health wound care for daily packing changes and dry sterile dressing to right foot upon discharge. No tourniquet utilized Anesthesia: MAC, local (10mL 0.25% marcaine plain) Surgeon: Haley Gorman DPM Paint Mixer Hand: staff Estimated blood loss (mL): 10 Pathology: other (1. culture right foot, 2. bone 2nd metatarsal head, 3. bone residual 2nd metatarsal) Condition: stable Disposition: PACU
[2018-06-01] MEDS ORDERED: fentaNYL Citrate Inj 100 MCG/2 ML Ampul ONE ×2 (18:19→18:20)
--- NOTE | 2018-06-01 18:59 | XR ---
EXAM DATE: 06/01/2018 6:49 PM EDT AGE/SEX: 72 years / Male INDICATIONS: Post op right foot. CLINICAL DATA: This is the patient's initial encounter. Patient reports that signs and symptoms have been present for 1 day and indicates a pain score of 3/10. MEDICAL/SURGICAL HISTORY: None. Hypertension. Carcinoma, lung. Metastatic disease. Aneurysm, [place]. None. [place] [facility] [place]. . FINDINGS: The patient is status post resection of the head of the right second metatarsal. Hallux valgus deform ity and moderate to severe osteoarthritis involving the right first metatarsophalangeal joint are aga in noted. CONCLUSION: 1. Status post resection of the right second metatarsal head. 2. 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 Electronically signed by: Chris Chacon MD 06/01/2018 6:58 PM EDT
[2018-06-02] MEDS: Sod Chloride 0.9% Inj 1,000 ML IV.CONT SCH ×2 (05:15→18:43)
--- NOTE | 2018-06-02 07:40 | P.PN ---
Subjective Interval history: awake and alert no complains of foot pain Physical Exam Vital signs: Vital Signs 06/01/18 08:32 06/01/18 08:41 06/01/18 11:50 Temperature 98.2 F 98.2 F Pulse Rate 105 H 106 H 95 H Respiratory Rate 26 H 24 24 Blood Pressure 135/76 135/81 Pulse Oximetry 98 94 L 06/01/18 18:09 06/01/18 18:15 06/01/18 18:30 Temperature 97.9 F Pulse Rate 95 H 100 H 99 H Respiratory Rate 24 22 22 Blood Pressure 111/65 118/70 140/85 Pulse Oximetry 94 L 94 L 90 L 06/01/18 18:45 06/01/18 18:55 06/01/18 20:00 Temperature 97.7 F Pulse Rate 97 H 102 H 95 H Respiratory Rate 22 22 22 Blood Pressure 131/80 133/81 129/77 Pulse Oximetry 92 L 92 L 95 06/01/18 20:27 06/02/18 00:00 06/02/18 04:00 Temperature 98.1 F 97.7 F Pulse Rate 104 H 106 H 93 H Respiratory Rate 18 22 20 Blood Pressure 137/75 130/78 Pulse Oximetry 93 L 93 L Intake & Output 06/01/18 06/02/18 06/02/18 18:59 06:59 18:59 Intake Total 1200 / 1200 2276 / 2276 Output Total 10 10 700 / 700 Balance 1190 / 1190 1576 / 1576 Weight 109 kg Intake: IV 1100 / 1100 1796 / 1796 NS Inj 1,000 ML @ 60 mls/hr IV. 1000 / 1000 1181 / 1181 CONT .[id number] [facility] Rx#:[id number] Maxipime Inj 2,000 MG In NS Inj 100 / 100 100 / 100 100 ML @ 200 mls/hr IV.SIG Q12H [facility] Rx#:[id number] Vancomycin Inj 1,500 MG In NS 515 / 515 Inj 500 ML @ 257.5 mls/hr IV. SIG ONCE ONE Rx#:[id number] Oral 480 / 480 Anesthesia Amount 100 / 100 Output: Urine 700 / 700 Estimated Blood Loss 10 / 10 Other: Date of Last Bowel Movement 05/31/18 # Bowel Movements 0 Narrative: Physical Exam awake and alert, oriented x 3, speech clear ff all commands anciteric neck supple lungs- + minimal rales bases no wheezes irregularly irregular rhythm abdomen soft right foot- - post op dressing intact Results - Labs CBC & Chem 7: 06/02/18 12:48 06/02/18 12:48 Laboratory Results - last 24 hr 06/01/18 06/01/18 06/01/18 05:58 14:04 18:39 WBC Differential Manual diff final Seg Neuts % (Manual) 82 H Band Neuts % (Manual) 13 H Lymphocytes % (Manual) 4 L Monocytes % (Manual) 1 Abs Neuts (Manual) 24.3 H Platelet Estimate Normal Platelet Morphology Normal Acanthocytes (Spur) Occ H Keratocytes Occ H Puncture Site Left radial Patient Temperature 98.6 O2 Saturation 94 ABG pH 7.42 ABG pCO2 29 L ABG pO2 83 ABG HCO3 18 L ABG O2 Content 14.1 ABG Base Excess -5.7 L ABG Methemoglobin 1.4 Arturo Test Present Hemoglobin 10.6 L Carboxyhemoglobin 0.9 O2 Delivery Device Nasal cannula Liter Flow 4.00 Inspired O2 21 Critical Value No POC Glucose 113 H Microbiology 05/28/18 11:45 Blood - Peripheral Aerobic Blood Culture - Preliminary No growth in 4 days 05/28/18 11:45 Blood - Peripheral Anaerobic Blood Culture - Preliminary No growth in 4 days 05/28/18 11:40 Blood - Peripheral Aerobic Blood Culture - Preliminary No growth in 4 days 05/28/18 11:40 Blood - Peripheral Anaerobic Blood Culture - Preliminary No growth in 4 days 05/27/18 11:10 Blood - Peripheral Aerobic Blood Culture - Final No growth in 5 days 05/27/18 11:10 Blood - Peripheral Anaerobic Blood Culture - Final No growth in 5 days 05/27/18 11:15 Blood - Peripheral Aerobic Blood Culture - Final No growth in 5 days 05/27/18 11:15 Blood - Peripheral Anaerobic Blood Culture - Final No growth in 5 days - Imaging Impressions Foot X-Ray 06/01/18 00:00 CONCLUSION: 1. Status post resection of the right second metatarsal head. 2. 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 Chest X-Ray 06/01/18 12:32 CONCLUSION: No significant change - Procedures 06/01 1. Incision and drainage right foot abscess 2. bone biopsy right 2nd metatarsal head Assessment and Plan - Plan 72-year-old man with Neutropenic fever- patient received Neuprogen x 3 doses - 05/27-3 now with leukocytosis from Neupogen Continue cefepime and vancomycin Neutropenic precautions Appreciate input from oncology Right lower extremity cellulitis/Osteomyelitis Right foot abscess S/P I and D with bone biopsy 06/01 per OR report- milky purulence material obtained Currently on vancomycin and monitor cultures ff post op cultures /pathology ID ff/podiatry ff - will d/w ID- line- PICC for fci antibiotics History of lung cancer with metastases Treatment with paclitaxel and carboplatin Appreciate input from oncology - exam- no wheezes this am - give IV Solumedrol q 12- change to po prednisone short course x 3 days - duoneb treatment History of hypertension, gout and other chronic medical conditions Chronic atrial fibrillation Coumadin excess INR down continue on BB, Cordarone hematology ff ALEXANDER- - creatinine stabilizing - non oliguric Npehrology ff dietitian ff - poor po Transient change in MS- - reported confusion - 05/30 post procedure- VAS cath now neuro stable- awake and alert, interactive negative head CT Plan for port change - currently has a Groshong- needs to new line- Lisa vs PICC Hpp;d copumadin change to Lovenox for now for possible procedure
[2018-06-02] MEDS: Senna/Docusate Sodium 8.6/50 MG Tablet PO SCH ×2 (09:02→21:15)
[2018-06-02] MEDS: buPROPion 100 MG ER 12 HR Tablet PO SCH ×2 (09:02→21:16)
[2018-06-02] MEDS: amLODIPine 10 MG Tablet PO SCH (09:02)
[2018-06-02] MEDS: Metoprolol Tartrate 100 MG Tablet PO SCH ×2 (09:02→21:16)
[2018-06-02] MEDS: predniSONE 20 MG Tablet PO SCH ×2 (09:02→21:15)
[2018-06-02] MEDS: Digoxin 125 MCG Tablet PO SCH (09:02)
[2018-06-02] MEDS: Folic Acid 1 MG Tablet PO SCH (09:02)
[2018-06-02] MEDS ORDERED: Phytonadione 5 MG/SWFI 5 ML Oral Syringe PO SCH (10:00)
[2018-06-02 13:02] LABS: Baso # (Auto) 0.1 th/mm3 (0.0-0.2); Baso % (Auto) 0.3 % (0.0-2.0); Hematocrit 35.1 % (39.0-51.0); Hemoglobin 11.5 gm/dL (13.0-17.0); Lymph # (Auto) 0.6 th/mm3 (1.0-4.8); Lymph % (Auto) 2.3 % (9.0-44.0); Mean Corpuscular HGB Conc 32.6 % (32.0-36.0); Mean Corpuscular Hemoglobin 32.5 pg (27.0-34.0); Mean Corpuscular Volume 99.7 fL (80.0-100.0); Mean Platelet Volume 8.3 fL (7.0-11.0); Mono # (Auto) 0.9 th/mm3 (0.0-0.9); Mono % (Auto) 3.4 % (0.0-8.0); Platelet Count 248 th/mm3 (150-450); Red Blood Count 3.52 mil/mm3 (4.50-5.90); Red Cell Distribution Width 14.4 % (11.6-17.2); White Blood Count 25.5 th/mm3 (4.0-11.0)
[2018-06-02 13:10] LABS: INR 1.4 Ratio; Prothrombin Time 14.4 sec (9.8-11.6)
[2018-06-02 13:20] LABS: Alanine Aminotransferase 85 U/L (12-78); Albumin 1.9 g/dL (3.4-5.0); Anion Gap 12 meq/L (5-15); Aspartate Aminotransferase 52 U/L (15-37); Blood Urea Nitrogen 57 mg/dL (7-18); Calcium 8.3 mg/dL (8.5-10.1); Carbon Dioxide 19.1 meq/L (21.0-32.0); Chloride 112 meq/L (98-107); Glomerular Filtration Rate 30 mL/min (>89); Glucose,Random 149 mg/dL (74-106); Potassium 4.5 meq/L (3.5-5.1); Sodium 143 meq/L (136-145)
[2018-06-02 13:21] LABS: Alkaline Phosphatase 178 U/L (45-117); Total Protein 6.9 g/dL (6.4-8.2)
[2018-06-02 13:57] LABS: Lymphocytes 1 % (9-44); Monocytes 2 % (0-8); Platelet Estimate Normal (Normal); Platelet Morphology Normal (Normal); RBC Morphology Normal (Normal)
--- NOTE | 2018-06-02 14:51 | P.PNONC ---
Subjective Interval history: Afebrile, status post right foot debridement yesterday. Patient with no complaints at this time. He is sitting up in bed eating lunch. Noted some slight labored breathing, patient states that he was just up ambulating to the bathroom and gets short of breath with exertion at times. Labs are pending at this time. Patient was apparently refusing lab draws earlier in the day. They have since been drawn. Per palliative care, infectious disease is discussing with radiologist possibly changing out the patient's central line to a PICC line that may also be used for blood draws and long-term antibiotic use. Objective Vital Signs/Intake & Output: Vital Signs 06/01/18 18:09 06/01/18 18:15 06/01/18 18:30 Temperature 97.9 F Pulse Rate 95 H 100 H 99 H Respiratory Rate 24 22 22 Blood Pressure 111/65 118/70 140/85 Pulse Oximetry 94 L 94 L 90 L 06/01/18 18:45 06/01/18 18:55 06/01/18 20:00 Temperature 97.7 F Pulse Rate 97 H 102 H 95 H Respiratory Rate 22 22 22 Blood Pressure 131/80 133/81 129/77 Pulse Oximetry 92 L 92 L 95 06/01/18 20:27 06/02/18 00:00 06/02/18 04:00 Temperature 98.1 F 97.7 F Pulse Rate 104 H 106 H 93 H Respiratory Rate 18 22 20 Blood Pressure 137/75 130/78 Pulse Oximetry 93 L 93 L 06/02/18 08:00 06/02/18 09:00 06/02/18 12:00 Temperature 97.9 F 98.6 F Pulse Rate 89 83 86 Respiratory Rate 21 18 Blood Pressure 139/95 H 128/63 Pulse Oximetry 93 L 98 06/02/18 14:01 Temperature Pulse Rate 95 H Respiratory Rate 16 Blood Pressure Pulse Oximetry Intake & Output 06/01/18 06/02/18 06/02/18 18:59 06:59 18:59 Intake Total 1200 / 1200 2276 / 2276 Output Total 10 700 / 700 Balance 1190 / 1190 1576 / 1576 Weight 109 kg Intake: IV 1100 / 1100 1796 / 1796 NS Inj 1,000 ML @ 60 mls/hr IV. 1000 / 1000 1181 / 1181 CONT .[id number] [facility] Rx#:[id number] Maxipime Inj 2,000 MG In NS Inj 100 / 100 100 / 100 100 ML @ 200 mls/hr IV.SIG Q12H [facility] Rx#:[id number] Vancomycin Inj 1,500 MG In NS 515 / 515 Inj 500 ML @ 257.5 mls/hr IV. SIG ONCE ONE Rx#:[id number] Oral 480 / 480 Anesthesia Amount 100 / 100 Output: Urine 700 / 700 Estimated Blood Loss Other: Date of Last Bowel Movement 05/31/18 05/31/18 # Bowel Movements 0 Result Diagrams: 06/02/18 12:48 06/02/18 12:48 Laboratory Results: Laboratory Results - last 24 hr 06/01/18 06/02/18 06/02/18 18:39 12:48 12:48 WBC 25.5 H RBC 3.52 L Hgb 11.5 L Hct 35.1 L MCV 99.7 MCH 32.5 MCHC 32.6 RDW 14.4 Plt Count 248 MPV 8.3 Prelim Diff (Auto) Slide review pending Neut % (Auto) 94.0 H Lymph % (Auto) 2.3 L [place] % (Auto) 3.4 Eos % (Auto) 0.0 Baso % (Auto) 0.3 Neut # (Auto) 24.0 H Lymph # (Auto) 0.6 L [place] # (Auto) 0.9 Eos # (Auto) 0.0 Baso # (Auto) 0.1 WBC Differential Manual diff final Seg Neuts % (Manual) 89 H Band Neuts % (Manual) 8 H Lymphocytes % (Manual) 1 L Monocytes % (Manual) 2 Abs Neuts (Manual) 24.7 H Differential Comment . Platelet Estimate Normal Platelet Morphology Normal RBC Morphology Normal PT 14.4 H D INR 1.4 Sodium Potassium Chloride Carbon Dioxide Anion Gap BUN Creatinine Estimated GFR POC Glucose 113 H Random Glucose Calcium Total Bilirubin AST ALT Alkaline Phosphatase Total Protein Albumin 06/02/18 12:48 WBC RBC Hgb Hct MCV MCH MCHC RDW Plt Count MPV Prelim Diff (Auto) Neut % (Auto) Lymph % (Auto) [place] % (Auto) Eos % (Auto) Baso % (Auto) Neut # (Auto) Lymph # (Auto) [place] # (Auto) Eos # (Auto) Baso # (Auto) WBC Differential Seg Neuts % (Manual) Band Neuts % (Manual) Lymphocytes % (Manual) Monocytes % (Manual) Abs Neuts (Manual) Differential Comment Platelet Estimate Platelet Morphology RBC Morphology PT INR Sodium 143 Potassium 4.5 Chloride 112 H Carbon Dioxide 19.1 L Anion Gap 12 BUN 57 H Creatinine 2.16 H Estimated GFR 30 L POC Glucose Random Glucose 149 H Calcium 8.3 L Total Bilirubin 0.5 AST 52 H ALT 85 H Alkaline Phosphatase 178 H Total Protein 6.9 D Albumin 1.9 L Culture Results: Microbiology 06/01/18 17:45 Gram Stain - Final Wound - Foot Wound Culture - Preliminary Staphylococcus aureus 05/28/18 11:45 Aerobic Blood Culture - Final Blood - Peripheral No growth in 5 days Anaerobic Blood Culture - Final No growth in 5 days 05/28/18 11:40 Aerobic Blood Culture - Final Blood - Peripheral No growth in 5 days Anaerobic Blood Culture - Final No growth in 5 days 06/01/18 17:45 Fungal Smear - Final Wound - Foot No fungal elements seen 05/27/18 11:10 Aerobic Blood Culture - Final Blood - Peripheral No growth in 5 days Anaerobic Blood Culture - Final No growth in 5 days 05/27/18 11:15 Aerobic Blood Culture - Final Blood - Peripheral No growth in 5 days Anaerobic Blood Culture - Final No growth in 5 days Imaging Studies: Impressions Foot X-Ray 06/01/18 00:00 CONCLUSION: 1. Status post resection of the right second metatarsal head. 2. 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 Medications: Active Medications Generic Name Dose Route Start Last Admin Trade Name Freq PRN Reason Stop Dose Admin Acetaminophen 650 mg 05/27/18 12:46 05/29/18 00:33 Tylenol PO 650 mg Q4H PRN Administration Temp > 100.4 Albuterol 1 ampul 05/29/18 15:04 05/31/18 16:28 Duoneb Neb (Prn) NEB 1 ampul Q2HR NEB PRN Administration SHORTNESS OF BREATH Albuterol 1 ampul 05/29/18 20:00 06/02/18 14:00 Duoneb Neb (Mary) NEB 1 ampul Q6HR WHILE AWAKE NEB MARY Administration Amlodipine Besylate 10 mg 05/28/18 09:00 06/02/18 09:02 Norvasc PO 10 mg DAILY MARY Administration Atorvastatin Calcium 80 mg 05/28/18 09:00 06/02/18 09:02 Lipitor PO 80 mg DAILY MARY Administration Bupropion HCl 100 mg 05/27/18 21:00 06/02/18 09:02 Wellbutrin Sr PO 100 mg BID MARY Administration Colchicine 0.6 mg 05/28/18 09:00 06/02/18 09:02 Colcrys PO 0.6 mg DAILY MARY Administration Digoxin 125 mcg 05/28/18 09:00 06/02/18 09:02 Lanoxin PO 125 mcg DAILY MARY Administration Folic Acid 1 mg 05/28/18 09:00 06/02/18 09:02 Folic Acid PO 1 mg DAILY MARY Administration Cefepime HCl 2,000 mg/ Sodium 100 mls @ 200 mls/hr 05/27/18 13:00 06/02/18 12 :02 Chloride IV.SIG 200 mls/hr Q12H MARY Administration Sodium Chloride 1,000 mls @ 60 mls/hr 05/31/18 14:02 06/02/18 05:34 Ns Inj IV.CONT 60 mls/hr .[id number] MARY Infusion Metoclopramide HCl 5 mg 05/27/18 12:46 05/29/18 14:11 Reglan Inj IV.PUSH 5 mg Q6HR PRN Administration NAUSEA OR VOMITING Protocol Metoprolol Tartrate 100 mg 05/27/18 21:00 06/02/18 09:02 Lopressor PO 100 mg BID MARY Administration Prednisone 20 mg 06/02/18 09:00 06/02/18 09:02 Deltasone PO 06/05/18 08:59 20 mg BID MARY Administration Senna/Docusate Sodium 1 tab 05/27/18 21:00 06/02/18 09:02 Salma-Colace PO 1 tab BID MARY Administration Objective Remarks: GENERAL: Well-nourished, well-developed male patient, sitting up in bed eating lunch. In no acute distress. SKIN: Warm and dry. Mild erythema to RLE to midcalf, Surgical drsg to right foot. HEAD: Normocephalic. EYES: No scleral icterus. No injection or drainage. NECK: Supple, trachea midline. CARDIOVASCULAR: Irregularly irregular heart rate without murmurs. RESPIRATORY: Anterior breath sounds clear, equal bilaterally. No accessory muscle use. GASTROINTESTINAL: Abdomen soft, non-tender, nondistended. EXTREMITIES: No cyanosis. Mild erythema to RLE to midcalf region, surgical bandage to right foot. MUSCULOSKELETAL: Adequate muscle tone. NEUROLOGICAL: No obvious focal deficit. Awake, alert, and oriented x3. PSYCHIATRIC: Appropriate mood and affect; insight and judgment normal. Assessment/Plan - Plan 72-year-old male with history of metastatic non-small cell lung cancer who gets his care through the [facility]. He was given his third cycle of palliative chemotherapy with carboplatin and Taxol on 05/18/18. Initially the patient had severe diarrhea after the chemotherapy which has been resolved. He was admitted with pain and swelling of the right lower extremity as he has a chronic venous insufficiency with skin breakdown. 1. Metastatic lung adenocarcinoma: s/p initiation of chemotherapy with carboplatin and paclitaxel at the CT on 05/18/2018. 2. Cytopenias due to chemotherapy, improved with G-CSF support, with some rebound leukocytosis. 3. RLE cellulitis/osteomyelitis. ID and podiatry managing. Status post right foot debridement and second metatarsal bone biopsy, yesterday. 4. Labs pending. 5. INR management per attending. - Attending Statement The exam, history, and the medical decision-making described in the above note were completed with the assistance of the mid-level provider. I reviewed and agree with the findings presented. I attest that I had a [id number] encounter with the patient on the same day, and personally performed and documented my assessment and findings in the medical record. 72 yoM with metastatic lung adenocarcinoma admitted with sepisis, now with right foot osteo s/p debridement. ID team and podiatry team following. No further chemotherapy at this time. Patient will have close follow up in clinic to discuss further treatment options for malignancy after hospital discharge.
--- NOTE | 2018-06-02 16:22 | P.PNPAL ---
Reason for Visit Reason for visit: a. To assist with evaluation and management of symptoms including:pain, shortness of breath. b. To assist medical decision maker(s) with: better understanding of current medical conditions; weighing benefits/burdens of medical treatment options; making medical treatment decisions. Subjective Subjective/Interval History: Patient seen and examined in room. Sulma Bethea, significant other/HCS at bedside. Also present Lori Osullivan LCSW. Patient is awake and alert, he is agitated this morning. He is upset with blood draws and difficultly they have drawing labs. He is upset that nurses cannot draw labs from Groshong catheter. He denies pain or anxiety. Respirations appear less labored today, right expiratory wheeze noted. Sulma, SO and patient are glad to have I & D and biopsy done, results pending. Cultures preliminarily + staph aureus, no AFB or fungal seen. Pathology pending. Clinical data: * Afebrile. HR 97, RR 16, BP 128/63 * LBM 05/30/18. On BID Salma-colace. Has PRN meds available. * Blood cultures negative to date. * WBC 25.5, hemoglobin 11.5, hematocrit 35.1, platelets 248, neutrophils 94% * BUN 57, creatinine 2.16, GFR 30 * T. Bili 0.5, AST 52, ALT 85 * Total protein 6.9, Albumin 1.9 * PT 14.4, INR 1.[address] Angel, HUONG regarding IV access per Dr. Solorzano, nursing and family request. Dr. Angel spoke with Dr. Caro in radiology Groshong catheter cannot be changed out via guidewire as it is a tunnelled catheter. Spoke with patient and Sulma to review options regarding IV access. Patient wants new IV access type of line that will enable nursing staff to be able to draw blood in addition to being able to receive meds. Type of line to be determined between , ID, radiology, oncology and medical team (reviewed potential types of lines with them). Dr. Angel tells me Dr. Caro will replace line on Tuesday if 1. Normal INR, 2. Normal platelets and 3. NPO. Medical team please place orders on Tuesday. Family/Friend Interactions: See interval note. Advance Directives Health Care Surrogate Name and Number: Sulma Bethea [phone] OR Medardo Sprague [phone] Documented care wishes:: Patient is capacitated to make his own health care decisions. No Living Will. Patient completed Designation of Health Care Surrogate paperwork on 05/30/18 naming his significant other, Sulma Bethea OR Medardo Sprague as health care surrogate should he lose capacity. Significant change in goals:: FULL CODE. Goals remain aggressive. Objective Vital Signs: Vital Signs 06/01/18 18:09 06/01/18 18:15 06/01/18 18:30 Temperature 97.9 F Pulse Rate 95 H 100 H 99 H Respiratory Rate 24 22 22 Blood Pressure 111/65 118/70 140/85 Pulse Oximetry 94 L 94 L 90 L 06/01/18 18:45 06/01/18 18:55 06/01/18 20:00 Temperature 97.7 F Pulse Rate 97 H 102 H 95 H Respiratory Rate 22 22 22 Blood Pressure 131/80 133/81 129/77 Pulse Oximetry 92 L 92 L 95 06/01/18 20:27 06/02/18 00:00 06/02/18 04:00 Temperature 98.1 F 97.7 F Pulse Rate 104 H 106 H 93 H Respiratory Rate 18 22 20 Blood Pressure 137/75 130/78 Pulse Oximetry 93 L 93 L 06/02/18 08:00 06/02/18 09:00 06/02/18 12:00 Temperature 97.9 F 98.6 F Pulse Rate 89 83 86 Respiratory Rate 21 18 Blood Pressure 139/95 H 128/63 Pulse Oximetry 93 L 98 06/02/18 14:01 06/02/18 14:47 Temperature Pulse Rate 95 H 97 H Respiratory Rate 16 Blood Pressure Pulse Oximetry Intake & Output 06/01/18 06/02/18 06/02/18 18:59 06:59 18:59 Intake Total 1200 / 1200 2276 / 2276 Output Total 700 / 700 Balance 1190 / 1190 1576 / 1576 Weight 109 kg Intake: IV 1100 / 1100 1796 / 1796 NS Inj 1,000 ML @ 60 mls/hr IV. 1000 / 1000 1181 / 1181 CONT .[id number] [facility] Rx#:[id number] Maxipime Inj 2,000 MG In NS Inj 100 / 100 100 / 100 100 ML @ 200 mls/hr IV.SIG Q12H [facility] Rx#:[id number] Vancomycin Inj 1,500 MG In NS 515 / 515 Inj 500 ML @ 257.5 mls/hr IV. SIG ONCE ONE Rx#:[id number] Oral 480 / 480 Anesthesia Amount 100 / 100 Output: Urine 700 / 700 Estimated Blood Loss Other: Date of Last Bowel Movement 05/31/18 05/31/18 # Bowel Movements 0 Physical Exam: CONSTITUTIONAL/GENERAL: This is an adequately nourished patient, in no apparent distress. TUBES/LINES/DRAINS: right Groshong subclavian, PIV left SKIN: No jaundice, rashes, or lesions. Ecchymoses on upper extremities. No wounds seen anteriorly. Skin temperature appropriate. Not diaphoretic. ENT: Hearing grossly normal. Nose without bleeding or purulent drainage. Throat without visible erythema, exudates, masses, or lesions. CARDIOVASCULAR: Mild tachycardic, irregular. RESPIRATORY/CHEST: unlabored respirations at rest. Expiratory wheezes noted on right. GASTROINTESTINAL: Abdomen soft, non-tender, nondistended. abdominal hernia. + BS. GENITOURINARY: Without palpable bladder distension. MUSCULOSKELETAL: Right LE erythema from toes to calf. Area of white necrotic appearing tissue on right foot, 2nd toe amputation noted. No drainage noted. NEUROLOGICAL: Awake briefly, then falls off to sleep. Moves all extremities. PSYCHIATRIC: Denies anxiety/depression. no apparent hallucinations or other psychotic thought process. Diagnostic Tests Laboratory: Laboratory Results - last 72 hr 05/31/18 05/31/18 05/31/18 10:56 10:56 10:56 WBC 31.2 H RBC 3.03 L Hgb 9.8 L Hct 30.5 L MCV 100.6 H MCH 32.3 MCHC 32.1 RDW 14.1 Plt Count 217 D MPV 8.2 Prelim Diff (Auto) Manual diff required Neut % (Auto) Lymph % (Auto) [place] % (Auto) Eos % (Auto) Baso % (Auto) Neut # (Auto) Lymph # (Auto) [place] # (Auto) Eos # (Auto) Baso # (Auto) WBC Differential Manual diff final Seg Neuts % (Manual) 69 Band Neuts % (Manual) 16 H Lymphocytes % (Manual) 3 L Monocytes % (Manual) 8 Metamyelocytes % (Man) 4 H Abs Neuts (Manual) 27.8 H Nucleated RBCs/100 WBC 1 H Differential Comment . Toxic Granulation 2+ H Platelet Estimate Normal Platelet Morphology Enlarged H RBC Morphology [place] Cells 1+ H Acanthocytes (Spur) Keratocytes PT 35.8 H INR 3.6 APTT 41.9 H Puncture Site Patient Temperature O2 Saturation ABG pH ABG pCO2 ABG pO2 ABG HCO3 ABG O2 Content ABG Base Excess ABG Methemoglobin Arturo Test Hemoglobin Carboxyhemoglobin O2 Delivery Device Liter Flow Inspired O2 Critical Value Sodium 140 Potassium 4.1 Chloride 108 H Carbon Dioxide 21.9 Anion Gap 10 BUN 54 H Creatinine 2.25 H Estimated GFR 29 L POC Glucose Random Glucose 130 H Calcium 8.3 L Total Bilirubin 0.4 AST 61 H ALT 76 Alkaline Phosphatase 166 H Total Protein 5.9 L D Albumin 2.0 L Vancomycin Trough Random Vancomycin 05/31/18 06/01/18 06/01/18 19:45 05:58 05:58 WBC 25.6 H RBC 3.08 L Hgb 10.2 L Hct 30.8 L MCV 100.0 MCH 32.9 MCHC 32.9 RDW 14.1 Plt Count 209 MPV 8.6 Prelim Diff (Auto) Slide review pending Neut % (Auto) 94.4 H Lymph % (Auto) 2.6 L [place] % (Auto) 2.9 Eos % (Auto) 0.0 Baso % (Auto) 0.1 Neut # (Auto) 24.2 H Lymph # (Auto) 0.7 L [place] # (Auto) 0.8 Eos # (Auto) 0.0 Baso # (Auto) 0.0 WBC Differential Manual diff final Seg Neuts % (Manual) 82 H Band Neuts % (Manual) 13 H Lymphocytes % (Manual) 4 L Monocytes % (Manual) 1 Metamyelocytes % (Man) Abs Neuts (Manual) 24.3 H Nucleated RBCs/100 WBC Differential Comment . Toxic Granulation Platelet Estimate Normal Platelet Morphology Normal RBC Morphology Mary Cells Acanthocytes (Spur) Occ H Keratocytes Occ H PT 27.1 H INR 2.7 APTT 41.5 H Puncture Site Patient Temperature O2 Saturation ABG pH ABG pCO2 ABG pO2 ABG HCO3 ABG O2 Content ABG Base Excess ABG Methemoglobin Arturo Test Hemoglobin Carboxyhemoglobin O2 Delivery Device Liter Flow Inspired O2 Critical Value Sodium Potassium Chloride Carbon Dioxide Anion Gap BUN Creatinine Estimated GFR POC Glucose Random Glucose Calcium Total Bilirubin AST ALT Alkaline Phosphatase Total Protein Albumin Vancomycin Trough 14.7 H Random Vancomycin 06/01/18 06/01/18 06/01/18 05:58 14:04 18:39 WBC RBC Hgb Hct MCV MCH MCHC RDW Plt Count MPV Prelim Diff (Auto) Neut % (Auto) Lymph % (Auto) [place] % (Auto) Eos % (Auto) Baso % (Auto) Neut # (Auto) Lymph # (Auto) [place] # (Auto) Eos # (Auto) Baso # (Auto) WBC Differential Seg Neuts % (Manual) Band Neuts % (Manual) Lymphocytes % (Manual) Monocytes % (Manual) Metamyelocytes % (Man) Abs Neuts (Manual) Nucleated RBCs/100 WBC Differential Comment Toxic Granulation Platelet Estimate Platelet Morphology RBC Morphology Mary Cells Acanthocytes (Spur) Keratocytes PT INR APTT Puncture Site Left radial Patient Temperature 98.6 O2 Saturation 94 ABG pH 7.42 ABG pCO2 29 L ABG pO2 83 ABG HCO3 18 L ABG O2 Content 14.1 ABG Base Excess -5.7 L ABG Methemoglobin 1.4 Arturo Test Present Hemoglobin 10.6 L Carboxyhemoglobin 0.9 O2 Delivery Device Nasal cannula Liter Flow 4.00 Inspired O2 21 Critical Value No Sodium 141 Potassium 4.5 Chloride 107 Carbon Dioxide 23.4 Anion Gap 11 BUN 53 H Creatinine 2.13 H Estimated GFR 31 L POC Glucose 113 H Random Glucose 87 Calcium 8.2 L Total Bilirubin 0.5 AST 57 H ALT 83 H Alkaline Phosphatase 174 H Total Protein 6.3 L Albumin 2.0 L Vancomycin Trough Random Vancomycin 16.2 06/02/18 06/02/18 06/02/18 12:48 12:48 12:48 WBC 25.5 H RBC 3.52 L Hgb 11.5 L Hct 35.1 L MCV 99.7 MCH 32.5 MCHC 32.6 RDW 14.4 Plt Count 248 MPV 8.3 Prelim Diff (Auto) Slide review pending Neut % (Auto) 94.0 H Lymph % (Auto) 2.3 L [place] % (Auto) 3.4 Eos % (Auto) 0.0 Baso % (Auto) 0.3 Neut # (Auto) 24.0 H Lymph # (Auto) 0.6 L [place] # (Auto) 0.9 Eos # (Auto) 0.0 Baso # (Auto) 0.1 WBC Differential Manual diff final Seg Neuts % (Manual) 89 H Band Neuts % (Manual) 8 H Lymphocytes % (Manual) 1 L Monocytes % (Manual) 2 Metamyelocytes % (Man) Abs Neuts (Manual) 24.7 H Nucleated RBCs/100 WBC Differential Comment . Toxic Granulation Platelet Estimate Normal Platelet Morphology Normal RBC Morphology Normal Mary Cells Acanthocytes (Spur) Keratocytes PT 14.4 H D INR 1.4 APTT Puncture Site Patient Temperature O2 Saturation ABG pH ABG pCO2 ABG pO2 ABG HCO3 ABG O2 Content ABG Base Excess ABG Methemoglobin Arturo Test Hemoglobin Carboxyhemoglobin O2 Delivery Device Liter Flow Inspired O2 Critical Value Sodium 143 Potassium 4.5 Chloride 112 H Carbon Dioxide 19.1 L Anion Gap 12 BUN 57 H Creatinine 2.16 H Estimated GFR 30 L POC Glucose Random Glucose 149 H Calcium 8.3 L Total Bilirubin 0.5 AST 52 H ALT 85 H Alkaline Phosphatase 178 H Total Protein 6.9 D Albumin 1.9 L Vancomycin Trough Random Vancomycin Result Diagrams: 06/02/18 12:48 06/02/18 12:48 Microbiology: Microbiology 06/01/18 17:45 Acid Fast Bacilli Smear - Final Wound - Foot No acid fast bacilli seen 06/01/18 17:45 Gram Stain - Final Wound - Foot Wound Culture - Preliminary Staphylococcus aureus 05/28/18 11:45 Aerobic Blood Culture - Final Blood - Peripheral No growth in 5 days Anaerobic Blood Culture - Final No growth in 5 days 05/28/18 11:40 Aerobic Blood Culture - Final Blood - Peripheral No growth in 5 days Anaerobic Blood Culture - Final No growth in 5 days 06/01/18 17:45 Fungal Smear - Final Wound - Foot No fungal elements seen 05/27/18 11:10 Aerobic Blood Culture - Final Blood - Peripheral No growth in 5 days Anaerobic Blood Culture - Final No growth in 5 days 05/27/18 11:15 Aerobic Blood Culture - Final Blood - Peripheral No growth in 5 days Anaerobic Blood Culture - Final No growth in 5 days Imaging: Foot MRI 05/30/18 00:00 CONCLUSION: 1. There is abnormal soft tissue and fluid adjacent to the distal portion of the second metatarsal. There is abnormal bone marrow edema in the distal half to one third portion of the second metatarsal highly suspicious for osteomyelitis. 2. 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 3. Status post previous amputation of the second toe. Lisa Line Insertion 05/30/18 00:00 CONCLUSION: 1. Uncomplicated tunneled Groshong catheter placement as above. Head CT 05/31/18 13:33 CONCLUSION: 1. 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 . Foot X-Ray 06/01/18 00:00 CONCLUSION: 1. Status post resection of the right second metatarsal head. 2. 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 Chest X-Ray 06/01/18 12:32 CONCLUSION: No significant change Procedures: * 05/30/18 - right Groshong catheter placement. Assessment and Plan Pertinent Non-Medical Issues: Psychosocial: Lives with his significant other, Sulma. Also supported by his sister in [place]. Spiritual: [employer]. Legal:Patient is capacitated to make his own health care decisions. No Living Will. Patient completed Designation of Health Care Surrogate paperwork on naming his significant other, Sulma Bethea OR Medardo Sprague as health care surrogate should he lose capacity. Ethical issues impacting care: No known concerns at this time. . Important Contacts: * Sulma Bethea, significant other/[facility]: [phone] * Medardo Sprague, sister: [phone] Prognosis: Mr. 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 Patient remains high risk for repeat infections and related complications and possible cancer progression well infections are being treated. Code Status: Full Code Plan: * Patient is capacitated to make his own health care decisions. No Living Will. Patient completed Designation of Health Care Surrogate paperwork on 05/30/18 naming his significant other, Sulma [place] OR Medardo Sprague as health care surrogate should he lose capacity. * FULL CODE * Goals remain aggressive including FULL CODE, desire to proceed with line replacement to be able to draw labs and give meds. He hopes to get home as soon as possible. * Dr. Angel tells me Dr. Caro, IR will replace line on Tuesday if 1. Normal INR 2. Normal platelets 3. NPO. Medical team/ ID team please place necessary orders on Tuesday. * SYMPTOMS: Pain: intermittent sharp, brief twinges of pain in right foot. Denies during my visit today. No pain meds ordered, he declines need for pain med. Shortness of breath: on oxygen via [place]. Denies SOB during my visit today. * Palliative care will continue to follow throughout hospital course to assist with symptom management and further clarification of medical treatment goals as needed. . Attestation Attestation: To help prompt me to consider important information that might be impacting today's encounter and assessment, information from prior notes written by myself or my colleagues may have been "brought forward" into today's note. My signature on this note, however, is an attestation that I personally performed the exam, history, and/or decision-making noted today, and, unless otherwise indicated, the interactions with patient, family, and staff as well as the review of records all occurred today. I also attest that the listed assessment and stated plan reflect my best clinical judgment today based on the combination of historical information, prior notes, and today's exam/ interactions. When time spent is documented, it refers only to time spent today by the signer, or if indicated, combined time spent today by collaborating physician/nurse practitioner.
[2018-06-02] MEDS ORDERED: Phenylephrine/NS 1000 MCG/10ML Syringe IV.PUSH ONE (17:15)
--- NOTE | 2018-06-02 17:29 | P.PNPOD ---
Subjective Interval history: s/p I&D right foot with excision of 2nd metatarsal head and bone biopsy 06/01/18 Dr Gorman Physical Exam Vital signs: Vital Signs 06/01/18 18:09 06/01/18 18:15 06/01/18 18:30 Temperature 97.9 F Pulse Rate 95 H 100 H 99 H Respiratory Rate 24 22 22 Blood Pressure 111/65 118/70 140/85 Pulse Oximetry 94 L 94 L 90 L 06/01/18 18:45 06/01/18 18:55 06/01/18 20:00 Temperature 97.7 F Pulse Rate 97 H 102 H 95 H Respiratory Rate 22 22 22 Blood Pressure 131/80 133/81 129/77 Pulse Oximetry 92 L 92 L 95 06/01/18 20:27 06/02/18 00:00 06/02/18 04:00 Temperature 98.1 F 97.7 F Pulse Rate 104 H 106 H 93 H Respiratory Rate 18 22 20 Blood Pressure 137/75 130/78 Pulse Oximetry 93 L 93 L 06/02/18 08:00 06/02/18 09:00 06/02/18 12:00 Temperature 97.9 F 98.6 F Pulse Rate 89 83 86 Respiratory Rate 21 18 Blood Pressure 139/95 H 128/63 Pulse Oximetry 93 L 98 06/02/18 14:01 06/02/18 14:47 06/02/18 16:00 Temperature 97.9 F Pulse Rate 95 H 97 H 90 Respiratory Rate 16 18 Blood Pressure 135/81 Pulse Oximetry 98 Intake & Output 06/01/18 06/02/18 06/02/18 18:59 06:59 18:59 Intake Total 1200 / 1200 2276 / 2276 100 / 100 Output Total 10 / 10 700 / 700 Balance 1190 / 1190 1576 / 1576 100 / 100 Weight 109 kg Intake: IV 1100 / 1100 1796 / 1796 100 / 100 NS Inj 1,000 ML @ 60 mls/hr IV. 1000 / 1000 1181 / 1181 CONT .[id number] [facility] Rx#:[id number] Maxipime Inj 2,000 MG In NS Inj 100 / 100 100 / 100 100 / 100 100 ML @ 200 mls/hr IV.SIG Q12H [facility] Rx#:[id number] Vancomycin Inj 1,500 MG In NS 515 / 515 Inj 500 ML @ 257.5 mls/hr IV. SIG ONCE ONE Rx#:[id number] Oral 480 / 480 Anesthesia Amount 100 / 100 Output: Urine 700 / 700 Estimated Blood Loss Other: Date of Last Bowel Movement 05/31/18 05/31/18 # Bowel Movements 0 Narrative: Dressing clean, dry, intact R foot Medications and Allergies Active Medications: Active Medications Acetaminophen (Tylenol) 650 mg PO Q4H PRN PRN Reason: Temp > 100.4 Last Admin: 05/29/18 00:33 Dose: 650 mg Hydrocodone Bitart/Acetaminophen (Deville 5/325) 1 tab PO Q6H PRN PRN Reason: pain >4 Last Admin: 06/02/18 17:12 Dose: 1 tab Al Hydroxide/Mg Hydroxide (Milk Of Thai Liflash) 30 ml PO Q12H PRN PRN Reason: Mild Constipation Albuterol (Duoneb Neb (Prn)) 1 ampul NEB Q2HR NEB PRN PRN Reason: SHORTNESS OF BREATH Last Admin: 05/31/18 16:28 Dose: 1 ampul Albuterol (Duoneb Neb ([facility])) 1 ampul NEB Q6HR WHILE AWAKE NEB [facility] Last Admin: 06/02/18 14:00 Dose: 1 ampul Amlodipine Besylate (Norvasc) 10 mg PO DAILY [facility] Last Admin: 06/02/18 09:02 Dose: 10 mg Atorvastatin Calcium (Lipitor) 80 mg PO DAILY [facility] Last Admin: 06/02/18 09:02 Dose: 80 mg Bisacodyl (Dulcolax Supp) 10 mg RECTAL DAILY PRN PRN Reason: SEVERE CONSITIPATION Bupropion HCl (Wellbutrin Sr) 100 mg PO BID [facility] Last Admin: 06/02/18 09:02 Dose: 100 mg Colchicine (Colcrys) 0.6 mg PO DAILY [facility] Last Admin: 06/02/18 09:02 Dose: 0.6 mg Digoxin (Lanoxin) 125 mcg PO DAILY [facility] Last Admin: 06/02/18 09:02 Dose: 125 mcg Enoxaparin Sodium (Lovenox Inj) 100 mg SQ Q12HR [facility] Folic Acid (Folic Acid) 1 mg PO DAILY [facility] Last Admin: 06/02/18 09:02 Dose: 1 mg Cefepime HCl 2,000 mg/ Sodium (Chloride) 100 mls @ 200 mls/hr IV.SIG Q12H [facility] Last Infusion: 06/02/18 16:17 Dose: Infused Sodium Chloride (Ns Inj) 500 mls @ 30 mls/hr IV.SIG .Q10H [facility] Sodium Chloride (Ns Inj) 1,000 mls @ 60 mls/hr IV.CONT .[id number] [facility] Last Infusion: 06/02/18 05:34 Dose: 60 mls/hr Lactulose (Lactulose Liq) 30 ml PO DAILY PRN PRN Reason: SEVERE CONSITIPATION Lorazepam (Ativan) 0.5 mg PO ONCE PRN PRN Reason: prior to lab draw Metoclopramide HCl (Reglan Inj) 5 mg IV.PUSH Q6HR PRN; Protocol PRN Reason: NAUSEA OR VOMITING Last Admin: 05/29/18 14:11 Dose: 5 mg Metoprolol Tartrate (Lopressor) 100 mg PO BID [facility] Last Admin: 06/02/18 09:02 Dose: 100 mg Ondansetron HCl (Zofran Inj) 4 mg IV.PUSH Q6H PRN PRN Reason: NAUSEA OR VOMITING Pharmacy Profile Note (Vancomycin Consult Pharmacy) 1 each OTHER UNSCH PRN PRN Reason: Pharmacy to dose Prednisone (Deltasone) 20 mg PO BID [facility] Stop: 06/05/18 08:59 Last Admin: 06/02/18 09:02 Dose: 20 mg Senna/Docusate Sodium (Salma-Colace) 1 tab PO BID [facility] Last Admin: 06/02/18 09:02 Dose: 1 tab Sennosides (Senokot) 17.2 mg PO Q12H PRN PRN Reason: Moderate Constipation Allergies Allergy/AdvReac Type Severity Reaction Status Date / Time penicillin G Allergy Severe EDEMA Verified 05/27/18 12:05 Home Medications Medication Instructions Recorded Confirmed Type albuterol sulfate 2 puff INHALATION Q4-6H PRN 05/27/18 05/27/18 History amlodipine 10 mg PO DAILY 05/27/18 05/27/18 History atorvastatin 80 mg PO DAILY 05/27/18 05/27/18 History bupropion HCl 100 mg PO BID 05/27/18 05/27/18 History colchicine 0.6 mg PO DAILY 05/27/18 05/27/18 History digoxin 0.125 mg PO DAILY 05/27/18 05/27/18 History folic acid 1 mg PO DAILY 05/27/18 05/27/18 History metoprolol tartrate 1 mg/kg PO BID 05/27/18 05/27/18 History ondansetron [Zofran ODT] 8 mg PO Q8HR PRN 05/27/18 05/29/18 History warfarin 05/27/18 05/27/18 History Results - Labs CBC & Chem 7: 06/02/18 12:48 06/02/18 12:48 Laboratory Results - last 24 hr 06/01/18 06/02/18 06/02/18 18:39 12:48 12:48 WBC 25.5 H RBC 3.52 L Hgb 11.5 L Hct 35.1 L MCV 99.7 MCH 32.5 MCHC 32.6 RDW 14.4 Plt Count 248 MPV 8.3 Prelim Diff (Auto) Slide review pending Neut % (Auto) 94.0 H Lymph % (Auto) 2.3 L [place] % (Auto) 3.4 Eos % (Auto) 0.0 Baso % (Auto) 0.3 Neut # (Auto) 24.0 H Lymph # (Auto) 0.6 L [place] # (Auto) 0.9 Eos # (Auto) 0.0 Baso # (Auto) 0.1 WBC Differential Manual diff final Seg Neuts % (Manual) 89 H Band Neuts % (Manual) 8 H Lymphocytes % (Manual) 1 L Monocytes % (Manual) 2 Abs Neuts (Manual) 24.7 H Differential Comment . Platelet Estimate Normal Platelet Morphology Normal RBC Morphology Normal PT 14.4 H D INR 1.4 Sodium Potassium Chloride Carbon Dioxide Anion Gap BUN Creatinine Estimated GFR POC Glucose 113 H Random Glucose Calcium Total Bilirubin AST ALT Alkaline Phosphatase Total Protein Albumin 06/02/18 12:48 WBC RBC Hgb Hct MCV MCH MCHC RDW Plt Count MPV Prelim Diff (Auto) Neut % (Auto) Lymph % (Auto) [place] % (Auto) Eos % (Auto) Baso % (Auto) Neut # (Auto) Lymph # (Auto) [place] # (Auto) Eos # (Auto) Baso # (Auto) WBC Differential Seg Neuts % (Manual) Band Neuts % (Manual) Lymphocytes % (Manual) Monocytes % (Manual) Abs Neuts (Manual) Differential Comment Platelet Estimate Platelet Morphology RBC Morphology PT INR Sodium 143 Potassium 4.5 Chloride 112 H Carbon Dioxide 19.1 L Anion Gap 12 BUN 57 H Creatinine 2.16 H Estimated GFR 30 L POC Glucose Random Glucose 149 H Calcium 8.3 L Total Bilirubin 0.5 AST 52 H ALT 85 H Alkaline Phosphatase 178 H Total Protein 6.9 D Albumin 1.9 L Microbiology 06/01/18 17:45 Wound - Foot Acid Fast Bacilli Smear - Final No acid fast bacilli seen 06/01/18 17:45 Wound - Foot Gram Stain - Final 06/01/18 17:45 Wound - Foot Wound Culture - Preliminary Staphylococcus aureus 05/28/18 11:45 Blood - Peripheral Aerobic Blood Culture - Final No growth in 5 days 05/28/18 11:45 Blood - Peripheral Anaerobic Blood Culture - Final No growth in 5 days 05/28/18 11:40 Blood - Peripheral Aerobic Blood Culture - Final No growth in 5 days 05/28/18 11:40 Blood - Peripheral Anaerobic Blood Culture - Final No growth in 5 days 06/01/18 17:45 Wound - Foot Fungal Smear - Final No fungal elements seen - Imaging Impressions Foot X-Ray 06/01/18 00:00 CONCLUSION: 1. Status post resection of the right second metatarsal head. 2. 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 - Procedures 06/01 1. Incision and drainage right foot abscess 2. bone biopsy right 2nd metatarsal head Assessment and Plan - Assessment (1) Cellulitis Code(s): L03.90 - Cellulitis, unspecified Status: Acute - Plan Plan to change dressing tomorrow Patient doing well today Continue weight to heel only right foot (1) Cellulitis Qualifiers: Site of cellulitis: extremity Site of cellulitis of extremity: lower extremity Laterality: right Qualified Code(s): L03.115 - Cellulitis of right lower limb
--- NOTE | 2018-06-02 19:54 | P.PNID ---
Subjective Remarks: sp 1. Incision and drainage right foot abscess and . bone biopsy right 2nd metatarsal head yday Growing MSSA bx P Pt refuses blood draws from periferal veins Pt reports taking Keflex unventfully in last 5 yrs h/o severe (swelling ) allergy to PCN Antibiotics: cefepime vanco Allergies/Adverse Reactions: Allergies penicillin G Allergy (Severe, Verified 05/27/18 12:05) EDEMA Objective Vital Signs 06/01/18 20:00 06/01/18 20:27 06/02/18 00:00 Temperature 97.7 F 98.1 F Pulse Rate 95 H 104 H 106 H Respiratory Rate 22 18 22 Blood Pressure 129/77 137/75 Pulse Oximetry 95 93 L 06/02/18 04:00 06/02/18 08:00 06/02/18 09:00 Temperature 97.7 F 97.9 F Pulse Rate 93 H 89 83 Respiratory Rate 20 21 Blood Pressure 130/78 139/95 H Pulse Oximetry 93 L 93 L 06/02/18 12:00 06/02/18 14:01 06/02/18 14:47 Temperature 98.6 F Pulse Rate 86 95 H 97 H Respiratory Rate 18 16 Blood Pressure 128/63 Pulse Oximetry 98 06/02/18 16:00 Temperature 97.9 F Pulse Rate 90 Respiratory Rate 18 Blood Pressure 135/81 Pulse Oximetry 98 Intake & Output 06/02/18 06/02/18 06/03/18 06:59 18:59 06:59 Intake Total 2276 / 2276 1639 / 1639 Output Total 700 / 700 600 / 600 Balance 1576 / 1576 1039 / 1039 Weight 109 kg Intake: IV 1796 / 1796 919 / 919 NS Inj 1,000 ML @ 60 mls/hr IV. 1181 / 1181 819 / 819 CONT .[id number] MAUDE Rx#:[id number] Maxipime Inj 2,000 MG In NS Inj 100 / 100 100 / 100 100 ML @ 200 mls/hr IV.SIG Q12H MAUDE Rx#:[id number] Vancomycin Inj 1,500 MG In NS 515 / 515 Inj 500 ML @ 257.5 mls/hr IV. SIG ONCE ONE Rx#:[id number] Oral 480 / 480 720 / 720 Output: Urine 700 / 700 600 / 600 Other: Date of Last Bowel Movement 05/31/18 05/31/18 # Bowel Movements 0 06/01/18 17:45 Wound - Foot Acid Fast Bacilli Smear - Final No acid fast bacilli seen 06/01/18 17:45 Wound - Foot Mycobacterial Culture - Pending 06/01/18 17:45 Wound - Foot Gram Stain - Final 06/01/18 17:45 Wound - Foot Wound Culture - Preliminary Staphylococcus aureus 05/28/18 11:45 Blood - Peripheral Aerobic Blood Culture - Final No growth in 5 days 05/28/18 11:45 Blood - Peripheral Anaerobic Blood Culture - Final No growth in 5 days 05/28/18 11:40 Blood - Peripheral Aerobic Blood Culture - Final No growth in 5 days 05/28/18 11:40 Blood - Peripheral Anaerobic Blood Culture - Final No growth in 5 days 06/01/18 17:45 Wound - Foot Fungal Smear - Final No fungal elements seen 06/01/18 17:45 Wound - Foot Fungal Culture - Pending 05/27/18 11:10 Blood - Peripheral Aerobic Blood Culture - Final No growth in 5 days 05/27/18 11:10 Blood - Peripheral Anaerobic Blood Culture - Final No growth in 5 days 05/27/18 11:15 Blood - Peripheral Aerobic Blood Culture - Final No growth in 5 days 05/27/18 11:15 Blood - Peripheral Anaerobic Blood Culture - Final No growth in 5 days Lab - Hematology Results 06/01/18 06/02/18 05:58 12:48 WBC 25.6 H 25.5 H RBC 3.08 L 3.52 L Hgb 10.2 L 11.5 L Hct 30.8 L 35.1 L MCV 100.0 99.7 MCH 32.9 32.5 MCHC 32.9 32.6 RDW 14.1 14.4 Plt Count 209 248 MPV 8.6 8.3 Prelim Diff (Auto) Slide review pending Slide review pending Neut % (Auto) 94.4 H 94.0 H Lymph % (Auto) 2.6 L 2.3 L [place] % (Auto) 2.9 3.4 Eos % (Auto) 0.0 0.0 Baso % (Auto) 0.1 0.3 Neut # (Auto) 24.2 H 24.0 H Lymph # (Auto) 0.7 L 0.6 L [place] # (Auto) 0.8 0.9 Eos # (Auto) 0.0 0.0 Baso # (Auto) 0.0 0.1 WBC Differential Manual diff final Manual diff final Seg Neuts % (Manual) 82 H 89 H Band Neuts % (Manual) 13 H 8 H Lymphocytes % (Manual) 4 L 1 L Monocytes % (Manual) 1 2 Abs Neuts (Manual) 24.3 H 24.7 H Differential Comment . . Platelet Estimate Normal Normal Platelet Morphology Normal Normal RBC Morphology Normal Acanthocytes (Spur) Occ H Keratocytes Occ H Lab - Chemistry Results 06/01/18 06/01/18 06/02/18 05:58 18:39 12:48 Sodium 141 143 Potassium 4.5 4.5 Chloride 107 112 H Carbon Dioxide 23.4 19.1 L Anion Gap 11 12 BUN 53 H 57 H Creatinine 2.13 H 2.16 H Estimated GFR 31 L 30 L POC Glucose 113 H Random Glucose 87 149 H Calcium 8.2 L 8.3 L Total Bilirubin 0.5 0.5 AST 57 H 52 H ALT 83 H 85 H Alkaline Phosphatase 174 H 178 H Total Protein 6.3 L 6.9 D Albumin 2.0 L 1.9 L Imaging: ITS Impressions Foot MRI 05/30/18 00:00 CONCLUSION: 1. There is abnormal soft tissue and fluid adjacent to the distal portion of the second metatarsal. There is abnormal bone marrow edema in the distal half to one third portion of the second metatarsal highly suspicious for osteomyelitis. 2. 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 3. Status post previous amputation of the second toe. Lisa Line Insertion 05/30/18 00:00 CONCLUSION: 1. Uncomplicated tunneled Groshong catheter placement as above. Head CT 05/31/18 13:33 CONCLUSION: 1. 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 . Foot X-Ray 06/01/18 00:00 CONCLUSION: 1. Status post resection of the right second metatarsal head. 2. 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 Chest X-Ray 06/01/18 12:32 CONCLUSION: No significant change Physical Exam: GENERAL: NAD SKIN: Warm and dry. No rash HEAD: Atraumatic. Normocephalic. EYES: Pupils equal and round. No scleral icterus. No injection or drainage. ENT: No nasal bleeding or discharge. Mucous membranes pink and moist. NECK: Trachea midline. No JVD. CARDIOVASCULAR: Regular rate and rhythm. RESPIRATORY: No accessory muscle use. Clear to auscultation. Breath sounds equal bilaterally. GASTROINTESTINAL: Abdomen soft, non-tender, nondistended. Hepatic and splenic margins not palpable. MUSCULOSKELETAL: Extremities without clubbing, cyanosis, or edema. R foot with post op dressing in place NEUROLOGICAL: Awake and alert. Non focal PSYCHIATRIC: Appropriate mood and affect; insight and judgment normal. Assessment and Plan - Plan R foot osteo, MSSA cionically and radiologically very suspicious for R foot osteo taking in to account chronicity of his problem atypical mycobacterial infx should be consuidered along with routine bacteria R lung cancer on chemo PVD Lung ca Mult med probx PCN allergy but took Keflex w./o issues Leukocytosis- pt was neutropenic, now leukocytosis/leyuukemoid reaction ? Neupogen Ancef adjusted per decreased GFR dc vanco, cefepime Anticipate 8 weeks of IV abx followed by oral will need Hipolitokmann instead of Deysi mera pt, his s/o dw Dr Caro
[2018-06-02] MEDS: Enoxaparin Inj 100 MG/ML Syringe SQ SCH (21:15)
[2018-06-03] MEDS: predniSONE 20 MG Tablet PO SCH ×2 (08:30→21:03)
[2018-06-03] MEDS: amLODIPine 10 MG Tablet PO SCH (08:31)
[2018-06-03] MEDS: Senna/Docusate Sodium 8.6/50 MG Tablet PO SCH ×2 (08:31→21:02)
[2018-06-03] MEDS: buPROPion 100 MG ER 12 HR Tablet PO SCH ×2 (08:31→21:02)
[2018-06-03] MEDS: Metoprolol Tartrate 100 MG Tablet PO SCH ×2 (08:31→21:03)
[2018-06-03] MEDS: Folic Acid 1 MG Tablet PO SCH (08:31)
[2018-06-03] MEDS: Digoxin 125 MCG Tablet PO SCH (08:31)
[2018-06-03] MEDS: Enoxaparin Inj 100 MG/ML Syringe SQ SCH ×2 (08:32→21:03)
--- NOTE | 2018-06-03 09:58 | P.PNONC ---
Subjective Interval history: Afebrile. Patient sitting in recliner. He reports increase in right hip pain. Denies foot pain. Objective Vital Signs/Intake & Output: Vital Signs 06/02/18 12:00 06/02/18 14:01 06/02/18 14:47 Temperature 98.6 F Pulse Rate 86 95 H 97 H Respiratory Rate 18 16 Blood Pressure 128/63 Pulse Oximetry 98 06/02/18 16:00 06/02/18 19:00 06/02/18 20:00 Temperature 97.9 F 97.8 F Pulse Rate 90 89 89 Respiratory Rate 18 18 20 Blood Pressure 135/81 138/81 Pulse Oximetry 98 94 L 92 L 06/02/18 20:07 06/03/18 00:14 06/03/18 00:23 Temperature 97.7 F Pulse Rate 83 89 84 Respiratory Rate 21 Blood Pressure 139/81 Pulse Oximetry 98 06/03/18 00:52 06/03/18 04:00 06/03/18 05:09 Temperature 97.8 F Pulse Rate 95 H 91 H Respiratory Rate 18 20 Blood Pressure 152/84 H Pulse Oximetry 98 06/03/18 08:00 06/03/18 08:02 Temperature 97.7 F Pulse Rate 82 84 Respiratory Rate 18 Blood Pressure 117/80 Pulse Oximetry 98 Intake & Output 06/02/18 06/03/18 06/03/18 18:59 06:59 18:59 Intake Total 1639 / 1639 100 / 100 Output Total 600 / 600 300 / 300 Balance 1039 / 1039 -200 / -200 Weight 110.7 kg Intake: IV 919 / 919 100 / 100 NS Inj 1,000 ML @ 60 mls/hr IV. 819 / 819 CONT .[id number] MAUDE Rx#:[id number] Maxipime Inj 2,000 MG In NS Inj 100 / 100 100 ML @ 200 mls/hr IV.SIG Q12H MAUDE Rx#:[id number] Ancef Inj 1,000 MG In NS Inj 100 / 100 100 ML @ 200 mls/hr IV.SIG Q12H MAUDE Rx#:[id number] Oral 720 / 720 Output: Urine 600 / 600 300 / 300 Other: # Voids 1 Date of Last Bowel Movement 05/31/18 05/31/18 Result Diagrams: 06/03/18 10:43 06/03/18 10:43 Laboratory Results: Laboratory Results - last 24 hr 06/02/18 06/02/18 06/02/18 12:48 12:48 12:48 WBC 25.5 H RBC 3.52 L Hgb 11.5 L Hct 35.1 L MCV 99.7 MCH 32.5 MCHC 32.6 RDW 14.4 Plt Count 248 MPV 8.3 Prelim Diff (Auto) Slide review pending Neut % (Auto) 94.0 H Lymph % (Auto) 2.3 L [place] % (Auto) 3.4 Eos % (Auto) 0.0 Baso % (Auto) 0.3 Neut # (Auto) 24.0 H Lymph # (Auto) 0.6 L [place] # (Auto) 0.9 Eos # (Auto) 0.0 Baso # (Auto) 0.1 WBC Differential Manual diff final Seg Neuts % (Manual) 89 H Band Neuts % (Manual) 8 H Lymphocytes % (Manual) 1 L Monocytes % (Manual) 2 Abs Neuts (Manual) 24.7 H Differential Comment . Platelet Estimate Normal Platelet Morphology Normal RBC Morphology Normal PT 14.4 H D INR 1.4 Sodium 143 Potassium 4.5 Chloride 112 H Carbon Dioxide 19.1 L Anion Gap 12 BUN 57 H Creatinine 2.16 H Estimated GFR 30 L Random Glucose 149 H Calcium 8.3 L Total Bilirubin 0.5 AST 52 H ALT 85 H Alkaline Phosphatase 178 H Total Protein 6.9 D Albumin 1.9 L Culture Results: Microbiology 06/01/18 17:45 Gram Stain - Final Wound - Foot Wound Culture - Final Staphylococcus aureus Mixed Anaerobes 06/01/18 17:45 Acid Fast Bacilli Smear - Final Wound - Foot No acid fast bacilli seen 05/28/18 11:45 Aerobic Blood Culture - Final Blood - Peripheral No growth in 5 days Anaerobic Blood Culture - Final No growth in 5 days 05/28/18 11:40 Aerobic Blood Culture - Final Blood - Peripheral No growth in 5 days Anaerobic Blood Culture - Final No growth in 5 days 06/01/18 17:45 Fungal Smear - Final Wound - Foot No fungal elements seen 05/27/18 11:10 Aerobic Blood Culture - Final Blood - Peripheral No growth in 5 days Anaerobic Blood Culture - Final No growth in 5 days 05/27/18 11:15 Aerobic Blood Culture - Final Blood - Peripheral No growth in 5 days Anaerobic Blood Culture - Final No growth in 5 days Medications: Active Medications Generic Name Dose Route Start Last Admin Trade Name Freq PRN Reason Stop Dose Admin Acetaminophen 650 mg 05/27/18 12:46 05/29/18 00:33 Tylenol PO 650 mg Q4H PRN Administration Temp > 100.4 Hydrocodone Bitart/Acetaminophen 1 tab 06/02/18 16:22 06/03/18 08:30 [place] 5/325 PO 1 tab Q6H PRN Administration pain >4 Albuterol 1 ampul 05/29/18 15:04 05/31/18 16:28 Duoneb Neb (Prn) NEB 1 ampul Q2HR NEB PRN Administration SHORTNESS OF BREATH Amlodipine Besylate 10 mg 05/28/18 09:00 06/03/18 08:31 Norvasc PO 10 mg DAILY MAUDE Administration Atorvastatin Calcium 80 mg 05/28/18 09:00 06/03/18 08:32 Lipitor PO 80 mg DAILY MAUDE Administration Bupropion HCl 100 mg 05/27/18 21:00 06/03/18 08:31 Wellbutrin Sr PO 100 mg BID MAUDE Administration Colchicine 0.6 mg 05/28/18 09:00 06/03/18 08:31 Colcrys PO 0.6 mg DAILY MAUDE Administration Digoxin 125 mcg 05/28/18 09:00 06/03/18 08:31 Lanoxin PO 125 mcg DAILY MAUDE Administration Enoxaparin Sodium 100 mg 06/02/18 21:00 06/03/18 08:32 Lovenox Inj SQ 100 mg Q12HR MAUDE Administration Folic Acid 1 mg 05/28/18 09:00 06/03/18 08:31 Folic Acid PO 1 mg DAILY MAUDE Administration Sodium Chloride 1,000 mls @ 60 mls/hr 05/31/18 14:02 06/02/18 18:43 Ns Inj IV.CONT 60 mls/hr .[id number] MAUDE Administration Cefazolin Sodium 1,000 mg/ 100 mls @ 200 mls/hr 06/02/18 20:00 06/03/18 08:35 Sodium Chloride IV.SIG 200 mls/hr Q12H MAUDE Administration Metoclopramide HCl 5 mg 05/27/18 12:46 05/29/18 14:11 Reglan Inj IV.PUSH 5 mg Q6HR PRN Administration NAUSEA OR VOMITING Protocol Metoprolol Tartrate 100 mg 05/27/18 21:00 06/03/18 08:31 Lopressor PO 100 mg BID MAUDE Administration Prednisone 20 mg 06/02/18 09:00 06/03/18 08:30 Deltasone PO 06/05/18 08:59 20 mg BID MAUDE Administration Senna/Docusate Sodium 1 tab 05/27/18 21:00 06/03/18 08:31 Salma-Colace PO 1 tab BID MAUDE Administration Objective Remarks: GENERAL: Well-nourished, well-developed male patient, sitting upright in recliner. In no acute distress. SKIN: Warm and dry. Surgical drsg to right foot. HEAD: Normocephalic. EYES: No scleral icterus. No injection or drainage. NECK: Supple, trachea midline. CARDIOVASCULAR: Irregularly irregular heart rate without murmurs. RESPIRATORY: Anterior breath sounds clear, equal bilaterally. No accessory muscle use. GASTROINTESTINAL: Abdomen soft, non-tender, nondistended. EXTREMITIES: No cyanosis. Surgical bandage to right foot, minimal sanguinous discharge noted to bandage. MUSCULOSKELETAL: Adequate muscle tone. NEUROLOGICAL: No obvious focal deficit. Awake, alert, and oriented x3. PSYCHIATRIC: Appropriate mood and affect; insight and judgment normal. Assessment/Plan - Plan 72-year-old male with history of metastatic non-small cell lung cancer who gets his care through the [facility]. He was given his third cycle of palliative chemotherapy with carboplatin and Taxol on 05/18/18. Initially the patient had severe diarrhea after the chemotherapy which has been resolved. He was admitted with pain and swelling of the right lower extremity as he has a chronic venous insufficiency with skin breakdown. 1. Metastatic lung adenocarcinoma: s/p initiation of chemotherapy with carboplatin and paclitaxel at the [facility] on 05/18/2018. 2. Cytopenias due to chemotherapy, improved with G-CSF support, with some rebound leukocytosis. 3. RLE cellulitis/osteomyelitis. ID and podiatry managing. Status post right foot debridement and second metatarsal bone biopsy on 06/01/18. 4. Plan for Lisa catheter placement on Tuesday. 5. INR management per attending. - Attending Statement The exam, history, and the medical decision-making described in the above note were completed with the assistance of the mid-level provider. I reviewed and agree with the findings presented. I attest that I had a [id number] encounter with the patient on the same day, and personally performed and documented my assessment and findings in the medical record. Stage IV NSCLC s/p Carbo/Taxol cycle 3 on 05/18 at [facility] admitted with cellulites/osteomyelitis right foot--staph infection Cefazolin, Flagyl s/p debridement/bone biopsy P Podiatry and ID following chronic Afib rate controlled On Lovenox Lisa catheter on Tuesday Low albumin, malnutrition ensure or boost tid with meals. diet consult
[2018-06-03 10:57] LABS: Baso % (Auto) 0.1 % (0.0-2.0); Hemoglobin 10.7 gm/dL (13.0-17.0); Lymph # (Auto) 0.6 th/mm3 (1.0-4.8); Lymph % (Auto) 2.6 % (9.0-44.0); Mean Corpuscular HGB Conc 33.4 % (32.0-36.0); Mean Corpuscular Hemoglobin 33.1 pg (27.0-34.0); Mean Platelet Volume 8.4 fL (7.0-11.0); Mono # (Auto) 0.9 th/mm3 (0.0-0.9); Neut # (Auto) 21.5 th/mm3 (1.8-7.7); Neut % (Auto) 93.3 % (16.0-70.0); Platelet Count 264 th/mm3 (150-450); Red Blood Count 3.23 mil/mm3 (4.50-5.90); Red Cell Distribution Width 14.5 % (11.6-17.2); White Blood Count 23.1 th/mm3 (4.0-11.0)
[2018-06-03 11:02] LABS: INR 1.5 Ratio; Prothrombin Time 14.8 sec (9.8-11.6)
[2018-06-03 11:16] LABS: Alanine Aminotransferase 78 U/L (12-78); Albumin 1.8 g/dL (3.4-5.0); Anion Gap 10 meq/L (5-15); Aspartate Aminotransferase 39 U/L (15-37); Blood Urea Nitrogen 59 mg/dL (7-18); Carbon Dioxide 21.3 meq/L (21.0-32.0); Chloride 112 meq/L (98-107); Glomerular Filtration Rate 31 mL/min (>89); Glucose,Random 135 mg/dL (74-106); Potassium 4.6 meq/L (3.5-5.1); Sodium 143 meq/L (136-145)
[2018-06-03 11:18] LABS: Alkaline Phosphatase 151 U/L (45-117); Total Protein 6.4 g/dL (6.4-8.2); Vancomycin,Random 13.7 Comment
[2018-06-03 11:42] LABS: Lymphocytes 2 % (9-44); Monocytes 2 % (0-8); Platelet Estimate Normal (Normal); Platelet Morphology Normal (Normal)
[2018-06-03 11:43] LABS: Acanthocytes 1+; Howell-Jolly Bodies Present
--- NOTE | 2018-06-03 14:33 | P.PN ---
Subjective Interval history: seen with very supportive afebrile no complains of foot pain jason has been up and ambulated around the hallways Physical Exam Vital signs: Vital Signs 06/02/18 14:47 06/02/18 16:00 06/02/18 19:00 Temperature 97.9 F Pulse Rate 97 H 90 89 Respiratory Rate 18 18 Blood Pressure 135/81 Pulse Oximetry 98 94 L 06/02/18 20:00 06/02/18 20:07 06/03/18 00:14 Temperature 97.8 F Pulse Rate 89 83 89 Respiratory Rate 20 Blood Pressure 138/81 Pulse Oximetry 92 L 06/03/18 00:23 06/03/18 00:52 06/03/18 04:00 Temperature 97.7 F 97.8 F Pulse Rate 84 95 H Respiratory Rate 21 18 20 Blood Pressure 139/81 152/84 H Pulse Oximetry 98 98 06/03/18 05:09 06/03/18 08:00 06/03/18 08:02 Temperature 97.7 F Pulse Rate 91 H 82 84 Respiratory Rate 18 Blood Pressure 117/80 Pulse Oximetry 98 06/03/18 13:07 Temperature 98.1 F Pulse Rate 91 H Respiratory Rate 20 Blood Pressure 142/75 H Pulse Oximetry 94 L Intake & Output 06/02/18 06/03/18 06/03/18 18:59 06:59 18:59 Intake Total 1639 / 1639 100 / 100 100 / 100 Output Total 600 / 600 300 / 300 Balance 1039 / 1039 -200 / -200 100 / 100 Weight 110.7 kg Intake: IV 919 / 919 100 / 100 100 / 100 NS Inj 1,000 ML @ 60 mls/hr IV. 819 / 819 CONT .[id number] MAUDE Rx#:[id number] Maxipime Inj 2,000 MG In NS Inj 100 / 100 100 ML @ 200 mls/hr IV.SIG Q12H MAUDE Rx#:[id number] Ancef Inj 1,000 MG In NS Inj 100 / 100 100 / 100 100 ML @ 200 mls/hr IV.SIG Q12H MAUDE Rx#:[id number] Oral 720 / 720 Output: Urine 600 / 600 300 / 300 Other: # Voids 1 Date of Last Bowel Movement 05/31/18 05/31/18 06/02/18 Narrative: awake and alert, oriented x 3, speech clear ff all commands anciteric neck supple lungs- +no rales no wheezes irregularly irregular rhythm abdomen soft right foot- - post op dressing intact Results - Labs CBC & Chem 7: 06/03/18 10:43 06/03/18 10:43 Laboratory Results - last 24 hr 06/03/18 06/03/18 06/03/18 10:43 10:43 10:43 WBC 23.1 H RBC 3.23 L Hgb 10.7 L Hct 32.0 L MCV 99.0 MCH 33.1 MCHC 33.4 RDW 14.5 Plt Count 264 MPV 8.4 Prelim Diff (Auto) Slide review pending Neut % (Auto) 93.3 H Lymph % (Auto) 2.6 L [place] % (Auto) 4.0 Eos % (Auto) 0.0 Baso % (Auto) 0.1 Neut # (Auto) 21.5 H Lymph # (Auto) 0.6 L [place] # (Auto) 0.9 Eos # (Auto) 0.0 Baso # (Auto) 0.0 WBC Differential Manual diff final Seg Neuts % (Manual) 86 H Band Neuts % (Manual) 10 H Lymphocytes % (Manual) 2 L Monocytes % (Manual) 2 Abs Neuts (Manual) 22.2 H Differential Comment . Platelet Estimate Normal Platelet Morphology Normal [place] Bodies Present H Acanthocytes (Spur) 1+ H PT 14.8 H INR 1.5 Sodium 143 Potassium 4.6 Chloride 112 H Carbon Dioxide 21.3 Anion Gap 10 BUN 59 H Creatinine 2.11 H Estimated GFR 31 L Random Glucose 135 H Calcium 8.0 L Total Bilirubin 0.4 AST 39 H ALT 78 Alkaline Phosphatase 151 H Total Protein 6.4 Albumin 1.8 L Random Vancomycin 13.7 Microbiology 06/01/18 17:45 Wound - Foot Gram Stain - Final 06/01/18 17:45 Wound - Foot Wound Culture - Final Staphylococcus aureus Mixed Anaerobes 06/01/18 17:45 Wound - Foot Acid Fast Bacilli Smear - Final No acid fast bacilli seen 05/28/18 11:45 Blood - Peripheral Aerobic Blood Culture - Final No growth in 5 days 05/28/18 11:45 Blood - Peripheral Anaerobic Blood Culture - Final No growth in 5 days 05/28/18 11:40 Blood - Peripheral Aerobic Blood Culture - Final No growth in 5 days 05/28/18 11:40 Blood - Peripheral Anaerobic Blood Culture - Final No growth in 5 days - Procedures 06/01 1. Incision and drainage right foot abscess 2. bone biopsy right 2nd metatarsal head Assessment and Plan - Plan 72-year-old man with Neutropenic fever- patient received Neuprogen x 3 doses - 05/27-3 now with leukocytosis from Neupogen Neutropenic precautions Appreciate input from oncology Right lower extremity cellulitis/Osteomyelitis Right foot abscess S/P I and D with bone biopsy 06/01- growing S. aures and mixed anaerobes per OR report- milky purulence material obtained Now on IV ancef and IV flagyl ff post op cultures /pathology ID ff/podiatry ff - d/w ID- line- PICC for snf antibiotics History of lung cancer with metastases Treatment with paclitaxel and carboplatin Appreciate input from oncology - exam- no wheezes this am - give IV Solumedrol q 12- change to po prednisone short course x 3 days - duoneb treatment History of hypertension, gout and other chronic medical conditions Chronic atrial fibrillation Coumadin excess - INR down continue on BB, Cordarone hematology ff Lovenox q 12 - goign for another procedure Tuesday ALEXANDER- - creatinine stabilizing - non oliguric Npehrology ff - dietitian ff - ate better Transient change in MS- - reported confusion - 05/30 post procedure- VAS cath now neuro stable- awake and alert, interactive negative head CT Plan for port change - currently has a Groshong- needs to new line- Lisa vs PICC
--- NOTE | 2018-06-03 15:16 | P.PNPOD ---
Physical Exam Vital signs: Vital Signs 06/02/18 16:00 06/02/18 19:00 06/02/18 20:00 Temperature 97.9 F 97.8 F Pulse Rate 90 89 89 Respiratory Rate 18 18 20 Blood Pressure 135/81 138/81 Pulse Oximetry 98 94 L 92 L 06/02/18 20:07 06/03/18 00:14 06/03/18 00:23 Temperature 97.7 F Pulse Rate 83 89 84 Respiratory Rate 21 Blood Pressure 139/81 Pulse Oximetry 98 06/03/18 00:52 06/03/18 04:00 06/03/18 05:09 Temperature 97.8 F Pulse Rate 95 H 91 H Respiratory Rate 18 20 Blood Pressure 152/84 H Pulse Oximetry 98 06/03/18 08:00 06/03/18 08:02 06/03/18 13:07 Temperature 97.7 F 98.1 F Pulse Rate 82 84 91 H Respiratory Rate 18 20 Blood Pressure 117/80 142/75 H Pulse Oximetry 98 94 L Intake & Output 06/02/18 06/03/18 06/03/18 18:59 06:59 18:59 Intake Total 1639 / 1639 100 / 100 100 / 100 Output Total 600 / 600 300 / 300 Balance 1039 / 1039 -200 / -200 100 / 100 Weight 110.7 kg Intake: IV 919 / 919 100 / 100 100 / 100 NS Inj 1,000 ML @ 60 mls/hr IV. 819 / 819 CONT .[id number] MAUDE Rx#:[id number] Maxipime Inj 2,000 MG In NS Inj 100 / 100 100 ML @ 200 mls/hr IV.SIG Q12H MAUDE Rx#:[id number] Ancef Inj 1,000 MG In NS Inj 100 / 100 100 / 100 100 ML @ 200 mls/hr IV.SIG Q12H MAUDE Rx#:[id number] Oral 720 / 720 Output: Urine 600 / 600 300 / 300 Other: # Voids 1 Date of Last Bowel Movement 05/31/18 05/31/18 06/02/18 Narrative: Right foot with sutures intact dorsally and plantar wound with packing intact. No purulence noted. Resolving erythema and significantly reduced erythema. Pain less than preoperative pain level. Medications and Allergies Active Medications: Active Medications Acetaminophen (Tylenol) 650 mg PO Q4H PRN PRN Reason: Temp > 100.4 Last Admin: 05/29/18 00:33 Dose: 650 mg Hydrocodone Bitart/Acetaminophen ([place]ard 5/325) 1 tab PO Q4H PRN PRN Reason: pain >4 Al Hydroxide/Mg Hydroxide (Milk Of Magnesia Liq) 30 ml PO Q12H PRN PRN Reason: Mild Constipation Albuterol (Duoneb Neb (Prn)) 1 ampul NEB Q2HR NEB PRN PRN Reason: SHORTNESS OF BREATH Last Admin: 05/31/18 16:28 Dose: 1 ampul Amlodipine Besylate (Norvasc) 10 mg PO DAILY COUNT INCLUDES THE [facility] Last Admin: 06/03/18 08:31 Dose: 10 mg Atorvastatin Calcium (Lipitor) 80 mg PO DAILY COUNT INCLUDES THE [facility] Last Admin: 06/03/18 08:32 Dose: 80 mg Bisacodyl (Dulcolax Supp) 10 mg RECTAL DAILY PRN PRN Reason: SEVERE CONSITIPATION Bupropion HCl (Wellbutrin Sr) 100 mg PO BID COUNT INCLUDES THE [facility] Last Admin: 06/03/18 08:31 Dose: 100 mg Colchicine (Colcrys) 0.6 mg PO DAILY COUNT INCLUDES THE [facility] Last Admin: 06/03/18 08:31 Dose: 0.6 mg Digoxin (Lanoxin) 125 mcg PO DAILY COUNT INCLUDES THE [facility] Last Admin: 06/03/18 08:31 Dose: 125 mcg Enoxaparin Sodium (Lovenox Inj) 100 mg SQ Q12HR COUNT INCLUDES THE [facility] Last Admin: 06/03/18 08:32 Dose: 100 mg Folic Acid (Folic Acid) 1 mg PO DAILY COUNT INCLUDES THE [facility] Last Admin: 06/03/18 08:31 Dose: 1 mg Sodium Chloride (Ns Inj) 500 mls @ 30 mls/hr IV.SIG .Q10H COUNT INCLUDES THE [facility] Sodium Chloride (Ns Inj) 1,000 mls @ 60 mls/hr IV.CONT .[id number] COUNT INCLUDES THE [facility] Last Admin: 06/02/18 18:43 Dose: 60 mls/hr Cefazolin Sodium 1,000 mg/ (Sodium Chloride) 100 mls @ 200 mls/hr IV.SIG Q12H COUNT INCLUDES THE [facility] Last Infusion: 06/03/18 12:33 Dose: Infused Metronidazole/Sodium Chloride (Flagyl 500 Mg Inj) 100 mls @ 100 mls/hr IV.SIG Q6H COUNT INCLUDES THE [facility] Last Admin: 06/03/18 12:32 Dose: 100 mls/hr Lactulose (Lactulose Liq) 30 ml PO DAILY PRN PRN Reason: SEVERE CONSITIPATION Lorazepam (Ativan) 0.5 mg PO ONCE PRN PRN Reason: prior to lab draw Metoclopramide HCl (Reglan Inj) 5 mg IV.PUSH Q6HR PRN; Protocol PRN Reason: NAUSEA OR VOMITING Last Admin: 05/29/18 14:11 Dose: 5 mg Metoprolol Tartrate (Lopressor) 100 mg PO BID COUNT INCLUDES THE [facility] Last Admin: 06/03/18 08:31 Dose: 100 mg Ondansetron HCl (Zofran Inj) 4 mg IV.PUSH Q6H PRN PRN Reason: NAUSEA OR VOMITING Prednisone (Deltasone) 20 mg PO BID COUNT INCLUDES THE [facility] Stop: 06/05/18 08:59 Last Admin: 06/03/18 08:30 Dose: 20 mg Senna/Docusate Sodium (Salma-Colace) 1 tab PO BID COUNT INCLUDES THE [facility] Last Admin: 06/03/18 08:31 Dose: 1 tab Sennosides (Senokot) 17.2 mg PO Q12H PRN PRN Reason: Moderate Constipation Allergies Allergy/AdvReac Type Severity Reaction Status Date / Time penicillin G Allergy Severe EDEMA Verified 05/27/18 12:05 Home Medications Medication Instructions Recorded Confirmed Type albuterol sulfate 2 puff INHALATION Q4-6H PRN 05/27/18 05/27/18 History amlodipine 10 mg PO DAILY 05/27/18 05/27/18 History atorvastatin 80 mg PO DAILY 05/27/18 05/27/18 History bupropion HCl 100 mg PO BID 05/27/18 05/27/18 History colchicine 0.6 mg PO DAILY 05/27/18 05/27/18 History digoxin 0.125 mg PO DAILY 05/27/18 05/27/18 History folic acid 1 mg PO DAILY 05/27/18 05/27/18 History metoprolol tartrate 1 mg/kg PO BID 05/27/18 05/27/18 History ondansetron [Zofran ODT] 8 mg PO Q8HR PRN 05/27/18 05/29/18 History warfarin 05/27/18 05/27/18 History Results - Labs CBC & Chem 7: 06/03/18 10:43 06/03/18 10:43 Laboratory Results - last 24 hr 06/03/18 06/03/18 06/03/18 10:43 10:43 10:43 WBC 23.1 H RBC 3.23 L Hgb 10.7 L Hct 32.0 L MCV 99.0 MCH 33.1 MCHC 33.4 RDW 14.5 Plt Count 264 MPV 8.4 Prelim Diff (Auto) Slide review pending Neut % (Auto) 93.3 H Lymph % (Auto) 2.6 L [place] % (Auto) 4.0 Eos % (Auto) 0.0 Baso % (Auto) 0.1 Neut # (Auto) 21.5 H Lymph # (Auto) 0.6 L [place] # (Auto) 0.9 Eos # (Auto) 0.0 Baso # (Auto) 0.0 WBC Differential Manual diff final Seg Neuts % (Manual) 86 H Band Neuts % (Manual) 10 H Lymphocytes % (Manual) 2 L Monocytes % (Manual) 2 Abs Neuts (Manual) 22.2 H Differential Comment . Platelet Estimate Normal Platelet Morphology Normal [place] Bodies Present H Acanthocytes (Spur) 1+ H PT 14.8 H INR 1.5 Sodium 143 Potassium 4.6 Chloride 112 H Carbon Dioxide 21.3 Anion Gap 10 BUN 59 H Creatinine 2.11 H Estimated GFR 31 L Random Glucose 135 H Calcium 8.0 L Total Bilirubin 0.4 AST 39 H ALT 78 Alkaline Phosphatase 151 H Total Protein 6.4 Albumin 1.8 L Random Vancomycin 13.7 Microbiology 06/01/18 17:45 Wound - Foot Gram Stain - Final 06/01/18 17:45 Wound - Foot Wound Culture - Final Staphylococcus aureus Mixed Anaerobes 06/01/18 17:45 Wound - Foot Acid Fast Bacilli Smear - Final No acid fast bacilli seen - Procedures 06/01 1. Incision and drainage right foot abscess 2. bone biopsy right 2nd metatarsal head Assessment and Plan - Assessment (1) Cellulitis Code(s): L03.90 - Cellulitis, unspecified Status: Acute - Plan Changed dressing today. Re-applied packing to plantar foot and dry sterile dressing. Will have nursing apply daily dressing/packing right foot. Continue weight to heel only right foot Follow up in clinic 2 weeks after discharge with Dr Sherif Ross for discharge from podiatry standpoint (1) Cellulitis Qualifiers: Site of cellulitis: extremity Site of cellulitis of extremity: lower extremity Laterality: right Qualified Code(s): L03.115 - Cellulitis of right lower limb
[2018-06-03] MEDS: Sod Chloride 0.9% Inj 1,000 ML IV.CONT SCH (18:48)
--- NOTE | 2018-06-04 09:29 | P.DIET ---
Nutritional Evaluation Type of nutrition evaluation: follow-up Nutrition screening: [facility] Screening comments: Malnutriton, low albumin and wound healing Subjective Subjective Comments: Brought forth from RD note on 06/01: "Pt seen in his room w/ his significant other. He appeared sleepy and most of the discussion was between myself and his significant other. She states she's been taking care of him very well and that their friend is a registered dietitian who is board certified in oncologic nutrition. We reviewed pt's meal patterns at home. She states he eats fruits, vegetables, soups, etc. and has been drinking a high protein Equate supplement every day at breakfast. Pt denied trouble chewing/swallowing. No c/o N/V/D/C. No issues w/ his appetite. Says he has not lost any wt, UBW is around 235#. He takes folic acid and a daily multivitamin daily at home. Says he's been eating ~ 75% of his meals here". Objective - Diagnosis Cellulitis RLE, Neutropenic Fever - Objective % IBW: 112 (PCG=409#) Body Weight Used for Calculations: IBW (97.3kg) Energy Needs - Lower Range (kCal/kg): 28 Energy Needs - Upper Range (kCal/kg): 32 Lower Limit kCal/kg (kCals): 2,724 Upper Limit kCal/kg (kCals): 3,114 Lower Limit Protein Factor (Grams per Kg): 1.2 Upper Limit Protein Factor (Grams per Kg): 1.5 Lower Protein Needs (Protein): 117 Upper Protein Needs (Protein): 146 Dietitian Reviewed in Medical Record: Current diet, Curent medications, Intake & Output, Labs, Medical history Diet Order: Regular Oral Diet Intake Amount: Good 75-90% Objective Comments: Meds: Folic Acid Labs: BUN 59 svp digital [employer] 2.11, eGFR 31, WBC 25.6, Hgb 10.2, Hct 30.8, Glucose 135, Albumin 1.8, AST 39, Alk Phos 151 LBM 06/02 Assessment Assessment: Brought forth from RD note 06/01: "Pt admitted for cellulitis of RLE and neutropenic fever. He has lung CA and has received 3 cycles of carboplatin and taxol therapy per oncology notes. He has not had any complaints r/t changes in appetite, wt loss/gain, N/V, trouble chewing/swallowing, mouth sores, etc. Pt states he's been doing relatively well until his most recent chemo when he started experiencing diarrhea. This has now subsided". Pt s/p right foot debridement and second metatarsal bone biopsy on 06/01/18. He is now on a regular diet and eating 75% of his meals per nursing. Pt recieves Enlive at breakfast in continuity of his home routine. Noted concern for albumin level, however, albumin is a negative acute-phase protein and reflects the severity of the inflammatory process vs. nutritional status and an increase in protein will probably not affect it's level. Continue current POC. Will continue to monitor. Recommendations: 1. Continue Regular diet. 2. Enlive at breakfast. Dietitian to Monitor: Lab values, Supplement acceptance, Intake & Output, Diet tolerance, Weight change, PO Intake, Medical course
[2018-06-04] MEDS: Enoxaparin Inj 100 MG/ML Syringe SQ SCH ×2 (09:42→20:03)
[2018-06-04] MEDS: buPROPion 100 MG ER 12 HR Tablet PO SCH ×2 (09:42→20:06)
[2018-06-04] MEDS: Metoprolol Tartrate 100 MG Tablet PO SCH ×2 (09:43→20:07)
[2018-06-04] MEDS: amLODIPine 10 MG Tablet PO SCH (09:43)
[2018-06-04] MEDS: Folic Acid 1 MG Tablet PO SCH (09:43)
[2018-06-04] MEDS: Senna/Docusate Sodium 8.6/50 MG Tablet PO SCH ×2 (09:43→21:25)
[2018-06-04] MEDS: LORazepam 0.5 MG Tablet PO PRN (09:43)
[2018-06-04] MEDS: predniSONE 20 MG Tablet PO SCH ×2 (09:43→20:07)
[2018-06-04] MEDS: Digoxin 125 MCG Tablet PO SCH (09:43)
[2018-06-04 12:59] LABS: Baso # (Auto) 0.1 th/mm3 (0.0-0.2); Baso % (Auto) 0.2 % (0.0-2.0); Eos % (Auto) 0.1 % (0.0-4.0); Hematocrit 34.1 % (39.0-51.0); Hemoglobin 11.1 gm/dL (13.0-17.0); Lymph # (Auto) 0.7 th/mm3 (1.0-4.8); Lymph % (Auto) 2.8 % (9.0-44.0); Mean Corpuscular HGB Conc 32.5 % (32.0-36.0); Mean Corpuscular Hemoglobin 32.5 pg (27.0-34.0); Mean Corpuscular Volume 99.9 fL (80.0-100.0); Mean Platelet Volume 8.8 fL (7.0-11.0); Mono # (Auto) 0.7 th/mm3 (0.0-0.9); Mono % (Auto) 2.6 % (0.0-8.0); Neut # (Auto) 23.3 th/mm3 (1.8-7.7); Neut % (Auto) 94.3 % (16.0-70.0); Platelet Count 295 th/mm3 (150-450); Red Blood Count 3.41 mil/mm3 (4.50-5.90); Red Cell Distribution Width 14.7 % (11.6-17.2); White Blood Count 24.7 th/mm3 (4.0-11.0)
--- NOTE | 2018-06-04 13:01 | P.PN ---
Subjective Interval history: some pain- controlled with meds no diarrhea good po Physical Exam Vital signs: Vital Signs 06/03/18 13:07 06/03/18 18:00 06/03/18 20:00 Temperature 98.1 F 98.4 F 98.3 F Pulse Rate 91 H 87 88 Respiratory Rate 20 24 21 Blood Pressure 142/75 H 135/88 140/94 H Pulse Oximetry 94 L 95 97 06/03/18 20:57 06/03/18 21:32 06/03/18 23:53 Temperature Pulse Rate 89 86 Respiratory Rate 18 Blood Pressure Pulse Oximetry 06/04/18 00:00 06/04/18 04:08 06/04/18 05:39 Temperature 97.7 F 97.4 F L Pulse Rate 93 H 91 H 93 H Respiratory Rate 22 20 Blood Pressure 147/97 H 146/95 H Pulse Oximetry 99 96 06/04/18 08:59 06/04/18 10:31 06/04/18 12:00 Temperature 98.4 F 97.8 F Pulse Rate 93 H 87 90 Respiratory Rate 20 20 18 Blood Pressure 151/98 H 142/83 H Pulse Oximetry 95 95 Intake & Output 06/03/18 06/04/18 06/04/18 18:59 06:59 18:59 Intake Total 1940 / 1940 700 / 700 Output Total 500 / 500 Balance 1939 / 1940 200 / 200 Weight 110.6 kg Intake: IV 1200 / 1200 400 / 400 NS Inj 1,000 ML @ 60 mls/hr IV. 1000 / 1000 CONT .[id number] MAUDE Rx#:[id number] Ancef Inj 1,000 MG In NS Inj 100 / 100 100 / 100 100 ML @ 200 mls/hr IV.SIG Q12H MAUDE Rx#:[id number] Flagyl 500 MG Inj 100 ML @ 100 100 / 100 300 / 300 mls/hr IV.SIG Q6H MAUDE Rx#: [id number] Oral 740 / 740 300 / 300 Output: Urine 500 / 500 Other: # Voids 6 Date of Last Bowel Movement 06/02/18 06/02/18 Narrative: awake and alert, oriented x 3, speech clear ff all commands anciteric neck supple lungs- +no rales no wheezes irregularly irregular rhythm abdomen soft right foot- - post op dressing intact Results - Labs CBC & Chem 7: 06/03/18 10:43 06/03/18 10:43 Microbiology 06/01/18 17:45 Wound - Foot Gram Stain - Final 06/01/18 17:45 Wound - Foot Wound Culture - Final Staphylococcus aureus Mixed Anaerobes - Procedures 06/01 1. Incision and drainage right foot abscess 2. bone biopsy right 2nd metatarsal head Assessment and Plan - Plan 72-year-old man with Neutropenic fever- patient received Neuprogen x 3 doses - 05/27-3 now with leukocytosis from Neupogen Neutropenic precautions Appreciate input from oncology Right lower extremity cellulitis/Osteomyelitis Right foot abscess S/P I and D with bone biopsy 06/01- growing S. aures and mixed anaerobes per OR report- milky purulence material obtained Now on IV ancef and IV flagyl ff post op cultures /pathology ID ff/podiatry ff - d/w ID- line- PICC for long term antibiotics- plan Tuesday- Lisa History of lung cancer with metastases Treatment with paclitaxel and carboplatin Appreciate input from oncology - give IV Solumedrol q 12- changed to po prednisone short course x 3 days - duoneb treatment History of hypertension, gout and other chronic medical conditions Chronic atrial fibrillation Coumadin excess - INR down continue on BB, Cordarone hematology ff Lovenox q 12 - goign for another procedure Tuesday ALEXANDER- - creatinine stabilizing - non oliguric Npehrology ff - dietitian ff - ate better Transient change in MS- - reported confusion - 05/30 post procedure- VAS cath now neuro stable- awake and alert, interactive negative head CT Plan for port change - currently has a Groshong- needs to new line- Lisa - Tuesday hopefully
[2018-06-04 13:12] LABS: INR 1.5 Ratio; Prothrombin Time 14.7 sec (9.8-11.6)
[2018-06-04 13:25] LABS: Anion Gap 9 meq/L (5-15); Aspartate Aminotransferase 42 U/L (15-37); Blood Urea Nitrogen 54 mg/dL (7-18); Calcium 8.3 mg/dL (8.5-10.1); Carbon Dioxide 23.1 meq/L (21.0-32.0); Chloride 112 meq/L (98-107); Glomerular Filtration Rate 33 mL/min (>89); Glucose,Random 114 mg/dL (74-106); Potassium 4.6 meq/L (3.5-5.1); Sodium 144 meq/L (136-145)
[2018-06-04] MEDS: Sod Chloride 0.9% Inj 1,000 ML IV.CONT SCH ×2 (13:26→20:01)
[2018-06-04 13:30] LABS: Alanine Aminotransferase 70 U/L (12-78); Alkaline Phosphatase 161 U/L (45-117); Total Protein 6.7 g/dL (6.4-8.2)
[2018-06-04 13:41] LABS: Acanthocytes 1+; Lymphocytes 2 % (9-44); Monocytes 3 % (0-8); Platelet Estimate Normal (Normal); Platelet Morphology Normal (Normal)
[2018-06-04 13:42] LABS: Howell-Jolly Bodies Present; Toxic Granulation 1+
--- NOTE | 2018-06-04 14:56 | P.PNID ---
Subjective Remarks: sp 1. Incision and drainage right foot abscess and . bone biopsy right 2nd metatarsal head Growing MSSA and anaerobs path P Pt refuses blood draws from periferal veins Pt reports taking Keflex unventfully in last 5 yrs h/o severe (swelling ) allergy to PCN Antibiotics: flagyl ancef Allergies/Adverse Reactions: Allergies penicillin G Allergy (Severe, Verified 05/27/18 12:05) EDEMA Objective Vital Signs 06/03/18 18:00 06/03/18 20:00 06/03/18 20:57 Temperature 98.4 F 98.3 F Pulse Rate 87 88 89 Respiratory Rate 24 21 Blood Pressure 135/88 140/94 H Pulse Oximetry 95 97 06/03/18 21:32 06/03/18 23:53 06/04/18 00:00 Temperature 97.7 F Pulse Rate 86 93 H Respiratory Rate 18 22 Blood Pressure 147/97 H Pulse Oximetry 99 06/04/18 04:08 06/04/18 05:39 06/04/18 08:59 Temperature 97.4 F L Pulse Rate 91 H 93 H 93 H Respiratory Rate 20 20 Blood Pressure 146/95 H Pulse Oximetry 96 06/04/18 10:31 06/04/18 12:00 Temperature 98.4 F 97.8 F Pulse Rate 87 90 Respiratory Rate 20 18 Blood Pressure 151/98 H 142/83 H Pulse Oximetry 95 95 Intake & Output 06/03/18 06/04/18 06/04/18 18:59 06:59 18:59 Intake Total 1939 / 1940 700 / 700 900 / 900 Output Total 500 / 500 Balance 1939 200 / 200 900 / 900 Weight 110.6 kg Intake: IV 1200 / 1200 400 / 400 900 / 900 NS Inj 1,000 ML @ 60 mls/hr IV. 1000 / 1000 800 / 800 CONT .[id number] MAUDE Rx#:[id number] Ancef Inj 1,000 MG In NS Inj 100 / 100 100 / 100 100 / 100 100 ML @ 200 mls/hr IV.SIG Q12H MAUDE Rx#:[id number] Flagyl 500 MG Inj 100 ML @ 100 100 / 100 300 / 300 mls/hr IV.SIG Q6H MAUDE Rx#: [id number] Oral 740 / 740 300 / 300 Output: Urine 500 / 500 Other: # Voids 6 Date of Last Bowel Movement 06/02/18 06/02/18 06/01/18 17:45 Wound - Foot Gram Stain - Final 06/01/18 17:45 Wound - Foot Wound Culture - Final Staphylococcus aureus Mixed Anaerobes 06/01/18 17:45 Wound - Foot Acid Fast Bacilli Smear - Final No acid fast bacilli seen 06/01/18 17:45 Wound - Foot Mycobacterial Culture - Pending 05/28/18 11:45 Blood - Peripheral Aerobic Blood Culture - Final No growth in 5 days 05/28/18 11:45 Blood - Peripheral Anaerobic Blood Culture - Final No growth in 5 days 05/28/18 11:40 Blood - Peripheral Aerobic Blood Culture - Final No growth in 5 days 05/28/18 11:40 Blood - Peripheral Anaerobic Blood Culture - Final No growth in 5 days 06/01/18 17:45 Wound - Foot Fungal Smear - Final No fungal elements seen 06/01/18 17:45 Wound - Foot Fungal Culture - Pending 05/27/18 11:10 Blood - Peripheral Aerobic Blood Culture - Final No growth in 5 days 05/27/18 11:10 Blood - Peripheral Anaerobic Blood Culture - Final No growth in 5 days 05/27/18 11:15 Blood - Peripheral Aerobic Blood Culture - Final No growth in 5 days 05/27/18 11:15 Blood - Peripheral Anaerobic Blood Culture - Final No growth in 5 days Lab - Hematology Results 06/03/18 06/04/18 10:43 11:43 WBC 23.1 H 24.7 H RBC 3.23 L 3.41 L Hgb 10.7 L 11.1 L Hct 32.0 L 34.1 L MCV 99.0 99.9 MCH 33.1 32.5 MCHC 33.4 32.5 RDW 14.5 14.7 Plt Count 264 295 MPV 8.4 8.8 Prelim Diff (Auto) Slide review pending Slide review pending Neut % (Auto) 93.3 H 94.3 H Lymph % (Auto) 2.6 L 2.8 L [place] % (Auto) 4.0 2.6 Eos % (Auto) 0.0 0.1 Baso % (Auto) 0.1 0.2 Neut # (Auto) 21.5 H 23.3 H Lymph # (Auto) 0.6 L 0.7 L [place] # (Auto) 0.9 0.7 Eos # (Auto) 0.0 0.0 Baso # (Auto) 0.0 0.1 WBC Differential Manual diff final Manual diff final Seg Neuts % (Manual) 86 H 88 H Band Neuts % (Manual) 10 H 7 H Lymphocytes % (Manual) 2 L 2 L Monocytes % (Manual) 2 3 Abs Neuts (Manual) 22.2 H 23.5 H Differential Comment . . Toxic Granulation 1+ H Platelet Estimate Normal Normal Platelet Morphology Normal Normal Espinoza[place] Bodies Present H Present H Acanthocytes (Spur) 1+ H 1+ H Lab - Chemistry Results 06/03/18 06/04/18 06/04/18 10:43 11:43 11:43 Sodium 143 144 Potassium 4.6 4.6 Chloride 112 H 112 H Carbon Dioxide 21.3 23.1 Anion Gap 10 9 BUN 59 H 54 H 55 H Creatinine 2.11 H 1.99 H 1.92 H Estimated GFR 31 L 33 L 34 L Random Glucose 135 H 114 H Calcium 8.0 L 8.3 L Total Bilirubin 0.4 0.6 AST 39 H 42 H ALT 78 70 Alkaline Phosphatase 151 H 161 H Total Protein 6.4 6.7 Albumin 1.8 L 2.0 L Imaging: ITS Impressions Foot MRI 05/30/18 00:00 CONCLUSION: 1. There is abnormal soft tissue and fluid adjacent to the distal portion of the second metatarsal. There is abnormal bone marrow edema in the distal half to one third portion of the second metatarsal highly suspicious for osteomyelitis. 2. 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 3. Status post previous amputation of the second toe. Lisa Line Insertion 05/30/18 00:00 CONCLUSION: 1. Uncomplicated tunneled Groshong catheter placement as above. Head CT 05/31/18 13:33 CONCLUSION: 1. 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 . Foot X-Ray 06/01/18 00:00 CONCLUSION: 1. Status post resection of the right second metatarsal head. 2. 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 Chest X-Ray 06/01/18 12:32 CONCLUSION: No significant change Physical Exam: GENERAL: NAD SKIN: Warm and dry. No rash HEAD: Atraumatic. Normocephalic. EYES: Pupils equal and round. No scleral icterus. No injection or drainage. ENT: No nasal bleeding or discharge. Mucous membranes pink and moist. NECK: Trachea midline. No JVD. CARDIOVASCULAR: Regular rate and rhythm. RESPIRATORY: No accessory muscle use. Clear to auscultation. Breath sounds equal bilaterally. GASTROINTESTINAL: Abdomen soft, non-tender, nondistended. Hepatic and splenic margins not palpable. MUSCULOSKELETAL: Extremities without clubbing, cyanosis, or edema. R foot with much improved edema an erythema Plantra ulcer with minimal serosan staining clean, no odor Incision on the top of the foot well approximated clean and dry NEUROLOGICAL: Awake and alert. Non focal PSYCHIATRIC: Appropriate mood and affect; insight and judgment normal. Assessment and Plan - Plan R foot osteo, MSSA cionically and radiologically very suspicious for R foot osteo taking in to account chronicity of his problem atypical mycobacterial infx should be consuidered along with routine bacteria R lung cancer on chemo PVD Lung ca Mult med probx PCN allergy but took Keflex w./o issues Leukocytosis- pt was neutropenic, now leukocytosis/leyuukemoid reaction ? Neupogen was contributing ANC is slightly up today Ancef needs to be adjusted per impropving GFR dc vanco, cefepime Anticipate 8 weeks of IV abx followed by oral will need Farnaz instead of Deysi: IR will do on Tuesday dw pt, his s/o dw RN
[2018-06-05] MEDS: LORazepam 0.5 MG Tablet PO PRN (05:33)
[2018-06-05 07:11] LABS: INR 1.5 Ratio; Prothrombin Time 14.7 sec (9.8-11.6)
[2018-06-05 07:12] LABS: Hematocrit 32.8 % (39.0-51.0); Hemoglobin 10.6 gm/dL (13.0-17.0); Mean Corpuscular HGB Conc 32.4 % (32.0-36.0); Mean Corpuscular Hemoglobin 32.6 pg (27.0-34.0); Mean Corpuscular Volume 100.6 fL (80.0-100.0); Mean Platelet Volume 8.3 fL (7.0-11.0); Platelet Count 292 th/mm3 (150-450); Red Blood Count 3.26 mil/mm3 (4.50-5.90); Red Cell Distribution Width 15.2 % (11.6-17.2); White Blood Count 27.6 th/mm3 (4.0-11.0)
[2018-06-05 07:44] LABS: Alanine Aminotransferase 56 U/L (12-78); Albumin 1.8 g/dL (3.4-5.0); Anion Gap 7 meq/L (5-15); Aspartate Aminotransferase 36 U/L (15-37); Carbon Dioxide 25.1 meq/L (21.0-32.0); Chloride 113 meq/L (98-107); Glomerular Filtration Rate 36 mL/min (>89); Glucose,Random 118 mg/dL (74-106); Potassium 5.1 meq/L (3.5-5.1); Sodium 145 meq/L (136-145)
[2018-06-05 07:52] LABS: Alkaline Phosphatase 159 U/L (45-117); Blood Urea Nitrogen 50 mg/dL (7-18); Total Protein 6.4 g/dL (6.4-8.2)
[2018-06-05] MEDS: buPROPion 100 MG ER 12 HR Tablet PO SCH ×2 (09:15→20:15)
[2018-06-05] MEDS: Digoxin 125 MCG Tablet PO SCH (09:15)
[2018-06-05] MEDS: Folic Acid 1 MG Tablet PO SCH (09:15)
[2018-06-05] MEDS: Metoprolol Tartrate 100 MG Tablet PO SCH ×2 (09:15→20:15)
[2018-06-05] MEDS: amLODIPine 10 MG Tablet PO SCH (09:15)
[2018-06-05] MEDS: Enoxaparin Inj 100 MG/ML Syringe SQ SCH ×2 (09:16→20:14)
[2018-06-05] MEDS: Senna/Docusate Sodium 8.6/50 MG Tablet PO SCH ×2 (09:16→20:02)
[2018-06-05 10:02] LABS: Lymphocytes 3 % (9-44); Monocytes 3 % (0-8); Toxic Granulation 1+; Toxic Vacuolation Present
[2018-06-05 10:03] LABS: Platelet Estimate Normal (Normal); Platelet Morphology Normal (Normal)
--- NOTE | 2018-06-05 10:38 | P.PN ---
Subjective Interval history: afebrile , minimal pain foot no chills no diarrhea Physical Exam Vital signs: Vital Signs 06/04/18 12:00 06/04/18 16:00 06/04/18 20:00 Temperature 97.8 F 98.4 F 98.2 F Pulse Rate 81 84 91 H Respiratory Rate 18 22 19 Blood Pressure 142/83 H 142/85 H 130/83 Pulse Oximetry 95 97 99 06/05/18 00:00 06/05/18 01:43 06/05/18 04:00 Temperature 98.1 F 98.3 F Pulse Rate 93 H 84 Respiratory Rate 20 18 18 Blood Pressure 153/96 H 138/87 Pulse Oximetry 95 95 06/05/18 06:00 06/05/18 06:09 06/05/18 07:00 Temperature Pulse Rate 85 Respiratory Rate Blood Pressure Pulse Oximetry 92 L 96 06/05/18 09:08 Temperature 98.4 F Pulse Rate 97 H Respiratory Rate 20 Blood Pressure 141/88 H Pulse Oximetry 97 Intake & Output 06/04/18 06/05/18 06/05/18 18:59 06:59 18:59 Intake Total 1000 / 1000 2110 / 2110 Balance 1000 / 1000 2110 / 2110 Weight 110.5 kg Intake: IV 1000 / 1000 1390 / 1390 NS Inj 1,000 ML @ 60 mls/hr IV. 800 / 800 990 / 990 CONT .[id number] MAUDE Rx#:[id number] Ancef Inj 1,000 MG In NS Inj 100 / 100 100 / 100 100 ML @ 200 mls/hr IV.SIG Q12H MAUDE Rx#:[id number] Flagyl 500 MG Inj 100 ML @ 100 100 / 100 300 / 300 mls/hr IV.SIG Q6H MAUDE Rx#: [id number] Oral 720 / 720 Other: # Voids 6 5 Date of Last Bowel Movement 06/04/18 06/04/18 # Bowel Movements 2 Narrative: awake and alert, oriented x 3, speech clear ff all commands anciteric neck supple lungs- +no rales no wheezes irregularly irregular rhythm abdomen soft right foot- - post op dressing intact Results - Labs CBC & Chem 7: 06/05/18 06:41 06/06/18 05:30 Laboratory Results - last 24 hr 06/04/18 06/04/18 06/04/18 11:43 11:43 11:43 WBC 24.7 H RBC 3.41 L Hgb 11.1 L Hct 34.1 L MCV 99.9 MCH 32.5 MCHC 32.5 RDW 14.7 Plt Count 295 MPV 8.8 Prelim Diff (Auto) Slide review pending Neut % (Auto) 94.3 H Lymph % (Auto) 2.8 L [place] % (Auto) 2.6 Eos % (Auto) 0.1 Baso % (Auto) 0.2 Neut # (Auto) 23.3 H Lymph # (Auto) 0.7 L [place] # (Auto) 0.7 Eos # (Auto) 0.0 Baso # (Auto) 0.1 WBC Differential Manual diff final Seg Neuts % (Manual) 88 H Band Neuts % (Manual) 7 H Lymphocytes % (Manual) 2 L Monocytes % (Manual) 3 Abs Neuts (Manual) 23.5 H Differential Comment . Toxic Granulation 1+ H Toxic Vacuolation Platelet Estimate Normal Platelet Morphology Normal [place] Bodies Present H Acanthocytes (Spur) 1+ H PT 14.7 H INR 1.5 Sodium 144 Potassium 4.6 Chloride 112 H Carbon Dioxide 23.1 Anion Gap 9 BUN 54 H Creatinine 1.99 H Estimated GFR 33 L Random Glucose 114 H Calcium 8.3 L Total Bilirubin 0.6 AST 42 H ALT 70 Alkaline Phosphatase 161 H Total Protein 6.7 Albumin 2.0 L 06/04/18 06/05/18 06/05/18 11:43 06:41 06:41 WBC 27.6 H RBC 3.26 L Hgb 10.6 L Hct 32.8 L MCV 100.6 H MCH 32.6 MCHC 32.4 RDW 15.2 Plt Count 292 MPV 8.3 Prelim Diff (Auto) Manual diff required Neut % (Auto) Lymph % (Auto) [place] % (Auto) Eos % (Auto) Baso % (Auto) Neut # (Auto) Lymph # (Auto) [place] # (Auto) Eos # (Auto) Baso # (Auto) WBC Differential Manual diff final Seg Neuts % (Manual) 92 H Band Neuts % (Manual) 2 Lymphocytes % (Manual) 3 L Monocytes % (Manual) 3 Abs Neuts (Manual) 25.9 H Differential Comment . Toxic Granulation 1+ H Toxic Vacuolation Present H Platelet Estimate Normal Platelet Morphology Normal [place] Bodies Acanthocytes (Spur) PT 14.7 H INR 1.5 Sodium Potassium Chloride Carbon Dioxide Anion Gap BUN 55 H Creatinine 1.92 H Estimated GFR 34 L Random Glucose Calcium Total Bilirubin AST ALT Alkaline Phosphatase Total Protein Albumin 06/05/18 06:41 WBC RBC Hgb Hct MCV MCH MCHC RDW Plt Count MPV Prelim Diff (Auto) Neut % (Auto) Lymph % (Auto) [place] % (Auto) Eos % (Auto) Baso % (Auto) Neut # (Auto) Lymph # (Auto) [place] # (Auto) Eos # (Auto) Baso # (Auto) WBC Differential Seg Neuts % (Manual) Band Neuts % (Manual) Lymphocytes % (Manual) Monocytes % (Manual) Abs Neuts (Manual) Differential Comment Toxic Granulation Toxic Vacuolation Platelet Estimate Platelet Morphology [place] Bodies Acanthocytes (Spur) PT INR Sodium 145 Potassium 5.1 Chloride 113 H Carbon Dioxide 25.1 Anion Gap 7 BUN 50 H Creatinine 1.84 H Estimated GFR 36 L Random Glucose 118 H Calcium 8.0 L Total Bilirubin 0.6 AST 36 ALT 56 Alkaline Phosphatase 159 H Total Protein 6.4 Albumin 1.8 L - Procedures 06/01 1. Incision and drainage right foot abscess 2. bone biopsy right 2nd metatarsal head Assessment and Plan - Plan 72-year-old man with Neutropenic fever- patient received Neuprogen x 3 doses - 05/27-3 now with leukocytosis from Neupogen Neutropenic precautions Appreciate input from oncology Right lower extremity cellulitis/Osteomyelitis Right foot abscess S/P I and D with bone biopsy 06/01- growing S. aures and mixed anaerobes per OR report- milky purulence material obtained Now on IV ancef and IV flagyl ID ff/podiatry ff - d/w ID- line- PICC for correction antibiotics for - Lisa placement today History of lung cancer with metastases Treatment with paclitaxel and carboplatin Appreciate input from oncology -on po prednisone short course x 3 days - duoneb treatment History of hypertension, gout and other chronic medical conditions Chronic atrial fibrillation Coumadin excess - INR down continue on BB, Cordarone hematology ff restart coumadin with Lovenox overlap post procedure ALEXANDER- - creatinine stabilizing - non oliguric Npehrology ff - dietitian ff - ate better Transient change in MS- - reported confusion - RESOLVED 05/30 post procedure- VAS cat now neuro stable- awake and alert, interactive negative head CT Plan for port change - currently has a [place]- needs to new line- Lisa - Tuesday hopefully
[2018-06-05] MEDS: Sod Chloride 0.9% Inj 1,000 ML IV.CONT SCH (11:15)
--- NOTE | 2018-06-05 11:50 | P.PNONC ---
Subjective Interval history: Afebrile Patient sitting up in chair at bedside in no obvious distress Awaiting to go downstairs to have Lisa catheter placed Patient significant other at bedside asking about pathology from recent podiatry surgery Objective Vital Signs/Intake & Output: Vital Signs 06/04/18 12:00 06/04/18 16:00 06/04/18 20:00 Temperature 97.8 F 98.4 F 98.2 F Pulse Rate 81 84 91 H Respiratory Rate 18 22 19 Blood Pressure 142/83 H 142/85 H 130/83 Pulse Oximetry 95 97 99 06/05/18 00:00 06/05/18 01:43 06/05/18 04:00 Temperature 98.1 F 98.3 F Pulse Rate 93 H 84 Respiratory Rate 20 18 18 Blood Pressure 153/96 H 138/87 Pulse Oximetry 95 95 06/05/18 06:00 06/05/18 06:09 06/05/18 07:00 Temperature Pulse Rate 85 Respiratory Rate Blood Pressure Pulse Oximetry 92 L 96 06/05/18 09:08 06/05/18 11:12 Temperature 98.4 F 98.2 F Pulse Rate 97 H 89 Respiratory Rate 20 20 Blood Pressure 141/88 H 158/95 H Pulse Oximetry 97 96 Intake & Output 06/04/18 06/05/18 06/05/18 18:59 06:59 18:59 Intake Total 1000 / 1000 2110 / 2110 1100 / 1100 Output Total 700 / 700 Balance 1000 / 1000 2110 / 2110 400 / 400 Weight 243 lb 9.773 oz Intake: IV 1000 / 1000 1390 / 1390 1100 / 1100 NS Inj 1,000 ML @ 60 mls/hr IV. 800 / 800 990 / 990 1000 / 1000 CONT .[id number] MAUDE Rx#:[id number] Ancef Inj 1,000 MG In NS Inj 100 / 100 100 / 100 100 / 100 100 ML @ 200 mls/hr IV.SIG Q12H MAUDE Rx#:[id number] Flagyl 500 MG Inj 100 ML @ 100 100 / 100 300 / 300 mls/hr IV.SIG Q6H MAUDE Rx#: [id number] Oral 720 / 720 Output: Urine 700 / 700 Other: # Voids 6 5 Date of Last Bowel Movement 06/04/18 06/04/18 # Bowel Movements 2 Result Diagrams: 06/05/18 06:41 06/05/18 06:41 Laboratory Results: Laboratory Results - last 24 hr 06/04/18 06/04/18 06/04/18 11:43 11:43 11:43 WBC 24.7 H RBC 3.41 L Hgb 11.1 L Hct 34.1 L MCV 99.9 MCH 32.5 MCHC 32.5 RDW 14.7 Plt Count 295 MPV 8.8 Prelim Diff (Auto) Slide review pending Neut % (Auto) 94.3 H Lymph % (Auto) 2.8 L [place] % (Auto) 2.6 Eos % (Auto) 0.1 Baso % (Auto) 0.2 Neut # (Auto) 23.3 H Lymph # (Auto) 0.7 L [place] # (Auto) 0.7 Eos # (Auto) 0.0 Baso # (Auto) 0.1 WBC Differential Manual diff final Seg Neuts % (Manual) 88 H Band Neuts % (Manual) 7 H Lymphocytes % (Manual) 2 L Monocytes % (Manual) 3 Abs Neuts (Manual) 23.5 H Differential Comment . Toxic Granulation 1+ H Toxic Vacuolation Platelet Estimate Normal Platelet Morphology Normal [place] Bodies Present H Acanthocytes (Spur) 1+ H PT 14.7 H INR 1.5 Sodium 144 Potassium 4.6 Chloride 112 H Carbon Dioxide 23.1 Anion Gap 9 BUN 54 H Creatinine 1.99 H Estimated GFR 33 L Random Glucose 114 H Calcium 8.3 L Total Bilirubin 0.6 AST 42 H ALT 70 Alkaline Phosphatase 161 H Total Protein 6.7 Albumin 2.0 L 06/04/18 06/05/18 06/05/18 11:43 06:41 06:41 WBC 27.6 H RBC 3.26 L Hgb 10.6 L Hct 32.8 L MCV 100.6 H MCH 32.6 MCHC 32.4 RDW 15.2 Plt Count 292 MPV 8.3 Prelim Diff (Auto) Manual diff required Neut % (Auto) Lymph % (Auto) [place] % (Auto) Eos % (Auto) Baso % (Auto) Neut # (Auto) Lymph # (Auto) [place] # (Auto) Eos # (Auto) Baso # (Auto) WBC Differential Manual diff final Seg Neuts % (Manual) 92 H Band Neuts % (Manual) 2 Lymphocytes % (Manual) 3 L Monocytes % (Manual) 3 Abs Neuts (Manual) 25.9 H Differential Comment . Toxic Granulation 1+ H Toxic Vacuolation Present H Platelet Estimate Normal Platelet Morphology Normal [place] Bodies Acanthocytes (Spur) PT 14.7 H INR 1.5 Sodium Potassium Chloride Carbon Dioxide Anion Gap BUN 55 H Creatinine 1.92 H Estimated GFR 34 L Random Glucose Calcium Total Bilirubin AST ALT Alkaline Phosphatase Total Protein Albumin 06/05/18 06:41 WBC RBC Hgb Hct MCV MCH MCHC RDW Plt Count MPV Prelim Diff (Auto) Neut % (Auto) Lymph % (Auto) [place] % (Auto) Eos % (Auto) Baso % (Auto) Neut # (Auto) Lymph # (Auto) [place] # (Auto) Eos # (Auto) Baso # (Auto) WBC Differential Seg Neuts % (Manual) Band Neuts % (Manual) Lymphocytes % (Manual) Monocytes % (Manual) Abs Neuts (Manual) Differential Comment Toxic Granulation Toxic Vacuolation Platelet Estimate Platelet Morphology [place] Bodies Acanthocytes (Spur) PT INR Sodium 145 Potassium 5.1 Chloride 113 H Carbon Dioxide 25.1 Anion Gap 7 BUN 50 H Creatinine 1.84 H Estimated GFR 36 L Random Glucose 118 H Calcium 8.0 L Total Bilirubin 0.6 AST 36 ALT 56 Alkaline Phosphatase 159 H Total Protein 6.4 Albumin 1.8 L Culture Results: Microbiology 06/01/18 17:45 Gram Stain - Final Wound - Foot Wound Culture - Final Staphylococcus aureus Mixed Anaerobes 06/01/18 17:45 Acid Fast Bacilli Smear - Final Wound - Foot No acid fast bacilli seen 05/28/18 11:45 Aerobic Blood Culture - Final Blood - Peripheral No growth in 5 days Anaerobic Blood Culture - Final No growth in 5 days 05/28/18 11:40 Aerobic Blood Culture - Final Blood - Peripheral No growth in 5 days Anaerobic Blood Culture - Final No growth in 5 days 06/01/18 17:45 Fungal Smear - Final Wound - Foot No fungal elements seen Medications: Active Medications Generic Name Dose Route Start Last Admin Trade Name Freq PRN Reason Stop Dose Admin Acetaminophen 650 mg 05/27/18 12:46 05/29/18 00:33 Tylenol PO 650 mg Q4H PRN Administration Temp > 100.4 Hydrocodone Bitart/Acetaminophen 1 tab 06/03/18 14:36 06/05/18 11:15 Bishop 5/325 PO 1 tab Q4H PRN Administration pain >4 Albuterol 1 ampul 05/29/18 15:04 06/04/18 08:50 Duoneb Neb (Prn) NEB 1 ampul Q2HR NEB PRN Administration SHORTNESS OF BREATH Amlodipine Besylate 10 mg 05/28/18 09:00 06/05/18 09:15 Norvasc PO 10 mg DAILY MAUDE Administration Atorvastatin Calcium 80 mg 05/28/18 09:00 06/05/18 09:15 Lipitor PO 80 mg DAILY MAUDE Administration Bupropion HCl 100 mg 05/27/18 21:00 06/05/18 09:15 Wellbutrin Sr PO 100 mg BID MAUDE Administration Colchicine 0.6 mg 05/28/18 09:00 06/05/18 09:15 Colcrys PO 0.6 mg DAILY MAUDE Administration Digoxin 125 mcg 05/28/18 09:00 06/05/18 09:15 Lanoxin PO 125 mcg DAILY MAUDE Administration Enoxaparin Sodium 100 mg 06/02/18 21:00 06/05/18 09:16 Lovenox Inj SQ Not Given Q12HR MAUDE Folic Acid 1 mg 05/28/18 09:00 06/05/18 09:15 Folic Acid PO 1 mg DAILY MAUDE Administration Sodium Chloride 1,000 mls @ 60 mls/hr 05/31/18 14:02 06/05/18 11:15 Ns Inj IV.CONT 60 mls/hr .[id number] MAUDE Administration Cefazolin Sodium 1,000 mg/ 100 mls @ 200 mls/hr 06/02/18 20:00 06/05/18 09:45 Sodium Chloride IV.SIG Infused Q12H MAUDE Infusion Metronidazole/Sodium Chloride 100 mls @ 100 mls/hr 06/03/18 12:00 06/05/18 11 :15 Flagyl 500 Mg Inj IV.SIG 100 mls/hr Q6H MAUDE Administration Lorazepam 0.5 mg 05/28/18 10:21 06/05/18 05:33 Ativan PO 0.5 mg ONCE PRN Administration prior to lab draw Metoclopramide HCl 5 mg 05/27/18 12:46 05/29/18 14:11 Reglan Inj IV.PUSH 5 mg Q6HR PRN Administration NAUSEA OR VOMITING Protocol Metoprolol Tartrate 100 mg 05/27/18 21:00 06/05/18 09:15 Lopressor PO 100 mg BID MAUDE Administration Senna/Docusate Sodium 1 tab 05/27/18 21:00 06/05/18 09:16 Salma-Colace PO Not Given BID MAUDE Objective Remarks: GENERAL: Older male sitting up in recliner chair at bedside in no obvious distress SKIN: Warm and dry. HEAD: Normocephalic. EYES: No scleral icterus. No injection or drainage. NECK: Supple, trachea midline. CARDIOVASCULAR: Irregularly irregular heart rate without murmurs. RESPIRATORY: Clear anteriorly. Breathing unlabored at rest. GASTROINTESTINAL: Abdomen soft, non-tender, nondistended. EXTREMITIES: No cyanosis. Surgical bandage to right foot. Foot in boot. MUSCULOSKELETAL: Generalized weakness NEUROLOGICAL: No obvious focal deficit. Awake, alert, and oriented x3. Assessment/Plan - Plan 72-year-old male with history of metastatic non-small cell lung cancer who gets his care through the [facility]. He was given his third cycle of palliative chemotherapy with carboplatin and Taxol on 05/18/18. Initially the patient had severe diarrhea after the chemotherapy which has been resolved. He was admitted with pain and swelling of the right lower extremity as he has a chronic venous insufficiency with skin breakdown. 1. Metastatic lung adenocarcinoma: s/p initiation of chemotherapy with carboplatin and paclitaxel at the [facility] on 05/18/2018. 2. Lisa catheter placement today. Per infectious disease he will need IV antibiotics for approximately 6 weeks. 3. RLE cellulitis/osteomyelitis. ID and podiatry managing. Status post right foot debridement and second metatarsal bone biopsy on 06/01/18. 4. Check CBC in a.m. - Attending Statement The exam, history, and the medical decision-making described in the above note were completed with the assistance of the mid-level provider. I reviewed and agree with the findings presented. I attest that I had a anop-ib-vedd encounter with the patient on the same day, and personally performed and documented my assessment and findings in the medical record. 72 yoM with metastatic lung adenocarcinoma s/p first cycle of carboplatin and paclitaxel. Admitted with sepsis due to right foot osteo. Patient will need moth exterminator antibiotic therapy. ID and podiatry team following. FUrther chemotherapy to be discussed in outpatient setting.
[2018-06-05] MEDS ORDERED: Vancomycin Inj 1,000 MG in Sodium Chlor 0.9% Inj 250 ML IV.SIG SCH (13:00)
[2018-06-05] MEDS ORDERED: fentaNYL Citrate Inj 250 MCG/5 ML Ampul ONE (13:55)
[2018-06-05] MEDS ORDERED: Lidocaine 1%/Epinephrine 1:100,000 Inj 20 ML Vial ONE (14:10)
[2018-06-05] MEDS ORDERED: *Heparin Central Flush 100 UNIT/ML 5 ML Vial PERIprocedural ONLY IV.FLUSH ONE (14:10)
--- NOTE | 2018-06-05 15:05 | P.PNPAL ---
Reason for Visit Reason for visit: a. To assist with evaluation and management of symptoms including:pain, shortness of breath. b. To assist medical decision maker(s) with: better understanding of current medical conditions; weighing benefits/burdens of medical treatment options; making medical treatment decisions. Subjective Subjective/Interval History: Patient seen and examined in room. Sulma Bethea, significant other/HCS at bedside. Patient is awake and alert, sitting with legs elevated in recliner. MIGUEL Ozuna and patient are verbalizing frustration waiting for central line to be replaced. He remains anxious to go home, they understand plan for prolonged antibiotic therapy. They are asking for pathology results, I explained results are still pending. Patient denies pain during my visit. He has intermittent twinges of pain in the right root. He is getting Cayce 5/325mg PO every 4 hours PRN pain, has had 4 doses in the past 24 hours. He reports current Cayce dose is effective in controlling pain. He indicates he does not like to take medications and he can tolerate the pain most of the time. He denies shortness of breath today, has actually been weaned from [place] oxygen. Wound (foot) culture 06/01/18 + staph aureus whitehead sensitive, beta lactam positive. Negative AFB and fungal. Dr. Angel, ID following with recommendation for 8 weeks of IV antibiotics followed by oral. Clinical data: * Afebrile. HR 97, RR 16, BP 141/88 * Oxygen saturation 97% on room air, respirations even and unlabored today. * LBM 06/05/18. No diarrhea. * WBC 27.6, hemoglobin 10.6, hematocrit 32.8, platelets 292, neutrophils 94% * BUN 50, creatinine 1.84, GFR 36 * T. Bili 0.6, AST 36, ALT 56 * Total protein 6.4, Albumin 1.8 * PT 14.7, INR 1.[address] Solorzano and nurse. Spoke with case work aide to notify of patient wishes to go home with C to get IV antibiotics when cleared, she indicates patient should be able to go home with [facility] for antibiotics. Awaiting ID final recommendations pending path. Family/Friend Interactions: See interval note. Advance Directives Health Care Surrogate Name and Number: Sulma Bethea [phone] OR Medardo Celestine [phone] Documented care wishes:: Patient is capacitated to make his own health care decisions. No Living Will. Patient completed Designation of Health Care Surrogate paperwork on 05/30/18 naming his significant other, Sulma Bethea OR Medardo Sprague as health care surrogate should he lose capacity. Significant change in goals:: FULL CODE. Patient desires continued aggressive care including removal of Groshong catheter and Lisa catheter placement. He hopes to return home with [facility] upon DC to continue IV antibiotics (DEBBY). Objective Vital Signs: Vital Signs 06/04/18 16:00 06/04/18 20:00 06/05/18 00:00 Temperature 98.4 F 98.2 F 98.1 F Pulse Rate 84 91 H 93 H Respiratory Rate 22 19 20 Blood Pressure 142/85 H 130/83 153/96 H Pulse Oximetry 97 99 95 06/05/18 01:43 06/05/18 04:00 06/05/18 06:00 Temperature 98.3 F Pulse Rate 84 Respiratory Rate 18 18 Blood Pressure 138/87 Pulse Oximetry 95 92 L 06/05/18 06:09 06/05/18 07:00 06/05/18 09:08 Temperature 98.4 F Pulse Rate 85 97 H Respiratory Rate 20 Blood Pressure 141/88 H Pulse Oximetry 96 97 06/05/18 11:12 Temperature 98.2 F Pulse Rate 89 Respiratory Rate 20 Blood Pressure 158/95 H Pulse Oximetry 96 Intake & Output 06/04/18 06/05/18 06/05/18 18:59 06:59 18:59 Intake Total 1000 / 1000 2110 / 2110 1200 / 1200 Output Total 700 / 700 Balance 1000 / 1000 2110 / 2110 500 / 500 Weight 110.5 kg Intake: IV 1000 / 1000 1390 / 1390 1200 / 1200 NS Inj 1,000 ML @ 60 mls/hr IV. 800 / 800 990 / 990 1000 / 1000 CONT .[id number] MAUDE Rx#:[id number] Ancef Inj 1,000 MG In NS Inj 100 / 100 100 / 100 100 / 100 100 ML @ 200 mls/hr IV.SIG Q12H MAUDE Rx#:[id number] Flagyl 500 MG Inj 100 ML @ 100 100 / 100 300 / 300 100 / 100 mls/hr IV.SIG Q6H MAUDE Rx#: [id number] Oral 720 / 720 Output: Urine 700 / 700 Other: # Voids 6 5 Date of Last Bowel Movement 06/04/18 06/04/18 # Bowel Movements 2 Physical Exam: CONSTITUTIONAL/GENERAL: This is an adequately nourished patient, in no apparent distress. TUBES/LINES/DRAINS: right Groshong subclavian, PIV left SKIN: No jaundice, rashes, or lesions. Ecchymoses on upper extremities. No wounds seen anteriorly. Skin temperature appropriate. Not diaphoretic. ENT: Hearing grossly normal. Nose without bleeding or purulent drainage. Throat without visible erythema, exudates, masses, or lesions. CARDIOVASCULAR: Mild tachycardic, irregular. RESPIRATORY/CHEST: unlabored respirations at rest. Expiratory wheezes noted on right. GASTROINTESTINAL: Abdomen soft, non-tender, nondistended. abdominal hernia. + BS. GENITOURINARY: Without palpable bladder distension. MUSCULOSKELETAL: Right LE erythema from toes to calf. Area of white necrotic appearing tissue on right foot, 2nd toe amputation noted. No drainage noted. NEUROLOGICAL: Awake briefly, then falls off to sleep. Moves all extremities. PSYCHIATRIC: Denies anxiety/depression. no apparent hallucinations or other psychotic thought process. Diagnostic Tests Laboratory: Laboratory Results - last 72 hr 06/03/18 06/03/18 06/03/18 10:43 10:43 10:43 WBC 23.1 H RBC 3.23 L Hgb 10.7 L Hct 32.0 L MCV 99.0 MCH 33.1 MCHC 33.4 RDW 14.5 Plt Count 264 MPV 8.4 Prelim Diff (Auto) Slide review pending Neut % (Auto) 93.3 H Lymph % (Auto) 2.6 L [place] % (Auto) 4.0 Eos % (Auto) 0.0 Baso % (Auto) 0.1 Neut # (Auto) 21.5 H Lymph # (Auto) 0.6 L [place] # (Auto) 0.9 Eos # (Auto) 0.0 Baso # (Auto) 0.0 WBC Differential Manual diff final Seg Neuts % (Manual) 86 H Band Neuts % (Manual) 10 H Lymphocytes % (Manual) 2 L Monocytes % (Manual) 2 Abs Neuts (Manual) 22.2 H Differential Comment . Toxic Granulation Toxic Vacuolation Platelet Estimate Normal Platelet Morphology Normal [place] Bodies Present H Acanthocytes (Spur) 1+ H PT 14.8 H INR 1.5 Sodium 143 Potassium 4.6 Chloride 112 H Carbon Dioxide 21.3 Anion Gap 10 BUN 59 H Creatinine 2.11 H Estimated GFR 31 L Random Glucose 135 H Calcium 8.0 L Total Bilirubin 0.4 AST 39 H ALT 78 Alkaline Phosphatase 151 H Total Protein 6.4 Albumin 1.8 L Random Vancomycin 13.7 06/04/18 06/04/18 06/04/18 11:43 11:43 11:43 WBC 24.7 H RBC 3.41 L Hgb 11.1 L Hct 34.1 L MCV 99.9 MCH 32.5 MCHC 32.5 RDW 14.7 Plt Count 295 MPV 8.8 Prelim Diff (Auto) Slide review pending Neut % (Auto) 94.3 H Lymph % (Auto) 2.8 L [place] % (Auto) 2.6 Eos % (Auto) 0.1 Baso % (Auto) 0.2 Neut # (Auto) 23.3 H Lymph # (Auto) 0.7 L [place] # (Auto) 0.7 Eos # (Auto) 0.0 Baso # (Auto) 0.1 WBC Differential Manual diff final Seg Neuts % (Manual) 88 H Band Neuts % (Manual) 7 H Lymphocytes % (Manual) 2 L Monocytes % (Manual) 3 Abs Neuts (Manual) 23.5 H Differential Comment . Toxic Granulation 1+ H Toxic Vacuolation Platelet Estimate Normal Platelet Morphology Normal [place] Bodies Present H Acanthocytes (Spur) 1+ H PT 14.7 H INR 1.5 Sodium 144 Potassium 4.6 Chloride 112 H Carbon Dioxide 23.1 Anion Gap 9 BUN 54 H Creatinine 1.99 H Estimated GFR 33 L Random Glucose 114 H Calcium 8.3 L Total Bilirubin 0.6 AST 42 H ALT 70 Alkaline Phosphatase 161 H Total Protein 6.7 Albumin 2.0 L Random Vancomycin 06/04/18 06/05/18 06/05/18 11:43 06:41 06:41 WBC 27.6 H RBC 3.26 L Hgb 10.6 L Hct 32.8 L MCV 100.6 H MCH 32.6 MCHC 32.4 RDW 15.2 Plt Count 292 MPV 8.3 Prelim Diff (Auto) Manual diff required Neut % (Auto) Lymph % (Auto) [place] % (Auto) Eos % (Auto) Baso % (Auto) Neut # (Auto) Lymph # (Auto) [place] # (Auto) Eos # (Auto) Baso # (Auto) WBC Differential Manual diff final Seg Neuts % (Manual) 92 H Band Neuts % (Manual) 2 Lymphocytes % (Manual) 3 L Monocytes % (Manual) 3 Abs Neuts (Manual) 25.9 H Differential Comment . Toxic Granulation 1+ H Toxic Vacuolation Present H Platelet Estimate Normal Platelet Morphology Normal [place] Bodies Acanthocytes (Spur) PT 14.7 H INR 1.5 Sodium Potassium Chloride Carbon Dioxide Anion Gap BUN 55 H Creatinine 1.92 H Estimated GFR 34 L Random Glucose Calcium Total Bilirubin AST ALT Alkaline Phosphatase Total Protein Albumin Random Vancomycin 06/05/18 06:41 WBC RBC Hgb Hct MCV MCH MCHC RDW Plt Count MPV Prelim Diff (Auto) Neut % (Auto) Lymph % (Auto) [place] % (Auto) Eos % (Auto) Baso % (Auto) Neut # (Auto) Lymph # (Auto) [place] # (Auto) Eos # (Auto) Baso # (Auto) WBC Differential Seg Neuts % (Manual) Band Neuts % (Manual) Lymphocytes % (Manual) Monocytes % (Manual) Abs Neuts (Manual) Differential Comment Toxic Granulation Toxic Vacuolation Platelet Estimate Platelet Morphology [place] Bodies Acanthocytes ([place]) PT INR Sodium 145 Potassium 5.1 Chloride 113 H Carbon Dioxide 25.1 Anion Gap 7 BUN 50 H Creatinine 1.84 H Estimated GFR 36 L Random Glucose 118 H Calcium 8.0 L Total Bilirubin 0.6 AST 36 ALT 56 Alkaline Phosphatase 159 H Total Protein 6.4 Albumin 1.8 L Random Vancomycin Result Diagrams: 06/05/18 06:41 06/05/18 06:41 Microbiology: Microbiology 06/01/18 17:45 Gram Stain - Final Wound - Foot Wound Culture - Final Staphylococcus aureus Mixed [place]erobes 06/01/18 17:45 Acid Fast Bacilli Smear - Final Wound - Foot No acid fast bacilli seen 05/28/18 11:45 Aerobic Blood Culture - Final Blood - Peripheral No growth in 5 days Anaerobic Blood Culture - Final No growth in 5 days 05/28/18 11:40 Aerobic Blood Culture - Final Blood - Peripheral No growth in 5 days Anaerobic Blood Culture - Final No growth in 5 days Procedures: * 05/30/18 - right Groshong catheter placement. Assessment and Plan Pertinent Non-Medical Issues: Psychosocial: Lives with his significant other, Sulma. Also supported by his sister in [place]. Spiritual: Buddhist hernan. Legal:Patient is capacitated to make his own health care decisions. No Living Will. Patient completed Designation of Health Care Surrogate paperwork on naming his significant other, Sulma Bethea OR Medardo Sprague as health care surrogate should he lose capacity. Ethical issues impacting care: No known concerns at this time. . Important Contacts: * Sulma Bethea, significant other/[facility]: [phone] * Medardo Sprague, sister: [phone] Prognosis: Mr. 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 Patient remains high risk for repeat infections and related complications and possible cancer progression well infections are being treated. Code Status: Full Code Plan: * Patient is capacitated to make his own health care decisions. No Living Will. Patient completed Designation of Health Care Surrogate paperwork on 05/30/18 naming his significant other, Sulma Bethea OR Medardo Sprague as health care surrogate should he lose capacity. * FULL CODE * Patient desires continued aggressive care including removal of Groshong catheter and Lisa catheter placement. He hopes to return home with [facility] upon DC to continue IV antibiotics (DEBBY). * SYMPTOMS: Pain: intermittent sharp, brief twinges of pain in right foot. Denies during my visit today. Has Cayce 5/325mg PO every 4 hours PRN pain, he reports adequate pain control at this time. Will monitor. Shortness of breath: on room air, denies SOB during my visit today. * Palliative care will continue to follow throughout hospital course to assist with symptom management and further clarification of medical treatment goals as needed. . Attestation Attestation: To help prompt me to consider important information that might be impacting today's encounter and assessment, information from prior notes written by myself or my colleagues may have been "brought forward" into today's note. My signature on this note, however, is an attestation that I personally performed the exam, history, and/or decision-making noted today, and, unless otherwise indicated, the interactions with patient, family, and staff as well as the review of records all occurred today. I also attest that the listed assessment and stated plan reflect my best clinical judgment today based on the combination of historical information, prior notes, and today's exam/ interactions. When time spent is documented, it refers only to time spent today by the signer, or if indicated, combined time spent today by collaborating physician/nurse practitioner.
--- NOTE | 2018-06-05 15:17 | IR ---
EXAM DATE: 06/05/2018 3:08 PM EDT AGE/SEX: 72 years / Male INDICATIONS: Patient with a history of left foot cellulitis. Needs tunneled catheter for IV access f or intravenous antibiotic therapy and blood draws. Current Groshong PICC line will not allow blood dr stevie. CLINICAL DATA: This is the patient's subsequent encounter. Patient reports that signs and symptoms h ave been present for 1 week and indicates a pain score of 6/10. MEDICAL/SURGICAL HISTORY: Hypertension. Carcinoma, lung. Gout High cholesterol Aneurysm Pneumo nectomy Total right knee replacement COMPARISON: No prior exams available for comparison. FLUORO TIME (min): 3.5 IMAGE SERIES: 1 ACCESS SITE: Right internal jugular vein SEDATION TIME (min): 30 MEDICATION(S): 1.5mg midazolam (Versed) IV 75mcg fentanyl (Sublimaze) IV DEVICE(S): 9F Dual Lisa catheter . . PROCEDURE: 1. Fluoroscopically guided central venous catheter exchange. 2. Conscious sedation with continuous monitoring The risks, benefits and alternatives to the procedure were explained and verbal and written consent w as obtained. The site was prepped in sterile fashion. Full sterile technique was used, including ca p, mask, sterile gloves and gown and a large sterile sheet. Hand hygiene and 2% chlorhexidine prep w as utilized per protocol for cutaneous antisepsis with appropriate dry time for site. The skin and s ubcutaneous tissues were infiltrated with local anesthetic solution. With fluoroscopic guidance a 0.035 Glidewire was passed down the existing tunneled PICC line in the r ight chest. The cuff easily pulled from the soft tissues. A peel-away sheath was passed over the wire and through the peel-away sheath a dual lumen Lisa catheter was placed. The peel-away sheath was removed. The tip of the Lisa is at the mid right atrium. The catheter was sutured in place. Post p rocedure image demonstrates satisfactory position of the tube. The catheter was sutured in place. Conscious sedation with continuous monitoring was performed utilizing the above-described medications . CONCLUSION: 1. Uncomplicated venous catheter exchange replacing a Groshong PICC line for a dual-lumen Lisa.. Electronically signed by: Star Osullivan MD 06/05/2018 3:16 PM EDT
--- NOTE | 2018-06-05 15:23 | P.RAD ---
Post Procedure Progress Note - Pre Procedure Diagnosis (1) Osteomyelitis of right foot - Post Procedure Diagnosis (1) Osteomyelitis of right foot - Procedure Information Procedure Date: 06/05/18 Supervising Radiologist: Star Osullivan Jr, MD Estimated blood loss (mL): 0 Anesthesia: Conscious Sedation - Plan of Activity Patient to Unit: ROPU Patient Condition: Good See PACS Report for procedural detail/treatment. [facility] Radiology Procedures right Internal Jugular Tunneled Central Line Exchange Device: dual lumen Persian: 14 - Additional Detail Findings: Exchanged the RIJ tunneled PICC line of a Lisa catheter. This is in good position and functions well. Plan: Remove suture holding catheter in place in 2-3 weeks.
[2018-06-06] MEDS: Sod Chloride 0.9% Inj 1,000 ML IV.CONT SCH (05:35)
[2018-06-06] MEDS: Senna/Docusate Sodium 8.6/50 MG Tablet PO SCH ×2 (09:34→20:39)
[2018-06-06] MEDS: Folic Acid 1 MG Tablet PO SCH (09:34)
[2018-06-06] MEDS: Metoprolol Tartrate 100 MG Tablet PO SCH ×2 (09:35→20:39)
[2018-06-06] MEDS: amLODIPine 10 MG Tablet PO SCH (09:35)
[2018-06-06] MEDS: Enoxaparin Inj 100 MG/ML Syringe SQ SCH (09:35)
[2018-06-06] MEDS: Digoxin 125 MCG Tablet PO SCH (09:35)
[2018-06-06] MEDS: buPROPion 100 MG ER 12 HR Tablet PO SCH ×2 (09:35→20:39)
[2018-06-06] MEDS: Heparin Central Flush 100 UNIT/ML 5 ML Vial IV.FLUSH SCH (09:36)
--- NOTE | 2018-06-06 13:52 | P.PNPAL ---
Reason for Visit Reason for visit: a. To assist with evaluation and management of symptoms including:pain, shortness of breath. b. To assist medical decision maker(s) with: better understanding of current medical conditions; weighing benefits/burdens of medical treatment options; making medical treatment decisions. Subjective Subjective/Interval History: Patient seen and examined in room. Sulma Bethea, significant other/HCS at bedside. Patient is awake and alert, sitting with legs elevated in recliner. MIGUEL Ozuna and patient are pleased that Lisa catheter was placed on . They are anxious to go home now. I reviewed pathology from surgery that confirmed osteomyelitis. I explained Dr. Angel, ID notes indicate plan for 8 weeks of IV antibiotics followed by oral antibiotics. I suspect this means he will not be able to have chemotherapy for treatment of cancer during this time, will defer to oncology. Patient denies pain during my visit. He again verbalizes intermittent "twinges of pain" in the right root. He is getting Kosse 5/325mg PO every 4 hours PRN pain, has had 4 doses in the past 24 hours. Last dose given at 5:28am. He tells me Kosse has been effective in controlling pain. He denies shortness of breath during my visit. He is Clinical data: * Afebrile. HR 82, RR 14, BP 120/70 * Oxygen saturation 96% on 3LPM via NC, respirations even and unlabored today. * LBM 06/06/18 * BUN 45, creatinine 1.71, GFR 39 Discussed with patient and family. They are anxious to go home. Explained DC pending ID, podiatry and medical clearance. Also explained case management will need to make C arrangements, discussed with CM on 06/05/18 they are awaiting medical/ ID orders. Family/Friend Interactions: see interval note. Advance Directives Health Care Surrogate Name and Number: Sulma Bethea [phone] OR Medardo Celestine [phone] Documented care wishes:: Patient is capacitated to make his own health care decisions. No Living Will. Patient completed Designation of Health Care Surrogate paperwork on 05/30/18 naming his significant other, Sulma Bethea OR Medardo Sprague as health care surrogate should he lose capacity. Significant change in goals:: FULL CODE. Goals remain aggressive to treat osteomyelitis and return home DEBBY. Cancer treatment on hold for now. Objective Vital Signs: Vital Signs 06/05/18 14:55 06/05/18 15:10 06/05/18 15:40 Temperature 97.7 F Pulse Rate 63 63 98 H Respiratory Rate 20 20 18 Blood Pressure 139/87 143/91 H 141/92 H Pulse Oximetry 97 96 94 L 06/05/18 16:11 06/05/18 19:32 06/05/18 20:13 Temperature 97.8 F 97.5 F L Pulse Rate 92 H 99 H 88 Respiratory Rate 20 20 Blood Pressure 153/91 H 129/84 Pulse Oximetry 99 99 06/05/18 20:47 06/05/18 23:04 06/05/18 23:59 Temperature 98 F Pulse Rate 98 H 106 H Respiratory Rate 21 Blood Pressure 165/98 H Pulse Oximetry 95 100 06/06/18 04:23 06/06/18 05:00 06/06/18 05:55 Temperature 98.1 F Pulse Rate 101 H 113 H Respiratory Rate 22 18 Blood Pressure 161/95 H Pulse Oximetry 95 06/06/18 08:00 06/06/18 10:31 06/06/18 11:52 Temperature 97.6 F Pulse Rate 104 H 82 Respiratory Rate 20 Blood Pressure 148/86 H Pulse Oximetry 97 96 06/06/18 12:21 06/06/18 13:00 Temperature 97.7 F Pulse Rate 86 82 Respiratory Rate 20 14 Blood Pressure 120/70 Pulse Oximetry 98 Intake & Output 06/05/18 06/06/18 06/06/18 18:59 06:59 18:59 Intake Total 2019 1300 / 1300 100 / 100 Output Total 700 / 700 750 / 750 Balance 1320 / 1320 550 / 550 100 / 100 Weight 111.4 kg Intake: IV 1300 / 1300 1300 / 1300 100 / 100 NS Inj 1,000 ML @ 60 mls/hr IV. 1000 / 1000 1000 / 1000 CONT .[id number] MAUDE Rx#:[id number] Ancef Inj 1,000 MG In NS Inj 100 / 100 100 / 100 100 / 100 100 ML @ 200 mls/hr IV.SIG Q12H MAUDE Rx#:[id number] Flagyl 500 MG Inj 100 ML @ 100 200 / 200 200 / 200 mls/hr IV.SIG Q6H MAUDE Rx#: [id number] Oral 720 / 720 Output: Urine 700 / 700 750 / 750 Other: Date of Last Bowel Movement 06/04/18 06/04/18 06/06/18 Physical Exam: CONSTITUTIONAL/GENERAL: This is an adequately nourished patient, in no apparent distress. TUBES/LINES/DRAINS: right Groshong subclavian, PIV left SKIN: No jaundice, rashes, or lesions. Ecchymoses on upper extremities. No wounds seen anteriorly. Skin temperature appropriate. Not diaphoretic. CARDIOVASCULAR: RRR RESPIRATORY/CHEST: unlabored respirations at rest. Lungs clear. GASTROINTESTINAL: Abdomen soft, non-tender, nondistended. abdominal hernia. + BS. GENITOURINARY: Without palpable bladder distension. MUSCULOSKELETAL: Right LE dressing and boot in place. NEUROLOGICAL: Awake and alert. Follows commands, answers questions. Moves all extremities. PSYCHIATRIC: Denies anxiety/depression. no apparent hallucinations or other psychotic thought process. Diagnostic Tests Laboratory: Laboratory Results - last 72 hr 06/04/18 06/04/18 06/04/18 11:43 11:43 11:43 WBC 24.7 H RBC 3.41 L Hgb 11.1 L Hct 34.1 L MCV 99.9 MCH 32.5 MCHC 32.5 RDW 14.7 Plt Count 295 MPV 8.8 Prelim Diff (Auto) Slide review pending Neut % (Auto) 94.3 H Lymph % (Auto) 2.8 L Eaton % (Auto) 2.6 Eos % (Auto) 0.1 Baso % (Auto) 0.2 Neut # (Auto) 23.3 H Lymph # (Auto) 0.7 L Eaton # (Auto) 0.7 Eos # (Auto) 0.0 Baso # (Auto) 0.1 WBC Differential Manual diff final Seg Neuts % (Manual) 88 H Band Neuts % (Manual) 7 H Lymphocytes % (Manual) 2 L Monocytes % (Manual) 3 Abs Neuts (Manual) 23.5 H Differential Comment . Toxic Granulation 1+ H Toxic Vacuolation Platelet Estimate Normal Platelet Morphology Normal Espinoza-Dinwiddie Bodies Present H Acanthocytes (Spur) 1+ H PT 14.7 H INR 1.5 Sodium 144 Potassium 4.6 Chloride 112 H Carbon Dioxide 23.1 Anion Gap 9 BUN 54 H Creatinine 1.99 H Estimated GFR 33 L Random Glucose 114 H Calcium 8.3 L Total Bilirubin 0.6 AST 42 H ALT 70 Alkaline Phosphatase 161 H Total Protein 6.7 Albumin 2.0 L 06/04/18 06/05/18 06/05/18 11:43 06:41 06:41 WBC 27.6 H RBC 3.26 L Hgb 10.6 L Hct 32.8 L MCV 100.6 H MCH 32.6 MCHC 32.4 RDW 15.2 Plt Count 292 MPV 8.3 Prelim Diff (Auto) Manual diff required Neut % (Auto) Lymph % (Auto) Eaton % (Auto) Eos % (Auto) Baso % (Auto) Neut # (Auto) Lymph # (Auto) Eaton # (Auto) Eos # (Auto) Baso # (Auto) WBC Differential Manual diff final Seg Neuts % (Manual) 92 H Band Neuts % (Manual) 2 Lymphocytes % (Manual) 3 L Monocytes % (Manual) 3 Abs Neuts (Manual) 25.9 H Differential Comment . Toxic Granulation 1+ H Toxic Vacuolation Present H Platelet Estimate Normal Platelet Morphology Normal Espinoza-Dinwiddie Bodies Acanthocytes (Spur) PT 14.7 H INR 1.5 Sodium Potassium Chloride Carbon Dioxide Anion Gap BUN 55 H Creatinine 1.92 H Estimated GFR 34 L Random Glucose Calcium Total Bilirubin AST ALT Alkaline Phosphatase Total Protein Albumin 06/05/18 06/06/18 06:41 05:30 WBC RBC Hgb Hct MCV MCH MCHC RDW Plt Count MPV Prelim Diff (Auto) Neut % (Auto) Lymph % (Auto) Eaton % (Auto) Eos % (Auto) Baso % (Auto) Neut # (Auto) Lymph # (Auto) Eaton # (Auto) Eos # (Auto) Baso # (Auto) WBC Differential Seg Neuts % (Manual) Band Neuts % (Manual) Lymphocytes % (Manual) Monocytes % (Manual) Abs Neuts (Manual) Differential Comment Toxic Granulation Toxic Vacuolation Platelet Estimate Platelet Morphology Espinoza-Dinwiddie Bodies Acanthocytes (Spur) PT INR Sodium 145 Potassium 5.1 Chloride 113 H Carbon Dioxide 25.1 Anion Gap 7 BUN 50 H 45 H Creatinine 1.84 H 1.71 H Estimated GFR 36 L 39 L Random Glucose 118 H Calcium 8.0 L Total Bilirubin 0.6 AST 36 ALT 56 Alkaline Phosphatase 159 H Total Protein 6.4 Albumin 1.8 L Result Diagrams: 06/05/18 06:41 06/06/18 05:30 Imaging: Foot MRI 05/30/18 00:00 CONCLUSION: 1. There is abnormal soft tissue and fluid adjacent to the distal portion of the second metatarsal. There is abnormal bone marrow edema in the distal half to one third portion of the second metatarsal highly suspicious for osteomyelitis. 2. 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 3. Status post previous amputation of the second toe. Lisa Line Insertion 05/30/18 00:00 CONCLUSION: 1. Uncomplicated tunneled Groshong catheter placement as above. Head CT 05/31/18 13:33 CONCLUSION: 1. 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 . Foot X-Ray 06/01/18 00:00 CONCLUSION: 1. Status post resection of the right second metatarsal head. 2. 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 Chest X-Ray 06/01/18 12:32 CONCLUSION: No significant change Central Venous Line 06/05/18 00:00 CONCLUSION: 1. Uncomplicated venous catheter exchange replacing a Groshong PICC line for a dual-lumen Lisa.. Procedures: * 06/05/18 - removal of right Groshong catheter and right subclavian Lisa catheter placement * 06/01/18 - I & D of right foot abscess, bone biopsy right 2nd metatarsal head - pathology + acute osteomyelitis and necrosis. * 05/30/18 - right Groshong catheter placement. Assessment and Plan Pertinent Non-Medical Issues: Psychosocial: Lives with his significant other, Sulma. Also supported by his sister in [place]. Spiritual: [employer] hernan. Legal:Patient is capacitated to make his own health care decisions. No Living Will. Patient completed Designation of Health Care Surrogate paperwork on naming his significant other, Sulma Bethea OR Medardo Sprague as health care surrogate should he lose capacity. Ethical issues impacting care: No known concerns at this time. . Important Contacts: * Sulma Bethea, significant other/[facility]: [phone] * Medardo Sprague, sister: [phone] Prognosis: Mr. 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 Patient remains high risk for repeat infections and related complications and possible cancer progression well infections are being treated. Code Status: Full Code Plan: * Patient is capacitated to make his own health care decisions. No Living Will. Patient completed Designation of Health Care Surrogate paperwork on 05/30/18 naming his significant other, Sulma Bethea OR Medardo Sprague as health care surrogate should he lose capacity. * FULL CODE * Lisa catheter placed on 06/05/18. Goals remain aggressive to treat osteomyelitis and return home DEBBY. Cancer treatment on hold for now. * SYMPTOMS: Pain: intermittent sharp, brief twinges of pain in right foot. Denies during my visit today. Has Kosse 5/325mg PO every 4 hours PRN pain, he reports adequate pain control at this time. Will monitor. Shortness of breath: on NC PRN, denies SOB during my visit today. * Palliative care will continue to follow throughout hospital course to assist with symptom management and further clarification of medical treatment goals as needed. . Attestation Attestation: To help prompt me to consider important information that might be impacting today's encounter and assessment, information from prior notes written by myself or my colleagues may have been "brought forward" into today's note. My signature on this note, however, is an attestation that I personally performed the exam, history, and/or decision-making noted today, and, unless otherwise indicated, the interactions with patient, family, and staff as well as the review of records all occurred today. I also attest that the listed assessment and stated plan reflect my best clinical judgment today based on the combination of historical information, prior notes, and today's exam/ interactions. When time spent is documented, it refers only to time spent today by the signer, or if indicated, combined time spent today by collaborating physician/nurse practitioner.
--- NOTE | 2018-06-06 16:28 | P.PN ---
Subjective Interval history: no fevever feels well no pain complains looking forward to [place] home planning Physical Exam Vital signs: Vital Signs 06/05/18 19:32 06/05/18 20:13 06/05/18 20:47 Temperature 97.5 F L Pulse Rate 99 H 88 Respiratory Rate 20 Blood Pressure 129/84 Pulse Oximetry 99 95 06/05/18 23:04 06/05/18 23:59 06/06/18 04:23 Temperature 98 F Pulse Rate 98 H 106 H 101 H Respiratory Rate 21 Blood Pressure 165/98 H Pulse Oximetry 100 06/06/18 05:00 06/06/18 05:55 06/06/18 08:00 Temperature 98.1 F 97.6 F Pulse Rate 113 H 104 H Respiratory Rate 22 18 20 Blood Pressure 161/95 H 148/86 H Pulse Oximetry 95 97 06/06/18 10:31 06/06/18 11:52 06/06/18 12:21 Temperature 97.7 F Pulse Rate 82 86 Respiratory Rate 20 Blood Pressure 120/70 Pulse Oximetry 96 98 06/06/18 13:00 06/06/18 16:00 Temperature Pulse Rate 82 90 Respiratory Rate 14 Blood Pressure Pulse Oximetry Intake & Output 06/05/18 06/06/18 06/06/18 18:59 06:59 18:59 Intake Total 2020 / 2019 1300 / 1300 100 / 100 Output Total 700 / 700 750 / 750 Balance 1320 / 1320 550 / 550 100 / 100 Weight 111.4 kg Intake: IV 1300 / 1300 1300 / 1300 100 / 100 NS Inj 1,000 ML @ 60 mls/hr IV. 1000 / 1000 1000 / 1000 CONT .[id number] MAUDE Rx#:[id number] Ancef Inj 1,000 MG In NS Inj 100 / 100 100 / 100 100 / 100 100 ML @ 200 mls/hr IV.SIG Q12H MAUDE Rx#:[id number] Flagyl 500 MG Inj 100 ML @ 100 200 / 200 200 / 200 mls/hr IV.SIG Q6H MAUDE Rx#: [id number] Oral 720 / 720 Output: Urine 700 / 700 750 / 750 Other: Date of Last Bowel Movement 06/04/18 06/04/18 06/06/18 Narrative: awake and alert, oriented x 3, speech clear ff all commands anciteric neck supple lungs- +no rales no wheezes irregularly irregular rhythm abdomen soft right foot- - post op dressing intact Results - Labs CBC & Chem 7: 06/05/18 06:41 06/06/18 05:30 Laboratory Results - last 24 hr 06/06/18 05:30 BUN 45 H Creatinine 1.71 H Estimated GFR 39 L - Procedures 06/01 1. Incision and drainage right foot abscess 2. bone biopsy right 2nd metatarsal head 06/05- Lisa catheter placement Assessment and Plan - Plan 72-year-old man with Neutropenic fever- patient received Neuprogen x 3 doses - 05/27-3= qafebrile now with leukocytosis from Neupogen Neutropenic precautions Appreciate input from oncology Right lower extremity cellulitis/Osteomyelitis Right foot abscess S/P I and D with bone biopsy 06/01- growing S. aures and mixed anaerobes S/P Lisa catheter placemnet 9.10 per OR report- milky purulence material obtained Now on IV ancef and IV flagyl- will need 6 weeks ID ff/podiatry ff History of lung cancer with metastases Treatment with paclitaxel and carboplatin Appreciate input from oncology -S/P prednisone short course - duoneb treatment History of hypertension, gout and other chronic medical conditions Chronic atrial fibrillation Coumadin excess - INR down continue on BB, Cordarone hematology ff DC coumadin- d/w patient and - we will start on Eliquis 5 mg po bid was seen by CArdiology Dr. Hayes - recommend above ALEXANDER- on KI- creatinine stabilizing - non oliguric Npehrology ff - dietitian ff -po improved - heplock IVF and montior BMP Transient change in MS- - reported confusion - RESOLVED 05/30 post procedure- VAS cat now neuro stable- awake and alert, interactive negative head CT DC planning- CM consult for hoem IV antibiotics arrangement
[2018-06-07 05:14] LABS: Baso # (Auto) 0.2 th/mm3 (0.0-0.2); Baso % (Auto) 0.9 % (0.0-2.0); Eos % (Auto) 0.1 % (0.0-4.0); Hematocrit 28.9 % (39.0-51.0); Hemoglobin 9.4 gm/dL (13.0-17.0); Lymph # (Auto) 0.9 th/mm3 (1.0-4.8); Lymph % (Auto) 3.8 % (9.0-44.0); Mean Corpuscular HGB Conc 32.6 % (32.0-36.0); Mean Corpuscular Hemoglobin 32.5 pg (27.0-34.0); Mean Corpuscular Volume 99.8 fL (80.0-100.0); Mean Platelet Volume 8.6 fL (7.0-11.0); Mono # (Auto) 1.1 th/mm3 (0.0-0.9); Mono % (Auto) 4.5 % (0.0-8.0); Neut # (Auto) 21.4 th/mm3 (1.8-7.7); Neut % (Auto) 90.7 % (16.0-70.0); Platelet Count 330 th/mm3 (150-450); Red Blood Count 2.89 mil/mm3 (4.50-5.90); Red Cell Distribution Width 14.7 % (11.6-17.2); White Blood Count 23.5 th/mm3 (4.0-11.0)
[2018-06-07 05:39] LABS: Calcium 7.8 mg/dL (8.5-10.1); Carbon Dioxide 25.7 meq/L (21.0-32.0); Potassium 4.4 meq/L (3.5-5.1)
[2018-06-07 06:38] LABS: Acanthocytes Occ; Platelet Estimate Normal (Normal); Platelet Morphology Normal (Normal); Toxic Granulation 1+
[2018-06-07 06:39] LABS: Helmet Cells 1+; Howell-Jolly Bodies Present
[2018-06-07] MEDS: Metoprolol Tartrate 100 MG Tablet PO SCH (08:22)
[2018-06-07] MEDS: buPROPion 100 MG ER 12 HR Tablet PO SCH (08:22)
[2018-06-07] MEDS: Digoxin 125 MCG Tablet PO SCH (08:24)
[2018-06-07] MEDS: Folic Acid 1 MG Tablet PO SCH (08:24)
[2018-06-07] MEDS: amLODIPine 10 MG Tablet PO SCH (08:26)
[2018-06-07] MEDS: Heparin Central Flush 100 UNIT/ML 5 ML Vial IV.FLUSH SCH (08:31)
--- NOTE | 2018-06-07 09:51 | MP ---
cc: LyndonyuHaley FOREST DATE OF OPERATION: 06/01/2018 INDICATIONS: This patient presented with an infection to the right foot to the plantar aspect. He stated that he had undergone wound care at the [facility] and noticed that there was a large callus that continued to have draining. He had been applying packing in the area and then had an increase in swelling, redness that was concerning to him since he does have a terminal cancer. He began to feel sick and came in and was admitted per the [facility] recommendation. He was noted to have possible probing to bone in the area with an abscess and agreed to move forward with incision and drainage of right foot abscess with bone biopsy of right second metatarsal head. He has a previous history of toe amputation that had healed without event in years past after risks, benefits and potential complications were explained he and his agreed to move forward with surgery. DESCRIPTION OF PROCEDURE: He was seen in preop holding by myself, nursing staff and anesthesia, where the correct patient, side, and site were all confirmed to be correct in the right foot. He was then taken to the surgical suite in supine position. Right foot was prepped and draped in normal sterile fashion. After timeouts were performed as per facility protocol an incision was made to the plantar aspect of the foot where a previous wound was located. There was noted to be an immediate flow of milky pink purulence that came from the area and a palpable and visible second metatarsal head and neck within the base of the wound. A culture was taken of this drainage and the wound probed from plantar the way to the dorsal aspect of the second metatarsal head area and an incision was also made dorsally followed by irrigation with 3 liters of normal saline plus through the wound. Debridement of nonviable tissue and purulent material using a rongeur and a curette. Following this, the dorsal tissue incision area was closed with 2-0 nylon, followed by packing through the plantar aspect and partial closure to this wound. Packing was performed with 1/4-inch iodoform gauze followed by dressing consisting of 4 x 4's, ABD, Soft-Roll and Joao wrap to the right foot. The patient tolerated the procedure and anesthesia well and was taken back to PACU with vital signs stable and vascular status intact to the remainder of the right foot. He will be weightbearing to heel only in a surgical shoe to the right foot, avoiding forefoot pressure. We will await the bone biopsy result and culture results and he will need long-term IV antibiotics. No further surgery is anticipated and he will need home health for daily packing changes to the right foot upon discharge. SURGEON: Geri Gorman DPM ORAL SURGEON: Staff. PREOPERATIVE DIAGNOSIS: Abscess with osteomyelitis, right foot. POSTOPERATIVE DIAGNOSIS: Abscess with osteomyelitis, right foot. PROCEDURE PERFORMED: 1. Incision and drainage, right foot abscess. 2. Bone biopsy, right second metatarsal head. PATHOLOGY: 1. Culture right foot. 2. Bone of second metatarsal head to pathology. 3. Bone of residual second metatarsal to pathology for bone biopsy. ANESTHESIA: MAC with local consisting of 10 mL of 0.25% Marcaine plain. ESTIMATED BLOOD LOSS: 10 mL CONDITION: Stable to PACU. DISPOSITION: Weightbearing to heel only in surgical shoe right foot; needs long-term IV antibiotics. No further surgery anticipated at this time. FOREST Ponce/darline , 08:18 AM , 08:25 AM
[2018-06-07] MEDS: Senna/Docusate Sodium 8.6/50 MG Tablet PO SCH (09:52)
--- NOTE | 2018-06-07 10:38 | US ---
EXAM DATE: 06/07/2018 10:22 AM EDT AGE/SEX: 72 years / Male INDICATIONS: Left leg swelling. CLINICAL DATA: This is the patient's initial encounter. Patient reports that signs and symptoms have been present for > 1 year and indicates a pain score of 0/10. MEDICAL/SURGICAL HISTORY: Hypercholesterolemia. Hypertension. Metastatic lung cancer. Aneurysm . Stroke. Hernia. Gout. Splenectomy. Abdominal aortic aneurysm repair. Arterial bypass graft, Bilat eral legs. Carotid surgery. Right total knee replacement. Renal artery bypass graft. Hernia repair. A mputation, second toe on right foot. Pneumonectomy. COMPARISON: [facility], US LEG ARTERIAL DUPLEX, BILATERAL, 09/30/2016. . TECHNIQUE: Venous ultrasound of both lower extremities was performed from the inguinal ligament to t he proximal calf. Real-time, color Doppler and spectral tracing, compression and augmentation techni ques were used. FINDINGS: Normal compression of the deep venous system from the inguinal region to the proximal calf . No echogenic clot is seen. Normal response of the venous system to augmentation and respiration. CONCLUSION: 1. The study is negative for lower extremity deep venous thrombosis. Electronically signed by: Kvng Trevino MD 06/07/2018 10:36 AM EDT
--- NOTE | 2018-06-07 11:25 | P.DCO ---
Post Hospital Infusion Therapy Location of Infusion Therapy: Home Health Care IV Infusion Order Patient Weight: 111.2 kg - Diagnosis (1) Osteomyelitis of right foot Code(s): M86.9 - Osteomyelitis, unspecified - Administer Medication Cefazolin Dose: 2 grams IV Directions: q 8 hours Start Treatment: 06/08/18 Stop Treatment: 07/18/18 - Additional Information Venous Access: Tunneled Catheter Additional Instructions: [x] Peripheral flush and dressing changes per protocol [x] Implanted port and central head lineman: * Implanted port: 10 ml Normal Saline followed by 5 ml Heparin 100 units/ml Heparin flush after each use and monthly to maintain. [] May leave port accessed during therapy. [] May leave peripheral site accessed for duration of therapy. [x] If patient has SOB or respiratory distress, check oxygen saturation. If less than 90% or clinical signs of respiratory distress, administer oxygen at 2 L/min. via nasal cannula and notify physician. [x] Anaphylaxis/Reaction orders: * Stop infusion. * Keep IV line open with saline flush. * Notify physician. * Monitor vital signs every 15 minutes until symptoms resolve. * Check Oxygen saturation; Oxygen at 2 L/min. via nasal cannula if less than 90% or clinical signs of respiratory distress. * Administer diphenhydramine (Benadryl) 25 mg IV STAT, (unless patient has received as pre-med). May repeat once, if necessary. * Solu-Cortef 250 mg IVP over 30-60 seconds, use 100 mg vials for each dissolution. * Epinephrine (1mg/1 ml) 0.3 mg subcutaneously or IVP now with any signs of respiratory distress. * Check with physician for new additional pre-med orders if patient is re- challenged or re-treated. [x] May remove PICC line when treatment complete, after confirming with Physician. [x] If the patient is admitted to the hospital, the ED, or transferred via [facility] , complete transfer form including medication reconciliation order sheet. Weekly Labs: CBC w/diff, CMP Allergies penicillin G Allergy (Severe, Verified 05/27/18 12:05) EDEMA
--- NOTE | 2018-06-07 12:58 | P.PNPAL ---
Reason for Visit Reason for visit: a. To assist with evaluation and management of symptoms including:pain, shortness of breath. b. To assist medical decision maker(s) with: better understanding of current medical conditions; weighing benefits/burdens of medical treatment options; making medical treatment decisions. Subjective Subjective/Interval History: Patient seen and examined in room. Sulma [place], significant other/HCS at bedside. Also present Lori Osullivan LCSW and Dr. Hunter. Patient is awake and alert. Sulma, SO is crying and upset that no one is telling them anything since I saw them yesterday. She and patient are anxious to return home. Advised case operator is working on arrangement for DC home today with home health if [place]/ [employer] approves. She verbalizes they "just need to get back to life, out of the hospital." She is worried patient is starting to give up. He verbalizes desire to get home. He wants to continue antibiotic treatment, just wants to do it at home. Patient denies pain during my visit. He again verbalizes intermittent "twinges of pain" in the right root. He is getting [place] 5/325mg PO every 4 hours PRN pain, has had 4 doses in the past 24 hours. [place] has been effective in controlling pain. He denies shortness of breath during my visit, on room air. Discussed with Dr. Dale Markham and case operator. Family/Friend Interactions: See interval note. Advance Directives Health Care Surrogate Name and Number: Sulma Bethea [phone] OR Medardo Lopezes [phone] Documented care wishes:: Patient is capacitated to make his own health care decisions. No Living Will. Patient completed Designation of Health Care Surrogate paperwork on 05/30/18 naming his significant other, Sulma Bethea OR Medardo Sprague as health care surrogate should he lose capacity. Significant change in goals:: FULL CODE. Goals remain aggressive. Objective Vital Signs: Vital Signs 06/06/18 13:00 06/06/18 16:00 06/06/18 20:00 Temperature 97.6 F 98.1 F Pulse Rate 82 72 80 Respiratory Rate 14 18 18 Blood Pressure 130/66 139/75 Pulse Oximetry 100 99 06/07/18 00:00 06/07/18 00:28 06/07/18 04:00 Temperature 98.6 F 98.5 F Pulse Rate 87 90 86 Respiratory Rate 18 18 Blood Pressure 126/77 151/79 H Pulse Oximetry 96 95 06/07/18 04:02 06/07/18 08:33 06/07/18 09:33 Temperature 97.5 F L Pulse Rate 89 Respiratory Rate 18 Blood Pressure 127/79 Pulse Oximetry 98 96 06/07/18 10:55 06/07/18 12:00 Temperature 98.6 F Pulse Rate 90 81 Respiratory Rate 18 Blood Pressure 127/79 Pulse Oximetry 96 Intake & Output 06/06/18 06/07/18 06/07/18 18:59 06:59 18:59 Intake Total 200 / 200 1500 / 1500 100 / 100 Output Total 400 / 400 Balance 200 / 200 1100 / 1100 100 / 100 Weight 111.2 kg 111.2 kg Intake: IV 200 / 200 1300 / 1300 100 / 100 NS Inj 1,000 ML @ 60 mls/hr IV. 1000 / 1000 CONT .[id number] MAUDE Rx#:[id number] Ancef Inj 1,000 MG In NS Inj 100 / 100 100 / 100 100 ML @ 200 mls/hr IV.SIG Q12H MAUDE Rx#:[id number] Flagyl 500 MG Inj 100 ML @ 100 100 / 100 200 / 200 100 / 100 mls/hr IV.SIG Q6H MAUDE Rx#: [id number] Oral 200 / 200 Output: Urine 400 / 400 Other: # Voids 6 Date of Last Bowel Movement 06/06/18 06/06/18 # Bowel Movements 1 Physical Exam: CONSTITUTIONAL/GENERAL: This is an adequately nourished patient, in no apparent distress. TUBES/LINES/DRAINS: right Groshong subclavian, PIV left SKIN: No jaundice, rashes, or lesions. Ecchymoses on upper extremities. No wounds seen anteriorly. Skin temperature appropriate. Not diaphoretic. CARDIOVASCULAR: RRR RESPIRATORY/CHEST: unlabored respirations at rest. Lungs clear. GASTROINTESTINAL: Abdomen soft, non-tender, nondistended. abdominal hernia. + BS. GENITOURINARY: Without palpable bladder distension. MUSCULOSKELETAL: Right LE dressing and boot in place. NEUROLOGICAL: Awake and alert. Follows commands, answers questions. Moves all extremities. PSYCHIATRIC: Denies anxiety/depression. no apparent hallucinations or other psychotic thought process. Diagnostic Tests Laboratory: Laboratory Results - last 72 hr 06/04/18 06/04/18 06/04/18 11:43 11:43 11:43 WBC 24.7 H RBC 3.41 L Hgb 11.1 L Hct 34.1 L MCV 99.9 MCH 32.5 MCHC 32.5 RDW 14.7 Plt Count 295 MPV 8.8 Prelim Diff (Auto) Slide review pending Neut % (Auto) 94.3 H Lymph % (Auto) 2.8 L [place] % (Auto) 2.6 Eos % (Auto) 0.1 Baso % (Auto) 0.2 Neut # (Auto) 23.3 H Lymph # (Auto) 0.7 L [place] # (Auto) 0.7 Eos # (Auto) 0.0 Baso # (Auto) 0.1 WBC Differential Manual diff final Diff Scan Seg Neuts % (Manual) 88 H Band Neuts % (Manual) 7 H Lymphocytes % (Manual) 2 L Monocytes % (Manual) 3 Abs Neuts (Manual) 23.5 H Differential Comment . Toxic Granulation 1+ H Toxic Vacuolation Platelet Estimate Normal Platelet Morphology Normal Helmet Cells [place] Bodies Present H Acanthocytes (Spur) 1+ H PT 14.7 H INR 1.5 Sodium 144 Potassium 4.6 Chloride 112 H Carbon Dioxide 23.1 Anion Gap 9 BUN 54 H Creatinine 1.99 H Estimated GFR 33 L Random Glucose 114 H Calcium 8.3 L Total Bilirubin 0.6 AST 42 H ALT 70 Alkaline Phosphatase 161 H Total Protein 6.7 Albumin 2.0 L 06/04/18 06/05/18 06/05/18 11:43 06:41 06:41 WBC 27.6 H RBC 3.26 L Hgb 10.6 L Hct 32.8 L MCV 100.6 H MCH 32.6 MCHC 32.4 RDW 15.2 Plt Count 292 MPV 8.3 Prelim Diff (Auto) Manual diff required Neut % (Auto) Lymph % (Auto) [place] % (Auto) Eos % (Auto) Baso % (Auto) Neut # (Auto) Lymph # (Auto) [place] # (Auto) Eos # (Auto) Baso # (Auto) WBC Differential Manual diff final Diff Scan Seg Neuts % (Manual) 92 H Band Neuts % (Manual) 2 Lymphocytes % (Manual) 3 L Monocytes % (Manual) 3 Abs Neuts (Manual) 25.9 H Differential Comment . Toxic Granulation 1+ H Toxic Vacuolation Present H Platelet Estimate Normal Platelet Morphology Normal Helmet Cells [place] Bodies Acanthocytes (Spur) PT 14.7 H INR 1.5 Sodium Potassium Chloride Carbon Dioxide Anion Gap BUN 55 H Creatinine 1.92 H Estimated GFR 34 L Random Glucose Calcium Total Bilirubin AST ALT Alkaline Phosphatase Total Protein Albumin 06/05/18 06/06/18 06/07/18 06:41 05:30 04:39 WBC 23.5 H RBC 2.89 L Hgb 9.4 L Hct 28.9 L MCV 99.8 MCH 32.5 MCHC 32.6 RDW 14.7 Plt Count 330 MPV 8.6 Prelim Diff (Auto) Slide review pending Neut % (Auto) 90.7 H Lymph % (Auto) 3.8 L [place] % (Auto) 4.5 Eos % (Auto) 0.1 Baso % (Auto) 0.9 Neut # (Auto) 21.4 H Lymph # (Auto) 0.9 L [place] # (Auto) 1.1 H Eos # (Auto) 0.0 Baso # (Auto) 0.2 WBC Differential . Diff Scan Auto diff confirmed Seg Neuts % (Manual) Band Neuts % (Manual) Lymphocytes % (Manual) Monocytes % (Manual) Abs Neuts (Manual) Differential Comment . Toxic Granulation 1+ H Toxic Vacuolation Platelet Estimate Normal Platelet Morphology Normal Helmet Cells 1+ H [place] Bodies Present H Acanthocytes (Spur) Occ H PT INR Sodium 145 Potassium 5.1 Chloride 113 H Carbon Dioxide 25.1 Anion Gap 7 BUN 50 H 45 H Creatinine 1.84 H 1.71 H Estimated GFR 36 L 39 L Random Glucose 118 H Calcium 8.0 L Total Bilirubin 0.6 AST 36 ALT 56 Alkaline Phosphatase 159 H Total Protein 6.4 Albumin 1.8 L 06/07/18 04:39 WBC RBC Hgb Hct MCV MCH MCHC RDW Plt Count MPV Prelim Diff (Auto) Neut % (Auto) Lymph % (Auto) [place] % (Auto) Eos % (Auto) Baso % (Auto) Neut # (Auto) Lymph # (Auto) [place] # (Auto) Eos # (Auto) Baso # (Auto) WBC Differential Diff Scan Seg Neuts % (Manual) Band Neuts % (Manual) Lymphocytes % (Manual) Monocytes % (Manual) Abs Neuts (Manual) Differential Comment Toxic Granulation Toxic Vacuolation Platelet Estimate Platelet Morphology Helmet Cells [place] Bodies Acanthocytes (Spur) PT INR Sodium 145 Potassium 4.4 Chloride 113 H Carbon Dioxide 25.7 Anion Gap 6 BUN 38 H Creatinine 1.55 H Estimated GFR 44 L Random Glucose 90 Calcium 7.8 L Total Bilirubin AST ALT Alkaline Phosphatase Total Protein Albumin Result Diagrams: 06/07/18 04:39 06/07/18 04:39 Imaging: Foot MRI 05/30/18 00:00 CONCLUSION: 1. There is abnormal soft tissue and fluid adjacent to the distal portion of the second metatarsal. There is abnormal bone marrow edema in the distal half to one third portion of the second metatarsal highly suspicious for osteomyelitis. 2. 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 3. Status post previous amputation of the second toe. Lisa Line Insertion 05/30/18 00:00 CONCLUSION: 1. Uncomplicated tunneled Groshong catheter placement as above. Head CT 05/31/18 13:33 CONCLUSION: 1. 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 . Foot X-Ray 06/01/18 00:00 CONCLUSION: 1. Status post resection of the right second metatarsal head. 2. 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 Chest X-Ray 06/01/18 12:32 CONCLUSION: No significant change Central Venous Line 06/05/18 00:00 CONCLUSION: 1. Uncomplicated venous catheter exchange replacing a Groshong PICC line for a dual-lumen Lisa.. Venous Doppler Study 06/07/18 00:00 CONCLUSION: 1. The study is negative for lower extremity deep venous thrombosis. Procedures: * 06/05/18 - removal of right Groshong catheter and right subclavian Lisa catheter placement * 06/01/18 - I & D of right foot abscess, bone biopsy right 2nd metatarsal head - pathology + acute osteomyelitis and necrosis. * 05/30/18 - right Groshong catheter placement. Assessment and Plan Pertinent Non-Medical Issues: Psychosocial: Lives with his significant other, Sulma. Also supported by his sister in [place]. Spiritual: [employer] hernan. Legal:Patient is capacitated to make his own health care decisions. No Living Will. Patient completed Designation of Health Care Surrogate paperwork on naming his significant other, Sulma Bethea OR Medardo Sprague as health care surrogate should he lose capacity. Ethical issues impacting care: No known concerns at this time. . Important Contacts: * Sulma Bethea, significant other/[facility]: [phone] * Medardo Sprague, sister: [phone] Prognosis: Mr. 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 Patient remains high risk for repeat infections and related complications and possible cancer progression well infections are being treated. Code Status: Full Code Plan: * Patient is capacitated to make his own health care decisions. No Living Will. Patient completed Designation of Health Care Surrogate paperwork on 05/30/18 naming his significant other, Sulma Bethea OR Medardo Sprague as health care surrogate should he lose capacity. * FULL CODE * Goals remain aggressive to treat osteomyelitis and return home [place]. Cancer treatment on hold for now. * SYMPTOMS: Pain: intermittent sharp, brief twinges of pain in right foot. Denies during my visit today. Has [place] 5/325mg PO every 4 hours PRN pain, he reports adequate pain control at this time. Will monitor. Shortness of breath: on NC PRN, denies SOB during my visit today. * Palliative care will continue to follow throughout hospital course to assist with symptom management and further clarification of medical treatment goals as needed. . Attestation Attestation: To help prompt me to consider important information that might be impacting today's encounter and assessment, information from prior notes written by myself or my colleagues may have been "brought forward" into today's note. My signature on this note, however, is an attestation that I personally performed the exam, history, and/or decision-making noted today, and, unless otherwise indicated, the interactions with patient, family, and staff as well as the review of records all occurred today. I also attest that the listed assessment and stated plan reflect my best clinical judgment today based on the combination of historical information, prior notes, and today's exam/ interactions. When time spent is documented, it refers only to time spent today by the signer, or if indicated, combined time spent today by collaborating physician/nurse practitioner.
--- NOTE | 2018-06-07 13:49 | P.PNADD ---
Addendum to Inpatient Note Additional information: Cont ANcef IV and Flagyl PO 500 q id for 6 weeks (thru 07/18) Follow CBC CMP weekly
--- NOTE | 2018-06-07 16:35 | P.DS ---
Date of admission: 05/27/18 13:07 Primary care physician: Odette Rodas Brief History from admission: The patient is a very pleasant 72-year-old male with past medical history of lung cancer with bone metastasis, gout, hyperlipidemia, hypertension. The patient came to the emergency room for further evaluation of fevers, shortness of breath. Patient also had diarrhea recently. He was recently hospitalized to another hospital with ileus which resolved. Since he does not have any more diarrhea and had a normal bowel movement. He was started on chemo paclitaxel and carboplatin per oncology. Follows with the [place] oncologist but also has seen Dr. Alonso. Will consult Dr. Knight oncology doctor. Patient is also complaining of left food redness and swelling. Labs reviewed this patient with neutropenia. Patient also with left foot cellulitis started on IV antibiotics. Blood cultures obtained in the emergency room. Creatinine is 1.7 at this time per patient baseline creatinine is 2. DS: Medications - Discharge Medications Prescriptions: apixaban [Eliquis] 5 mg PO BID #60 tab hydrocodone-acetaminophen 1 tab PO Q4H PRN #30 tab PRN Reason: Pain 5-10 metronidazole [Flagyl] 500 mg PO QID 42 Days #168 tab DS: Summary Hospital Course: 72-year-old man with Neutropenic fever- patient received Neuprogen x 3 doses now with leukocytosis from Neupogen Neutropenic precautions Appreciate input from oncology Right lower extremity cellulitis/Osteomyelitis Right foot abscess S/P I and D with bone biopsy 06/01- growing S. aures and mixed anaerobes S/P Lisa catheter placemnet 9.10 per OR report- milky purulence material obtained Now on IV ancef and IV flagyl- will need 6 weeks ID recommended IV Ancef and PO Flagyl for 6 weeks. Patient was discharged on 06/07/2018 with home health and IV Ancef as well PO Flagyl. History of lung cancer with metastases Treatment with paclitaxel and carboplatin Appreciate input from oncology -S/P prednisone short course - duoneb treatment History of hypertension, gout and other chronic medical conditions Chronic atrial fibrillation Coumadin excess - INR down continue on BB, Cordarone hematology ff Continue Eliquis 5 mg po bid per cardiology recs. E-forsce database accessed. Last pain med was filled on 09/13/2017. Patient has cancer related pain. Will give 5 day worth of pain meds. - Time Spent with Patient Total time spent providing and/or coordinating discharge services: Greater than 30 minutes - Quality: VTE Deep Vein Thrombosis/Pulmonary Embolism Present on Admission: No Exam Vital signs: Vital Signs 06/06/18 20:00 06/07/18 00:00 06/07/18 00:28 Temperature 98.1 F 98.6 F Pulse Rate 80 87 90 Respiratory Rate 18 18 Blood Pressure 139/75 126/77 Pulse Oximetry 99 96 06/07/18 04:00 06/07/18 04:02 06/07/18 08:33 Temperature 98.5 F 97.5 F L Pulse Rate 86 89 Respiratory Rate 18 18 Blood Pressure 151/79 H 127/79 Pulse Oximetry 95 98 06/07/18 09:33 06/07/18 10:55 06/07/18 12:00 Temperature 98.6 F Pulse Rate 90 81 Respiratory Rate 18 Blood Pressure 127/79 Pulse Oximetry 96 96 06/07/18 13:08 Temperature Pulse Rate 83 Respiratory Rate Blood Pressure Pulse Oximetry Intake & Output 06/06/18 06/07/18 06/07/18 18:59 06:59 18:59 Intake Total 200 / 200 1500 / 1500 200 / 200 Output Total 400 / 400 Balance 200 / 200 1100 / 1100 200 / 200 Weight 111.2 kg 111.2 kg Intake: IV 200 / 200 1300 / 1300 200 / 200 NS Inj 1,000 ML @ 60 mls/hr IV. 1000 / 1000 CONT .[id number] MAUDE Rx#:[id number] Ancef Inj 1,000 MG In NS Inj 100 / 100 100 / 100 100 ML @ 200 mls/hr IV.SIG Q12H MAUDE Rx#:[id number] Flagyl 500 MG Inj 100 ML @ 100 100 / 100 200 / 200 200 / 200 mls/hr IV.SIG Q6H MAUDE Rx#: [id number] Oral 200 / 200 Output: Urine 400 / 400 Other: # Voids 6 Date of Last Bowel Movement 06/06/18 06/06/18 # Bowel Movements 1 Results Procedures completed during hospitalization: 06/01 1. Incision and drainage right foot abscess 2. bone biopsy right 2nd metatarsal head 06/05- Lisa catheter placement Completed studies during hospitalization: Pending at discharge 06/01/18 08:31 Surgical [PTH] Routine Labs on day of discharge: Labs from last 24 hours 06/07/18 06/07/18 04:39 04:39 WBC 23.5 H RBC 2.89 L Hgb 9.4 L Hct 28.9 L MCV 99.8 MCH 32.5 MCHC 32.6 RDW 14.7 Plt Count 330 MPV 8.6 Prelim Diff (Auto) Slide review pending Neut % (Auto) 90.7 H Lymph % (Auto) 3.8 L [place] % (Auto) 4.5 Eos % (Auto) 0.1 Baso % (Auto) 0.9 Neut # (Auto) 21.4 H Lymph # (Auto) 0.9 L [place] # (Auto) 1.1 H Eos # (Auto) 0.0 Baso # (Auto) 0.2 WBC Differential . Diff Scan Auto diff confirmed Differential Comment . Toxic Granulation 1+ H Platelet Estimate Normal Platelet Morphology Normal Helmet Cells 1+ H Espinoza-[facility] [employer] [facility] Bodies Present H Acanthocytes (Spur) Occ H Sodium 145 Potassium 4.4 Chloride 113 H Carbon Dioxide 25.7 Anion Gap 6 BUN 38 H Creatinine 1.55 H Estimated GFR 44 L Random Glucose 90 Calcium 7.8 L - Impressions ITS Impressions Foot MRI 05/30/18 00:00 CONCLUSION: 1. There is abnormal soft tissue and fluid adjacent to the distal portion of the second metatarsal. There is abnormal bone marrow edema in the distal half to one third portion of the second metatarsal highly suspicious for osteomyelitis. 2. 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 3. Status post previous amputation of the second toe. Lisa Line Insertion 05/30/18 00:00 CONCLUSION: 1. Uncomplicated tunneled Groshong catheter placement as above. Head CT 05/31/18 13:33 CONCLUSION: 1. 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 . Foot X-Ray 06/01/18 00:00 CONCLUSION: 1. Status post resection of the right second metatarsal head. 2. 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 Chest X-Ray 06/01/18 12:32 CONCLUSION: No significant change Central Venous Line 06/05/18 00:00 CONCLUSION: 1. Uncomplicated venous catheter exchange replacing a Groshong PICC line for a dual-lumen Lisa.. Venous Doppler Study 06/07/18 00:00 CONCLUSION: 1. The study is negative for lower extremity deep venous thrombosis. Discharge Plan - Discharge Disposition Patient Disposition: Disch W/Home Health Service - Discharge Condition Condition: Good - Discharge Order Discharge Orders: Discharge Order (Routine); Ordered 06/07/18 Ordered By: Jany Hunter - Discharge Details Anticipated Discharge Date: 06/07/18 Discharge Comment: Discharge pending home health, IV abx arrangements. - Physicians Team Primary Care Provider: Odette Rodas Attending Provider: Jany Hunter Other Providers: Aracelis Knight ; Rahel Henry DPM ; Patricia Angel MD ; Leonardo Patterson MD ; Uvaldo Hayes MD ; Lambert Medina MD ; Seven Stewart, Agency
[2018-06-07 16:52] VITALS: BP 134/76; PULSE 89; RESP 20; TEMP 98; O2SAT 97
== END 2018-06-07 18:54 | disposition home health service (06) ==
LOC: NEPE 09:39 → NEDA 13:07 → HCIN 15:44
PROVIDERS: ADMIT Hospitalist; ATTEND Hospitalist
DX: K46.9 Unspecified abdominal hernia without obstruction or gangrene; N17.9 Acute kidney failure, unspecified; Z85.118 Personal history of other malignant neoplasm of bronchus and lung; L02.611 Cutaneous abscess of right foot; D70.9 Neutropenia, unspecified; R50.81 Fever presenting with conditions classified elsewhere; R79.1 Abnormal coagulation profile; I73.9 Peripheral vascular disease, unspecified; I48.2 Chronic atrial fibrillation; I12.9 Hypertensive chronic kidney disease with stage 1 through stage 4 chronic kidney disease, or unspecified chronic kidney disease; N18.3 Chronic kidney disease, stage 3 (moderate); T45.1X5A Adverse effect of antineoplastic and immunosuppressive drugs, initial encounter; Z79.01 Long term (current) use of anticoagulants; Z82.49 Family history of ischemic heart disease and other diseases of the circulatory system; I87.2 Venous insufficiency (chronic) (peripheral); G89.3 Neoplasm related pain (acute) (chronic); Z88.0 Allergy status to penicillin; Z51.5 Encounter for palliative care; M10.9 Gout, unspecified; Z82.3 Family history of stroke; E78.5 Hyperlipidemia, unspecified; Z86.79 Personal history of other diseases of the circulatory system; Z90.81 Acquired absence of spleen; K52.1 Toxic gastroenteritis and colitis; C79.51 Secondary malignant neoplasm of bone; M86.171 Other acute osteomyelitis, right ankle and foot; L84 Corns and callosities; B95.61 Methicillin susceptible Staphylococcus aureus infection as the cause of diseases classified elsewhere; Z87.891 Personal history of nicotine dependence; Z96.651 Presence of right artificial knee joint; L03.115 Cellulitis of right lower limb; Z86.73 Personal history of transient ischemic attack (TIA), and cerebral infarction without residual deficits

== ENCOUNTER 2018-06-10 18:24 | Inpatient (IN) ==
--- NOTE | 2018-06-10 19:47 | ED ---
HPI General Chief complaint: Respiratory Symptoms Stated complaint: Medical check Up Time Seen by Provider: 06/10/18 19:33 History of Present Illness HPI narrative: This is a 72-year-old male with history of lung cancer to begin chemotherapy on May 18, hypertension, hyperlipidemia, recently admitted for osteomyelitis of the right foot, currently receiving Ancef through central line at home, oral Flagyl, presents with his for evaluation of lower extremity edema. Patient was discharged on June 07. At that time began experiencing swelling in his left lower extremity. According to the the swelling is worsened since then which prompted evaluation. Reports that the right foot has been doing well but today she noticed increased erythema to the right pretibial region. He has had no fevers or chills at home. He has had intermittent dyspnea attributed to the lung cancer but denies any acute dyspnea. Denies any chest pain. No history of CHF. No history of DVT or PE in the past. No other complaints at this time. Related Data Home Medications Medication Instructions Recorded Confirmed amlodipine 10 mg PO DAILY 05/27/18 06/10/18 atorvastatin 80 mg PO DAILY 05/27/18 06/10/18 bupropion HCl 100 mg PO BID 05/27/18 06/10/18 colchicine 0.6 mg PO DAILY 05/27/18 06/10/18 digoxin 0.125 mg PO DAILY 05/27/18 06/10/18 folic acid 1 mg PO DAILY 05/27/18 06/10/18 metoprolol tartrate 1 mg/kg PO BID 05/27/18 06/10/18 ondansetron [Zofran ODT] 8 mg PO Q8HR PRN 05/27/18 06/10/18 cefazolin 2 g IV Q8H 06/10/18 06/10/18 Previous Rx's Medication Instructions Recorded apixaban [Eliquis] 5 mg PO BID #60 tab 06/07/18 hydrocodone-acetaminophen 1 tab PO Q4H PRN #30 tab 06/07/18 metronidazole [Flagyl] 500 mg PO QID 42 Days #168 tab 06/07/18 Allergies Allergy/AdvReac Type Severity Reaction Status Date / Time penicillin G Allergy Severe EDEMA Verified 05/27/18 12:05 [facility] Surgical History Surgical History Status post carotid surgery (Inactive) Atherosclerosis of bypass graft of lower extremity (Resolved) Renal artery bypass graft pseudoaneurysm (Acute) H/O pneumonectomy (Acute) H/O splenectomy (Acute) History of complete ray amputation of second toe of right foot (Acute) History of incisional hernia repair (Acute) History of total right knee replacement (Acute) S/P AAA (abdominal aortic aneurysm) repair (Acute) Social History Social History Substance History: No History of Abuse and Past History Second Hand Smoke Exposure: No Smoking Status: Former smoker Tobacco Type: Cigarettes Packs Per Day: 2 Cigarettes Per Day: 40.0 Years Smoked: 20 Pack-Years: 40.00 How Often Do You Have a Drink Containing Alcohol: Never Hx Recent Travel: No Recent Travel in [facility] within the Last 8 Weeks: No Recent Out of Country Travel within the Last 8 Weeks: No Course Initial Documented Vital Signs Temperature 98.2 F 06/10/18 18:58 Pulse Rate 88 06/10/18 18:58 Respiratory Rate 25 H 06/10/18 18:58 Blood Pressure 160/82 H 06/10/18 18:58 Pulse Oximetry 96 06/10/18 18:58 Last Documented Vital Signs Temperature 98.3 F 06/11/18 16:00 Pulse Rate 95 H 06/11/18 16:00 Respiratory Rate 20 06/11/18 16:00 Blood Pressure 141/84 H 06/11/18 16:00 Pulse Oximetry 95 06/11/18 16:54 Medical Decision Making ILYA Attestation ILYA supervised visit: Yes Attestation: I, Dr. Nguyễn, have reviewed the advance practice practitioner's documentation and am in agreement, met with the patient face to face, made the diagnosis, and the medical decision making was done by me. *My assessment and Findings: Patient is a 72-year-old male who comes in complaining of worsening swelling of his legs as well as shortness of breath. Patient was recently admitted to the hospital with osteomyelitis of his right foot. He has been on cefazolin and Flagyl since then. His is concerned because the swelling in his left leg continues to increase. Since being here, she is also noticed that his right leg is now red and warm to the touch. Ultrasound of both lower extremities shows no evidence of DVT. CT of the chest shows a pneumonia. Right leg is erythematous up almost to the knee and warm to the touch. Patient given cefepime and vancomycin. He will be admitted. [facility] Narrative Medical decision making narrative: Plan is for lab work, chest x-ray, EKG, bilateral lower extremity ultrasound. Patient's lab work and imaging studies have been reviewed. WBC count of 16.2. Hemoglobin is 9.6. BUN is 21, creatinine 1.58. Lower extremity ultrasounds are negative for DVT. CT pulmonary angiogram has been ordered. At the end of my shift patient was signed out pending imaging studies. Medical Screen Exam Complete: Yes Emergency Medical Condition: Yes Differential Diagnosis Differential Diagnosis: Dependent edema, DVT, hypoalbuminemia, renal failure, CHF Medical Records Medical records reviewed: Yes I reviewed the patient's medical records. Lab Data Lab results reviewed: Yes I reviewed the patient's lab results. Result diagrams: 06/10/18 19:40 06/10/18 19:40 Lab Results 06/10/18 06/10/18 06/10/18 Range/Units 19:40 19:40 19:40 WBC 16.2 H (4.0-11.0) th/mm3 RBC 2.92 L (4.50-5.90) mil/mm3 Hgb 9.6 L (13.0-17.0) gm/dL Hct 29.1 L (39.0-51.0) % MCV 99.8 (80.0-100.0) fL MCH 32.8 (27.0-34.0) pg MCHC 32.8 (32.0-36.0) % RDW 14.6 (11.6-17.2) % Plt Count 448 D (150-450) th/mm3 MPV 8.3 (7.0-11.0) fL Neut % (Auto) 84.5 H (16.0-70.0) % Lymph % (Auto) 5.0 L (9.0-44.0) % Ocean % (Auto) 10.1 H (0.0-8.0) % Eos % (Auto) 0.1 (0.0-4.0) % Baso % (Auto) 0.3 (0.0-2.0) % Neut # (Auto) 13.7 H (1.8-7.7) th/mm3 Lymph # (Auto) 0.8 L (1.0-4.8) th/mm3 Ocean # (Auto) 1.6 H (0.0-0.9) th/mm3 Eos # (Auto) 0.0 (0.0-0.4) th/mm3 Baso # (Auto) 0.1 (0.0-0.2) th/mm3 WBC Differential . Differential Comment Auto diff final PT 14.4 H (9.8-11.6) sec INR 1.4 Ratio APTT 34.5 H (24.3-30.1) sec Sodium 141 (136-145) meq/L Potassium 4.1 (3.5-5.1) meq/L Chloride 107 (98-107) meq/L Carbon Dioxide 26.2 (21.0-32.0) meq/L Anion Gap 8 (5-15) meq/L BUN 21 H (7-18) mg/dL Creatinine 1.58 H (0.60-1.30) mg/dL Estimated GFR 43 L (>89) mL/min Random Glucose 93 (74-106) mg/dL Calcium 8.0 L (8.5-10.1) mg/dL Magnesium 1.7 (1.5-2.5) mg/dL Total Bilirubin 0.4 (0.2-1.0) mg/dL AST 19 (15-37) U/L ALT 8 L (12-78) U/L Alkaline Phosphatase 114 (45-117) U/L Total Creatine Kinase 34 L (39-308) U/L Troponin I Less than 0.02 L (0.02-0.05) ng/mL B-Natriuretic Peptide (0-100) pg/mL Total Protein 6.4 (6.4-8.2) g/dL Albumin 1.8 L (3.4-5.0) g/dL 06/10/18 Range/Units 19:40 WBC (4.0-11.0) th/mm3 RBC (4.50-5.90) mil/mm3 Hgb (13.0-17.0) gm/dL Hct (39.0-51.0) % MCV (80.0-100.0) fL MCH (27.0-34.0) pg MCHC (32.0-36.0) % RDW (11.6-17.2) % Plt Count (150-450) th/mm3 MPV (7.0-11.0) fL Neut % (Auto) (16.0-70.0) % Lymph % (Auto) (9.0-44.0) % Ocean % (Auto) (0.0-8.0) % Eos % (Auto) (0.0-4.0) % Baso % (Auto) (0.0-2.0) % Neut # (Auto) (1.8-7.7) th/mm3 Lymph # (Auto) (1.0-4.8) th/mm3 Ocean # (Auto) (0.0-0.9) th/mm3 Eos # (Auto) (0.0-0.4) th/mm3 Baso # (Auto) (0.0-0.2) th/mm3 WBC Differential Differential Comment PT (9.8-11.6) sec INR Ratio APTT (24.3-30.1) sec Sodium (136-145) meq/L Potassium (3.5-5.1) meq/L Chloride (98-107) meq/L Carbon Dioxide (21.0-32.0) meq/L Anion Gap (5-15) meq/L BUN (7-18) mg/dL Creatinine (0.60-1.30) mg/dL Estimated GFR (>89) mL/min Random Glucose (74-106) mg/dL Calcium (8.5-10.1) mg/dL Magnesium (1.5-2.5) mg/dL Total Bilirubin (0.2-1.0) mg/dL AST (15-37) U/L ALT (12-78) U/L Alkaline Phosphatase (45-117) U/L Total Creatine Kinase (39-308) U/L Troponin I (0.02-0.05) ng/mL B-Natriuretic Peptide 672 H (0-100) pg/mL Total Protein (6.4-8.2) g/dL Albumin (3.4-5.0) g/dL Imaging Data Radiologist's impression: Chest X-Ray 06/10/18 19:44 CONCLUSION: Right IJ central venous catheter in place. No evidence of pneumothorax. Venous Doppler Study 06/10/18 19:44 CONCLUSION: No evidence of lower extremity DVT on the right or left. Chest CTA 06/11/18 00:00 CONCLUSION: 1. No CT evidence for pulmonary artery embolism as questioned. 2. Focal patchy airspace consolidation in the right lower lobe concerning for bronchopneumonia/aspiration. 3. Postsurgical features with associated right upper lobe volume loss and scarring. 4. Coronary artery calcifications. 5. Mild ascending thoracic aortic aneurysm measuring up to 4.3 cm. 6. Additional ancillary findings, as above. Discharge Plan Discharge Disposition Patient Disposition: 30 Still Patient Discharge Condition Condition: Stable Discharge Details Diagnosis: Cellulitis, Pneumonia Physicians Team ED Provider: Negin Nguyễn ED Midlevel Provider: Rashi Barragan Primary Care Provider: Odette Rodas Attending Provider: Jany Hunter Other Providers: Anabell Garcia ; [employer],Tika Status ED Status: Left Department Discharge Information Discharge Date/Time: 06/11/18 07:40
--- NOTE | 2018-06-10 20:32 | US ---
EXAM DATE: 06/10/2018 8:15 PM EDT AGE/SEX: 72 years / Male INDICATIONS: Bilateral leg swelling. CLINICAL DATA: This is the patient's initial encounter. Patient reports that signs and symptoms have been present for 1 month and indicates a pain score of 3/10. MEDICAL/SURGICAL HISTORY: Hypercholesterolemia. Hypertension. Aneurysm. Bone metastases. GOUT. Hernia. Lung cancer. Stroke. TAAA. Abdominal aortic aneurysm repair. Splenectomy. Carotid surgery. Renal artery bypass graft. Right knee replacement. Hernia repair. Amputation of second right toe. Pn eumonectomy. [place] [facility] [place]. . TECHNIQUE: Venous ultrasound of both lower extremities was performed from the inguinal ligament to t he proximal calf. Real-time, color Doppler and spectral tracing, compression and augmentation techni ques were used. FINDINGS: Right Leg: Normal compression of the deep venous system from the inguinal region to the proximal monet f. No echogenic clot is seen. Normal response of the venous system to augmentation and respiration. Left Leg: Normal compression of the deep venous system from the inguinal region to the proximal calf . No echogenic clot is seen. Normal response of the venous system to augmentation and respiration. Other: Elongated 5 x 1 x 2 cm fluid collection in the left popliteal fossa suggesting a Monterroso cyst. CONCLUSION: No evidence of lower extremity DVT on the right or left. Electronically signed by: Dangelo Shukla MD 06/10/2018 8:31 PM EDT
[2018-06-10 20:47] LABS: Baso # (Auto) 0.1 th/mm3 (0.0-0.2); Baso % (Auto) 0.3 % (0.0-2.0); Eos % (Auto) 0.1 % (0.0-4.0); Hematocrit 29.1 % (39.0-51.0); Hemoglobin 9.6 gm/dL (13.0-17.0); Lymph # (Auto) 0.8 th/mm3 (1.0-4.8); Mean Corpuscular HGB Conc 32.8 % (32.0-36.0); Mean Corpuscular Hemoglobin 32.8 pg (27.0-34.0); Mean Corpuscular Volume 99.8 fL (80.0-100.0); Mean Platelet Volume 8.3 fL (7.0-11.0); Mono # (Auto) 1.6 th/mm3 (0.0-0.9); Mono % (Auto) 10.1 % (0.0-8.0); Neut # (Auto) 13.7 th/mm3 (1.8-7.7); Neut % (Auto) 84.5 % (16.0-70.0); Platelet Count 448 th/mm3 (150-450); Red Blood Count 2.92 mil/mm3 (4.50-5.90); Red Cell Distribution Width 14.6 % (11.6-17.2); White Blood Count 16.2 th/mm3 (4.0-11.0)
--- NOTE | 2018-06-10 21:00 | XR ---
EXAM DATE: 06/10/2018 8:49 PM EDT AGE/SEX: 72 years / Male INDICATIONS: Shortness of breath. CLINICAL DATA: This is the patient's initial encounter. Patient reports that signs and symptoms have been present for 1 day and indicates a pain score of 0/10. MEDICAL/SURGICAL HISTORY: . Hypercholesterolemia. Hypertension. Metastatic lung cancer. Aneurys m. Stroke. Hernia. Gout. . Splenectomy. Abdominal aortic aneurysm repair. Arterial bypass graft, Bi lateral legs. Carotid surgery. Right total knee replacement. Renal artery bypass graft. Hernia repair . Amputation, second toe on right foot. Pneumonectomy. COMPARISON: [facility] [place] 1V SINGLE AP, 06/01/2018. . FINDINGS: 2 AP views of the chest. Right IJ central venous catheter in place with the tip at the cavoatrial giovani ction. No evidence of pneumothorax. Mild elevation of the left hemidiaphragm again seen. Mild right l dutch base atelectasis. CONCLUSION: Right IJ central venous catheter in place. No evidence of pneumothorax. Electronically signed by: Dangelo Shukla MD 06/10/2018 8:59 PM EDT
[2018-06-10 21:03] LABS: Activated Partial Thrombo Time 34.5 sec (24.3-30.1); INR 1.4 Ratio; Prothrombin Time 14.4 sec (9.8-11.6)
[2018-06-10 21:27] LABS: Alanine Aminotransferase 8 U/L (12-78); Albumin 1.8 g/dL (3.4-5.0); Alkaline Phosphatase 114 U/L (45-117); Anion Gap 8 meq/L (5-15); Aspartate Aminotransferase 19 U/L (15-37); Blood Urea Nitrogen 21 mg/dL (7-18); Carbon Dioxide 26.2 meq/L (21.0-32.0); Chloride 107 meq/L (98-107); Glomerular Filtration Rate 43 mL/min (>89); Glucose,Random 93 mg/dL (74-106); Magnesium 1.7 mg/dL (1.5-2.5); Potassium 4.1 meq/L (3.5-5.1); Sodium 141 meq/L (136-145); Total Protein 6.4 g/dL (6.4-8.2)
[2018-06-10 21:40] LABS: Creatine Kinase 34 U/L (39-308)
[2018-06-10] MEDS ORDERED: metroNIDAZOLE 500 MG Tablet PO ONE (22:51)
[2018-06-10] MEDS ORDERED: ceFAZolin 2 GM Premix Inj 2 GM/50 ML PIGGYBACK IV.SIG ONE (22:51)
--- NOTE | 2018-06-11 00:41 | CT ---
EXAM DATE: 06/11/2018 12:30 AM EDT AGE/SEX: 72 years / Male INDICATIONS: Short of breath for one week left leg swelling CLINICAL DATA: This is the patient's initial encounter. Patient reports that signs and symptoms have been present for 1 day and indicates a pain score of 3/10. MEDICAL/SURGICAL HISTORY: Carcinoma, lung. Hypertension. Cerebrovascular disease. left cavernous carotid aneurysm hernia bone mets Pneumonectomy. Splenectomy. Abdominal aortic aneurysm repair. incisional hernia repair RADIATION DOSE: 10.52 CTDI (mGy) [place]PAR[place]: [facility] [place]10/2018. . TECHNIQUE: Volumetric scanning was performed using a multi-row detector CT scanner during bolus infu ronnie of 50 ml Visipaque 320 (iodixanol) nonionic water-soluble contrast as a single exam dose. The d mable was post processed with a variety of visualization algorithms including full volume maximum inten sity projection and sliding thin slab reformation. Using automated exposure control and adjustment o f the mA and/or kV according to patient size, radiation dose was kept as low as reasonably achievable to obtain optimal diagnostic quality images. DICOM format image data is available electronically fo r review and comparison. FINDINGS: Pulmonary Arteries: No filling defects are seen in the pulmonary arteries through the segmental vess els. The main pulmonary artery is normal in diameter. Lung: Focal patchy airspace consolidation in the right lower lobe. Postsurgical features of partial right upper lobectomy with associated volume loss. Parenchymal scarring in the lung bases bilaterally and right apex. Pleura: Small right and trace left pleural effusions. Mediastinum: Coronary artery calcifications. Heart is otherwise unremarkable without significant per icardial effusion. Mild right hilar prominence with postsurgical features. Fusiform aneurysm of the a scending thoracic aorta which measures up to 4.3 cm. Aortic arch is ectatic measuring up to 3.5 cm. D escending thoracic aorta is normal in caliber. Osseous Structures: No abnormal focal lytic or blastic bony lesions. Other: Visualized portions of the upper abdomen demonstrate postsurgical features of splenectomy wit h small splenules. There is likely a hemorrhagic cyst in the superior pole of the left kidney. Xiomara oshea imaged cyst in the medial superior pole the left kidney. CONCLUSION: 1. No CT evidence for pulmonary artery embolism as questioned. 2. Focal patchy airspace consolidation in the right lower lobe concerning for bronchopneumonia/aspir ation. 3. Postsurgical features with associated right upper lobe volume loss and scarring. 4. Coronary artery calcifications. 5. Mild ascending thoracic aortic aneurysm measuring up to 4.3 cm. 6. Additional ancillary findings, as above. Electronically signed by: Luis Thomson MD 06/11/2018 12:40 AM EDT
[2018-06-11] MEDS ORDERED: Vancomycin Inj 1 GM/200 ML PIGGYBACK IV.SIG ONE (01:03)
[2018-06-11] MEDS ORDERED: Acetaminophen 325 MG Tablet PO PRN (01:40)
[2018-06-11] MEDS ORDERED: Bisacodyl 10 MG Supp RECTAL PRN (01:40)
[2018-06-11] MEDS: Sod Chloride 0.9% Inj 1,000 ML IV.CONT SCH ×2 (02:30→14:43)
[2018-06-11] MEDS ORDERED: Vancomycin Consult Pharmacy OTHER PRN (02:33)
[2018-06-11] MEDS ORDERED: SODIUM CHLOR 0.9% IV.SIG ONE (03:00)
[2018-06-11] MEDS ORDERED: Vancomycin Inj 2,000 MG in Sodium Chlor 0.9% Inj 500 ML IV.SIG ONE (03:00)
[2018-06-11] MEDS ORDERED: VANCOMYCIN IV.SIG ONE (03:00)
--- NOTE | 2018-06-11 03:23 | P.HPIM ---
History of Present Illness Primary Care Physician: Odette Rodas History of Present Illness: This is a 72-year-old male with a PMH of Metastatic Lung CA s/p Pneumectomy, HTN , AAA Repair, CAD and RLE Cellulitis/Osteo who presented to the ER w/ complaints of left lower extremity swelling starting earlier today. Pt follows w/ Dr. Knight, had first round of Chemo 05/18/18, followed by nausea, vomiting and diarrhea, recent admit on 05/27/18 for Neutropenic Fever and RLE Cellulitis/ Abscess/Osteo, s/p I&D and Bone Biopsy by Dr. Gorman 06/01/18, Lisa Cath placement 06/05/18, Cultures +S aureus and mixed guilherme, s/p eval by ID, d/c'd on Ancef 1gm IV q8h and Flagyl 500mg PO qid. at bedside states she has been administering antibiotics as prescribed and doing dressing changes. Notes foot "looks good", however while in ER, notes RLE w/ increasing erythema and edema. No reported fever/chills. Pt notes intermittent SOB, uses O2 at home as needed. On arrival, BP 160/82, HR 88, O2 sat 96% on RA, Afebrile. WBC 16.2. INR 1.4. Creatinine 1.58, BNP 672. Troponin negative. CXR w/ right IJ, no pneumo. Bilateral Doppler negative for DVT. CTA Chest negative for PE, focal airspace consolidation right lower lobe. - Diagnosis (1) Cellulitis (2) Lower extremity edema (3) PNA (pneumonia) (4) Lung cancer Inpatient Certification: I certify that the inpatient services were ordered in accordance with Medicare regulations governing the order. This includes certification that hospital inpatient services are reasonable and necessary and in the case of services not specified as inpatient-only under 42 CFR 419.22(n), that they are appropriately provided as inpatient services in accordance to with the 2-midnight benchmark under 43 CFR 412.3(e) Estimated Total Length of Stay (Days): 2 Plans for Post Hospital Care: Not yet determined Review of Systems PAST FAMILY HISTORY: Reviewed. No h/o DM or CAD All other systems reviewed negative except as stated in HPI [facility] - History History Provided By: Family Member - Medical History Medical History: Medical History (Last Reviewed 06/01/18 @ 07:50 by Ralph Barragan, PT) Aneurysm Bone metastases Gout Hernia High cholesterol Hypertension Left cavernous carotid aneurysm Lung cancer Stroke Thoracoabdominal aortic aneurysm (TAAA) - Surgical History Surgical History: Surgical History (Last Updated 05/31/18 @ 15:38 by Fina Smallwood) Status post carotid surgery (Inactive) Atherosclerosis of bypass graft of lower extremity (Resolved) Renal artery bypass graft pseudoaneurysm (Acute) H/O pneumonectomy H/O splenectomy History of complete ray amputation of second toe of right foot History of incisional hernia repair History of total right knee replacement S/P AAA (abdominal aortic aneurysm) repair - Family History Family History: Family History (Last Reviewed 05/30/18 @ 18:41 by Patricia Angel MD) Sister Aneurysm Father Heart attack Stroke - Tobacco History Second Hand Smoke Exposure: No Smoking Status: Never smoker Packs Per Day: 2 Years Smoked: 20 - Alcohol History How Often Do You Have a Drink Containing Alcohol: Never - Substance Use History Substance History: No History of Abuse - Travel History History of Recent Travel: No Recent Travel in the [place] Within the Last 8 Weeks: No Recent Travel Out of the Country Within the Last 8 Weeks: No - Immunization History Tetanus Immunization: >5 Years Hx Influenza Vaccine This Season: No Medications and Allergies Active Medications: Active Medications Acetaminophen (Tylenol) 650 mg PO Q4H PRN PRN Reason: Temp > 100.4 Al Hydroxide/Mg Hydroxide (Milk Of Thai Simeon) 30 ml PO Q12H PRN PRN Reason: Mild Constipation Albuterol (Duoneb Neb (Prn)) 1 ampul NEB Q4HR NEB PRN PRN Reason: SOB/WHEEZING Bisacodyl (Dulcolax Supp) 10 mg RECTAL DAILY PRN PRN Reason: SEVERE CONSITIPATION Heparin Sodium (Porcine) (Heparin Inj) 5,000 units SQ Q12H MAUDE Cefazolin Sodium 1,000 mg/ (Sodium Chloride) 100 mls @ 200 mls/hr IV.SIG Q8H MAUDE Sodium Chloride (Ns Inj) 1,000 mls @ 100 mls/hr IV.CONT .Q10H MAUDE Last Admin: 06/11/18 02:30 Dose: 100 mls/hr Vancomycin HCl 2,000 mg/ (Sodium Chloride) 540 mls @ 270 mls/hr IV.SIG ONCE ONE Stop: 06/11/18 04:59 Lactulose (Lactulose Liq) 30 ml PO DAILY PRN PRN Reason: SEVERE CONSITIPATION Metronidazole (Flagyl) 500 mg PO QID MAUDE Ondansetron HCl (Zofran Inj) 4 mg IV.PUSH Q6H PRN PRN Reason: NAUSEA OR VOMITING Pharmacy Profile Note (Vancomycin Consult Pharmacy) 1 each OTHER UNSCH PRN PRN Reason: Pharmacy to dose Senna/Docusate Sodium (Salma-Colace) 1 tab PO BID MAUDE Sennosides (Senokot) 17.2 mg PO Q12H PRN PRN Reason: Moderate Constipation Allergies Allergy/AdvReac Type Severity Reaction Status Date / Time penicillin G Allergy Severe EDEMA Verified 05/27/18 12:05 Home Medications Medication Instructions Recorded Confirmed Type amlodipine 10 mg PO DAILY 05/27/18 06/10/18 History atorvastatin 80 mg PO DAILY 05/27/18 06/10/18 History bupropion HCl 100 mg PO BID 05/27/18 06/10/18 History colchicine 0.6 mg PO DAILY 05/27/18 06/10/18 History digoxin 0.125 mg PO DAILY 05/27/18 06/10/18 History folic acid 1 mg PO DAILY 05/27/18 06/10/18 History metoprolol tartrate 1 mg/kg PO BID 05/27/18 06/10/18 History ondansetron [Zofran ODT] 8 mg PO Q8HR PRN 05/27/18 06/10/18 History cefazolin 2 g IV Q8H 06/10/18 06/10/18 History Exam Vital signs: Vital Signs 06/10/18 18:58 06/10/18 19:53 06/10/18 23:12 Temperature 98.2 F Pulse Rate 88 88 Respiratory Rate 25 H 18 Blood Pressure 160/82 H 166/85 H Pulse Oximetry 96 95 97 Intake & Output 06/10/18 06/10/18 06/11/18 06:59 18:59 06:59 Weight 95.254 kg Narrative: PE: GENERAL: Pleasant elderly white male in no acute distress, dyspnea w/ speech. at bedside SKIN: Focused skin assessment warm and dry. HEENT: PERRLA, EOMI. No scleral icterus or conjunctival pallor. No lid lag or facial droop. CARDIOVASCULAR: Regular rate and rhythm. No obvious murmurs to auscultation. No chest tenderness to palpation. RESPIRATORY: No obvious rhonchi. Occasional wheezing. Clear to auscultation. Breath sounds equal bilaterally. GASTROINTESTINAL: Abdomen soft, non-tender, nondistended. BS normal. MUSCULOSKELETAL: Extremities without clubbing, cyanosis. No obvious deformities. Bilateral LE edema 2+, RLE w/ erythema, bandage in place. NEUROLOGICAL: Awake, alert and oriented x4. No focal neurologic deficits. Moving both upper and lower extremities spontaneously. PSYCHIATRIC: Appropriate mood and affect. Insight and judgment normal. Results - Labs CBC & Chem 7: 06/10/18 19:40 06/10/18 19:40 Labs: Short CBC 06/10/18 Range/Units 19:40 WBC 16.2 H (4.0-11.0) th/mm3 Hgb 9.6 L (13.0-17.0) gm/dL Hct 29.1 L (39.0-51.0) % Plt Count 448 D (150-450) th/mm3 BMP 06/10/18 19:40 Sodium 141 Potassium 4.1 Chloride 107 Carbon Dioxide 26.2 BUN 21 H Creatinine 1.58 H Calcium 8.0 L Cardiac Enzymes 06/10/18 Range/Units 19:40 Total Creatine Kinase 34 L (39-308) U/L Troponin I Less than 0.02 L (0.02-0.05) ng/mL Liver Function 06/10/18 Range/Units 19:40 Total Bilirubin 0.4 (0.2-1.0) mg/dL AST 19 (15-37) U/L ALT 8 L (12-78) U/L Alkaline Phosphatase 114 (45-117) U/L Albumin 1.8 L (3.4-5.0) g/dL - Imaging Impressions Chest X-Ray 06/10/18 19:44 CONCLUSION: Right IJ central venous catheter in place. No evidence of pneumothorax. Venous Doppler Study 06/10/18 19:44 CONCLUSION: No evidence of lower extremity DVT on the right or left. Chest CTA 06/11/18 00:00 CONCLUSION: 1. No CT evidence for pulmonary artery embolism as questioned. 2. Focal patchy airspace consolidation in the right lower lobe concerning for bronchopneumonia/aspiration. 3. Postsurgical features with associated right upper lobe volume loss and scarring. 4. Coronary artery calcifications. 5. Mild ascending thoracic aortic aneurysm measuring up to 4.3 cm. 6. Additional ancillary findings, as above. Caprini VTE Risk Assessment Caprini VTE Risk Assessment: No/Low Risk (score <= 1) Caprini Risk Assessment Model: Point Value = 1 Point Value = 2 Point Value = 3 Point Value = 5 Age 41-60 Minor surgery BMI > 25 kg/m2 Swollen legs Varicose veins or History of unexplained or recurrent spontaneous Oral contraceptives or hormone replacement Sepsis (< 1 month) Serious lung disease, including pneumonia (< 1 month) Abnormal pulmonary function Acute myocardial infarction Congestive heart failure (< 1 month) History of inflammatory bowel disease Medical patient at bed rest Age 61-74 Arthroscopic surgery Major open surgery (> 45 min) Laparoscopic surgery (> 45 min) Malignancy Confined to bed (> 72 hours) Immobilizing plaster cast Central venous access Age >= 75 History of VTE Family history of VTE Factor V Leiden Prothrombin [id number] Lupus anticoagulant Anticardiolipin antibodies Elevated serum homocysteine Heparin-induced thrombocytopenia Other congenital or acquired thrombophilia Stroke (< 1 month) Elective arthroplasty Hip, pelvis, or leg fracture Acute spinal cord injury (< 1 month) Prophylaxis Regimen: Total Risk Factor Score Risk Level Prophylaxis Regimen 0-1 Low Early ambulation 2 Moderate Order ONE of the following: *Sequential Compression Device (SCD) *Heparin 5000 units SQ BID 3-4 Higher Order ONE of the following medications: *Heparin 5000 units SQ TID *Enoxaparin/Lovenox 40 mg SQ daily (WT < 150 kg, CrCl > 30 mL/min) *Enoxaparin/Lovenox 30 mg SQ daily (WT < 150 kg, CrCl > 10-29 mL/min) *Enoxaparin/Lovenox 30 mg SQ BID (WT < 150 kg, CrCl > 30 mL/min) AND/OR *Sequential Compression Device (SCD) 5 or more Highest Order ONE of the following medications: *Heparin 5000 units SQ TID (Preferred with Epidurals) *Enoxaparin/Lovenox 40 mg SQ daily (WT < 150 kg, CrCl > 30 mL/min) *Enoxaparin/Lovenox 30 mg SQ daily (WT < 150 kg, CrCl > 10-29 mL/min) *Enoxaparin/Lovenox 30 mg SQ BID (WT < 150 kg, CrCl > 30 mL/min) AND *Sequential Compression Device (SCD) Assessment and Plan - Assessment (1) Cellulitis Code(s): L03.90 - Cellulitis, unspecified Status: Acute (2) Lower extremity edema Code(s): R60.0 - Localized edema Status: Acute (3) PNA (pneumonia) Code(s): J18.9 - Pneumonia, unspecified organism Status: Acute (4) Lung cancer Code(s): C34.90 - Malignant neoplasm of unspecified part of unspecified bronchus or lung Status: Acute - Plan A/P: 1. RLE Cellulitis: Recent admit 05/27-06/07/18 w/ RLE Cellulitis/Abscess/Osteo, s /p I&D and Bone Biopsy by Dr. Gorman 06/01/18, Cultures +S aureus/mixed guilherme, s /p eval by ID on Ancef 1gm IV q8 and Flagyl 500mg PO qid until 07/18/18, giving antibiotics as prescribed, now w/ worsening RLE erythema/edema. Doppler negative for DVT. Resume home antibiotics, Consult ID for further eval. 2. Lower Extremity Edema: Bilateral, left worse than right, +weeping, BNP 672 , CXR w/ no pleural effusions, Check Echo to eval for cardiomyopathy, Lasix 20mg IV bid, monitor I/O. 3. PNA: CTA Chest negative for PE, +RLL pneumonia, will continue w/ broad spectrum antibiotics, DuoNeb prn. 4. Lung CA: Metastatic, follows w/ Dr. Knight, first round of chemo 05/18/18 , subsequent admit for neutropenic fever, now w/ Right foot infection, chemo on hold for now 5. DVT Prophylaxis: Heparin sq 6. Social work for d/c planning as needed 7. Case discussed w/ ER physician at length, labs/records/imaging reviewed by me. (1) Cellulitis Qualifiers: Site of cellulitis: extremity Site of cellulitis of extremity: lower extremity Laterality: right Qualified Code(s): L03.115 - Cellulitis of right lower limb
[2018-06-11] MEDS ORDERED: metroNIDAZOLE 500 MG Tablet PO SCH (06:00)
[2018-06-11] MEDS: metroNIDAZOLE 500 MG Tablet PO SCH ×4 (10:05→20:35)
[2018-06-11] MEDS: Heparin - SQ 10,000 UNITS/ML Vial SQ SCH (10:06)
[2018-06-11] MEDS: Senna/Docusate Sodium 8.6/50 MG Tablet PO SCH ×2 (10:06→20:35)
[2018-06-11] MEDS: amLODIPine 10 MG Tablet PO SCH (11:47)
[2018-06-11] MEDS: Digoxin 125 MCG Tablet PO SCH (11:47)
--- NOTE | 2018-06-11 12:40 | P.CONID ---
History of Present Illness Service: Infectious Disease Consult date: 06/11/18 Requesting Physician: Kyleigh Garcia Reason for Consult: Evaluation and Mment of cellulitis in an Immunecompromised Primary Care Provider: Odette Rodas History of Present Illness: is a 72 y/o CM with PMHx of Metastatic lung cancer s/p Pneumectomy , HTN, AAA Repair, CAD and RLE Cellulitis/Osteo who presented to the ER w/ complaints of left lower extremity swelling starting earlier today. Pt follows w/ Dr. Knight, had first round of Chemo 05/18/18, followed by nausea, vomiting and diarrhea. Patient was recently admit on 05/27/18 for Neutropenic Fever and RLE Cellulitis/ Abscess/Osteo, s/p I&D and Bone Biopsy by Dr. Gorman 06/01/18, Lisa Cath placement 06/05/18, Cultures +S aureus and mixed guilherme. Patient was evaluated by ID , discharged home on Ancef 1gm IV q8h and Flagyl 500mg PO qid. Patients at bedside states she has been administering antibiotics as prescribed and doing dressing changes. She reports the Right LE started developing increased redness and edema while in ER. Pertinent positives and negatives: No fevers or chills. Pt notes intermittent SOB, uses O2 at home as needed. On arrival, BP 160/82, HR 88, O2 sat 96% on RA, Afebrile. WBC 16.2. INR 1.4. Creatinine 1.58, BNP 672. Troponin negative. CXR w/ right IJ, no pneumo. Bilateral Doppler negative for DVT. CTA Chest negative for PE, focal airspace consolidation right lower lobe. Infectious Disease consulted for evaluation and Mment of Right LE cellulitis and possible surgical site secondary infection. [facility] - History History Provided By: Patient, Family Member - Medical History Medical History: Medical History (Last Reviewed 06/01/18 @ 07:50 by Ralph Barragan, PT) Aneurysm Bone metastases Gout Hernia High cholesterol Hypertension Left cavernous carotid aneurysm Lung cancer Stroke Thoracoabdominal aortic aneurysm (TAAA) - Surgical History Surgical History: Surgical History (Last Updated 05/31/18 @ 15:38 by Fina Smallwood) Status post carotid surgery (Inactive) Atherosclerosis of bypass graft of lower extremity (Resolved) Renal artery bypass graft pseudoaneurysm (Acute) H/O pneumonectomy H/O splenectomy History of complete ray amputation of second toe of right foot History of incisional hernia repair History of total right knee replacement S/P AAA (abdominal aortic aneurysm) repair - Family History Family History: Family History (Last Reviewed 05/30/18 @ 18:41 by Patricia Angel MD) Sister Aneurysm Father Heart attack Stroke - Tobacco History Second Hand Smoke Exposure: No Tobacco Use In Past 30 Days: No Smoking Status: Former smoker Tobacco Type: Cigarettes Packs Per Day: 2 Years Smoked: 20 - Alcohol History How Often Do You Have a Drink Containing Alcohol: Never - Substance Use History Substance History: No History of Abuse, Past History - Travel History History of Recent Travel: No Recent Travel in the [place] Within the Last 8 Weeks: No Recent Travel Out of the Country Within the Last 8 Weeks: No - Immunization History Tetanus Immunization: >5 Years Hx Influenza Vaccine This Season: No Medications and Allergies Active Medications: Active Medications Acetaminophen (Tylenol) 650 mg PO Q4H PRN PRN Reason: Fever, headache, pain 1-4 Hydrocodone Bitart/Acetaminophen ([place] 5/325) 1 tab PO Q6H PRN PRN Reason: Pain 5-10 Last Admin: 06/11/18 12:34 Dose: 1 tab Al Hydroxide/Mg Hydroxide (Milk Of Thai Simeon) 30 ml PO Q12H PRN PRN Reason: Mild Constipation Albuterol (Duoneb Neb (Prn)) 1 ampul NEB Q4HR NEB PRN PRN Reason: SOB/WHEEZING Amlodipine Besylate (Norvasc) 10 mg PO DAILY [facility] Last Admin: 06/11/18 11:47 Dose: 10 mg Apixaban (Eliquis) 5 mg PO BID [facility] Atorvastatin Calcium (Lipitor) 80 mg PO DAILY MAUDE Bisacodyl (Dulcolax Supp) 10 mg RECTAL DAILY PRN PRN Reason: SEVERE CONSITIPATION Bupropion HCl (Wellbutrin Sr) 100 mg PO BID [facility] Colchicine (Colcrys) 0.6 mg PO DAILY [facility] Digoxin (Lanoxin) 125 mcg PO DAILY [facility] Last Admin: 06/11/18 11:47 Dose: 125 mcg Folic Acid (Folic Acid) 1 mg PO DAILY [facility] Furosemide (Lasix Inj) 20 mg IV.PUSH BID@0900,1800 [facility] Last Admin: 06/11/18 10:05 Dose: 20 mg Heparin Sodium (Porcine) (Heparin Inj) 5,000 units SQ Q12H [facility] Last Admin: 06/11/18 10:06 Dose: 5,000 units Cefazolin Sodium 1,000 mg/ (Sodium Chloride) 100 mls @ 200 mls/hr IV.SIG Q8H [facility] Last Infusion: 06/11/18 10:03 Dose: Infused Sodium Chloride (Ns Inj) 1,000 mls @ 100 mls/hr IV.CONT .Q10H [facility] Last Infusion: 06/11/18 12:37 Dose: 100 mls/hr Vancomycin HCl 1,750 mg/ (Sodium Chloride) 517.5 mls @ 258.75 mls/hr IV.SIG Q24H [facility] Lactulose (Lactulose Liq) 30 ml PO DAILY PRN PRN Reason: SEVERE CONSITIPATION Metoprolol Tartrate (Lopressor) 100 mg PO BID [facility] Metronidazole (Flagyl) 500 mg PO QID [facility] Last Admin: 06/11/18 12:34 Dose: 500 mg Miscellaneous Information ([facility] Ordered Lab Info) 0 each OTHER ONCE ONE Stop: 06/14/18 03:46 Non-Formulary Medication (Ondansetron [Zofran Odt]) 8 mg PO Q8HR PRN PRN Reason: Nausea Ondansetron HCl (Zofran Inj) 4 mg IV.PUSH Q6H PRN PRN Reason: NAUSEA OR VOMITING Pharmacy Profile Note (Vancomycin Consult Pharmacy) 1 each OTHER UNSCH PRN PRN Reason: Pharmacy to dose Senna/Docusate Sodium (Salma-Colace) 1 tab PO BID [facility] Last Admin: 06/11/18 10:06 Dose: Not Given Sennosides (Senokot) 17.2 mg PO Q12H PRN PRN Reason: Moderate Constipation Allergies Allergy/AdvReac Type Severity Reaction Status Date / Time penicillin G Allergy Severe EDEMA Verified 05/27/18 12:05 Home Medications Medication Instructions Recorded Confirmed Type amlodipine 10 mg PO DAILY 05/27/18 06/10/18 History atorvastatin 80 mg PO DAILY 05/27/18 06/10/18 History bupropion HCl 100 mg PO BID 05/27/18 06/10/18 History colchicine 0.6 mg PO DAILY 05/27/18 06/10/18 History digoxin 0.125 mg PO DAILY 05/27/18 06/10/18 History folic acid 1 mg PO DAILY 05/27/18 06/10/18 History metoprolol tartrate 1 mg/kg PO BID 05/27/18 06/10/18 History ondansetron [Zofran ODT] 8 mg PO Q8HR PRN 05/27/18 06/10/18 History cefazolin 2 g IV Q8H 06/10/18 06/10/18 History Exam Vital signs: Vital Signs 06/10/18 18:58 06/10/18 19:53 06/10/18 23:12 Temperature 98.2 F Pulse Rate 88 88 Respiratory Rate 25 H 18 Blood Pressure 160/82 H 166/85 H Pulse Oximetry 96 95 97 06/11/18 04:00 06/11/18 08:00 06/11/18 10:18 Temperature 98.4 F Pulse Rate 97 H 96 H Respiratory Rate 18 20 Blood Pressure 160/92 H 146/82 H Pulse Oximetry 99 97 06/11/18 12:29 Temperature 98.4 F Pulse Rate 98 H Respiratory Rate 22 Blood Pressure 147/90 H Pulse Oximetry 97 Intake & Output 06/10/18 06/11/18 06/11/18 18:59 06:59 18:59 Intake Total 690 / 690 100 / 100 Balance 690 / 690 100 / 100 Weight 95.254 kg Intake: IV 690 / 690 100 / 100 Maxipime Inj 2,000 MG In NS Inj 100 / 100 100 ML @ 200 mls/hr IV.SIG ONCE ONE Rx#:[id number] Vancomycin Inj 2,000 MG In NS 540 / 540 Inj 500 ML @ 270 mls/hr IV.SIG ONCE ONE Rx#:[id number] Ancef Inj 1,000 MG In NS Inj 100 / 100 100 ML @ 200 mls/hr IV.SIG Q8H [facility] Rx#:[id number] Narrative: GENERAL: Well-nourished well-developed, not in acute distress SKIN: Cool and dry, no generalized rash HEAD: Atraumatic. Normocephalic. No temporal or scalp tenderness. EYES: Pupils equal round and reactive. Scleral icterus. No injection or drainage. No petechia ENT: Nothing abnormal detected NECK: Trachea midline. Supple, nontender, no meningeal signs. CARDIOVASCULAR: HS audible. RESPIRATORY: Clear to auscultation bilaterally. GASTROINTESTINAL: Abdomen soft nontender. MUSCULOSKELETAL: Bilateral UE swelling with pitting edema. Bilateral LE swelling and pitting edema. RLE with erythema and at the site of prior surgery there appears to be wound dehiscence. NEUROLOGICAL: Alert oriented 3. Nonfocal. Psych cooperative IV line sites ok. Results - Labs CBC & Chem 7: 06/10/18 19:40 06/10/18 19:40 Labs: Laboratory Results - last 24 hr 06/10/18 06/10/18 06/10/18 19:40 19:40 19:40 WBC 16.2 H RBC 2.92 L Hgb 9.6 L Hct 29.1 L MCV 99.8 MCH 32.8 MCHC 32.8 RDW 14.6 Plt Count 448 D MPV 8.3 Neut % (Auto) 84.5 H Lymph % (Auto) 5.0 L [place] % (Auto) 10.1 H Eos % (Auto) 0.1 Baso % (Auto) 0.3 Neut # (Auto) 13.7 H Lymph # (Auto) 0.8 L [place] # (Auto) 1.6 H Eos # (Auto) 0.0 Baso # (Auto) 0.1 WBC Differential . Differential Comment Auto diff final PT 14.4 H INR 1.4 APTT 34.5 H Sodium 141 Potassium 4.1 Chloride 107 Carbon Dioxide 26.2 Anion Gap 8 BUN 21 H Creatinine 1.58 H Estimated GFR 43 L Random Glucose 93 Calcium 8.0 L Magnesium 1.7 Total Bilirubin 0.4 AST 19 ALT 8 L Alkaline Phosphatase 114 Total Creatine Kinase 34 L Troponin I Less than 0.02 L B-Natriuretic Peptide Total Protein 6.4 Albumin 1.8 L 06/10/18 19:40 WBC RBC Hgb Hct MCV MCH MCHC RDW Plt Count MPV Neut % (Auto) Lymph % (Auto) [place] % (Auto) Eos % (Auto) Baso % (Auto) Neut # (Auto) Lymph # (Auto) [place] # (Auto) Eos # (Auto) Baso # (Auto) WBC Differential Differential Comment PT INR APTT Sodium Potassium Chloride Carbon Dioxide Anion Gap BUN Creatinine Estimated GFR Random Glucose Calcium Magnesium Total Bilirubin AST ALT Alkaline Phosphatase Total Creatine Kinase Troponin I B-Natriuretic Peptide 672 H Total Protein Albumin - Imaging Impressions Chest X-Ray 06/10/18 19:44 CONCLUSION: Right IJ central venous catheter in place. No evidence of pneumothorax. Venous Doppler Study 06/10/18 19:44 CONCLUSION: No evidence of lower extremity DVT on the right or left. Chest CTA 06/11/18 00:00 CONCLUSION: 1. No CT evidence for pulmonary artery embolism as questioned. 2. Focal patchy airspace consolidation in the right lower lobe concerning for bronchopneumonia/aspiration. 3. Postsurgical features with associated right upper lobe volume loss and scarring. 4. Coronary artery calcifications. 5. Mild ascending thoracic aortic aneurysm measuring up to 4.3 cm. 6. Additional ancillary findings, as above. Assessment and Plan - Plan RLE Cellulitis/Abscess/Osteo, s/p I&D and Bone Biopsy by Dr. Gorman 06/01/18, MSSA and Anaerobes intraop cultures 06/01/2018 Lisa Cath placement 06/05/18 for IV antibiotics as outpatient. Metastatic lung cancer s/p Pneumectomy s/p Chemotherapy Immune compromised. Recs: Continue Ancef IV Continue Flagyl oral Consult podiatry VENUS wrap to LLE and bilateral UE after ruling out DVTs. RLE dressing per podiatry. Gentle diuresis per primary Follow ECHO Follow cultures Follow clinical course. to resume care in am as patient known to her.
--- NOTE | 2018-06-11 14:03 | ECG ---
Date Performed: 06/10/2018 Time Performed: 22:34:18 PTAGE: 72 years EKG: ATRIAL FIBRILLATION NONSPECIFIC T-WAVE ABNORMALITY ABNORMAL RHYTHM ECG PREVIOUS TRACING : 05/30/2018 18.42 DOCTOR: Lawrence Vallecillo Interpretating Date/Time 06/11/2018 14:01:03
[2018-06-11] MEDS: Metoprolol Tartrate 100 MG Tablet PO SCH (20:35)
[2018-06-11] MEDS: buPROPion 100 MG ER 12 HR Tablet PO SCH (20:35)
[2018-06-12] MEDS: Heparin - SQ 10,000 UNITS/ML Vial SQ SCH (00:40)
[2018-06-12] MEDS: Sod Chloride 0.9% Inj 1,000 ML IV.CONT SCH (00:40)
[2018-06-12] MEDS: Vancomycin Inj 1,750 MG in Sodium Chlor 0.9% Inj 500 ML IV.SIG SCH (04:28)
[2018-06-12 05:17] LABS: Baso # (Auto) 0.1 th/mm3 (0.0-0.2); Baso % (Auto) 0.5 % (0.0-2.0); Eos % (Auto) 0.1 % (0.0-4.0); Hemoglobin 9.5 gm/dL (13.0-17.0); Lymph # (Auto) 0.9 th/mm3 (1.0-4.8); Lymph % (Auto) 6.9 % (9.0-44.0); Mean Corpuscular HGB Conc 32.6 % (32.0-36.0); Mean Corpuscular Hemoglobin 32.2 pg (27.0-34.0); Mean Corpuscular Volume 98.6 fL (80.0-100.0); Mono # (Auto) 1.4 th/mm3 (0.0-0.9); Mono % (Auto) 10.4 % (0.0-8.0); Neut # (Auto) 11.3 th/mm3 (1.8-7.7); Neut % (Auto) 82.1 % (16.0-70.0); Platelet Count 478 th/mm3 (150-450); Red Blood Count 2.93 mil/mm3 (4.50-5.90); Red Cell Distribution Width 14.8 % (11.6-17.2); White Blood Count 13.8 th/mm3 (4.0-11.0)
[2018-06-12 05:38] LABS: Albumin 1.8 g/dL (3.4-5.0); Anion Gap 8 meq/L (5-15); Aspartate Aminotransferase 19 U/L (15-37); Blood Urea Nitrogen 19 mg/dL (7-18); Carbon Dioxide 28.6 meq/L (21.0-32.0); Chloride 105 meq/L (98-107); Glomerular Filtration Rate 43 mL/min (>89); Glucose,Random 101 mg/dL (74-106); Potassium 3.8 meq/L (3.5-5.1); Sodium 142 meq/L (136-145)
[2018-06-12 05:39] LABS: Alanine Aminotransferase 7 U/L (12-78)
[2018-06-12 05:42] LABS: Alkaline Phosphatase 108 U/L (45-117); Total Protein 6.5 g/dL (6.4-8.2)
[2018-06-12] MEDS: amLODIPine 10 MG Tablet PO SCH (09:33)
[2018-06-12] MEDS: Digoxin 125 MCG Tablet PO SCH (09:33)
[2018-06-12] MEDS: Senna/Docusate Sodium 8.6/50 MG Tablet PO SCH ×2 (09:33→21:21)
[2018-06-12] MEDS: Metoprolol Tartrate 100 MG Tablet PO SCH ×2 (09:34→21:19)
[2018-06-12] MEDS: metroNIDAZOLE 500 MG Tablet PO SCH ×4 (09:34→23:02)
[2018-06-12] MEDS: Folic Acid 1 MG Tablet PO SCH (09:35)
[2018-06-12] MEDS: buPROPion 100 MG ER 12 HR Tablet PO SCH ×2 (09:37→21:20)
--- NOTE | 2018-06-12 10:08 | MB ---
cc: Marko GarciaM DATE: 06/12/2018 REASON FOR CONSULTATION: Evaluation right foot and ankle, possible infection. HISTORY OF PRESENT ILLNESS: This is a 72-year-old male who is actually known to the podiatry service for right second digit amputation due to severe infection. This was earlier this month. The patient reported increased pain, redness. Presented back to the ED, and there was noted to be increased redness and swelling of his right lower extremity with subjective fevers. The patient does have a complicated past medical history. Seen bedside with his . Apparently, this was a foreign body puncture [facility] Eventually, surgery was performed early 05/2018 and the patient continues to struggle with the infection. PAST MEDICAL HISTORY: Pneumonia, lung cancer, history of AAA repair, history of lower extremity bypass, bone metastasis, gout, hernia, high cholesterol, hypertension, left cavernous carotid aneurysm, lung cancer, stroke, AAA aneurysm. PAST SURGICAL HISTORY: Carotid surgery, atherosclerosis bypass graft lower extremity, renal artery bypass graft pseudoaneurysm, history of pneumonectomy, history of splenectomy, history of complete ray amputation second toe right foot, history of incisional hernia repair, history of total knee replacement, status post abdominal aortic aneurysm repair. ALLERGIES: PENICILLIN-G. ACTIVE OUTPATIENT MEDICATIONS: Reviewed. INPATIENT MEDICATIONS: 1. Vancomycin. 2. Flagyl. 3. Ancef Please see complete medication list in chart. PHYSICAL EXAMINATION: VITAL SIGNS: Temperature 98.2, pulse rate 89, respiratory rate 20, blood pressure 145/86, 97% on 1 liter nasal cannula. GENERAL: Alert and oriented gentleman, seen bedside, exhibiting nonlabored respirations. EXTREMITIES: Bilateral lower extremities are examined. Right lower extremity significant erythema and edema localized to the foot. There is a fibrotic borderline wound dehiscence noted at the right second ray amputation. There is a small bulla upon pressure to the area. The bulla ruptured and there are copious amounts of purulent material that was extruded from the ankle upon gentle pressure. A culture taken at this time. The foot appears to be warm. Sensation decreased to light touch, but intact to deep pressure. Left lower extremity, no obvious signs of infection; however, 3+ pitting edema noted to the dorsum of the foot and the ankle pretibial area; however, the calf is a nontender, nondistended. LABORATORY DATA: White blood cells 13.8, hemoglobin and hematocrit 9 and 29, platelet count 478. Coagulation profile: PT 14.4, INR 1.4. Chem-7: Sodium 142, potassium 3.8, chloride 105, CO2 28.6, BUN is 19, creatinine 1.57, and creatinine 43. Random glucose 101, calcium 8. BNP is 672, albumin 1.8. ASSESSMENT AND PLAN: Right foot ankle and distal leg abscess, cellulitis, status post right second ray amputation with postsurgical wound dehiscence and likely continued infection. The plan is for operative incision, drainage, and debridement later on today, given the extent of the infection. MRI ordered. I reviewed the case with medicine requesting medical clearance. The patient last ate at 8 a.m. Requesting to perform surgery at 4 a.m. This is an urgent procedure, but not an emergency. PROGNOSIS: Given the extent of the infection is fair to poor. We will continue to do everything we can for limb salvage efforts to stop proximal spread. The patient may need more broad spectrum-type antibiotics, given the extent of the purulent nature and this may be a polymicrobial mixed infection. FOREST Melgoza , 09:30 AM , 09:39 AM
--- NOTE | 2018-06-12 12:17 | MR ---
EXAM DATE: 06/12/2018 12:05 PM EDT AGE/SEX: 72 years / Male INDICATIONS: Abscess. CLINICAL DATA: This is the patient's initial encounter. Patient reports that signs and symptoms have been present for 3 days and indicates a pain score of 3/10. MEDICAL/SURGICAL HISTORY: Carcinoma, lung. Aneurysm, abdominal. Abdominal aortic aneurysm repa ir. Carotid endarterectomy. Amputation of 2nd toe right foot. COMPARISON: . TECHNIQUE: Multiplanar, multisequence MRI examination was performed with contrast and after the intr avenous administration of 11 ml Gadavist (gadobutrol) contrast as a single exam dose. FINDINGS: Bones: The osseous structures are in normal alignment. No evidence of fracture or bony edema. Joint Spaces: No joint effusion or loose bodies are seen. The articular cartilage is intact. Tendons: The posteromedial tendons (tibialis posterior, flexor digitorum and flexor hallucis longus) are intact. The peroneal tendons are intact. The anterior tendons (tibialis anterior, extensor adriel lucis longus and extensor digitorum) are intact. The Achilles tendon is intact. Ligaments: The lateral and medial ligament complexes are intact. Other: The plantar aponeurosis is grossly unremarkable. The structures in the tarsal tunnel are int act. Soft Tissues: Soft tissue swelling is noted along the dorsum of the ankle and proximal foot as well a s medially and laterally in the regions of the malleoli. Subcutaneous fluid collection is noted along the dorsal aspect of the proximal third fourth and fifth metatarsals but is incompletely evaluated o n this examination. This raises the possibility of subcutaneous abscess. Post Contrast: There is peripheral enhancement of the previously described subcutaneous fluid collec tion along the dorsum of the midfoot. CONCLUSION: 1. Soft tissue swelling is noted along the dorsum of the ankle and proximal foot as well as medially and laterally in the regions of the malleoli. Subcutaneous fluid collection is noted along the dorsa l aspect of the proximal third fourth and fifth metatarsals but is incompletely evaluated on this exa mination. This raises the possibility of subcutaneous abscess. Electronically signed by: Chris Chacon MD 06/12/2018 12:16 PM EDT
--- NOTE | 2018-06-12 12:53 | P.PN ---
Subjective Interval history: Follow-up for right lower extremity cellulitis. Patient is currently doing well. No fever or chills. Physical Exam Vital signs: Vital Signs 06/11/18 15:00 06/11/18 16:00 06/11/18 16:54 Temperature 98.3 F Pulse Rate 74 95 H Respiratory Rate 20 Blood Pressure 141/84 H Pulse Oximetry 97 95 06/11/18 20:00 06/11/18 20:05 06/11/18 22:59 Temperature 98.4 F 98.6 F Pulse Rate 107 H 97 H 83 Respiratory Rate 16 16 Blood Pressure 144/90 H 138/78 Pulse Oximetry 99 99 06/12/18 00:08 06/12/18 04:00 06/12/18 04:07 Temperature 98.2 F Pulse Rate 79 83 79 Respiratory Rate 18 Blood Pressure 132/83 Pulse Oximetry 98 06/12/18 08:00 06/12/18 11:32 06/12/18 12:32 Temperature 98.2 F 97.8 F Pulse Rate 89 90 Respiratory Rate 20 20 Blood Pressure 145/86 H 111/65 Pulse Oximetry 98 99 Intake & Output 06/11/18 06/12/18 06/12/18 18:59 06:59 18:59 Intake Total 1680 / 1680 1395 / 1395 100 / 100 Output Total 1150 / 1150 700 / 700 Balance 530 / 530 695 / 695 100 / 100 Weight 110.2 kg Intake: IV 1200 / 1200 675 / 675 100 / 100 NS Inj 1,000 ML @ 100 mls/hr IV 1000 / 1000 .CONT .Q10H MAUDE Rx#:[id number] Vancomycin Inj 1,750 MG In NS 565 / 565 Inj 500 ML @ 258.75 mls/hr IV. SIG Q24H MAUDE Rx#:[id number] Ancef Inj 1,000 MG In NS Inj 200 / 200 110 / 110 100 / 100 100 ML @ 200 mls/hr IV.SIG Q8H MAUDE Rx#:[id number] Oral 480 / 480 720 / 720 Output: Urine 1150 / 1150 700 / 700 Other: Date of Last Bowel Movement 06/11/18 06/11/18 Narrative: GENERAL: Alert, oriented 3, NAD. SKIN: Warm and dry. HEAD: Normocephalic. EYES: No scleral icterus. No injection or drainage. NECK: Supple, trachea midline. No JVD or lymphadenopathy. CARDIOVASCULAR: Regular rate and rhythm without murmurs, gallops, or rubs. RESPIRATORY: Breath sounds equal bilaterally. No accessory muscle use. GASTROINTESTINAL: Abdomen soft, non-tender, nondistended. MUSCULOSKELETAL: No cyanosis. Lower extremity 2+ edema. Right lower extremity wrapped in bandage. BACK: Nontender without obvious deformity. No CVA tenderness. Results - Labs CBC & Chem 7: 06/12/18 04:30 06/12/18 04:30 Laboratory Results - last 24 hr 06/12/18 06/12/18 04:30 04:30 WBC 13.8 H RBC 2.93 L Hgb 9.5 L Hct 29.0 L MCV 98.6 MCH 32.2 MCHC 32.6 RDW 14.8 Plt Count 478 H MPV 8.0 Neut % (Auto) 82.1 H Lymph % (Auto) 6.9 L Ballard % (Auto) 10.4 H Eos % (Auto) 0.1 Baso % (Auto) 0.5 Neut # (Auto) 11.3 H Lymph # (Auto) 0.9 L Ballard # (Auto) 1.4 H Eos # (Auto) 0.0 Baso # (Auto) 0.1 WBC Differential . Differential Comment Auto diff final Sodium 142 Potassium 3.8 Chloride 105 Carbon Dioxide 28.6 Anion Gap 8 BUN 19 H Creatinine 1.57 H Estimated GFR 43 L Random Glucose 101 Calcium 8.0 L Total Bilirubin 0.4 AST 19 ALT 7 L Alkaline Phosphatase 108 Total Protein 6.5 Albumin 1.8 L Microbiology 06/11/18 03:30 Blood - Peripheral Aerobic Blood Culture - Preliminary No growth in 1 day 06/11/18 03:30 Blood - Peripheral Anaerobic Blood Culture - Preliminary No growth in 1 day 06/11/18 03:35 Blood - Peripheral Aerobic Blood Culture - Preliminary No growth in 1 day 06/11/18 03:35 Blood - Peripheral Anaerobic Blood Culture - Preliminary No growth in 1 day - Imaging Impressions Ankle MRI 06/12/18 00:00 CONCLUSION: 1. Soft tissue swelling is noted along the dorsum of the ankle and proximal foot as well as medially and laterally in the regions of the malleoli. Subcutaneous fluid collection is noted along the dorsal aspect of the proximal third fourth and fifth metatarsals but is incompletely evaluated on this examination. This raises the possibility of subcutaneous abscess. Assessment and Plan - Assessment (1) Cellulitis Code(s): L03.90 - Cellulitis, unspecified Status: Acute (2) Lower extremity edema Code(s): R60.0 - Localized edema Status: Acute (3) PNA (pneumonia) Code(s): J18.9 - Pneumonia, unspecified organism Status: Acute (4) Lung cancer Code(s): C34.90 - Malignant neoplasm of unspecified part of unspecified bronchus or lung Status: Acute - Plan This is a 72-year-old male with a PMH of Metastatic Lung CA s/p Pneumectomy, HTN , AAA Repair, CAD and RLE Cellulitis/Osteo who presented to the ER w/ complaints of left lower extremity swelling starting 06/11/2018. Pt follows w/ Dr. Knight, had first round of Chemo 05/18/18, followed by nausea, vomiting and diarrhea, recent admit on 05/27/18 for Neutropenic Fever and RLE Cellulitis/ Abscess/Osteo, s/p I&D and Bone Biopsy by Dr. Gorman 06/01/18, Lisa Cath placement 06/05/18, Cultures +S aureus and mixed guilherme, s/p eval by ID, d/c'd on Ancef 1gm IV q8h and Flagyl 500mg PO qid. Right foot/ankle abscess Right lower extremity cellulitis - ID, Podiatry following. Currently on Ancef IV as well as Flagyl. - Podiatry recommended I&D in the OR today. - Patient is NPO. Hx of Metastatic Lung cancer Chronic Afib Hypertension - Continue Amlodipine 10mg Qday - Continue Apixaban 5mg BID. - Metoprolol 100mg BID. - Cont Lipitor 80mg Qday Lower extremity edema - 2D echo. Continue Lasix 20mg IV BID. Full code. Apixaban. (1) Cellulitis Qualifiers: Site of cellulitis: extremity Site of cellulitis of extremity: lower extremity Laterality: right Qualified Code(s): L03.115 - Cellulitis of right lower limb
--- NOTE | 2018-06-12 13:10 | ECHRPT ---
Indication: Cardiomyopathy, unspecified CONCLUSIONS The left ventricular systolic function is borderline low normal at 50%. Normal left ventricular size and wall thickness. Unable to properly visualize all wall segments due to image quality. No apparent regional wall motio n abnormalities present. Indeterminate Diastolic Function, likely normal based on e' value numbers. The left atrial size is mild-moderately enlarged. No significant valvular abnormalities noted. The estimated pulmonary arterial pressure is 27.6 mmHg. IVC is normal size with >50% inspiratory collapse. Technically difficult study. BP: / HR: 87 Rhythm: Sinus MEASUREMENTS (Male / Female) Normal Values Technical Quality:Technically difficult study 2D ECHO LV Diastolic Diameter PLAX 5.0 cm 4.2 - 5.9 / 3.9 - 5.3 cm LV Systolic Diameter PLAX 4.0 cm IVS Diastolic Thickness 1.2 cm 0.6 - 1.0 / 0.6 - 0.9 cm LVPW Diastolic Thickness 1.1 cm 0.6 - 1.0 / 0.6 - 0.9 cm LV Relative Wall Thickness 0.5 RV Internal Dim ED PLAX 2.2 cm LVOT Diameter 2.2 cm LV Ejection Fraction MOD BP 48.6 % >= 55 % LV Cardiac Index MOD BP 2079.0 cm/minm LV Ejection Fraction MOD 4C 48.6 % LV Cardiac Index MOD 4C 2667.4 cm/minm LV Ejection Fraction 4C AL 53.2 % LV Cardiac Index 4C AL 3039.4 cm/minm LV Ejection Fraction MOD 2C 51.8 % LV Cardiac Index MOD 2C 1726.0 cm/minm LV Ejection Fraction 2C AL 55.1 % LV Cardiac Index 2C AL 1853.2 cm/minm LA Volume Index 59.8 cm/m 16 - 28 cm/m M-MODE Aortic Root Diameter MM 3.9 cm LA Systolic Diameter MM 4.9 cm LA Ao Ratio MM 1.3 AV Cusp Separation MM 1.8 cm DOPPLER AV Peak Velocity 146.0 cm/s AV Peak Gradient 8.5 mmHg AI Peak Velocity 314.5 cm/s AI Peak Gradient 39.6 mmHg AI Pressure Half Time 359.0 ms Mitral E Point Velocity 115.0 cm/s Mitral A Point Velocity 48.9 cm/s Mitral E to A Ratio 2.4 LV E' Lateral Velocity 9.4 cm/s Mitral E to LV E' Lateral Ratio 12.3 LV E' Septal Velocity 9.3 cm/s Mitral E to LV E' Septal Ratio 12.4 TR Peak Velocity 210.0 cm/s TR Peak Gradient 17.6 mmHg Right Atrial Pressure 10.0 mmHg Pulmonary Artery Systolic Pressu 27.6 mmHg Right Ventricular Systolic Press 27.6 mmHg PV Peak Velocity 129.0 cm/s PV Peak Gradient 6.7 mmHg FINDINGS LEFT VENTRICLE The left ventricular systolic function is estimated at 50% Wall thickness is measured at the upper limits of normal. Normal left ventricular size. RIGHT VENTRICLE Normal right ventricular size and systolic function. LEFT ATRIUM The left atrial size is [id number] dilated. RIGHT ATRIUM The right atrial size is normal. ATRIAL SEPTUM Normal atrial septal thickness without atrial level shunting by limited color doppler interrogation. AORTA The aortic root and proximal ascending aorta are normal in size on limited imaging. MITRAL VALVE Structurally normal mitral valve. No mitral valve stenosis or regurgitation. AORTIC VALVE Trace aortic valve regurgitation. TRICUSPID VALVE There is trace tricuspid valve regurgitation. The estimated pulmonary arterial pressure is 27.6 mmHg. PULMONARY VALVE No pulmonary valve regurgitation or stenosis. VESSELS The inferior vena cava is normal in size. PERICARDIUM No pericardial effusion. OTHER FINDINGS Indeterminate Diastolic Function. Jos Knight MD (Electronically Signed) Final Date:12 June 2018 13:09
[2018-06-12] MEDS ORDERED: Gadobutrol PF 2 MMOL/2 ML Vial (for RAD) IV.SIG ONE (13:25)
[2018-06-12] MEDS ORDERED: Bupivacaine PF 0.25% Inj 30 ML Vial ONE (16:57)
[2018-06-12] MEDS ORDERED: Lidocaine PF 1% Inj 5 ML Syringe OTHER ONE (17:00)
--- NOTE | 2018-06-12 17:18 | P.PNADD ---
Addendum to Inpatient Note Additional information: attempted to see the pt; he is in OR will see tomorrow
--- NOTE | 2018-06-12 17:53 | P.BOP ---
- Preoperative Diagnosis (1) Osteomyelitis of right foot (2) Abscess of right foot - Postoperative Diagnosis (1) Osteomyelitis of right foot (2) Abscess of right foot Date of procedure: 06/12/18 Procedure: Right foot incision drainage foot and ankle with 2nd metatarsal debridement Surgeon: Marko Cao DPM Estimated blood loss (mL): 30 (mL) Tourniquet time (min): 0 Pathology: other (2nd metatarsal for path and bone cx, deep tissue cx as well) Disposition: floor (May need more surgery at a later.)
[2018-06-12] MEDS ORDERED: Morphine Inj 4 MG/ML Vial ONE (18:01)
[2018-06-12] MEDS ORDERED: fentaNYL Citrate Inj 100 MCG/2 ML Ampul ONE (18:01)
[2018-06-12] MEDS ORDERED: *morphine SULFATE 4 MG/ML PERIprocedure ONLY ONE ×2 (18:15→18:43)
--- NOTE | 2018-06-12 21:16 | MP ---
cc: Marko Garcia DPM DATE OF OPERATION: 06/12/2018 PREOPERATIVE DIAGNOSIS: Right foot ankle abscess, cellulitis with chronic ulcer, possible osteomyelitis remaining of right second metatarsal. POSTOPERATIVE DIAGNOSIS: Right foot ankle abscess, cellulitis with chronic ulcer, possible osteomyelitis remaining of right second metatarsal. PROCEDURE PERFORMED: Right foot, ankle and distal leg incision, drainage, debridement of bone, right second metatarsal. COMPLICATIONS: None. ANESTHESIA: General. INJECTABLES: None. ESTIMATED BLOOD LOSS: 30 mL. TOURNIQUET: None. SPECIMENS: 1. Bone from second metatarsal. 2. Bone culture, second metatarsal, and deep culture from ankle soft tissue for routine micro. IMPLANTABLES: Packing and suture material. DISPOSITION: Return to floor. Monitor infection and soft tissue envelope. May need more surgery, repeat debridement if there is proximal spread. HISTORY OF PRESENT ILLNESS: This is a 72-year-old male with a complex past medical history who underwent second ray amputation within the last 2-3 weeks. He presented with a blister on the front of the ankle. The ankle was seen today and there was copious amounts of purulent drainage. We opted to move forward with an urgent incision and drainage to prevent proximal spread. The patient has a total knee. No guarantees were given or implied regarding the outcome. The patient understood that there is a possibility of need for more surgery at a later date. PROCEDURE IN DETAIL: Under mild sedation, the patient was brought in the operating room and placed on the operating table in supine position. Following the induction of general anesthesia, the right lower extremity was scrubbed, prepped and draped in the usual aseptic fashion. The right foot and ankle and distal leg were elevated and examined. There was noted to be a blister formation at the level of the ankle along the course of the anterior tibialis tendon. A linear incision was made coursing along the anterior tibialis tendon; however, the anterior tibialis was poorly identified. It appeared to have liquefaction necrosis and a purulent abscess that was coming through the skin deep to the fascia at this level. Sharp and blunt dissection was carried down deep to the neurovascular bundle, deep to the fascia, but superficial to periosteum that went across the anterior foot, anterior ankle, medial ankle and just at the medial arch. A copious amount of purulent material was relieved from the cavernous space. Utilizing a curette and rongeur, all nonviable tissue was debrided. There was noted to be punctate bleeding. No pulsatile bleeding noted. Further attention was directed to the distal aspect of the right second metatarsal area. The area was sharply debrided utilizing a rongeur and curettage. There was noted to be near complete necrosis of fibrotic tissue down to the level of the second metatarsal. There was noted to be a plantar ulcer that had partially healed at plantar aspect of the foot. There was no obvious probing or communication between the second metatarsal surgery area and the anterior ankle. Utilizing a rongeur, the second metatarsal was debrided. This was sent for pathological analysis to check for osteomyelitis. Deep culture was taken at the bone area. Deep culture was also taken at the anterior ankle area. Both areas were then cleansed with pulse lavage and then packed open with loose retention sutures. Of note, at the distal right foot, there was minimal bleeding upon curettage. A bulky bandage applied. The patient extubated and transferred from OR to PACU with all vital signs stable. The patient will elevate. Recommend minimal weightbearing. I will see the patient within 24 hours to evaluate the wound. FOREST Melgoza/shirin , 06:02 PM , 06:11 PM
[2018-06-12] MEDS: Heparin Central Flush 100 UNIT/ML 5 ML Vial IV.FLUSH PRN (23:10)
[2018-06-13] MEDS: Vancomycin Inj 1,750 MG in Sodium Chlor 0.9% Inj 500 ML IV.SIG SCH (04:10)
[2018-06-13] MEDS: metroNIDAZOLE 500 MG Tablet PO SCH ×4 (06:21→23:04)
--- NOTE | 2018-06-13 08:42 | P.PN ---
Subjective Interval history: Follow-up for right foot osteomyelitis, abscess, possible aspiration pneumonia. Patient is currently doing well. He complains of generalized edema especially lower extremity edema. No fever or chills. He is well controlled. He is currently on room air. Physical Exam Vital signs: Vital Signs 06/12/18 09:00 06/12/18 11:32 06/12/18 12:32 Temperature 97.8 F Pulse Rate 82 90 Respiratory Rate 20 Blood Pressure 111/65 Pulse Oximetry 98 99 06/12/18 13:09 06/12/18 14:08 06/12/18 17:52 Temperature 97.5 F L Pulse Rate 90 80 78 Respiratory Rate 18 11 L Blood Pressure 124/66 Pulse Oximetry 96 06/12/18 18:00 06/12/18 18:15 06/12/18 18:30 Temperature 97.6 F Pulse Rate 78 78 77 Respiratory Rate 12 12 12 Blood Pressure 133/73 149/81 H 144/76 H Pulse Oximetry 92 L 97 96 06/12/18 19:48 06/12/18 20:07 06/12/18 23:01 Temperature 97.5 F L 97.6 F Pulse Rate 65 82 67 Respiratory Rate 18 16 Blood Pressure 145/94 H 142/83 H Pulse Oximetry 98 94 L 06/13/18 00:01 06/13/18 04:00 Temperature 98.3 F Pulse Rate 76 74 Respiratory Rate 16 Blood Pressure 144/82 H Pulse Oximetry 98 Intake & Output 06/12/18 06/13/18 06/13/18 18:59 06:59 18:59 Intake Total 900 / 900 775 / 775 Output Total 30 / 30 950 / 950 Balance 870 / 870 -175 / -175 Weight 109.2 kg Intake: IV 100 / 100 775 / 775 Vancomycin Inj 1,750 MG In NS 565 / 565 Inj 500 ML @ 258.75 mls/hr IV. SIG Q24H MAUDE Rx#:[id number] Ancef Inj 1,000 MG In NS Inj 100 / 100 210 / 210 100 ML @ 200 mls/hr IV.SIG Q8H MAUDE Rx#:[id number] Anesthesia Amount 800 / 800 Output: Urine 950 / 950 Estimated Blood Loss 30 / 30 Other: Date of Last Bowel Movement 06/11/18 Narrative: GENERAL: Alert, oriented 3, NAD. SKIN: Warm and dry. HEAD: Normocephalic. EYES: No scleral icterus. No injection or drainage. NECK: Supple, trachea midline. No JVD or lymphadenopathy. CARDIOVASCULAR: Regular rate and rhythm without murmurs, gallops, or rubs. RESPIRATORY: Breath sounds equal bilaterally. No accessory muscle use. GASTROINTESTINAL: Abdomen soft, non-tender, nondistended. MUSCULOSKELETAL: No cyanosis. Lower extremity 2+ edema. Right foot wrapped in bandage. BACK: Nontender without obvious deformity. No CVA tenderness. Results - Labs CBC & Chem 7: 06/12/18 04:30 06/12/18 04:30 Microbiology 06/12/18 09:16 Abscess - Ankle Gram Stain - Final 06/11/18 03:30 Blood - Peripheral Aerobic Blood Culture - Preliminary No growth in 1 day 06/11/18 03:30 Blood - Peripheral Anaerobic Blood Culture - Preliminary No growth in 1 day 06/11/18 03:35 Blood - Peripheral Aerobic Blood Culture - Preliminary No growth in 1 day 06/11/18 03:35 Blood - Peripheral Anaerobic Blood Culture - Preliminary No growth in 1 day - Imaging Impressions Ankle MRI 06/12/18 00:00 CONCLUSION: 1. Soft tissue swelling is noted along the dorsum of the ankle and proximal foot as well as medially and laterally in the regions of the malleoli. Subcutaneous fluid collection is noted along the dorsal aspect of the proximal third fourth and fifth metatarsals but is incompletely evaluated on this examination. This raises the possibility of subcutaneous abscess. Assessment and Plan - Assessment (1) Cellulitis Code(s): L03.90 - Cellulitis, unspecified Status: Acute (2) Lower extremity edema Code(s): R60.0 - Localized edema Status: Acute (3) PNA (pneumonia) Code(s): J18.9 - Pneumonia, unspecified organism Status: Acute (4) Lung cancer Code(s): C34.90 - Malignant neoplasm of unspecified part of unspecified bronchus or lung Status: Acute - Plan This is a 72-year-old male with a PMH of Metastatic Lung CA s/p Pneumectomy, HTN , AAA Repair, CAD and RLE Cellulitis/Osteo who presented to the ER w/ complaints of left lower extremity swelling starting 06/11/2018. Pt follows w/ Dr. Knight, had first round of Chemo 05/18/18, followed by nausea, vomiting and diarrhea, recent admit on 05/27/18 for Neutropenic Fever and RLE Cellulitis/ Abscess/Osteo, s/p I&D and Bone Biopsy by Dr. Gorman 06/01/18, Lisa Cath placement 06/05/18, Cultures +S aureus and mixed guilherme, s/p eval by ID, d/c'd on Ancef 1gm IV q8h and Flagyl 500mg PO qid. Right foot/ankle abscess Right lower extremity cellulitis - ID, Podiatry following. Patient is currently on cefazolin 1 g every 8 hours, Flagyl 500 mg p.o. every 6 hours as well as vancomycin. - Podiatry performed right foot I&D with second metatarsal debridement on . - Podiatry consulted Vascular surgery for an evaluation. Possible aspiration pneumonia -Patient is currently on cefazolin and Flagyl. He denies any cough, fever or chills. Hx of Metastatic Lung cancer Chronic Afib Hypertension - Continue Amlodipine 10mg Qday - Continue Apixaban 5mg BID. - Metoprolol 100mg BID. - Cont Lipitor 80mg Qday Lower extremity edema - 2D echo shows ejection fraction 50%. Continue Lasix 20mg IV BID. - Lower extremity edema likely due to low albumin. - Keep legs elevated. Full code. Apixaban. Discussed with Dr. Garcia (Podiatry). (1) Cellulitis Qualifiers: Site of cellulitis: extremity Site of cellulitis of extremity: lower extremity Laterality: right Qualified Code(s): L03.115 - Cellulitis of right lower limb
[2018-06-13] MEDS: buPROPion 100 MG ER 12 HR Tablet PO SCH ×2 (09:29→20:58)
[2018-06-13] MEDS: Digoxin 125 MCG Tablet PO SCH (09:29)
[2018-06-13] MEDS: Metoprolol Tartrate 100 MG Tablet PO SCH ×2 (09:30→20:59)
[2018-06-13] MEDS: amLODIPine 10 MG Tablet PO SCH (09:30)
[2018-06-13] MEDS: Folic Acid 1 MG Tablet PO SCH (09:30)
[2018-06-13] MEDS: Senna/Docusate Sodium 8.6/50 MG Tablet PO SCH ×2 (11:31→20:58)
[2018-06-13] MEDS: Heparin Central Flush 100 UNIT/ML 5 ML Vial IV.FLUSH SCH (11:32)
--- NOTE | 2018-06-13 12:09 | P.CONVS ---
History of Present Illness Service: Cardiovascular Consult date: 06/13/18 Reason for Consult: R LE wound with stagnant wound healing Primary Care Provider: Odette Rodas Chief Complaint: PVD/Stagnant wound healing R foot wound History of Present Illness: 72/M with a PMH of HTN, Hyperlipidemia, PVD, AAA, RIGHT/LEFT lower extremity bypass, L Carotid repair (aneurysm), osteomyelitis of the right foot and Metastatic Lung CA s/p Pneumectomy. Pt c/o L LE with increased swelling and chronic R foot wound for over a year that worsened over the past few months. Pt POD 1 - S/p Right foot incision drainage foot and ankle with 2nd metatarsal debridement (Podiatry) Review of Systems Constitutional: Denies chills, Denies fatigue, Denies fever(s) Cardiovascular: Reports leg swelling (L LE ) PMFSH - History History Provided By: Patient, Family Member - Medical History Medical History: Medical History (Last Reviewed 06/13/18 @ 11:42 by Elmira Wagner) Aneurysm Bone metastases Gout Hernia High cholesterol Hypertension Left cavernous carotid aneurysm Lung cancer Stroke Thoracoabdominal aortic aneurysm (TAAA) - Surgical History Surgical History: Surgical History (Last Reviewed 06/13/18 @ 11:42 by Elmira Wagner) Status post carotid surgery (Inactive) Atherosclerosis of bypass graft of lower extremity (Resolved) Renal artery bypass graft pseudoaneurysm (Acute) H/O pneumonectomy H/O splenectomy History of complete ray amputation of second toe of right foot History of incisional hernia repair History of total right knee replacement S/P AAA (abdominal aortic aneurysm) repair - Family History Family History: Family History (Last Reviewed 06/13/18 @ 11:42 by Elmira Wagner) Sister Aneurysm Father Heart attack Stroke - Social History I have reviewed the patient's Social History: Yes - Tobacco History Second Hand Smoke Exposure: No Tobacco Use In Past 30 Days: No Smoking Status: Former smoker Tobacco Type: Cigarettes Packs Per Day: 2 Years Smoked: 20 - Alcohol History How Often Do You Have a Drink Containing Alcohol: Never - Substance Use History Substance History: No History of Abuse, Past History - Travel History History of Recent Travel: No Recent Travel in the [place] Within the Last 8 Weeks: No Recent Travel Out of the Country Within the Last 8 Weeks: No - Immunization History Tetanus Immunization: >5 Years Hx Influenza Vaccine This Season: No Medications and Allergies Allergies Allergy/AdvReac Type Severity Reaction Status Date / Time penicillin G Allergy Severe EDEMA Verified 05/27/18 12:05 Home Medications Medication Instructions Recorded Confirmed Type amlodipine 10 mg PO DAILY 05/27/18 06/10/18 History atorvastatin 80 mg PO DAILY 05/27/18 06/10/18 History bupropion HCl 100 mg PO BID 05/27/18 06/10/18 History colchicine 0.6 mg PO DAILY 05/27/18 06/10/18 History digoxin 0.125 mg PO DAILY 05/27/18 06/10/18 History folic acid 1 mg PO DAILY 05/27/18 06/10/18 History metoprolol tartrate 1 mg/kg PO BID 05/27/18 06/10/18 History ondansetron [Zofran ODT] 8 mg PO Q8HR PRN 05/27/18 06/10/18 History cefazolin 2 g IV Q8H 06/10/18 06/10/18 History Active Medications: Active Medications Acetaminophen (Tylenol) 650 mg PO Q4H PRN PRN Reason: Fever, headache, pain 1-4 Hydrocodone Bitart/Acetaminophen ([employer] 5/325) 1 tab PO Q4H PRN PRN Reason: Pain 5-10 Al Hydroxide/Mg Hydroxide (Milk Of Magnesia Liq) 30 ml PO Q12H PRN PRN Reason: Mild Constipation Albuterol (Duoneb Neb (Prn)) 1 ampul NEB Q4HR NEB PRN PRN Reason: SOB/WHEEZING Last Admin: 06/12/18 13:09 Dose: 1 ampul Amlodipine Besylate (Norvasc) [address] [facility] Last Admin: 06/13/18 09:30 Dose: 10 mg Apixaban (Eliquis) [address] [facility] Last Admin: 06/13/18 09:30 Dose: 5 mg Atorvastatin Calcium (Lipitor) [address] [facility] Last Admin: 06/13/18 09:30 Dose: 80 mg Bisacodyl (Dulcolax Supp) 10 mg RECTAL DAILY PRN PRN Reason: SEVERE CONSITIPATION Bupropion HCl (Wellbutrin Sr) [address] [facility] Last Admin: 06/13/18 09:29 Dose: 100 mg Colchicine (Colcrys) 0.[address] [facility] Last Admin: 06/13/18 09:29 Dose: 0.6 mg Digoxin (Lanoxin) [address] [facility] Last Admin: 06/13/18 09:29 Dose: 125 mcg Folic Acid (Folic Acid) [address] [facility] Last Admin: 06/13/18 09:30 Dose: 1 mg Furosemide (Lasix Inj) 20 mg IV.PUSH BID@0900,1800 [facility] Last Admin: 06/13/18 09:30 Dose: 20 mg Heparin Sodium (Porcine) (Heparin Central Flush) [address] [facility] Heparin Sodium (Porcine) (Heparin Central Flush) 0 unit IV.FLUSH PRN PRN PRN Reason: Flush each lumen Last Admin: 06/12/18 23:10 Dose: 250 unit Cefazolin Sodium 1,000 mg/ (Sodium Chloride) 100 mls @ 200 mls/hr IV.SIG Q8H [facility] Last Admin: 06/13/18 06:21 Dose: 200 mls/hr Vancomycin HCl 1,750 mg/ (Sodium Chloride) 517.5 mls @ 258.75 mls/hr IV.SIG Q24H [facility] Last Infusion: 06/13/18 06:24 Dose: Infused Lactulose (Lactulose Liq) 30 ml PO DAILY PRN PRN Reason: SEVERE CONSITIPATION Metoprolol Tartrate (Lopressor) [address] [facility] Last Admin: 06/13/18 09:30 Dose: 100 mg Metronidazole (Flagyl) [address] [facility] Last Admin: 06/13/18 06:21 Dose: 500 mg Miscellaneous Information ([facility] Ordered Lab Info) 0 each OTHER ONCE ONE Stop: 06/14/18 03:46 Miscellaneous Information ([facility] Nursing Information) 1 each OTHER UNSCH PRN PRN Reason: SEE LABEL COMMENTS Stop: 06/13/18 17:52 Ondansetron HCl (Zofran Inj) 4 mg IV.PUSH Q6H PRN PRN Reason: NAUSEA OR VOMITING Ondansetron HCl (Zofran Odt) 8 mg PO Q8H PRN PRN Reason: NAUSEA Pharmacy Profile Note (Vancomycin Consult Pharmacy) 1 each OTHER UNSCH PRN PRN Reason: Pharmacy to dose Senna/Docusate Sodium (Salma-Colace) [address] [facility] Last Admin: 06/12/18 21:21 Dose: Not Given Sennosides (Senokot) 17.2 mg PO Q12H PRN PRN Reason: Moderate Constipation Sodium Chloride (Ns Flush) 0 ml IV.FLUSH DAILY [facility] Sodium Chloride (Ns Flush) 0 ml IV.FLUSH PRN PRN PRN Reason: FLUSH AFTER USING IV ACCESS Last Admin: 06/12/18 23:10 Dose: 5 ml Physical Exam Vital Signs / I&O: Vital Signs 06/12/18 11:32 06/12/18 12:32 06/12/18 13:09 Temperature 97.8 F Pulse Rate 90 90 Respiratory Rate 20 18 Blood Pressure 111/65 Pulse Oximetry 98 99 06/12/18 14:08 06/12/18 17:52 06/12/18 18:00 Temperature 97.5 F L Pulse Rate 80 78 78 Respiratory Rate 11 L 12 Blood Pressure 124/66 133/73 Pulse Oximetry 96 92 L 06/12/18 18:15 06/12/18 18:30 06/12/18 19:48 Temperature 97.6 F 97.5 F L Pulse Rate 78 77 65 Respiratory Rate 12 12 18 Blood Pressure 149/81 H 144/76 H 145/94 H Pulse Oximetry 97 96 98 06/12/18 20:07 06/12/18 23:01 06/13/18 00:01 Temperature 97.6 F Pulse Rate 82 67 76 Respiratory Rate 16 Blood Pressure 142/83 H Pulse Oximetry 94 L 06/13/18 04:00 06/13/18 08:44 06/13/18 09:06 Temperature 98.3 F 98.4 F Pulse Rate 74 82 Respiratory Rate 16 20 Blood Pressure 144/82 H 109/66 Pulse Oximetry 98 98 94 L Intake & Output 06/12/18 06/13/18 06/13/18 18:59 06:59 18:59 Intake Total 900 / 900 775 / 775 Output Total 30 / 30 950 / 950 350 / 350 Balance 870 / 870 -175 / -175 -350 / -350 Weight 109.2 kg Intake: IV 100 / 100 775 / 775 Vancomycin Inj 1,750 MG In NS 565 / 565 Inj 500 ML @ 258.75 mls/hr IV. SIG Q24H [facility] Rx#:[id number] Ancef Inj 1,000 MG In NS Inj 100 / 100 210 / 210 100 ML @ 200 mls/hr IV.SIG Q8H [facility] Rx#:[id number] Anesthesia Amount 800 / 800 Output: Urine 950 / 950 350 / 350 Estimated Blood Loss 30 / 30 Other: Date of Last Bowel Movement 06/11/18 Neuro: GCS 15 A&OX3 Speech clear Neck: No JVD distention Healed incision to L side of neck Heart: +S1,S2 Lungs: Resp even and CTA Abdomen: S/NT Vascular: Palpable R/L Femoral pulses noted Non palpable R/L DP LE warm w/ motor intact Extremities: B UE swelling present B LE swelling present Right foot with post operative dressing (I/C/D) Multiple healed incisions to B LE Microbiology 06/11/18 03:30 Aerobic Blood Culture - Preliminary Blood - Peripheral No growth in 2 days Anaerobic Blood Culture - Preliminary No growth in 2 days 06/11/18 03:35 Aerobic Blood Culture - Preliminary Blood - Peripheral No growth in 2 days Anaerobic Blood Culture - Preliminary No growth in 2 days 06/12/18 17:00 Gram Stain - Final Wound - Foot 06/12/18 17:00 Gram Stain - Final Wound - Foot 06/12/18 17:00 Fungal Smear - Final Wound - Foot No fungal elements seen 06/12/18 17:00 Fungal Smear - Final Wound - Foot No fungal elements seen 06/12/18 09:16 Gram Stain - Final Abscess - Ankle Impressions Ankle MRI 06/12/18 00:00 CONCLUSION: 1. Soft tissue swelling is noted along the dorsum of the ankle and proximal foot as well as medially and laterally in the regions of the malleoli. Subcutaneous fluid collection is noted along the dorsal aspect of the proximal third fourth and fifth metatarsals but is incompletely evaluated on this examination. This raises the possibility of subcutaneous abscess. Assessment and Plan - Plan 72/M who presented to the ED for a worsening non healing R foot wound Pt w/ Non palpable distal pulses LE warm w/ motor intact Plan Recommend continued medical management- Anticoagulation/Statin therapy Pain control Continue PT/OOB Elmira Wagner [employer] [facility] [phone] - Attending Attestation Agree with above, seen and examined. R LE ischemia, ABIs pending. Prior ilioprofunda interposition and SFA disconnected, so only revasc options are open bypass. Given metastatic lung CA will discuss with patient and SO re: options. \ Chris Neely MD FACS RPVI shank sander [facility] - [facility] and V[facility] Surgery at [facility]
--- NOTE | 2018-06-13 17:57 | P.PNID ---
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, mixed anaerobs, was discharged on vanco, flagyl, was taken them and cont to get worse with swellling, redness of the foot MRI showed new abscess; WBC of 16 K He was taken to OR by Dr Jose bowers, s/p debridement and VAC placement; large amount of purulence was encounted today afebrile, WBC improved Antibiotics: cefazolin 1 gm q 8 flagyl po vanco Allergies/Adverse Reactions: Allergies penicillin G Allergy (Severe, Verified 05/27/18 12:05) EDEMA Objective Vital Signs 06/12/18 18:00 06/12/18 18:15 06/12/18 18:30 Temperature 97.6 F Pulse Rate 78 78 77 Respiratory Rate 12 12 12 Blood Pressure 133/73 149/81 H 144/76 H Pulse Oximetry 92 L 97 96 06/12/18 19:48 06/12/18 20:07 06/12/18 23:01 Temperature 97.5 F L 97.6 F Pulse Rate 65 82 67 Respiratory Rate 18 16 Blood Pressure 145/94 H 142/83 H Pulse Oximetry 98 94 L 06/13/18 00:01 06/13/18 04:00 06/13/18 08:44 Temperature 98.3 F Pulse Rate 76 74 Respiratory Rate 16 Blood Pressure 144/82 H Pulse Oximetry 98 98 06/13/18 09:06 06/13/18 12:34 06/13/18 13:39 Temperature 98.4 F 97.8 F Pulse Rate 82 77 75 Respiratory Rate 20 16 Blood Pressure 109/66 104/66 Pulse Oximetry 94 L 97 06/13/18 16:27 06/13/18 16:36 Temperature 98.8 F Pulse Rate 76 82 Respiratory Rate 16 Blood Pressure 115/64 Pulse Oximetry 94 L Intake & Output 06/12/18 06/13/18 06/13/18 18:59 06:59 18:59 Intake Total 900 / 900 775 / 775 400 / 400 Output Total 30 / 30 950 / 950 350 / 350 Balance 870 / 870 -175 / -175 50 / 50 Weight 109.2 kg Intake: IV 100 / 100 775 / 775 400 / 400 Vancomycin Inj 1,750 MG In NS 565 / 565 Inj 500 ML @ 258.75 mls/hr IV. SIG Q24H [facility] Rx#:[id number] Ancef Inj 1,000 MG In NS Inj 100 / 100 210 / 210 200 / 200 100 ML @ 200 mls/hr IV.SIG Q8H [facility] Rx#:[id number] Anesthesia Amount 800 / 800 Output: Urine 950 / 950 350 / 350 Estimated Blood Loss 30 / 30 Other: Date of Last Bowel Movement 06/11/18 06/12/18 09:16 Abscess - Ankle Gram Stain - Final 06/12/18 09:16 Abscess - Ankle Wound Culture - Preliminary No growth in 24 hours 06/11/18 03:30 Blood - Peripheral Aerobic Blood Culture - Preliminary No growth in 2 days 06/11/18 03:30 Blood - Peripheral Anaerobic Blood Culture - Preliminary No growth in 2 days 06/11/18 03:35 Blood - Peripheral Aerobic Blood Culture - Preliminary No growth in 2 days 06/11/18 03:35 Blood - Peripheral Anaerobic Blood Culture - Preliminary No growth in 2 days 06/12/18 17:00 Wound - Foot Gram Stain - Final 06/12/18 17:00 Wound - Foot Wound Culture - Pending 06/12/18 17:00 Wound - Foot Gram Stain - Final 06/12/18 17:00 Wound - Foot Wound Culture - Pending 06/12/18 17:00 Wound - Foot Fungal Smear - Final No fungal elements seen 06/12/18 17:00 Wound - Foot Fungal Culture - Pending 06/12/18 17:00 Wound - Foot Fungal Smear - Final No fungal elements seen 06/12/18 17:00 Wound - Foot Fungal Culture - Pending 06/12/18 17:00 Wound - Foot Acid Fast Bacilli Smear - Pending 06/12/18 17:00 Wound - Foot Mycobacterial Culture - Pending 06/12/18 17:00 Wound - Foot Acid Fast Bacilli Smear - Pending 06/12/18 17:00 Wound - Foot Mycobacterial Culture - Pending Lab - Hematology Results 06/12/18 04:30 WBC 13.8 H RBC 2.93 L Hgb 9.5 L Hct 29.0 L MCV 98.6 MCH 32.2 MCHC 32.6 RDW 14.8 Plt Count 478 H MPV 8.0 Neut % (Auto) 82.1 H Lymph % (Auto) 6.9 L [place] % (Auto) 10.4 H Eos % (Auto) 0.1 Baso % (Auto) 0.5 Neut # (Auto) 11.3 H Lymph # (Auto) 0.9 L [place] # (Auto) 1.4 H Eos # (Auto) 0.0 Baso # (Auto) 0.1 WBC Differential . Differential Comment Auto diff final Lab - Chemistry Results 06/12/18 04:30 Sodium 142 Potassium 3.8 Chloride 105 Carbon Dioxide 28.6 Anion Gap 8 BUN 19 H Creatinine 1.57 H Estimated GFR 43 L Random Glucose 101 Calcium 8.0 L Total Bilirubin 0.4 AST 19 ALT 7 L Alkaline Phosphatase 108 Total Protein 6.5 Albumin 1.8 L Imaging: ITS Impressions Chest X-Ray 06/10/18 19:44 CONCLUSION: Right IJ central venous catheter in place. No evidence of pneumothorax. Venous Doppler Study 06/10/18 19:44 CONCLUSION: No evidence of lower extremity DVT on the right or left. Chest CTA 06/11/18 00:00 CONCLUSION: 1. No CT evidence for pulmonary artery embolism as questioned. 2. Focal patchy airspace consolidation in the right lower lobe concerning for bronchopneumonia/aspiration. 3. Postsurgical features with associated right upper lobe volume loss and scarring. 4. Coronary artery calcifications. 5. Mild ascending thoracic aortic aneurysm measuring up to 4.3 cm. 6. Additional ancillary findings, as above. Ankle MRI 06/12/18 00:00 CONCLUSION: 1. Soft tissue swelling is noted along the dorsum of the ankle and proximal foot as well as medially and laterally in the regions of the malleoli. Subcutaneous fluid collection is noted along the dorsal aspect of the proximal third fourth and fifth metatarsals but is incompletely evaluated on this examination. This raises the possibility of subcutaneous abscess. Physical Exam: GENERAL: NAD OOB in chair SKIN: Warm and dry. HEAD: Atraumatic. Normocephalic. EYES: Pupils equal and round. No scleral icterus. No injection or drainage. ENT: No nasal bleeding or discharge. Mucous membranes pink and moist. NECK: Trachea midline. No JVD. CARDIOVASCULAR: Regular rate and rhythm. RESPIRATORY: No accessory muscle use. Clear to auscultation. Breath sounds decreased bilaterally. GASTROINTESTINAL: Abdomen soft, non-tender, nondistended. Hepatic and splenic margins not palpable. MUSCULOSKELETAL: Extremities without clubbing, cyanosis, + b/l edema. L foot with puffy soft 3+ pedal edema R foot with post op dressing, VAC in place + ertyhema on the ankle ((brick coloured) NEUROLOGICAL: Awake and alert. No obvious cranial nerve deficits. Motor grossly within normal limits. Five out of 5 muscle strength in the arms and legs. Normal speech. PSYCHIATRIC: calm, cooperative. Assessment and Plan - Plan RLE Cellulitis/Abscess/Osteo, s/p I&D and Bone Biopsy by Dr. Gorman 06/01/18, sp repeat I+D 06/12 for recurrent abscess MSSA and Anaerobes intraop cultures 06/01/2018 Lisa Cath placement 06/05/18 for IV antibiotics as outpatient. Metastatic lung cancer s/p Pneumectomy s/p Chemotherapy Immune compromised. ALEXANDER Suspected PVD Recs: Continue Ancef IV Continue Flagyl oral dc vancomycin agree with vasc consult
[2018-06-13] MEDS: Heparin Central Flush 100 UNIT/ML 5 ML Vial IV.FLUSH PRN (23:42)
[2018-06-14] MEDS ORDERED: Pharmacy Ordered Lab Info OTHER ONE (03:45)
[2018-06-14] MEDS: metroNIDAZOLE 500 MG Tablet PO SCH ×4 (05:40→23:57)
[2018-06-14] MEDS: Heparin Central Flush 100 UNIT/ML 5 ML Vial IV.FLUSH PRN (06:20)
--- NOTE | 2018-06-14 07:45 | P.PNVS ---
Subjective Subjective/Hospital Course: Pt seen, discussed options with pt and They are appropriately concerned with lack of healing from the foot. ABIs pending. Objective Vital Signs / I&O: Vital Signs 06/13/18 08:44 06/13/18 09:06 06/13/18 12:34 Temperature 98.4 F 97.8 F Pulse Rate 82 77 Respiratory Rate 20 16 Blood Pressure 109/66 104/66 Pulse Oximetry 98 94 L 97 06/13/18 13:39 06/13/18 16:27 06/13/18 16:36 Temperature 98.8 F Pulse Rate 75 76 82 Respiratory Rate 16 Blood Pressure 115/64 Pulse Oximetry 94 L 06/13/18 20:00 06/13/18 20:10 06/13/18 20:23 Temperature 97.9 F Pulse Rate 80 80 Respiratory Rate 18 Blood Pressure 112/73 Pulse Oximetry 98 96 06/13/18 23:08 06/14/18 00:00 06/14/18 03:05 Temperature 97.9 F 97.8 F Pulse Rate 73 65 71 Respiratory Rate 16 16 Blood Pressure 131/81 127/80 Pulse Oximetry 98 97 06/14/18 03:56 Temperature Pulse Rate 69 Respiratory Rate Blood Pressure Pulse Oximetry Intake & Output 06/13/18 06/14/18 06/14/18 18:59 06:59 18:59 Intake Total 400 / 400 460 / 460 Output Total 350 / 350 650 / 650 Balance 50 / 50 -190 / -190 Weight 109 kg Intake: IV 400 / 400 220 / 220 Ancef Inj 1,000 MG In NS Inj 200 / 200 220 / 220 100 ML @ 200 mls/hr IV.SIG Q8H [facility] Rx#:[id number] Oral 240 / 240 Output: Urine 350 / 350 650 / 650 Other: Date of Last Bowel Movement 06/11/18 Physical Exam: no distress foot wrapped palpable femoral pulse Microbiology 06/12/18 09:16 Gram Stain - Final Abscess - Ankle Wound Culture - Preliminary No growth in 24 hours 06/11/18 03:30 Aerobic Blood Culture - Preliminary Blood - Peripheral No growth in 2 days Anaerobic Blood Culture - Preliminary No growth in 2 days 06/11/18 03:35 Aerobic Blood Culture - Preliminary Blood - Peripheral No growth in 2 days Anaerobic Blood Culture - Preliminary No growth in 2 days 06/12/18 17:00 Gram Stain - Final Wound - Foot 06/12/18 17:00 Gram Stain - Final Wound - Foot 06/12/18 17:00 Fungal Smear - Final Wound - Foot No fungal elements seen 06/12/18 17:00 Fungal Smear - Final Wound - Foot No fungal elements seen Impressions Ankle MRI 06/12/18 00:00 CONCLUSION: 1. Soft tissue swelling is noted along the dorsum of the ankle and proximal foot as well as medially and laterally in the regions of the malleoli. Subcutaneous fluid collection is noted along the dorsal aspect of the proximal third fourth and fifth metatarsals but is incompletely evaluated on this examination. This raises the possibility of subcutaneous abscess. Assessment and Plan - Assessment (1) PAD (peripheral artery disease) Code(s): I73.9 - Peripheral vascular disease, unspecified Status: Acute - Plan 72 yo male with lung CA and R LE PAD with significant wound Prior ilioprofunda bypass negates endovascular options options as I see it are 1) continued wound care or 2) angio with the idea of exploring options for a distal bypass After discussion with the patient and his , they'd like to proceed with diagnostic angiography so we have all the data needed to assess options for possible distal bypass To OR tomorrow (Thurs) for R LE diagnostic angiogram. NPO after MN
--- NOTE | 2018-06-14 10:21 | P.PN ---
Subjective Interval history: Follow-up for right foot osteomyelitis, abscess, possible aspiration pneumonia. Patient is resting in bed. Denies any chest pain, shortness of breath, fever or chills. He continues to have significant edema especially lower extremities. Is a scheduled for angiogram tomorrow by vascular surgery. Physical Exam Vital signs: Vital Signs 06/13/18 12:34 06/13/18 13:39 06/13/18 16:27 Temperature 97.8 F 98.8 F Pulse Rate 77 75 76 Respiratory Rate 16 16 Blood Pressure 104/66 115/64 Pulse Oximetry 97 94 L 06/13/18 16:36 06/13/18 20:00 06/13/18 20:10 Temperature Pulse Rate 82 80 Respiratory Rate Blood Pressure Pulse Oximetry 98 06/13/18 20:23 06/13/18 23:08 06/14/18 00:00 Temperature 97.9 F 97.9 F Pulse Rate 80 73 65 Respiratory Rate 18 16 Blood Pressure 112/73 131/81 Pulse Oximetry 96 98 06/14/18 03:05 06/14/18 03:56 Temperature 97.8 F Pulse Rate 71 69 Respiratory Rate 16 Blood Pressure 127/80 Pulse Oximetry 97 Intake & Output 06/13/18 06/14/18 06/14/18 18:59 06:59 18:59 Intake Total 400 / 400 460 / 460 Output Total 350 / 350 650 / 650 Balance 50 / 50 -190 / -190 Weight 109 kg Intake: IV 400 / 400 220 / 220 Ancef Inj 1,000 MG In NS Inj 200 / 200 220 / 220 100 ML @ 200 mls/hr IV.SIG Q8H [facility] Rx#:[id number] Oral 240 / 240 Output: Urine 350 / 350 650 / 650 Other: Date of Last Bowel Movement 06/11/18 Narrative: GENERAL: Alert, oriented 3, NAD. SKIN: Warm and dry. HEAD: Normocephalic. EYES: No scleral icterus. No injection or drainage. NECK: Supple, trachea midline. No JVD or lymphadenopathy. CARDIOVASCULAR: Regular rate and rhythm without murmurs, gallops, or rubs. RESPIRATORY: Breath sounds equal bilaterally. No accessory muscle use. GASTROINTESTINAL: Abdomen soft, non-tender, nondistended. MUSCULOSKELETAL: No cyanosis. Lower extremity 2+ edema Left foot worse than right. Right foot wrapped in bandage. BACK: Nontender without obvious deformity. No CVA tenderness. Results - Labs CBC & Chem 7: 06/12/18 04:30 06/12/18 04:30 Microbiology 06/12/18 17:00 Wound - Foot Acid Fast Bacilli Smear - Final No acid fast bacilli seen 06/12/18 17:00 Wound - Foot Acid Fast Bacilli Smear - Final No acid fast bacilli seen 06/12/18 09:16 Abscess - Ankle Gram Stain - Final 06/12/18 09:16 Abscess - Ankle Wound Culture - Preliminary No growth in 24 hours 06/11/18 03:30 Blood - Peripheral Aerobic Blood Culture - Preliminary No growth in 2 days 06/11/18 03:30 Blood - Peripheral Anaerobic Blood Culture - Preliminary No growth in 2 days 06/11/18 03:35 Blood - Peripheral Aerobic Blood Culture - Preliminary No growth in 2 days 06/11/18 03:35 Blood - Peripheral Anaerobic Blood Culture - Preliminary No growth in 2 days 06/12/18 17:00 Wound - Foot Gram Stain - Final 06/12/18 17:00 Wound - Foot Gram Stain - Final 06/12/18 17:00 Wound - Foot Fungal Smear - Final No fungal elements seen 06/12/18 17:00 Wound - Foot Fungal Smear - Final No fungal elements seen Assessment and Plan - Assessment (1) Cellulitis Code(s): L03.90 - Cellulitis, unspecified Status: Acute (2) Lower extremity edema Code(s): R60.0 - Localized edema Status: Acute (3) PNA (pneumonia) Code(s): J18.9 - Pneumonia, unspecified organism Status: Acute (4) Lung cancer Code(s): C34.90 - Malignant neoplasm of unspecified part of unspecified bronchus or lung Status: Acute - Plan This is a 72-year-old male with a PMH of Metastatic Lung CA s/p Pneumectomy, HTN , AAA Repair, CAD and RLE Cellulitis/Osteo who presented to the ER w/ complaints of left lower extremity swelling starting 06/11/2018. Pt follows w/ Dr. Knight, had first round of Chemo 05/18/18, followed by nausea, vomiting and diarrhea, recent admit on 05/27/18 for Neutropenic Fever and RLE Cellulitis/ Abscess/Osteo, s/p I&D and Bone Biopsy by Dr. Gorman 06/01/18, Lisa Cath placement 06/05/18, Cultures +S aureus and mixed guilherme, s/p eval by ID, d/c'd on Ancef 1gm IV q8h and Flagyl 500mg PO qid. Right foot/ankle abscess Right lower extremity cellulitis Right lower ext peripheral arterial disease - ID, Podiatry following. Patient is currently on cefazolin 1 g every 8 hours, Flagyl 500 mg p.o. every 6 hours. - Podiatry performed right foot I&D with second metatarsal debridement on . - Podiatry consulted Vascular surgery for an evaluation. [facility] surgery plans to do angiogram on 06/15/2018. Possible aspiration pneumonia -Patient is currently on cefazolin and Flagyl. He denies any cough, fever or chills. Hx of Metastatic Lung cancer Chronic Afib Hypertension - Continue Amlodipine 10mg Qday - Continue Apixaban 5mg BID. - Metoprolol 100mg BID. - Cont Lipitor 80mg Qday Lower extremity edema - 2D echo shows ejection fraction 50%. Continue Lasix 20mg IV BID. - Lower extremity edema likely due to low albumin. - Keep legs elevated. Full code. Apixaban (will hold it for now in anticipation of angiogram by Vascular surgery on 06/15/2018). (1) Cellulitis Qualifiers: Site of cellulitis: extremity Site of cellulitis of extremity: lower extremity Laterality: right Qualified Code(s): L03.115 - Cellulitis of right lower limb
--- NOTE | 2018-06-14 11:14 | ECHRPT ---
EXAM DATE: 06/14/2018 10:32 AM EDT AGE/SEX: 72 years / Male INDICATIONS: right foot osteomyelitis CLINICAL DATA: This is the patient's initial encounter. Patient reports that signs and symptoms have been present for 3 days and indicates a pain score of 8/10. MEDICAL/SURGICAL HISTORY: . aneurysm, lung cancer, bone metastases, gout, hernia . atheroscler osis of bypass graft lower extremity, pneumonectomy, splenectomy, amputation 2 toe right foot, incisi onal hernia repair, total knee replacement, renal artery bypass graft pseudoanuerysm, AAA repair, car otid surgery, right foot I&D with 2nd metatarsal debridement COMPARISON: No prior exams available for comparison. TECHNIQUE: Four-cuff ankle and brachial pressures were obtained. Pulse cuff waveform tracings of the ankles were recorded, and ankle-brachial indices were calculated. PRESSURES (mmHg): Brachial (arm) : RIGHT: iv site, LEFT: 119 Ankle : RIGHT: 93, LEFT: 94 FRANKY : RIGHT: 0.78, LEFT: 0.79 TBI : RIGHT: unable to obtain(cuff too small), LEFT: 0.82 FINDINGS: Pulsed-Cuff Waveform: There are good upstroke and a dicrotic downstroke of the tracings. Other: None. CONCLUSION: 1. Findings consistent with [id number] bilateral lower extremity peripheral arterial disease. Electronically signed by: Luis Thomson MD 06/14/2018 11:12 AM EDT
[2018-06-14] MEDS: Senna/Docusate Sodium 8.6/50 MG Tablet PO SCH ×2 (11:20→20:06)
[2018-06-14] MEDS: Folic Acid 1 MG Tablet PO SCH (11:26)
[2018-06-14] MEDS: Digoxin 125 MCG Tablet PO SCH (11:26)
[2018-06-14] MEDS: amLODIPine 10 MG Tablet PO SCH (11:26)
[2018-06-14] MEDS: Metoprolol Tartrate 100 MG Tablet PO SCH ×2 (11:28→20:07)
[2018-06-14] MEDS: buPROPion 100 MG ER 12 HR Tablet PO SCH ×2 (11:29→20:07)
[2018-06-14] MEDS: Heparin Central Flush 100 UNIT/ML 5 ML Vial IV.FLUSH SCH (11:35)
[2018-06-14] MEDS ORDERED: Morphine Sulfate Inj 2 MG/ML Vial IV.PUSH ONE (16:22)
--- NOTE | 2018-06-14 16:26 | P.PNPOD ---
Subjective Interval history: Pain has decreased since surgery understands plan and progress regarding vascular evaluation seen today bedside with Physical Exam Vital signs: Vital Signs 06/13/18 16:27 06/13/18 16:36 06/13/18 20:00 Temperature 98.8 F Pulse Rate 76 82 Respiratory Rate 16 Blood Pressure 115/64 Pulse Oximetry 94 L 98 06/13/18 20:10 06/13/18 20:23 06/13/18 23:08 Temperature 97.9 F 97.9 F Pulse Rate 80 80 73 Respiratory Rate 18 16 Blood Pressure 112/73 131/81 Pulse Oximetry 96 98 06/14/18 00:00 06/14/18 03:05 06/14/18 03:56 Temperature 97.8 F Pulse Rate 65 71 69 Respiratory Rate 16 Blood Pressure 127/80 Pulse Oximetry 97 06/14/18 08:00 06/14/18 11:39 06/14/18 11:58 Temperature 98 F Pulse Rate 73 74 Respiratory Rate 18 21 Blood Pressure 116/79 Pulse Oximetry 97 Intake & Output 06/13/18 06/14/18 06/14/18 18:59 06:59 18:59 Intake Total 400 / 400 460 / 460 Output Total 350 / 350 650 / 650 Balance 50 / 50 -190 / -190 Weight 109 kg Intake: IV 400 / 400 220 / 220 Ancef Inj 1,000 MG In NS Inj 200 / 200 220 / 220 100 ML @ 200 mls/hr IV.SIG Q8H [facility] Rx#:[id number] Oral 240 / 240 Output: Urine 350 / 350 650 / 650 Other: Date of Last Bowel Movement 06/11/18 - Constitutional no acute distress - Neurological Alert and oriented x3 - Routine Extremities Exam Present: edema Comments: Right lower extremity amputation site with packing intact upon removing packing there is a fibrotic base of wound with exposed second metatarsal. Incision of the anterior ankle upon removing packing there is serosanguineous drainage no obvious odor for the necrosis ankle incision appears to be viable, pulses are hard to palpate sensation decreased to light touch good range of motion of ankle Medications and Allergies Active Medications: Active Medications Acetaminophen (Tylenol) 650 mg PO Q4H PRN PRN Reason: Fever, headache, pain 1-4 Hydrocodone Bitart/Acetaminophen ([place] 5/325) 1 tab PO Q4H PRN PRN Reason: Pain 5-10 Last Admin: 06/14/18 14:22 Dose: 1 tab Al Hydroxide/Mg Hydroxide (Milk Of Magnesia Liq) 30 ml PO Q12H PRN PRN Reason: Mild Constipation Albuterol (Duoneb Neb (Prn)) 1 ampul NEB Q4HR NEB PRN PRN Reason: SOB/WHEEZING Last Admin: 06/12/18 13:09 Dose: 1 ampul Amlodipine Besylate (Norvasc) 10 mg PO DAILY [facility] Last Admin: 06/14/18 11:26 Dose: 10 mg Apixaban (Eliquis) 5 mg PO BID [facility] Last Admin: 06/14/18 11:39 Dose: Not Given Atorvastatin Calcium (Lipitor) 80 mg PO DAILY [facility] Last Admin: 06/14/18 11:27 Dose: 80 mg Bisacodyl (Dulcolax Supp) 10 mg RECTAL DAILY PRN PRN Reason: SEVERE CONSITIPATION Bupropion HCl (Wellbutrin Sr) 100 mg PO BID [facility] Last Admin: 06/14/18 11:29 Dose: 100 mg Colchicine (Colcrys) 0.6 mg PO DAILY [facility] Last Admin: 06/14/18 11:19 Dose: Not Given Digoxin (Lanoxin) 125 mcg PO DAILY [facility] Last Admin: 06/14/18 11:26 Dose: 125 mcg Folic Acid (Folic Acid) 1 mg PO DAILY [facility] Last Admin: 06/14/18 11:26 Dose: 1 mg Furosemide (Lasix Inj) 20 mg IV.PUSH BID@0900,1800 [facility] Last Admin: 06/14/18 11:35 Dose: 20 mg Heparin Sodium (Porcine) (Heparin Central Flush) 0 unit IV.FLUSH DAILY [facility] Last Admin: 06/14/18 11:35 Dose: 250 unit Heparin Sodium (Porcine) (Heparin Central Flush) 0 unit IV.FLUSH PRN PRN PRN Reason: Flush each lumen Last Admin: 06/14/18 06:20 Dose: 250 unit Cefazolin Sodium 1,000 mg/ (Sodium Chloride) 100 mls @ 200 mls/hr IV.SIG Q8H [facility] Last Infusion: 06/14/18 06:17 Dose: Infused Lactulose (Lactulose Liq) 30 ml PO DAILY PRN PRN Reason: SEVERE CONSITIPATION Metoprolol Tartrate (Lopressor) 100 mg PO BID [facility] Last Admin: 06/14/18 11:28 Dose: 100 mg Metronidazole (Flagyl) 500 mg PO Q6H [facility] Last Admin: 06/14/18 11:27 Dose: 500 mg Ondansetron HCl (Zofran Inj) 4 mg IV.PUSH Q6H PRN PRN Reason: NAUSEA OR VOMITING Ondansetron HCl (Zofran Odt) 8 mg PO Q8H PRN PRN Reason: NAUSEA Senna/Docusate Sodium (Salma-Colace) 1 tab PO BID [facility] Last Admin: 06/14/18 11:20 Dose: Not Given Sennosides (Senokot) 17.2 mg PO Q12H PRN PRN Reason: Moderate Constipation Sodium Chloride (Ns Flush) 0 ml IV.FLUSH DAILY [facility] Last Admin: 06/14/18 11:30 Dose: 10 ml Sodium Chloride (Ns Flush) 0 ml IV.FLUSH PRN PRN PRN Reason: FLUSH AFTER USING IV ACCESS Last Admin: 06/14/18 06:19 Dose: 10 ml Allergies Allergy/AdvReac Type Severity Reaction Status Date / Time penicillin G Allergy Severe EDEMA Verified 05/27/18 12:05 Home Medications Medication Instructions Recorded Confirmed Type amlodipine 10 mg PO DAILY 05/27/18 06/10/18 History atorvastatin 80 mg PO DAILY 05/27/18 06/10/18 History bupropion HCl 100 mg PO BID 05/27/18 06/10/18 History colchicine 0.6 mg PO DAILY 05/27/18 06/10/18 History digoxin 0.125 mg PO DAILY 05/27/18 06/10/18 History folic acid 1 mg PO DAILY 05/27/18 06/10/18 History metoprolol tartrate 1 mg/kg PO BID 05/27/18 06/10/18 History ondansetron [Zofran ODT] 8 mg PO Q8HR PRN 05/27/18 06/10/18 History cefazolin 2 g IV Q8H 06/10/18 06/10/18 History Results - Labs CBC & Chem 7: 06/12/18 04:30 06/12/18 04:30 Microbiology 06/12/18 17:00 Wound - Foot Gram Stain - Final 06/12/18 17:00 Wound - Foot Wound Culture - Preliminary No growth in 24 hours 06/12/18 17:00 Wound - Foot Gram Stain - Final 06/12/18 17:00 Wound - Foot Wound Culture - Preliminary No growth in 24 hours 06/11/18 03:30 Blood - Peripheral Aerobic Blood Culture - Preliminary No growth in 3 days 06/11/18 03:30 Blood - Peripheral Anaerobic Blood Culture - Preliminary No growth in 3 days 06/11/18 03:35 Blood - Peripheral Aerobic Blood Culture - Preliminary No growth in 3 days 06/11/18 03:35 Blood - Peripheral Anaerobic Blood Culture - Preliminary No growth in 3 days 06/12/18 09:16 Abscess - Ankle Gram Stain - Final 06/12/18 09:16 Abscess - Ankle Wound Culture - Preliminary Rare growth normal skin guilherme No anaerobes isolated 06/12/18 17:00 Wound - Foot Acid Fast Bacilli Smear - Final No acid fast bacilli seen 06/12/18 17:00 Wound - Foot Acid Fast Bacilli Smear - Final No acid fast bacilli seen - Imaging Impressions Extremity Arterial Study 06/13/18 00:00 CONCLUSION: 1. Findings consistent with [id number] bilateral lower extremity peripheral arterial disease. Assessment and Plan - Assessment (1) Abscess of right foot Code(s): L02.611 - Cutaneous abscess of right foot Status: Acute (2) Osteomyelitis of right foot Code(s): M86.9 - Osteomyelitis, unspecified Status: Acute - Plan Repeat bone biopsy shows osteomyelitis of second metatarsal recommend continue IV antibiotics and medical treatment for osteomyelitis at this point. Packing removed today, wet-to-dry bandaging for now, anticipate further evaluation and treatment per vascular continue wound care at this point will follow-up in 1-2 days, will sign out to Dr. Henry.
[2018-06-15] MEDS: metroNIDAZOLE 500 MG Tablet PO SCH ×3 (05:09→17:10)
[2018-06-15] MEDS: Folic Acid 1 MG Tablet PO SCH (09:00)
[2018-06-15] MEDS: amLODIPine 10 MG Tablet PO SCH (09:00)
[2018-06-15] MEDS: Heparin Central Flush 100 UNIT/ML 5 ML Vial IV.FLUSH SCH (09:00)
[2018-06-15] MEDS: buPROPion 100 MG ER 12 HR Tablet PO SCH ×2 (09:01→20:58)
[2018-06-15] MEDS: Metoprolol Tartrate 100 MG Tablet PO SCH ×2 (09:01→20:58)
[2018-06-15] MEDS: Digoxin 125 MCG Tablet PO SCH (09:01)
[2018-06-15] MEDS: Senna/Docusate Sodium 8.6/50 MG Tablet PO SCH ×2 (09:01→20:59)
[2018-06-15] MEDS ORDERED: fentaNYL Citrate Inj 100 MCG/2 ML Ampul ONE (12:48)
[2018-06-15] MEDS ORDERED: Heparin/NS PF Inj 500 ML ONE (12:48)
--- NOTE | 2018-06-15 13:07 | P.OP ---
- Preoperative Diagnosis (1) Osteomyelitis of right foot (2) PAD (peripheral artery disease) - Postoperative Diagnosis (1) Osteomyelitis of right foot (2) PAD (peripheral artery disease) Date of procedure: 06/15/18 Procedure: R LE angiogram Implants: none Anesthesia: MAC Surgeon: Chris Neely MD Estimated blood loss (mL): 5 Pathology: none sent Operation and Findings: Occluded SFA, popliteal, AT Patent PT and peroneal Could have fem-PT
--- NOTE | 2018-06-15 13:14 | CATHPROC ---
[facility] HIS Report Study Information Study Number Admission Scheduled Start Study Start [id number] Jun 11 2018 1:20AM 06/15/2018 Jun 15 2018 12:37PM [facility] [place] [facility] Endovascular Study Admit Source Facility Department Other [facility] - Vice President Payer Physician and Clinical Staff Initial MD Neely, Chris Press Operator Heavy Duty Jamel Blakely,ISIHA Recorder Sathya Sandoval,RT(R) ScraBlbina Avila RT(R) (BS) Equipment Time Gamma Facilities Operator Description Size Mfg Part Number Used/Scraped INTRODUCER SET, 12:40 [employer] FR 5 [id number] *[id number] Used MICROPUNCTURE STIFF [id number] 12:40 [employer] BLANKET,WARM AIR CCL * Used *[id number] 12:40 [employer] PACK, CCL CUSTOM * Used *[id number] TUBING, PRESSURE INJECTION [id number] 12:40 NAMIC PACER 72" Used 72" (PACER) *[id number] 12:40 [employer] OMNIPAQUE, 300 MG, 150ML 150ML [id number] Used 12:40 [employer] OMNIPAQUE, 300 MG, 50ML 50ML [id number] Used WIRE, ANGLED GLIDE .035 [id number] 12:40 [employer]OLGA 260CM Used 260CM *[id number] History: Allergies Allergy Reaction penicillin G EDEMA History: Risk Factors Hypertension Dyslipidemia Yes Yes Chronic Lung Diabetes Disease History: Other Current Smoker Method Quit Packs a Day Years Used Pack Years No Cigarettes 20 Years Ago 2 40 80 Labs Hgb (g/dl) Hct (%) WBC (l/cumm) Platelets (thousands) 11.60-17.00 35.00-51.00 4.00-11.00 150.00-450.00 9.5 29 13.8 478 Glucose (mg/dl) BUN (mg/dl) Creatinine (mg/dl) BUN:Creatinine (1:x) 74.00-106.00 7.00-18.00 0.50-1.30 10.00-20.00 101 19 1.5 12.7 Na (meq/l) K (meq/l) 136.00-145.00 3.50-5.10 142 3.8 INR (PTT:PT) 0.90-1.10 1.4 CPK-MB (ng/ML) 0.50-3.60 Not Drawn Medication Medication Total Dose (Bolus/Oral) Medication Total Dosage/Unit 1% XYLOCAINE 20 mL FENTANYL 25 mcg VERSED 1 mg Medications (Bolus/Oral) Medication Time Given Dosage/Unit Administered By Reason VERSED 06/15/2018 12:52:39 PM 1 mg Jamel Blakely Patient arrived on 1 mg VERSED given by Jamel Blakely RN in Right Antecubital via Peripheral IV. FENTANYL 06/15/2018 12:53:42 PM 25 mcg Jamel Blakely Patient arrived on 25 mcg FENTANYL given by Jamel Blakely RN in Right Antecubital via Peripheral IV . 1% XYLOCAINE 06/15/2018 12:54:41 PM 20 mL Chris Neely Patient arrived on 20 mL 1% XYLOCAINE given by Chris Neely in Right Groin via Subcutaneous. Medication (Drip) Medication Time Given Dosage/Unit Concentration/Unit Diluent (ml) Solution IV Solutions 06/15/2018 12:41:56 PM 50 mL (IV) NaCl .9 Patient arrived on IV Solutions via Peripheral IV. Pump/Drip Flow using NaCl .9. Initial Case Assessment Cardiovascular HR Rhythm NIBP Chest Pain 76 Sinus 146/84 0 Edema Present Skin color Skin None Normal Warm Dry Neurological State Oriented to time-place- Alert Moves all extremities person Respiration - General Respiration Rate SpO2 (%) O2 (lpm) (B/min) 13 93 0 Initial Case Assessment Cardiovascular HR Rhythm NIBP Chest Pain 76 Sinus 146/84 0 Edema Present Skin color Skin None Normal Warm Dry Circulatory - Right Pulses Dorsalis Pedis Femoral 2 2 Scale (0,1,2,3,4,d) Circulatory - Left Pulses Dorsalis Pedis Femoral 2 2 Scale (0,1,2,3,4,d) Neurological State Oriented to time-place- Alert Moves all extremities person Respiration - General Respiration Rate SpO2 (%) O2 (lpm) (B/min) 13 93 0 Chronological Log Time Study Chronological Log 12:40:56 Patient arrived via Bed. 12:40:57 Patient Name, D.O.B, / Armband Verified By R.N. 12:41:41 Consent signed by the physician and the patient and verified by the Vice President Payer staff. 12:41:48 Verbal Stimulation=2 Physical Stimulation=2 Airway=2 Respiration=2 TOTAL=8. (0=absent, 1=li mited, 2=present) 12:41:50 Patient has been NPO for More than 6Hrs. 12::51 Skin Breakdown- none 12::52 Patient Warmer Placed on the Table. 12::53 Betzy Prominences Protected 12:41:55 A # 20 IV was noted in the Upper Arm (right). Grade = 0 12:41:56 Patient arrived on IV Solutions via Peripheral IV. Pump/Drip Flow using NaCl .9. 12:41:57 History and physical on the chart or being dictated. Assessment: Initial Case, HR=76 BPM, Rhythm=Sinus, JWND=187/84 mmhg, Chest Pain=0, Edema=None, Color=Normal, Skin = Warm, Dry 12:42:02 Neurological: State=Alert, Ox3, IBARRA Respiration: Resp=13 B/min, SpO2=93 %, O2=0 lpm 12:45:00 MD arrived. Vitals capture started with the following parameters, Patient=Adult, Interval=5 min, Initial Pr zxfemj=366 mmHg, 12:48:02 Deflation Rate=5 mmHg, Cuff placed on Right Arm 12:48:39 HR=76 bpm, OGQI=611/84 mmhg, SpO2=95.0 %, Resp=12 B/min, Pain=0, Shari=10, Cortez=2 Time Out. Correct patient, correct procedure, correct physician, labs, allergies, and equipment verified with cathode ray tube salvage processor 12:50:30 team present. Fire risk assesment completed (see hard stop sheet for coding). Time Out Conc urred by MD and individual staff in procedure. 12:51:01 Reference ECG taken 12:52:39 Patient arrived on 1 mg VERSED given by Jamel Blakely RN in Right Antecubital via Periphe ral IV. 12:53:34 HR=75 bpm, LLMT=672/74 mmhg, SpO2=97.0 %, Resp=14 B/min, Pain=0, Shari=10, Cortez=2 12:53:42 Patient arrived on 25 mcg FENTANYL given by Jamel Blakely RN in Right Antecubital via Per ipheral IV. 12:54:40 Case Start 12:54:41 Patient arrived on 20 mL 1% XYLOCAINE given by Chris Neely in Right Groin via Subcutaneo us. 12:57:38 Access site was Right Femoral Artery. A INTRODUCER SET, MICROPUNCTURE STIFF FR 5 was advanced into the Fem Art (right) using the Perc utaneous 12:57:59 technique. 12:58:10 Through sheath, The SFA (right) was injected with 10 cc's of contrast. 12:58:37 HR=81 bpm, QOBD=673/87 mmhg, Resp=10 B/min 12:58:56 Through the sheath, The Popliteal R was injected with 10 cc's of contrast. 12:59:00 Through the sheath, The Peroneal (right) was injected with 10 cc's of contrast. 12:59:36 Through the sheath, The Tib, Ant. (right) was injected with 10 cc's of contrast. 13:01:07 Through the sheath, The Tib, Post (right) was injected with 10 cc's of contrast. 13:02:49 Case End (Physician broke scrub) 13:03:41 HR=71 bpm, QFVH=735/84 mmhg, SpO2=98.0 %, Resp=15 B/min 13:03:46 Sheath removed; pressure applied to access site. Assessment: Initial Case, HR=76 BPM, Rhythm=Sinus, GYJA=346/84 mmhg, Chest Pain=0, Edema=None, Color=Normal, Skin = Warm, Dry Right Pulses: Stanislav Ped=2, Femoral=2 13:04:17 Left Pulses: Stanislav Ped=2, Femoral=2 Neurological: State=Alert, Ox3, IBARRA Respiration: Resp=13 B/min, SpO2=93 %, O2=0 lpm 13:04:37 Sterile dressing applied to site 13:04:38 No case complications noted. 13:04:39 Cine recording checked. 13:04:41 Bedside Report will be given. 13:08:42 HR=78 bpm, HVDA=507/73 mmhg, SpO2=97.0 %, Resp=19 B/min 13:13:36 Vitals capture stopped. 13:13:41 Patient moved to stretcher End Study - Contrast Media Used In Study Contrast Total Opened (mL) Total Used (mL) Total Wasted (mL) Omnipaque 30 30 0 End Study - Maximum Contrast Load Max Contrast Load (mL) 365.2 End Study - Radiation Exposure Fluoro Time (minutes) 1.0 End Study - Patient Disposition Complications Transferred To Interventional Outcome No Telemetry Bed No attempt made
[2018-06-15] MEDS ORDERED: Iohexol 350 MG/ML 50 ML Vial (for Cath Lab) IVCONTRAST ONE (13:34)
--- NOTE | 2018-06-15 15:07 | MP ---
cc: Chris Neely MD DATE OF OPERATION: 06/15/2018 PREOPERATIVE DIAGNOSIS: Right lower extremity tissue loss, peripheral vascular disease. POSTOPERATIVE DIAGNOSIS: Right lower extremity tissue loss, peripheral vascular disease. PROCEDURE PERFORMED: Right lower extremity angiogram. ATTENDING SURGEON: Chris Neely MD ANESTHESIA: Local with sedation. INDICATION: Mr. Henry is a 72-year-old gentleman with a right lower extremity wound and has diminished ABIs and nonpalpable pedal pulses. He was taken to the operating room for angiographic evaluation and treatment as there is no prior catheter-based imaging available for my review. DESCRIPTION OF PROCEDURE: Informed consent was obtained. The patient was taken to the operating room and placed supine on the operating table. An appropriate timeout was taken to ensure the patient's identity, operative site, and planned procedure. Antibiotics were not necessary as this is a clean procedure without a planned implantation of any foreign object. Everyone in the room agreed and we proceeded. His right groin was prepped and draped and locally anesthetized with 1% lidocaine. A 21-gauge micropuncture needle was used to access the right common femoral artery. This was exchanged using Seldinger technique for micropuncture sheath, from which a right lower extremity angiogram was obtained. The micropuncture sheath was removed and pressure held for hemostasis. There were no complications. I was present and scrubbed and performed the entire procedure. INTERPRETATION OF IMAGES: The patient has a patent ilio profunda bypass. The SFA is occluded. The popliteal artery is occluded. The proximal tibial arteries are occluded. The posterior tibial artery and peroneal artery reconstitutes via profunda based collaterals and the posterior tibial artery continues on down to the foot. Chris Neely MD RJF/ch , 02:31 PM , 02:35 PM
--- NOTE | 2018-06-15 15:41 | P.PN ---
Subjective Interval history: Follow-up for right foot osteomyelitis, abscess, possible aspiration pneumonia. Patient is doing well. No fever, chills. He underwent RLE angiogram today. Physical Exam Vital signs: Vital Signs 06/14/18 16:00 06/14/18 17:53 06/14/18 20:00 Temperature 97.5 F L 97.8 F Pulse Rate 74 70 Respiratory Rate 18 16 Blood Pressure 130/79 128/75 Pulse Oximetry 96 96 96 06/15/18 00:00 06/15/18 04:00 06/15/18 07:00 Temperature 98.3 F 97.8 F Pulse Rate 69 74 76 Respiratory Rate 16 15 Blood Pressure 138/78 137/84 Pulse Oximetry 96 96 06/15/18 07:44 06/15/18 08:23 06/15/18 11:00 Temperature 98.2 F Pulse Rate 85 73 Respiratory Rate 18 Blood Pressure 143/79 H Pulse Oximetry 95 96 06/15/18 11:15 06/15/18 13:22 06/15/18 13:42 Temperature 98.4 F 98 F Pulse Rate 75 75 74 Respiratory Rate 18 18 18 Blood Pressure 130/78 123/68 127/75 Pulse Oximetry 95 97 95 06/15/18 14:24 06/15/18 14:57 06/15/18 15:00 Temperature 98.1 F Pulse Rate 72 85 83 Respiratory Rate 18 18 Blood Pressure 131/73 124/77 Pulse Oximetry 93 L 93 L Intake & Output 06/14/18 06/15/18 06/15/18 18:59 06:59 18:59 Intake Total 100 / 100 440 / 440 110 / 110 Output Total 850 / 850 Balance 100 / 100 -410 / -410 110 / 110 Weight 109.4 kg Intake: IV 100 / 100 200 / 200 110 / 110 Heparin/NS PF Inj 500 ML @ 0 10 / 10 mls/hr .ROUTE .STK-MED ONE Rx#: [id number] Ancef Inj 1,000 MG In NS Inj 100 / 100 200 / 200 100 / 100 100 ML @ 200 mls/hr IV.SIG Q8H [facility] Rx#:[id number] Oral 240 / 240 Output: Urine 850 / 850 Other: Date of Last Bowel Movement 06/14/18 06/14/18 06/21/18 Narrative: GENERAL: Alert, oriented 3, NAD. SKIN: Warm and dry. HEAD: Normocephalic. EYES: No scleral icterus. No injection or drainage. NECK: Supple, trachea midline. No JVD or lymphadenopathy. CARDIOVASCULAR: Regular rate and rhythm without murmurs, gallops, or rubs. RESPIRATORY: Breath sounds equal bilaterally. No accessory muscle use. GASTROINTESTINAL: Abdomen soft, non-tender, nondistended. MUSCULOSKELETAL: No cyanosis. Lower extremity 2+ edema Left foot worse than right. Right foot wrapped in bandage. BACK: Nontender without obvious deformity. No CVA tenderness. Results - Labs CBC & Chem 7: 06/12/18 04:30 06/12/18 04:30 Microbiology 06/12/18 17:00 Wound - Foot Gram Stain - Final 06/12/18 17:00 Wound - Foot Wound Culture - Preliminary No growth in 48 hours 06/12/18 17:00 Wound - Foot Gram Stain - Final 06/12/18 17:00 Wound - Foot Wound Culture - Preliminary Staphylococcus aureus 06/12/18 17:00 Wound - Foot Fungal Smear - Final No fungal elements seen 06/12/18 17:00 Wound - Foot Acid Fast Bacilli Smear - Final No acid fast bacilli seen 06/11/18 03:30 Blood - Peripheral Aerobic Blood Culture - Preliminary No growth in 4 days 06/11/18 03:30 Blood - Peripheral Anaerobic Blood Culture - Preliminary No growth in 4 days 06/11/18 03:35 Blood - Peripheral Aerobic Blood Culture - Preliminary No growth in 4 days 06/11/18 03:35 Blood - Peripheral Anaerobic Blood Culture - Preliminary No growth in 4 days 06/12/18 09:16 Abscess - Ankle Gram Stain - Final 06/12/18 09:16 Abscess - Ankle Wound Culture - Final Rare growth normal skin guilherme No anaerobes isolated Assessment and Plan - Assessment (1) Cellulitis Code(s): L03.90 - Cellulitis, unspecified Status: Acute (2) Lower extremity edema Code(s): R60.0 - Localized edema Status: Acute (3) PNA (pneumonia) Code(s): J18.9 - Pneumonia, unspecified organism Status: Acute (4) Lung cancer Code(s): C34.90 - Malignant neoplasm of unspecified part of unspecified bronchus or lung Status: Acute - Plan This is a 72-year-old male with a PMH of Metastatic Lung CA s/p Pneumectomy, HTN , AAA Repair, CAD and RLE Cellulitis/Osteo who presented to the ER w/ complaints of left lower extremity swelling starting 06/11/2018. Pt follows w/ Dr. Knight, had first round of Chemo 05/18/18, followed by nausea, vomiting and diarrhea, recent admit on 05/27/18 for Neutropenic Fever and RLE Cellulitis/ Abscess/Osteo, s/p I&D and Bone Biopsy by Dr. Gorman 06/01/18, Lisa Cath placement 06/05/18, Cultures +S aureus and mixed giulherme, s/p eval by ID, d/c'd on Ancef 1gm IV q8h and Flagyl 500mg PO qid. Right foot/ankle abscess Right lower extremity cellulitis Right lower ext peripheral arterial disease - ID, Podiatry following. Patient is currently on cefazolin 1 g every 8 hours, Flagyl 500 mg p.o. every 6 hours. - Podiatry performed right foot I&D with second metatarsal debridement on . - Podiatry consulted Vascular surgery for an evaluation. Angiogram done on . RLE bypass surgery on 06/19/2018. Possible aspiration pneumonia -Patient is currently on cefazolin and Flagyl. He denies any cough, fever or chills. Hx of Metastatic Lung cancer Chronic Afib Hypertension - Continue Amlodipine 10mg Qday - Continue Apixaban 5mg BID. STOP it after AM dose on Tuesday06/18/2018 - Metoprolol 100mg BID. - Cont Lipitor 80mg Qday Lower extremity edema - 2D echo shows ejection fraction 50%. Continue Lasix 20mg IV BID. - Lower extremity edema likely due to low albumin. - Keep legs elevated. Left lower ext edema is improving. Full code. Apixaban - resume tonight. Stop after AM dose on Tuesday06/18/2018. (1) Cellulitis Qualifiers: Site of cellulitis: extremity Site of cellulitis of extremity: lower extremity Laterality: right Qualified Code(s): L03.115 - Cellulitis of right lower limb
[2018-06-16] MEDS: metroNIDAZOLE 500 MG Tablet PO SCH ×5 (00:17→23:13)
[2018-06-16] MEDS: Heparin Central Flush 100 UNIT/ML 5 ML Vial IV.FLUSH PRN (06:44)
[2018-06-16] MEDS: Metoprolol Tartrate 100 MG Tablet PO SCH ×2 (08:33→20:46)
[2018-06-16] MEDS: buPROPion 100 MG ER 12 HR Tablet PO SCH ×2 (08:33→20:44)
[2018-06-16] MEDS: Folic Acid 1 MG Tablet PO SCH (08:37)
[2018-06-16] MEDS: Digoxin 125 MCG Tablet PO SCH (08:37)
[2018-06-16] MEDS: amLODIPine 10 MG Tablet PO SCH (08:38)
[2018-06-16] MEDS: Heparin Central Flush 100 UNIT/ML 5 ML Vial IV.FLUSH SCH (08:39)
[2018-06-16] MEDS: Senna/Docusate Sodium 8.6/50 MG Tablet PO SCH ×2 (08:39→20:47)
--- NOTE | 2018-06-16 08:56 | P.PN ---
Subjective Interval history: Follow-up for right foot osteomyelitis, abscess, possible aspiration pneumonia. Patient denies any chest pain, shortness of breath, fever or chills. He is a scheduled for vascular surgery on 06/19/2018. Physical Exam Vital signs: Vital Signs 06/15/18 11:00 06/15/18 11:15 06/15/18 13:22 Temperature 98.4 F 98 F Pulse Rate 73 75 75 Respiratory Rate 18 18 Blood Pressure 130/78 123/68 Pulse Oximetry 95 97 06/15/18 13:42 06/15/18 14:24 06/15/18 14:57 Temperature 98.1 F Pulse Rate 74 72 85 Respiratory Rate 18 18 18 Blood Pressure 127/75 131/73 124/77 Pulse Oximetry 95 93 L 93 L 06/15/18 15:00 06/15/18 20:00 06/16/18 00:00 Temperature 98 F 97.9 F Pulse Rate 83 72 72 Respiratory Rate 16 16 Blood Pressure 132/70 127/73 Pulse Oximetry 97 97 06/16/18 03:09 06/16/18 04:00 06/16/18 07:00 Temperature 97.4 F L Pulse Rate 64 73 87 Respiratory Rate 16 Blood Pressure 140/75 Pulse Oximetry 97 06/16/18 08:18 Temperature 97.9 F Pulse Rate 77 Respiratory Rate 16 Blood Pressure 147/75 H Pulse Oximetry Intake & Output 06/15/18 06/16/18 06/16/18 18:59 06:59 18:59 Intake Total 110 / 110 440 / 440 Output Total 950 / 950 Balance 110 / 110 -510 / -510 Weight 109.2 kg Intake: IV 110 / 110 200 / 200 Heparin/NS PF Inj 500 ML @ 0 10 / 10 mls/hr .ROUTE .STK-MED ONE Rx#: [id number] Ancef Inj 1,000 MG In NS Inj 100 / 100 200 / 200 100 ML @ 200 mls/hr IV.SIG Q8H [facility] Rx#:[id number] Oral 240 / 240 Output: Urine 950 / 950 Other: Date of Last Bowel Movement 06/21/18 06/14/18 Narrative: GENERAL: Alert, oriented 3, NAD. SKIN: Warm and dry. HEAD: Normocephalic. EYES: No scleral icterus. No injection or drainage. NECK: Supple, trachea midline. No JVD or lymphadenopathy. CARDIOVASCULAR: Regular rate and rhythm without murmurs, gallops, or rubs. RESPIRATORY: Breath sounds equal bilaterally. No accessory muscle use. GASTROINTESTINAL: Abdomen soft, non-tender, nondistended. MUSCULOSKELETAL: No cyanosis. Lower extremity 2+ edema Left foot worse than right. Right foot wrapped in bandage. BACK: Nontender without obvious deformity. No CVA tenderness. Results - Labs CBC & Chem 7: 06/12/18 04:30 06/12/18 04:30 Microbiology 06/12/18 17:00 Wound - Foot Gram Stain - Final 06/12/18 17:00 Wound - Foot Wound Culture - Final No growth in 72 hours (aerobically and anaerobically ) 06/12/18 17:00 Wound - Foot Gram Stain - Final 06/12/18 17:00 Wound - Foot Wound Culture - Final Staphylococcus aureus 06/12/18 17:00 Wound - Foot Fungal Smear - Final No fungal elements seen 06/12/18 17:00 Wound - Foot Acid Fast Bacilli Smear - Final No acid fast bacilli seen 06/11/18 03:30 Blood - Peripheral Aerobic Blood Culture - Preliminary No growth in 4 days 06/11/18 03:30 Blood - Peripheral Anaerobic Blood Culture - Preliminary No growth in 4 days 06/11/18 03:35 Blood - Peripheral Aerobic Blood Culture - Preliminary No growth in 4 days 06/11/18 03:35 Blood - Peripheral Anaerobic Blood Culture - Preliminary No growth in 4 days 06/12/18 09:16 Abscess - Ankle Gram Stain - Final 06/12/18 09:16 Abscess - Ankle Wound Culture - Final Rare growth normal skin guilherme No anaerobes isolated Assessment and Plan - Assessment (1) Cellulitis Code(s): L03.90 - Cellulitis, unspecified Status: Acute (2) Lower extremity edema Code(s): R60.0 - Localized edema Status: Acute (3) PNA (pneumonia) Code(s): J18.9 - Pneumonia, unspecified organism Status: Acute (4) Lung cancer Code(s): C34.90 - Malignant neoplasm of unspecified part of unspecified bronchus or lung Status: Acute - Plan This is a 72-year-old male with a PMH of Metastatic Lung CA s/p Pneumectomy, HTN , AAA Repair, CAD and RLE Cellulitis/Osteo who presented to the ER w/ complaints of left lower extremity swelling starting 06/11/2018. Pt follows w/ Dr. Knight, had first round of Chemo 05/18/18, followed by nausea, vomiting and diarrhea, recent admit on 05/27/18 for Neutropenic Fever and RLE Cellulitis/ Abscess/Osteo, s/p I&D and Bone Biopsy by Dr. Gorman 06/01/18, Lisa Cath placement 06/05/18, Cultures +S aureus and mixed guilherme, s/p eval by ID, d/c'd on Ancef 1gm IV q8h and Flagyl 500mg PO qid. Right foot/ankle abscess Right lower extremity cellulitis Right lower ext peripheral arterial disease - ID, Podiatry following. Patient is currently on cefazolin 1 g every 8 hours, Flagyl 500 mg p.o. every 6 hours. - Podiatry performed right foot I&D with second metatarsal debridement on . - Podiatry consulted Vascular surgery for an evaluation. Angiogram done on . RLE bypass surgery on 06/19/2018. Possible aspiration pneumonia -Patient is currently on cefazolin and Flagyl. He denies any cough, fever or chills. Hx of Metastatic Lung cancer Chronic Afib Hypertension - Continue Amlodipine 10mg Qday - Continue Apixaban 5mg BID. STOP it after AM dose on Tuesday06/18/2018 ( order placed) - Metoprolol 100mg BID. - Cont Lipitor 80mg Qday Lower extremity edema - 2D echo shows ejection fraction 50%. Continue Lasix 20mg IV BID. - Lower extremity edema likely due to low albumin. - Keep legs elevated. Discussed with RN regarding elevation of left leg. Full code. Apixaban - resume tonight. Stop after AM dose on Tuesday06/18/2018. (1) Cellulitis Qualifiers: Site of cellulitis: extremity Site of cellulitis of extremity: lower extremity Laterality: right Qualified Code(s): L03.115 - Cellulitis of right lower limb
--- NOTE | 2018-06-16 21:21 | P.PNPOD ---
Subjective Interval history: s/p Right foot I an D and 2nd metatarsal bone biopsy . 06/12/18 Dr Garcia. Seen at bedside this pm. Physical Exam Vital signs: Vital Signs 06/16/18 00:00 06/16/18 03:09 06/16/18 04:00 Temperature 97.9 F 97.4 F L Pulse Rate 72 64 73 Respiratory Rate 16 16 Blood Pressure 127/73 140/75 Pulse Oximetry 97 97 06/16/18 07:00 06/16/18 08:18 06/16/18 08:49 Temperature 97.9 F Pulse Rate 87 77 Respiratory Rate 16 Blood Pressure 147/75 H Pulse Oximetry 98 06/16/18 11:00 06/16/18 11:31 06/16/18 15:00 Temperature 98.2 F Pulse Rate 65 68 69 Respiratory Rate 18 Blood Pressure 128/72 Pulse Oximetry 94 L 06/16/18 16:16 06/16/18 20:40 06/16/18 20:50 Temperature 97.7 F 98 F Pulse Rate 69 68 Respiratory Rate 18 17 Blood Pressure 136/77 125/73 Pulse Oximetry 98 95 96 Intake & Output 06/16/18 06/16/18 06/17/18 06:59 18:59 06:59 Intake Total 440 / 440 775 / 775 Output Total 950 / 950 1420 / 1420 Balance -510 / -510 -645 / -645 Weight 109.2 kg Intake: IV 200 / 200 100 / 100 Ancef Inj 1,000 MG In NS Inj 200 / 200 100 / 100 100 ML @ 200 mls/hr IV.SIG Q8H [facility] Rx#:[id number] Oral 240 / 240 675 / 675 Output: Urine 950 / 950 1420 / 1420 Other: Date of Last Bowel Movement 06/14/18 06/16/18 # Bowel Movements 2 Narrative: RLE + intact packing and retention sutures at the proximal incision. No ascending streaking. NVS unchanged. Medications and Allergies Active Medications: Active Medications Acetaminophen (Tylenol) 650 mg PO Q4H PRN PRN Reason: Fever, headache, pain 1-4 Hydrocodone Bitart/Acetaminophen ([place] 5/325) 1 tab PO Q4H PRN PRN Reason: Pain 5-10 Last Admin: 06/16/18 17:32 Dose: 1 tab Al Hydroxide/Mg Hydroxide (Milk Of Magnesia Liq) 30 ml PO Q12H PRN PRN Reason: Mild Constipation Albuterol (Duoneb Neb (Prn)) 1 ampul NEB Q4HR NEB PRN PRN Reason: SOB/WHEEZING Last Admin: 06/12/18 13:09 Dose: 1 ampul Amlodipine Besylate (Norvasc) 10 mg PO DAILY [facility] Last Admin: 06/16/18 08:38 Dose: 10 mg Apixaban (Eliquis) 5 mg PO BID [facility] Last Admin: 06/16/18 20:44 Dose: 5 mg Atorvastatin Calcium (Lipitor) 80 mg PO DAILY [facility] Last Admin: 06/16/18 08:38 Dose: 80 mg Bisacodyl (Dulcolax Supp) 10 mg RECTAL DAILY PRN PRN Reason: SEVERE CONSITIPATION Bupropion HCl (Wellbutrin Sr) 100 mg PO BID [facility] Last Admin: 06/16/18 20:44 Dose: 100 mg Colchicine (Colcrys) 0.6 mg PO DAILY [facility] Last Admin: 06/16/18 08:39 Dose: Not Given Digoxin (Lanoxin) 125 mcg PO DAILY [facility] Last Admin: 06/16/18 08:37 Dose: 125 mcg Folic Acid (Folic Acid) 1 mg PO DAILY [facility] Last Admin: 06/16/18 08:37 Dose: 1 mg Furosemide (Lasix Inj) 20 mg IV.PUSH BID@0900,1800 [facility] Last Admin: 06/16/18 17:33 Dose: 20 mg Heparin Sodium (Porcine) (Heparin Central Flush) 0 unit IV.FLUSH DAILY [facility] Last Admin: 06/16/18 08:39 Dose: 500 unit Heparin Sodium (Porcine) (Heparin Central Flush) 0 unit IV.FLUSH PRN PRN PRN Reason: Flush each lumen Last Admin: 06/16/18 06:44 Dose: 250 unit Cefazolin Sodium 1,000 mg/ (Sodium Chloride) 100 mls @ 200 mls/hr IV.SIG Q8H [facility] Last Infusion: 06/16/18 14:39 Dose: Infused Lactulose (Lactulose Liq) 30 ml PO DAILY PRN PRN Reason: SEVERE CONSITIPATION Metoprolol Tartrate (Lopressor) 100 mg PO BID [facility] Last Admin: 06/16/18 20:46 Dose: 100 mg Metronidazole (Flagyl) 500 mg PO Q6H [facility] Last Admin: 06/16/18 17:32 Dose: 500 mg Ondansetron HCl (Zofran Inj) 4 mg IV.PUSH Q6H PRN PRN Reason: NAUSEA OR VOMITING Last Admin: 06/16/18 08:35 Dose: 4 mg Ondansetron HCl (Zofran Odt) 8 mg PO Q8H PRN PRN Reason: NAUSEA Senna/Docusate Sodium (Salma-Colace) 1 tab PO BID [facility] Last Admin: 06/16/18 20:47 Dose: Not Given Sennosides (Senokot) 17.2 mg PO Q12H PRN PRN Reason: Moderate Constipation Sodium Chloride (Ns Flush) 0 ml IV.FLUSH DAILY [facility] Last Admin: 06/16/18 08:40 Dose: 10 ml Sodium Chloride (Ns Flush) 0 ml IV.FLUSH PRN PRN PRN Reason: FLUSH AFTER USING IV ACCESS Last Admin: 06/14/18 06:19 Dose: 10 ml Sodium Chloride (Ns Flush) 2 ml IV.FLUSH BID [facility] Last Admin: 06/16/18 08:47 Dose: Not Given Sodium Chloride (Ns Flush) 2 ml IV.FLUSH PRN PRN PRN Reason: FLUSH AFTER USING IV ACCESS Allergies Allergy/AdvReac Type Severity Reaction Status Date / Time penicillin G Allergy Severe EDEMA Verified 05/27/18 12:05 Home Medications Medication Instructions Recorded Confirmed Type amlodipine 10 mg PO DAILY 05/27/18 06/10/18 History atorvastatin 80 mg PO DAILY 05/27/18 06/10/18 History bupropion HCl 100 mg PO BID 05/27/18 06/10/18 History colchicine 0.6 mg PO DAILY 05/27/18 06/10/18 History digoxin 0.125 mg PO DAILY 05/27/18 06/10/18 History folic acid 1 mg PO DAILY 05/27/18 06/10/18 History metoprolol tartrate 1 mg/kg PO BID 05/27/18 06/10/18 History ondansetron [Zofran ODT] 8 mg PO Q8HR PRN 05/27/18 06/10/18 History cefazolin 2 g IV Q8H 06/10/18 06/10/18 History Results - Labs CBC & Chem 7: 06/12/18 04:30 06/12/18 04:30 Microbiology 06/11/18 03:30 Blood - Peripheral Aerobic Blood Culture - Final No growth in 5 days 06/11/18 03:30 Blood - Peripheral Anaerobic Blood Culture - Final No growth in 5 days 06/11/18 03:35 Blood - Peripheral Aerobic Blood Culture - Final No growth in 5 days 06/11/18 03:35 Blood - Peripheral Anaerobic Blood Culture - Final No growth in 5 days 06/12/18 17:00 Wound - Foot Gram Stain - Final 06/12/18 17:00 Wound - Foot Wound Culture - Final No growth in 72 hours (aerobically and anaerobically ) 06/12/18 17:00 Wound - Foot Gram Stain - Final 06/12/18 17:00 Wound - Foot Wound Culture - Final Staphylococcus aureus Assessment and Plan - Assessment (1) Abscess of right foot Code(s): L02.611 - Cutaneous abscess of right foot Status: Acute (2) Osteomyelitis of right foot Code(s): M86.9 - Osteomyelitis, unspecified Status: Acute - Plan Dressing change 06/16/18 Pending vascular intervention 06/19/18 Continue with daily dressing changes.
[2018-06-17] MEDS: metroNIDAZOLE 500 MG Tablet PO SCH ×3 (05:41→19:39)
[2018-06-17] MEDS: buPROPion 100 MG ER 12 HR Tablet PO SCH ×2 (09:28→20:24)
[2018-06-17] MEDS: Senna/Docusate Sodium 8.6/50 MG Tablet PO SCH ×2 (09:29→20:26)
[2018-06-17] MEDS: Metoprolol Tartrate 100 MG Tablet PO SCH ×2 (09:29→20:25)
[2018-06-17] MEDS: Digoxin 125 MCG Tablet PO SCH (09:29)
[2018-06-17] MEDS: amLODIPine 10 MG Tablet PO SCH (09:29)
[2018-06-17] MEDS: Folic Acid 1 MG Tablet PO SCH (09:29)
[2018-06-17] MEDS: Heparin Central Flush 100 UNIT/ML 5 ML Vial IV.FLUSH SCH (11:16)
--- NOTE | 2018-06-17 14:23 | P.PN ---
Subjective Interval history: RN denies any deterioration since last night. Says she placed Jovita boot. Pt himself has no new complaints. Physical Exam Vital signs: Vital Signs 06/16/18 15:00 06/16/18 16:16 06/16/18 19:19 Temperature 97.7 F Pulse Rate 69 69 76 Respiratory Rate 18 Blood Pressure 136/77 Pulse Oximetry 98 06/16/18 20:40 06/16/18 20:50 06/16/18 23:10 Temperature 98 F 98.2 F Pulse Rate 68 70 Respiratory Rate 17 20 Blood Pressure 125/73 131/71 Pulse Oximetry 95 96 96 06/16/18 23:40 06/16/18 23:47 06/17/18 03:34 Temperature Pulse Rate 57 L Respiratory Rate 18 16 Blood Pressure Pulse Oximetry 06/17/18 04:08 06/17/18 05:37 06/17/18 10:20 Temperature 98 F Pulse Rate 72 73 Respiratory Rate 16 Blood Pressure 123/76 Pulse Oximetry 94 L 95 06/17/18 11:57 Temperature 97.4 F L Pulse Rate 64 Respiratory Rate 22 Blood Pressure 126/72 Pulse Oximetry 95 Intake & Output 06/16/18 06/17/18 06/17/18 18:59 06:59 18:59 Intake Total 775 / 775 1100 / 1100 Output Total 1420 / 1420 800 / 800 Balance -645 / -645 300 / 300 Weight 110.5 kg Intake: IV 100 / 100 200 / 200 Ancef Inj 1,000 MG In NS Inj 100 / 100 200 / 200 100 ML @ 200 mls/hr IV.SIG Q8H [facility] Rx#:[id number] Oral 675 / 675 900 / 900 Output: Urine 1420 / 1420 800 / 800 Other: Date of Last Bowel Movement 06/16/18 06/16/18 # Bowel Movements 2 Narrative: Rt foot in postop dressing, right glynn/calf with skin discoloration likely 2/2 poor circulation unlabored breathing, NAD Results - Labs CBC & Chem 7: 06/12/18 04:30 06/12/18 04:30 Microbiology 06/11/18 03:30 Blood - Peripheral Aerobic Blood Culture - Final No growth in 5 days 06/11/18 03:30 Blood - Peripheral Anaerobic Blood Culture - Final No growth in 5 days 06/11/18 03:35 Blood - Peripheral Aerobic Blood Culture - Final No growth in 5 days 06/11/18 03:35 Blood - Peripheral Anaerobic Blood Culture - Final No growth in 5 days Assessment and Plan - Assessment (1) Cellulitis Code(s): L03.90 - Cellulitis, unspecified Status: Acute (2) Lower extremity edema Code(s): R60.0 - Localized edema Status: Acute (3) PNA (pneumonia) Code(s): J18.9 - Pneumonia, unspecified organism Status: Acute (4) Lung cancer Code(s): C34.90 - Malignant neoplasm of unspecified part of unspecified bronchus or lung Status: Acute - Plan This is a 72-year-old male with a PMH of Metastatic Lung CA s/p Pneumectomy, HTN , AAA Repair, CAD and RLE Cellulitis/Osteo who presented to the ER w/ complaints of left lower extremity swelling starting 06/11/2018. Pt follows w/ Dr. Knight, had first round of Chemo 05/18/18, followed by nausea, vomiting and diarrhea, recent admit on 05/27/18 for Neutropenic Fever and RLE Cellulitis/ Abscess/Osteo, s/p I&D and Bone Biopsy by Dr. Gorman 06/01/18, Lisa Cath placement 06/05/18, Cultures +S aureus and mixed guilherme, s/p eval by ID, d/c'd on Ancef 1gm IV q8h and Flagyl 500mg PO qid. Right lower extremity abscess/cellulitis Right lower ext peripheral arterial disease - ID, Podiatry following. cefazolin and flagyl - s/p Rt Ft I&D with second metatarsal debridement on 06/12/2018. - S/p Angiogram done on 06/15/2018. Scheduled RLE bypass surgery on 2017. holding apixaban after AM sun dose Possible aspiration pneumonia -cefazolin and flagyl Hx of Metastatic Lung cancer Chronic Afib Hypertension - Continue Amlodipine, lopressor, lipitor - Continue Apixaban 5mg BID. STOP it after AM dose on Tuesday06/18/2018 ( order placed) Lower extremity edema - 2D echo shows ejection fraction 50%. Continue Lasix 20mg IV BID. - Lower extremity edema likely due to low albumin. - Keep legs elevated. Full code. Apixaban - Stop after AM dose on Tuesday06/18/2018. (1) Cellulitis Qualifiers: Site of cellulitis: extremity Site of cellulitis of extremity: lower extremity Laterality: right Qualified Code(s): L03.115 - Cellulitis of right lower limb
[2018-06-18] MEDS: metroNIDAZOLE 500 MG Tablet PO SCH ×5 (00:37→23:40)
[2018-06-18] MEDS ORDERED: Melatonin 5 MG Tablet PO ONE (01:37)
[2018-06-18] MEDS ORDERED: ALPRAZolam 0.25 MG Tablet PO ONE (03:38)
--- NOTE | 2018-06-18 09:30 | P.PNVS ---
- Pre-operative Note Planned Procedure: R LE Bypass (redo) Interval History: Pt has been feeling well, no problems that would preclude OR. Labs: WBC 13.8 th/mm3 (4.0-11.0) H 06/12/18 04:30 RBC 2.93 mil/mm3 (4.50-5.90) L 06/12/18 04:30 Hgb 9.5 gm/dL (13.0-17.0) L 06/12/18 04:30 Hct 29.0 % (39.0-51.0) L 06/12/18 04:30 MCV 98.6 fL (80.0-100.0) 06/12/18 04:30 MCH 32.2 pg (27.0-34.0) 06/12/18 04:30 MCHC 32.6 % (32.0-36.0) 06/12/18 04:30 RDW 14.8 % (11.6-17.2) 06/12/18 04:30 Plt Count 478 th/mm3 (150-450) H 06/12/18 04:30 MPV 8.0 fL (7.0-11.0) 06/12/18 04:30 INR 1.4 Ratio 06/10/18 19:40 Sodium 142 meq/L (136-145) 06/12/18 04:30 Potassium 3.8 meq/L (3.5-5.1) 06/12/18 04:30 Chloride 105 meq/L (98-107) 06/12/18 04:30 Carbon Dioxide 28.6 meq/L (21.0-32.0) 06/12/18 04:30 Anion Gap 8 meq/L (5-15) 06/12/18 04:30 BUN 19 mg/dL (7-18) H 06/12/18 04:30 Random Glucose 101 mg/dL (74-106) 06/12/18 04:30 Calcium 8.0 mg/dL (8.5-10.1) L 06/12/18 04:30 Blood: T&S Imaging: ITS Impressions Chest X-Ray 06/10/18 19:44 CONCLUSION: Right IJ central venous catheter in place. No evidence of pneumothorax. Venous Doppler Study 06/10/18 19:44 CONCLUSION: No evidence of lower extremity DVT on the right or left. Chest CTA 06/11/18 00:00 CONCLUSION: 1. No CT evidence for pulmonary artery embolism as questioned. 2. Focal patchy airspace consolidation in the right lower lobe concerning for bronchopneumonia/aspiration. 3. Postsurgical features with associated right upper lobe volume loss and scarring. 4. Coronary artery calcifications. 5. Mild ascending thoracic aortic aneurysm measuring up to 4.3 cm. 6. Additional ancillary findings, as above. Ankle MRI 06/12/18 00:00 CONCLUSION: 1. Soft tissue swelling is noted along the dorsum of the ankle and proximal foot as well as medially and laterally in the regions of the malleoli. Subcutaneous fluid collection is noted along the dorsal aspect of the proximal third fourth and fifth metatarsals but is incompletely evaluated on this examination. This raises the possibility of subcutaneous abscess. Extremity Arterial Study 06/13/18 00:00 CONCLUSION: 1. Findings consistent with [id number] bilateral lower extremity peripheral arterial disease. ANGIOGRAM reviewed - adequate PT for bypass Orders: NPO Anticoagulants stopped this morning Post-operative Destination: PACU Operative site marked: Yes Consent: Informed consent has been obtained from Marko Henry. I have explained the procedure in detail and discussed the risks, benefits, and potential complications. All questions have been answered.
[2018-06-18] MEDS: buPROPion 100 MG ER 12 HR Tablet PO SCH ×2 (10:00→20:15)
[2018-06-18] MEDS: Senna/Docusate Sodium 8.6/50 MG Tablet PO SCH ×2 (10:00→20:16)
[2018-06-18] MEDS: Digoxin 125 MCG Tablet PO SCH (10:00)
[2018-06-18] MEDS: Metoprolol Tartrate 100 MG Tablet PO SCH ×2 (10:00→20:15)
[2018-06-18] MEDS: amLODIPine 10 MG Tablet PO SCH (10:01)
[2018-06-18] MEDS: Folic Acid 1 MG Tablet PO SCH (10:01)
[2018-06-18] MEDS: Heparin Central Flush 100 UNIT/ML 5 ML Vial IV.FLUSH SCH (10:02)
--- NOTE | 2018-06-18 13:05 | P.PNPOD ---
Subjective Interval history: s/p Right foot multiple I and D PVD Dehisced and infected wounds. Physical Exam Vital signs: Vital Signs 06/17/18 15:32 06/17/18 16:00 06/17/18 19:00 Temperature 97.9 F Pulse Rate 70 69 92 H Respiratory Rate 18 Blood Pressure 131/80 Pulse Oximetry 96 06/17/18 20:00 06/17/18 20:40 06/18/18 00:00 Temperature 97.7 F 97.9 F Pulse Rate 75 85 Respiratory Rate 16 15 Blood Pressure 130/77 147/82 H Pulse Oximetry 98 96 98 06/18/18 04:00 06/18/18 08:00 06/18/18 10:07 Temperature 97.7 F 98.4 F Pulse Rate 70 64 Respiratory Rate 16 20 Blood Pressure 137/77 132/79 Pulse Oximetry 97 97 92 L 06/18/18 11:44 Temperature 97.9 F Pulse Rate 67 Respiratory Rate 20 Blood Pressure 118/68 Pulse Oximetry 95 Intake & Output 06/17/18 06/18/18 06/18/18 18:59 06:59 18:59 Intake Total 680 / 680 100 / 100 Output Total 475 / 475 Balance 205 / 205 100 / 100 Intake: IV 200 / 200 100 / 100 Ancef Inj 1,000 MG In NS Inj 200 / 200 100 / 100 100 ML @ 200 mls/hr IV.SIG Q8H [facility] Rx#:[id number] Oral 480 / 480 Output: Urine 475 / 475 Other: Date of Last Bowel Movement 06/17/18 06/17/18 Narrative: RLE Intact dressing and no strikethrough. NVS intact LLE Intact Unna boot. Medications and Allergies Active Medications: Active Medications Acetaminophen (Tylenol) 650 mg PO Q4H PRN PRN Reason: Fever, headache, pain 1-4 Hydrocodone Bitart/Acetaminophen ([place] 5/325) 1 tab PO Q4H PRN PRN Reason: Pain 5-10 Last Admin: 06/18/18 00:37 Dose: 1 tab Al Hydroxide/Mg Hydroxide (Milk Of Magnesia Liq) 30 ml PO Q12H PRN PRN Reason: Mild Constipation Albuterol (Duoneb Neb (Prn)) 1 ampul NEB Q4HR NEB PRN PRN Reason: SOB/WHEEZING Last Admin: 06/12/18 13:09 Dose: 1 ampul Amlodipine Besylate (Norvasc) 10 mg PO DAILY [facility] Last Admin: 06/18/18 10:01 Dose: 10 mg Apixaban (Eliquis) 5 mg PO BID [facility] Last Admin: 06/18/18 10:02 Dose: 5 mg Atorvastatin Calcium (Lipitor) 80 mg PO DAILY [facility] Last Admin: 06/18/18 10:00 Dose: 80 mg Bisacodyl (Dulcolax Supp) 10 mg RECTAL DAILY PRN PRN Reason: SEVERE CONSITIPATION Bupropion HCl (Wellbutrin Sr) 100 mg PO BID [facility] Last Admin: 06/18/18 10:00 Dose: 100 mg Colchicine (Colcrys) 0.6 mg PO DAILY [facility] Last Admin: 06/18/18 10:01 Dose: Not Given Digoxin (Lanoxin) 125 mcg PO DAILY [facility] Last Admin: 06/18/18 10:00 Dose: 125 mcg Folic Acid (Folic Acid) 1 mg PO DAILY [facility] Last Admin: 06/18/18 10:01 Dose: 1 mg Furosemide (Lasix Inj) 20 mg IV.PUSH BID@0900,1800 [facility] Last Admin: 06/18/18 10:12 Dose: 20 mg Heparin Sodium (Porcine) (Heparin Central Flush) 0 unit IV.FLUSH DAILY [facility] Last Admin: 06/18/18 10:02 Dose: 500 unit Heparin Sodium (Porcine) (Heparin Central Flush) 0 unit IV.FLUSH PRN PRN PRN Reason: Flush each lumen Last Admin: 06/16/18 06:44 Dose: 250 unit Cefazolin Sodium 1,000 mg/ (Sodium Chloride) 100 mls @ 200 mls/hr IV.SIG Q8H [facility] Last Infusion: 06/18/18 10:21 Dose: Infused Lactulose (Lactulose Liq) 30 ml PO DAILY PRN PRN Reason: SEVERE CONSITIPATION Melatonin (Melatonin) 5 mg PO HS PRN PRN Reason: INSOMNIA Metoprolol Tartrate (Lopressor) 100 mg PO BID [facility] Last Admin: 06/18/18 10:00 Dose: 100 mg Metronidazole (Flagyl) 500 mg PO Q6H [facility] Last Admin: 06/18/18 11:42 Dose: 500 mg Ondansetron HCl (Zofran Inj) 4 mg IV.PUSH Q6H PRN PRN Reason: NAUSEA OR VOMITING Last Admin: 06/17/18 06:32 Dose: 4 mg Ondansetron HCl (Zofran Odt) 8 mg PO Q8H PRN PRN Reason: NAUSEA Last Admin: 06/17/18 11:59 Dose: 8 mg Senna/Docusate Sodium (Salma-Colace) 1 tab PO BID [facility] Last Admin: 06/18/18 10:00 Dose: 1 tab Sennosides (Senokot) 17.2 mg PO Q12H PRN PRN Reason: Moderate Constipation Sodium Chloride (Ns Flush) 0 ml IV.FLUSH DAILY [facility] Last Admin: 06/18/18 10:02 Dose: 10 ml Sodium Chloride (Ns Flush) 0 ml IV.FLUSH PRN PRN PRN Reason: FLUSH AFTER USING IV ACCESS Last Admin: 06/14/18 06:19 Dose: 10 ml Sodium Chloride (Ns Flush) 2 ml IV.FLUSH BID [facility] Last Admin: 06/18/18 10:02 Dose: Not Given Sodium Chloride (Ns Flush) 2 ml IV.FLUSH PRN PRN PRN Reason: FLUSH AFTER USING IV ACCESS Allergies Allergy/AdvReac Type Severity Reaction Status Date / Time penicillin G Allergy Severe EDEMA Verified 05/27/18 12:05 Home Medications Medication Instructions Recorded Confirmed Type amlodipine 10 mg PO DAILY 05/27/18 06/10/18 History atorvastatin 80 mg PO DAILY 05/27/18 06/10/18 History bupropion HCl 100 mg PO BID 05/27/18 06/10/18 History colchicine 0.6 mg PO DAILY 05/27/18 06/10/18 History digoxin 0.125 mg PO DAILY 05/27/18 06/10/18 History folic acid 1 mg PO DAILY 05/27/18 06/10/18 History metoprolol tartrate 1 mg/kg PO BID 05/27/18 06/10/18 History ondansetron [Zofran ODT] 8 mg PO Q8HR PRN 05/27/18 06/10/18 History cefazolin 2 g IV Q8H 06/10/18 06/10/18 History Results - Labs CBC & Chem 7: 06/12/18 04:30 06/12/18 04:30 Laboratory Results - last 24 hr 06/18/18 10:20 Blood Type O Positive Blood Type Recheck Not needed Antibody Screen Negative Assessment and Plan - Assessment (1) Abscess of right foot Code(s): L02.611 - Cutaneous abscess of right foot Status: Acute (2) Osteomyelitis of right foot Code(s): M86.9 - Osteomyelitis, unspecified Status: Acute - Plan Pending vascular intervention 06/19/18 Continue with daily dressing changes, right and Unna boot LLE qod.
--- NOTE | 2018-06-18 14:52 | P.PN ---
Subjective Interval history: Nursing reports the patient feeling a little anxious. Asking for medication. Patient himself has no new other complaints. Physical Exam Vital signs: Vital Signs 06/17/18 15:32 06/17/18 16:00 06/17/18 19:00 Temperature 97.9 F Pulse Rate 70 69 92 H Respiratory Rate 18 Blood Pressure 131/80 Pulse Oximetry 96 06/17/18 20:00 06/17/18 20:40 06/18/18 00:00 Temperature 97.7 F 97.9 F Pulse Rate 75 85 Respiratory Rate 16 15 Blood Pressure 130/77 147/82 H Pulse Oximetry 98 96 98 06/18/18 04:00 06/18/18 08:00 06/18/18 10:07 Temperature 97.7 F 98.4 F Pulse Rate 70 64 Respiratory Rate 16 20 Blood Pressure 137/77 132/79 Pulse Oximetry 97 97 92 L 06/18/18 11:44 06/18/18 12:00 Temperature 97.9 F Pulse Rate 67 63 Respiratory Rate 20 Blood Pressure 118/68 Pulse Oximetry 95 Intake & Output 06/17/18 06/18/18 06/18/18 18:59 06:59 18:59 Intake Total 680 / 680 100 / 100 Output Total 475 / 475 Balance 205 / 205 100 / 100 Intake: IV 200 / 200 100 / 100 Ancef Inj 1,000 MG In NS Inj 200 / 200 100 / 100 100 ML @ 200 mls/hr IV.SIG Q8H [facility] Rx#:[id number] Oral 480 / 480 Output: Urine 475 / 475 Other: Date of Last Bowel Movement 06/17/18 06/17/18 Narrative: Patient lying in bed, awake and alert, no acute distress, right leg and postop dressing Appears calm, not anxious at this time Results - Labs CBC & Chem 7: 06/12/18 04:30 06/12/18 04:30 Laboratory Results - last 24 hr 06/18/18 10:20 Blood Type O Positive Blood Type Recheck Not needed Antibody Screen Negative Assessment and Plan - Assessment (1) Cellulitis Code(s): L03.90 - Cellulitis, unspecified Status: Acute (2) Lower extremity edema Code(s): R60.0 - Localized edema Status: Acute (3) PNA (pneumonia) Code(s): J18.9 - Pneumonia, unspecified organism Status: Acute (4) Lung cancer Code(s): C34.90 - Malignant neoplasm of unspecified part of unspecified bronchus or lung Status: Acute - Plan This is a 72-year-old male with a PMH of Metastatic Lung CA s/p Pneumectomy, HTN , AAA Repair, CAD and RLE Cellulitis/Osteo who presented to the ER w/ complaints of left lower extremity swelling starting 06/11/2018. Pt follows w/ Dr. Knight, had first round of Chemo 05/18/18, followed by nausea, vomiting and diarrhea, recent admit on 05/27/18 for Neutropenic Fever and RLE Cellulitis/ Abscess/Osteo, s/p I&D and Bone Biopsy by Dr. Gorman 06/01/18, Lisa Cath placement 06/05/18, Cultures +S aureus and mixed guilherme, s/p eval by ID, d/c'd on Ancef 1gm IV q8h and Flagyl 500mg PO qid. Right lower extremity abscess/cellulitis Right lower ext peripheral arterial disease - ID, Podiatry following. cefazolin and flagyl - s/p Rt Ft I&D with second metatarsal debridement on 06/12/2018. - S/p Angiogram done on 06/15/2018. Scheduled RLE bypass surgery on 2017. holding apixaban Possible aspiration pneumonia -cefazolin and flagyl Hx of Metastatic Lung cancer Chronic Afib Hypertension - Continue Amlodipine, lopressor, lipitor - Continue Apixaban 5mg BID. STOP it after AM dose on Tuesday06/18/2018 ( order placed) Lower extremity edema - 2D echo shows ejection fraction 50%. Continue Lasix 20mg IV BID. - Lower extremity edema likely due to low albumin. - Keep legs elevated. Anxiety -Avoid benzos as much as possible, trial of Vistaril Full code. Holding apixaban now for Bypass surgery tomorrow (1) Cellulitis Qualifiers: Site of cellulitis: extremity Site of cellulitis of extremity: lower extremity Laterality: right Qualified Code(s): L03.115 - Cellulitis of right lower limb
[2018-06-18] MEDS ORDERED: Melatonin 5 MG Tablet PO PRN (21:00)
[2018-06-19] MEDS: metroNIDAZOLE 500 MG Tablet PO SCH ×3 (05:58→17:00)
[2018-06-19 06:46] LABS: Baso # (Auto) 0.1 th/mm3 (0.0-0.2); Baso % (Auto) 0.7 % (0.0-2.0); Eos # (Auto) 0.1 th/mm3 (0.0-0.4); Eos % (Auto) 1.5 % (0.0-4.0); Hematocrit 25.9 % (39.0-51.0); Hemoglobin 8.6 gm/dL (13.0-17.0); Lymph # (Auto) 1.5 th/mm3 (1.0-4.8); Lymph % (Auto) 17.4 % (9.0-44.0); Mean Corpuscular HGB Conc 33.2 % (32.0-36.0); Mean Corpuscular Hemoglobin 33.1 pg (27.0-34.0); Mean Corpuscular Volume 99.8 fL (80.0-100.0); Mean Platelet Volume 7.3 fL (7.0-11.0); Mono # (Auto) 1.3 th/mm3 (0.0-0.9); Mono % (Auto) 15.3 % (0.0-8.0); Neut # (Auto) 5.6 th/mm3 (1.8-7.7); Neut % (Auto) 65.1 % (16.0-70.0); Platelet Count 479 th/mm3 (150-450); Red Blood Count 2.59 mil/mm3 (4.50-5.90); Red Cell Distribution Width 14.7 % (11.6-17.2); White Blood Count 8.5 th/mm3 (4.0-11.0)
[2018-06-19 06:53] LABS: Calcium 7.8 mg/dL (8.5-10.1); Carbon Dioxide 31.2 meq/L (21.0-32.0); Potassium 3.7 meq/L (3.5-5.1)
[2018-06-19] MEDS ORDERED: Metoprolol Tartrate 25 MG Tablet PO ONE (07:18)
[2018-06-19] MEDS ORDERED: Chlorhexidine Gluconate 2% 1 Pack (2 Cloths) TOPICAL ONE (07:18)
[2018-06-19] MEDS ORDERED: Sodium Chlor 0.9% Inj 500 ML IV.SIG SCH (08:00)
[2018-06-19] MEDS: Digoxin 125 MCG Tablet PO SCH (08:23)
[2018-06-19] MEDS: amLODIPine 10 MG Tablet PO SCH (08:23)
[2018-06-19] MEDS: Metoprolol Tartrate 100 MG Tablet PO SCH ×2 (08:24→20:49)
[2018-06-19] MEDS ORDERED: Heparin 10,000 UNITS/10 ML Vial (for IV use) ONE ×2 (08:59→09:01)
[2018-06-19] MEDS ORDERED: Thrombin Topical 20,000 UNIT Spray Kit TOPICAL ONE (09:00)
[2018-06-19] MEDS ORDERED: Protamine Sulfate Inj 50 MG/5 ML Vial ONE (09:00)
[2018-06-19] MEDS ORDERED: Heparin/NS PF Inj 500 ML ONE (09:00)
[2018-06-19] MEDS ORDERED: Bupivacaine 0.5% Inj 50 ML MDV Vial ONE (09:00)
[2018-06-19] MEDS ORDERED: Lidocaine PF 1% Inj 5 ML Syringe OTHER ONE (11:44)
[2018-06-19] MEDS ORDERED: Phenylephrine/NS 1000 MCG/10ML Syringe IV.PUSH ONE (11:45)
[2018-06-19] MEDS ORDERED: Morphine Sulfate Inj 2 MG/ML Vial IV.PUSH PRN (13:53)
--- NOTE | 2018-06-19 13:53 | P.OP ---
- Preoperative Diagnosis (1) PAD (peripheral artery disease) - Postoperative Diagnosis (1) Atherosclerosis of bypass graft of lower extremity Comment: bilateral - right 2000, left 2001 Date of procedure: 06/19/18 Procedure: R fem-PT (cryo) Implants: cryo vein Anesthesia: GETA Surgeon: Chris Neely MD Facing Grinder: Vicky Leonard Estimated blood loss (mL): 200 IV fluids (mL): 2,000 Urine output (mL): 250 Operation and Findings: improved Doppler signal with graft
[2018-06-19] MEDS ORDERED: Neostigmine Inj 5 MG/5 ML Syringe IV.PUSH ONE (14:15)
[2018-06-19] MEDS ORDERED: Glycopyrrolate Inj 1 MG/5 ML Syringe IV.PUSH ONE (14:15)
[2018-06-19] MEDS ORDERED: fentaNYL Citrate Inj 100 MCG/2 ML Ampul ONE (14:34)
[2018-06-19] MEDS: buPROPion 100 MG ER 12 HR Tablet PO SCH ×2 (15:42→20:49)
[2018-06-19] MEDS: Senna/Docusate Sodium 8.6/50 MG Tablet PO SCH ×2 (15:42→20:50)
--- NOTE | 2018-06-19 15:45 | P.PN ---
Subjective Interval history: Nursing denies any deterioration since last night. Patient is currently status post right lower extremity bypass surgery. Did well postoperative nursing. Physical Exam Vital signs: Vital Signs 06/18/18 16:00 06/18/18 20:00 06/18/18 20:49 Temperature 98.1 F 98 F Pulse Rate 75 70 Respiratory Rate 20 16 Blood Pressure 122/71 123/73 Pulse Oximetry 95 95 95 06/19/18 00:00 06/19/18 04:00 06/19/18 07:00 Temperature 98.3 F 97.2 F L Pulse Rate 67 70 72 Respiratory Rate 16 16 Blood Pressure 136/84 134/72 Pulse Oximetry 94 L 96 06/19/18 08:17 06/19/18 10:52 06/19/18 15:35 Temperature 98.2 F 94.5 F L Pulse Rate 74 68 Respiratory Rate 18 16 Blood Pressure 143/81 H 127/68 Pulse Oximetry 96 97 97 Intake & Output 06/18/18 06/19/18 06/19/18 18:59 06:59 18:59 Intake Total 1400 / 1400 700 / 700 1999 / 1999 Output Total 1150 / 1150 750 / 750 650 / 650 Balance 250 / 250 -50 / -50 1350 / 1350 Intake: IV 200 / 200 200 / 200 0 / 0 Heparin/NS PF Inj 500 ML @ 0 0 / 0 mls/hr .ROUTE .STK-MED [facility] Rx#: [id number] Ancef Inj 1,000 MG In NS Inj 200 / 200 200 / 200 100 ML @ 200 mls/hr IV.SIG Q8H [facility] Rx#:[id number] Oral 1200 / 1200 500 / 500 Anesthesia Amount 1999 Output: Urine 1150 / 1150 750 / 750 200 / 200 Estimated Blood Loss 200 / 200 Urine Amount (Catheter) 250 / 250 Indwelling Urethral Catheter 250 / 250 Other: # Voids 1 Date of Last Bowel Movement 06/17/18 06/18/18 # Bowel Movements 1 Narrative: Clear lungs bilaterally, unlabored breathing Sleepy but easily awoken Femoral incision site in postop dressing - Urinary Catheter Management Indwelling Urethral Catheter Cath placed during this visit: yes Reason for continuing: Hourly intake/output Insertion date: 06/19/18 Insertion time: 11:51 Results - Labs CBC & Chem 7: 06/20/18 05:20 06/20/18 05:20 Laboratory Results - last 24 hr 06/19/18 06/19/18 06:00 06:00 WBC 8.5 RBC 2.59 L Hgb 8.6 L Hct 25.9 L MCV 99.8 MCH 33.1 MCHC 33.2 RDW 14.7 Plt Count 479 H MPV 7.3 Neut % (Auto) 65.1 Lymph % (Auto) 17.4 Edgar % (Auto) 15.3 H Eos % (Auto) 1.5 Baso % (Auto) 0.7 Neut # (Auto) 5.6 Lymph # (Auto) 1.5 Edgar # (Auto) 1.3 H Eos # (Auto) 0.1 Baso # (Auto) 0.1 WBC Differential . Differential Comment Auto diff final Sodium 144 Potassium 3.7 Chloride 103 Carbon Dioxide 31.2 Anion Gap 10 BUN 18 Creatinine 1.65 H Estimated GFR 41 L Random Glucose 81 Calcium 7.8 L Assessment and Plan - Assessment (1) Cellulitis Code(s): L03.90 - Cellulitis, unspecified Status: Acute (2) Lower extremity edema Code(s): R60.0 - Localized edema Status: Acute (3) PNA (pneumonia) Code(s): J18.9 - Pneumonia, unspecified organism Status: Acute (4) Lung cancer Code(s): C34.90 - Malignant neoplasm of unspecified part of unspecified bronchus or lung Status: Acute - Plan This is a 72-year-old male with a PMH of Metastatic Lung CA s/p Pneumectomy, HTN , AAA Repair, CAD and RLE Cellulitis/Osteo who presented to the ER w/ complaints of left lower extremity swelling starting 06/11/2018. Pt follows w/ Dr. Knight, had first round of Chemo 05/18/18, followed by nausea, vomiting and diarrhea, recent admit on 05/27/18 for Neutropenic Fever and RLE Cellulitis/ Abscess/Osteo, s/p I&D and Bone Biopsy by Dr. Gorman 06/01/18, Lisa Cath placement 06/05/18, Cultures +S aureus and mixed guilherme, s/p eval by ID, d/c'd on Ancef 1gm IV q8h and Flagyl 500mg PO qid. Right lower extremity abscess/cellulitis Right lower ext peripheral arterial disease - ID, Podiatry following. cefazolin and flagyl - s/p Rt Ft I&D with second metatarsal debridement on 06/12/2018. - S/p Angiogram done on 06/15/2018. Status post RLE bypass surgery. holding apixaban Possible aspiration pneumonia -cefazolin and flagyl Hx of Metastatic Lung cancer Chronic Afib Hypertension - Continue Amlodipine, lopressor, lipitor - Resume apixaban when cleared by surgery. Lower extremity edema - 2D echo shows ejection fraction 50%. Continue Lasix 20mg IV BID. - Lower extremity edema likely due to low albumin. - Keep legs elevated. Anxiety -Avoid benzos as much as possible, trial of Vistaril Full code. Holding apixaban until cleared by surgery to resume. (1) Cellulitis Qualifiers: Site of cellulitis: extremity Site of cellulitis of extremity: lower extremity Laterality: right Qualified Code(s): L03.115 - Cellulitis of right lower limb
[2018-06-19] MEDS: Heparin Central Flush 100 UNIT/ML 5 ML Vial IV.FLUSH SCH (16:57)
[2018-06-19] MEDS: Folic Acid 1 MG Tablet PO SCH (16:57)
--- NOTE | 2018-06-19 18:41 | P.PNID ---
Subjective Remarks: sp R fem-PT (cryo) 06/19 no fever pt decided not to cont with chemo Antibiotics: cefazolin 1 gm q 8 flagyl po Allergies/Adverse Reactions: Allergies penicillin G Allergy (Severe, Verified 05/27/18 12:05) EDEMA Objective Vital Signs 06/18/18 20:00 06/18/18 20:49 06/19/18 00:00 Temperature 98 F 98.3 F Pulse Rate 70 67 Respiratory Rate 16 16 Blood Pressure 123/73 136/84 Pulse Oximetry 95 95 94 L 06/19/18 04:00 06/19/18 07:00 06/19/18 08:17 Temperature 97.2 F L 98.2 F Pulse Rate 70 72 74 Respiratory Rate 16 18 Blood Pressure 134/72 143/81 H Pulse Oximetry 96 96 06/19/18 10:52 06/19/18 14:24 06/19/18 14:30 Temperature 97.4 F L Pulse Rate 68 71 Respiratory Rate 22 16 Blood Pressure 107/61 109/64 Pulse Oximetry 97 93 L 97 06/19/18 14:45 06/19/18 15:00 06/19/18 15:15 Temperature Pulse Rate 66 70 62 Respiratory Rate 14 14 14 Blood Pressure 118/66 126/60 131/63 Pulse Oximetry 98 94 L 93 L 06/19/18 15:35 06/19/18 16:00 06/19/18 16:55 Temperature 94.5 F L 97.4 F L Pulse Rate 68 68 67 Respiratory Rate 16 18 Blood Pressure 127/68 130/77 Pulse Oximetry 97 99 Intake & Output 06/18/18 06/19/18 06/19/18 18:59 06:59 18:59 Intake Total 1400 / 1400 700 / 700 2100 / 2100 Output Total 1150 / 1150 750 / 750 1300 / 1300 Balance 250 / 250 -50 / -50 800 / 800 Intake: IV 200 / 200 200 / 200 100 / 100 Heparin/NS PF Inj 500 ML @ 0 0 / 0 mls/hr .ROUTE .STK-MED [facility] Rx#: [id number] Ancef Inj 1,000 MG In NS Inj 200 / 200 200 / 200 100 / 100 100 ML @ 200 mls/hr IV.SIG Q8H [facility] Rx#:[id number] Oral 1200 / 1200 500 / 500 0 / 0 Anesthesia Amount 1999 Output: Urine 1150 / 1150 750 / 750 200 / 200 Estimated Blood Loss 200 / 200 Urine Amount (Catheter) 900 / 900 Indwelling Urethral Catheter 900 / 900 Other: # Voids 1 Date of Last Bowel Movement 06/17/18 06/18/18 # Bowel Movements 1 Lab - Hematology Results 06/19/18 06:00 WBC 8.5 RBC 2.59 L Hgb 8.6 L Hct 25.9 L MCV 99.8 MCH 33.1 MCHC 33.2 RDW 14.7 Plt Count 479 H MPV 7.3 Neut % (Auto) 65.1 Lymph % (Auto) 17.4 Miner % (Auto) 15.3 H Eos % (Auto) 1.5 Baso % (Auto) 0.7 Neut # (Auto) 5.6 Lymph # (Auto) 1.5 Miner # (Auto) 1.3 H Eos # (Auto) 0.1 Baso # (Auto) 0.1 WBC Differential . Differential Comment Auto diff final Lab - Chemistry Results 06/19/18 06:00 Sodium 144 Potassium 3.7 Chloride 103 Carbon Dioxide 31.2 Anion Gap 10 BUN 18 Creatinine 1.65 H Estimated GFR 41 L Random Glucose 81 Calcium 7.8 L Imaging: ITS Impressions Chest X-Ray 06/10/18 19:44 CONCLUSION: Right IJ central venous catheter in place. No evidence of pneumothorax. Venous Doppler Study 06/10/18 19:44 CONCLUSION: No evidence of lower extremity DVT on the right or left. Chest CTA 06/11/18 00:00 CONCLUSION: 1. No CT evidence for pulmonary artery embolism as questioned. 2. Focal patchy airspace consolidation in the right lower lobe concerning for bronchopneumonia/aspiration. 3. Postsurgical features with associated right upper lobe volume loss and scarring. 4. Coronary artery calcifications. 5. Mild ascending thoracic aortic aneurysm measuring up to 4.3 cm. 6. Additional ancillary findings, as above. Ankle MRI 06/12/18 00:00 CONCLUSION: 1. Soft tissue swelling is noted along the dorsum of the ankle and proximal foot as well as medially and laterally in the regions of the malleoli. Subcutaneous fluid collection is noted along the dorsal aspect of the proximal third fourth and fifth metatarsals but is incompletely evaluated on this examination. This raises the possibility of subcutaneous abscess. Extremity Arterial Study 06/13/18 00:00 CONCLUSION: 1. Findings consistent with [id number] bilateral lower extremity peripheral arterial disease. Physical Exam: GENERAL: NAD OOB in chair SKIN: Warm and dry. no rash EYES: Pupils equal and round. No scleral icterus. No injection or drainage. CARDIOVASCULAR: Regular rate and rhythm. RESPIRATORY: No accessory muscle use. Clear to auscultation. Breath sounds decreased bilaterally. GASTROINTESTINAL: Abdomen soft, non-tender, nondistended. Hepatic and splenic margins not palpable. MUSCULOSKELETAL: Extremities without clubbing, cyanosis, + b/l edema. L foot with less edema R foot with post op dressing, VAC in place NEUROLOGICAL: recently post procedure very lethargic still PSYCHIATRIC: unable to assess Assessment and Plan - Plan RLE Cellulitis/Abscess/Osteo, s/p I&D and Bone Biopsy by Dr. Gorman 06/01/18, sp repeat I+D 06/12 for recurrent abscess MSSA and Anaerobes intraop cultures 06/01/2018 Lisa Cath placement 06/05/18 for IV antibiotics as outpatient. Metastatic lung cancer s/p Pneumectomy s/p Chemotherapy Immune compromised. ALEXANDER PVD sp bypass Recs: Continue Ancef IV Continue Flagyl oral anticipate abx for 6 weeks period from last debridement
--- NOTE | 2018-06-20 00:21 | MP ---
cc: Chris Neely MD DATE OF OPERATION: 06/19/2018 PREOPERATIVE DIAGNOSIS: Peripheral arterial occlusive disease, right lower extremity tissue loss. POSTOPERATIVE DIAGNOSIS: Peripheral arterial occlusive disease, right lower extremity tissue loss. PROCEDURE PERFORMED: Right femoral to posterior tibial artery bypass with cryopreserved vein. ATTENDING SURGEON: Chris Neely MD BACK END DEVELOPER SURGEON: Vicky Leonard. ANESTHESIA: General. INDICATIONS FOR PROCEDURE: Mr. Henry is an elderly gentleman with right lower extremity tissue loss and nonpalpable pedal pulses. Preoperative imaging suggested he had adequate posterior tibial artery, but unfortunately no vein. He was taken to the operating room for distal bypass. DESCRIPTION OF PROCEDURE: Informed consent was obtained from the patient. He was taken to the operating room and placed supine on the operating table. An appropriate timeout was taken to ensure the patient's identity, operative site and planned procedure. The administration of 1 gram of vancomycin was initiated prior to skin incision and will be discontinued after the single preoperative dose. Vancomycin was chosen because of the patient preoperative length of stay exceeding 48 hours and penicillin allergy. Everyone in the room agreed and we proceeded. The right leg was prepped and draped and an incision was made along the right groin and carried down through subcutaneous tissue with electrocautery. His previous incision was reopened and the previous bypass graft where there appeared to be an ileal profunda was dissected free. Enough of this was dissected to place a Satinsky side biting clamp on this and this was felt to be sufficient for inflow. A separate incision was made on the patient's medial calf, carried down through subcutaneous tissue with electrocautery. The posterior tibial artery was identified deep in the tissues and it was dissected free for several centimeters sufficient to clamp it. A tunnel was then created between these 2 and the patient was systemically heparinized with 8000 units of intravenous heparin. A Satinsky clamp was placed on the proximal bypass, which afforded an opportunity to perform an end-to-side proximal anastomosis done with a cryopreserved vein. The vein had been prepared and thawed in the standard fashion. Once the proximal anastomosis was completed with 6-0 Prolene suture, the graft was flushed, noted to have a nice pulse in it. It was marked for orientation. It was then tunneled through our previously obtained tunnel. Proximal and distal control the posterior tibial artery was obtained with profunda clamps and a longitudinal arteriotomy was made with an 11 blade, extended with Cruz scissors. The vein was cut to an appropriate length, spatulated and sewn end-to-side with running 6-0 Prolene suture. Occlusion was flushed and noted to be hemostatic. There was a nice signal in the distal posterior tibial artery. The heparin was reversed with protamine. The wound was infiltrated with Marcaine, irrigated, made hemostatic and both groins were closed with 2-0 Polysorb, 3-0 Polysorb and 4-0 Monocryl. The sponge and needle counts were correct at the end of the case. I was present, scrubbed, and performed the entire procedure. Chris Neely MD RJF/sj , 08:54 PM , 09:03 PM
[2018-06-20] MEDS: metroNIDAZOLE 500 MG Tablet PO SCH ×5 (01:30→23:02)
[2018-06-20 07:34] LABS: Hematocrit 25.7 % (39.0-51.0); Hemoglobin 8.6 gm/dL (13.0-17.0); Mean Corpuscular HGB Conc 33.5 % (32.0-36.0); Mean Corpuscular Hemoglobin 33.1 pg (27.0-34.0); Mean Corpuscular Volume 98.8 fL (80.0-100.0); Mean Platelet Volume 7.5 fL (7.0-11.0); Platelet Count 487 th/mm3 (150-450); Red Cell Distribution Width 14.7 % (11.6-17.2); White Blood Count 9.6 th/mm3 (4.0-11.0)
[2018-06-20 07:51] LABS: Carbon Dioxide 33.6 meq/L (21.0-32.0); Potassium 4.1 meq/L (3.5-5.1)
[2018-06-20] MEDS: Senna/Docusate Sodium 8.6/50 MG Tablet PO SCH ×2 (08:03→21:09)
[2018-06-20] MEDS: Heparin Central Flush 100 UNIT/ML 5 ML Vial IV.FLUSH SCH (08:04)
[2018-06-20] MEDS: Digoxin 125 MCG Tablet PO SCH (08:05)
[2018-06-20] MEDS: Metoprolol Tartrate 100 MG Tablet PO SCH ×2 (08:05→21:09)
[2018-06-20] MEDS: amLODIPine 10 MG Tablet PO SCH (08:06)
[2018-06-20] MEDS: Folic Acid 1 MG Tablet PO SCH (08:06)
[2018-06-20] MEDS: buPROPion 100 MG ER 12 HR Tablet PO SCH ×2 (08:06→21:09)
--- NOTE | 2018-06-20 09:49 | P.PNVS ---
Subjective Post Op Day #: 1 Procedure: R fem-PT with cryo Subjective/Hospital Course: looks great. Some appropriate R leg pain last night. Foot reportedly looks much better already. Sat on edge of bed.. Objective Vital Signs / I&O: Vital Signs 06/19/18 10:52 06/19/18 14:24 06/19/18 14:30 Temperature 97.4 F L Pulse Rate 68 71 Respiratory Rate 22 16 Blood Pressure 107/61 109/64 Pulse Oximetry 97 93 L 97 06/19/18 14:45 06/19/18 15:00 06/19/18 15:15 Temperature Pulse Rate 66 70 62 Respiratory Rate 14 14 14 Blood Pressure 118/66 126/60 131/63 Pulse Oximetry 98 94 L 93 L 06/19/18 15:35 06/19/18 16:00 06/19/18 16:55 Temperature 94.5 F L 97.4 F L Pulse Rate 68 68 67 Respiratory Rate 16 18 Blood Pressure 127/68 130/77 Pulse Oximetry 97 99 06/19/18 20:00 06/20/18 00:00 06/20/18 04:00 Temperature 97.7 F 97.5 F L 98 F Pulse Rate 67 67 64 Respiratory Rate 14 16 16 Blood Pressure 129/75 133/86 139/75 Pulse Oximetry 92 L 95 98 06/20/18 07:42 06/20/18 07:49 06/20/18 07:50 Temperature 98.6 F Pulse Rate 77 75 Respiratory Rate 18 Blood Pressure 135/82 Pulse Oximetry 92 L 95 Intake & Output 06/19/18 06/20/18 06/20/18 18:59 06:59 18:59 Intake Total 2099 / 2100 200 / 200 Output Total 1300 / 1300 350 / 350 Balance 800 / 800 -150 / -150 Intake: IV 100 / 100 200 / 200 Heparin/NS PF Inj 500 ML @ 0 0 / 0 mls/hr .ROUTE .[facility] Rx#: [id number] Ancef Inj 1,000 MG In NS Inj 100 / 100 200 / 200 100 ML @ 200 mls/hr IV.SIG Q8H [facility] Rx#:[id number] Oral 0 / 0 Anesthesia Amount 1999 / 1999 Output: Urine 200 / 200 350 / 350 Estimated Blood Loss 200 / 200 Urine Amount (Catheter) 900 / 900 Indwelling Urethral Catheter 900 / 900 Other: # Voids 1 Date of Last Bowel Movement 06/18/18 06/19/18 Exam: R groin Prevena in place R LE incision c/d/i Strong PT signal at ankle Laboratory Results - last 24 hr 06/20/18 06/20/18 05:20 05:20 WBC 9.6 RBC 2.60 L Hgb 8.6 L Hct 25.7 L MCV 98.8 MCH 33.1 MCHC 33.5 RDW 14.7 Plt Count 487 H MPV 7.5 Sodium 143 Potassium 4.1 Chloride 102 Carbon Dioxide 33.6 H Anion Gap 7 BUN 15 Creatinine 1.58 H Estimated GFR 43 L Random Glucose 78 Calcium 8.0 L Assessment and Plan - Assessment (1) Osteomyelitis of right foot Code(s): M86.9 - Osteomyelitis, unspecified Status: Acute (2) PAD (peripheral artery disease) Code(s): I73.9 - Peripheral vascular disease, unspecified Status: Acute - Plan POD#1 s/p R LE bypass Bypass patent by exam 1. OOB ad fidencio as tolerated 2. Ok to resume all anticoagulation 3. Continue pulse checks and wound care
--- NOTE | 2018-06-20 16:25 | P.PN ---
Subjective Interval history: Nursing reports having issues with urinary retention where the patient is holding up to 430 mL's and getting catheterized a few times. Patient denies take any Flomax or finasteride at home. is at the bedside today and says he has not had any urinary problems prior to this surgery. Physical Exam Vital signs: Vital Signs 06/19/18 16:55 06/19/18 20:00 06/20/18 00:00 Temperature 97.4 F L 97.7 F 97.5 F L Pulse Rate 67 67 67 Respiratory Rate 18 14 16 Blood Pressure 130/77 129/75 133/86 Pulse Oximetry 99 92 L 95 06/20/18 04:00 06/20/18 07:42 06/20/18 07:49 Temperature 98 F 98.6 F Pulse Rate 64 77 75 Respiratory Rate 16 18 Blood Pressure 139/75 135/82 Pulse Oximetry 98 92 L 06/20/18 07:50 06/20/18 11:05 06/20/18 11:54 Temperature 98.3 F Pulse Rate 85 80 Respiratory Rate 18 Blood Pressure 135/72 Pulse Oximetry 95 93 L 06/20/18 15:00 Temperature 98.4 F Pulse Rate 68 Respiratory Rate 16 Blood Pressure 114/71 Pulse Oximetry 95 Intake & Output 06/19/18 06/20/18 06/20/18 18:59 06:59 18:59 Intake Total 2100 / 2100 200 / 200 100 / 100 Output Total 1300 / 1300 350 / 350 Balance 800 / 800 -150 / -150 100 / 100 Intake: IV 100 / 100 200 / 200 100 / 100 Heparin/NS PF Inj 500 ML @ 0 0 / 0 mls/hr .ROUTE .[facility] Rx#: [id number] Ancef Inj 1,000 MG In NS Inj 100 / 100 200 / 200 100 / 100 100 ML @ 200 mls/hr IV.SIG Q8H [facility] Rx#:[id number] Oral 0 / 0 Anesthesia Amount 1999 / 1999 Output: Urine 200 / 200 350 / 350 Estimated Blood Loss 200 / 200 Urine Amount (Catheter) 900 / 900 Indwelling Urethral Catheter 900 / 900 Other: # Voids 1 Date of Last Bowel Movement 06/18/18 06/19/18 Narrative: Heart sounds regular rate rhythm, no murmurs Clear lungs bilaterally, unlabored breathing Right lower extremity in postop dressing, chronic skin changes of right lower extremity - Urinary Catheter Management Indwelling Urethral Catheter Cath placed during this visit: yes, but has since been removed by the nurse Reason for continuing: Decision to DC catheter Insertion date: 06/19/18 Insertion time: 11:51 Removal date: 06/20/18 Removal time: 08:00 Results - Labs CBC & Chem 7: 06/20/18 05:20 06/20/18 05:20 Laboratory Results - last 24 hr 06/20/18 06/20/18 05:20 05:20 WBC 9.6 RBC 2.60 L Hgb 8.6 L Hct 25.7 L MCV 98.8 MCH 33.1 MCHC 33.5 RDW 14.7 Plt Count 487 H MPV 7.5 Sodium 143 Potassium 4.1 Chloride 102 Carbon Dioxide 33.6 H Anion Gap 7 BUN 15 Creatinine 1.58 H Estimated GFR 43 L Random Glucose 78 Calcium 8.0 L Microbiology 06/12/18 17:00 Wound - Foot Acid Fast Bacilli Smear - Final No acid fast bacilli seen 06/12/18 17:00 Wound - Foot Mycobacterial Culture - Preliminary No growth in 1 week 06/12/18 17:00 Wound - Foot Fungal Smear - Final No fungal elements seen 06/12/18 17:00 Wound - Foot Fungal Culture - Preliminary No growth in 1 week 06/12/18 17:00 Wound - Foot Fungal Smear - Final No fungal elements seen 06/12/18 17:00 Wound - Foot Fungal Culture - Preliminary No growth in 1 week 06/12/18 17:00 Wound - Foot Acid Fast Bacilli Smear - Final No acid fast bacilli seen 06/12/18 17:00 Wound - Foot Mycobacterial Culture - Preliminary No growth in 1 week Assessment and Plan - Assessment (1) Cellulitis Code(s): L03.90 - Cellulitis, unspecified Status: Acute (2) Lower extremity edema Code(s): R60.0 - Localized edema Status: Acute (3) PNA (pneumonia) Code(s): J18.9 - Pneumonia, unspecified organism Status: Acute (4) Lung cancer Code(s): C34.90 - Malignant neoplasm of unspecified part of unspecified bronchus or lung Status: Acute - Plan This is a 72-year-old male with a PMH of Metastatic Lung CA s/p Pneumectomy, HTN , AAA Repair, CAD and RLE Cellulitis/Osteo who presented to the ER w/ complaints of left lower extremity swelling starting 06/11/2018. Pt follows w/ Dr. Knight, had first round of Chemo 05/18/18, followed by nausea, vomiting and diarrhea, recent admit on 05/27/18 for Neutropenic Fever and RLE Cellulitis/ Abscess/Osteo, s/p I&D and Bone Biopsy by Dr. Gorman 06/01/18, Lisa Cath placement 06/05/18, Cultures +S aureus and mixed guilherme, s/p eval by ID, d/c'd on Ancef 1gm IV q8h and Flagyl 500mg PO qid. Right lower extremity abscess/cellulitis Right lower ext peripheral arterial disease - ID, Podiatry following. iv cefazolin and po flagyl - s/p Rt Ft I&D with second metatarsal debridement on 06/12/2018. - S/p Angiogram done on 06/15/2018. Status post RLE bypass surgery. resume apixaban today Possible aspiration pneumonia -cefazolin and flagyl Acute urinary retention -Likely secondary to chronic BPH along with recent surgery, starting Flomax and finasteride Hx of Metastatic Lung cancer Chronic Afib Hypertension - Continue Amlodipine, lopressor, lipitor - Resume apixaban when cleared by surgery. Lower extremity edema - 2D echo shows ejection fraction 50%. Continue Lasix 20mg IV BID. - Lower extremity edema likely due to low albumin. - Keep legs elevated. Anxiety -Avoid benzos as much as possible, trial of Vistaril Full code. resuming apixaban [email or web address] Prescription Drug Monitoring Database has been queried and verified prior to prescribing the controlled subsection. Patient is having significant pain caused by his foot condition which will last more than 3 days. Trial of alternative treatment options other than prescribed opioids has not helped. I believe that it is medically necessary to treat the patients pain because it is affecting patients ability to return to function. Discharge Planning: Patient not desiring but does reluctantly accept a rehab placement inevitability. Pending infectious disease and podiatry clearance (1) Cellulitis Qualifiers: Site of cellulitis: extremity Site of cellulitis of extremity: lower extremity Laterality: right Qualified Code(s): L03.115 - Cellulitis of right lower limb
--- NOTE | 2018-06-20 17:44 | P.PNID ---
Subjective Remarks: doing good dw Dr Neely: apperance of the wound already improved + healthy bleeding no fever + urinary retention w/o pedroza Antibiotics: cefazolin 1 gm q 8 flagyl po Allergies/Adverse Reactions: Allergies penicillin G Allergy (Severe, Verified 05/27/18 12:05) EDEMA Objective Vital Signs 06/19/18 20:00 06/20/18 00:00 06/20/18 04:00 Temperature 97.7 F 97.5 F L 98 F Pulse Rate 67 67 64 Respiratory Rate 14 16 16 Blood Pressure 129/75 133/86 139/75 Pulse Oximetry 92 L 95 98 06/20/18 07:42 06/20/18 07:49 06/20/18 07:50 Temperature 98.6 F Pulse Rate 77 75 Respiratory Rate 18 Blood Pressure 135/82 Pulse Oximetry 92 L 95 06/20/18 11:05 06/20/18 11:54 06/20/18 15:00 Temperature 98.3 F 98.4 F Pulse Rate 85 80 68 Respiratory Rate 18 16 Blood Pressure 135/72 114/71 Pulse Oximetry 93 L 95 06/20/18 15:58 06/20/18 16:00 06/20/18 16:57 Temperature Pulse Rate 72 Respiratory Rate 16 Blood Pressure Pulse Oximetry 95 Intake & Output 06/19/18 06/20/18 06/20/18 18:59 06:59 18:59 Intake Total 2100 / 2100 200 / 200 100 / 100 Output Total 1300 / 1300 350 / 350 Balance 800 / 800 -150 / -150 100 / 100 Intake: IV 100 / 100 200 / 200 100 / 100 Heparin/NS PF Inj 500 ML @ 0 0 / 0 mls/hr .ROUTE .[facility] Rx#: [id number] Ancef Inj 1,000 MG In NS Inj 100 / 100 200 / 200 100 / 100 100 ML @ 200 mls/hr IV.SIG Q8H [facility] Rx#:[id number] Oral 0 / 0 Anesthesia Amount 1999 / 1999 Output: Urine 200 / 200 350 / 350 Estimated Blood Loss 200 / 200 Urine Amount (Catheter) 900 / 900 Indwelling Urethral Catheter 900 / 900 Other: # Voids 1 Date of Last Bowel Movement 06/18/18 06/19/18 06/12/18 17:00 Wound - Foot Acid Fast Bacilli Smear - Final No acid fast bacilli seen 06/12/18 17:00 Wound - Foot Mycobacterial Culture - Preliminary No growth in 1 week 06/12/18 17:00 Wound - Foot Fungal Smear - Final No fungal elements seen 06/12/18 17:00 Wound - Foot Fungal Culture - Preliminary No growth in 1 week 06/12/18 17:00 Wound - Foot Fungal Smear - Final No fungal elements seen 06/12/18 17:00 Wound - Foot Fungal Culture - Preliminary No growth in 1 week 06/12/18 17:00 Wound - Foot Acid Fast Bacilli Smear - Final No acid fast bacilli seen 06/12/18 17:00 Wound - Foot Mycobacterial Culture - Preliminary No growth in 1 week Lab - Hematology Results 06/19/18 06/20/18 06:00 05:20 WBC 8.5 9.6 RBC 2.59 L 2.60 L Hgb 8.6 L 8.6 L Hct 25.9 L 25.7 L MCV 99.8 98.8 MCH 33.1 33.1 MCHC 33.2 33.5 RDW 14.7 14.7 Plt Count 479 H 487 H MPV 7.3 7.5 Neut % (Auto) 65.1 Lymph % (Auto) 17.4 [place] % (Auto) 15.3 H Eos % (Auto) 1.5 Baso % (Auto) 0.7 Neut # (Auto) 5.6 Lymph # (Auto) 1.5 [place] # (Auto) 1.3 H Eos # (Auto) 0.1 Baso # (Auto) 0.1 WBC Differential . Differential Comment Auto diff final Lab - Chemistry Results 06/19/18 06/20/18 06:00 05:20 Sodium 144 143 Potassium 3.7 4.1 Chloride 103 102 Carbon Dioxide 31.2 33.6 H Anion Gap 10 7 BUN 18 15 Creatinine 1.65 H 1.58 H Estimated GFR 41 L 43 L Random Glucose 81 78 Calcium 7.8 L 8.0 L Imaging: ITS Impressions Chest X-Ray 06/10/18 19:44 CONCLUSION: Right IJ central venous catheter in place. No evidence of pneumothorax. Venous Doppler Study 06/10/18 19:44 CONCLUSION: No evidence of lower extremity DVT on the right or left. Chest CTA 06/11/18 00:00 CONCLUSION: 1. No CT evidence for pulmonary artery embolism as questioned. 2. Focal patchy airspace consolidation in the right lower lobe concerning for bronchopneumonia/aspiration. 3. Postsurgical features with associated right upper lobe volume loss and scarring. 4. Coronary artery calcifications. 5. Mild ascending thoracic aortic aneurysm measuring up to 4.3 cm. 6. Additional ancillary findings, as above. Ankle MRI 06/12/18 00:00 CONCLUSION: 1. Soft tissue swelling is noted along the dorsum of the ankle and proximal foot as well as medially and laterally in the regions of the malleoli. Subcutaneous fluid collection is noted along the dorsal aspect of the proximal third fourth and fifth metatarsals but is incompletely evaluated on this examination. This raises the possibility of subcutaneous abscess. Extremity Arterial Study 06/13/18 00:00 CONCLUSION: 1. Findings consistent with [id number] bilateral lower extremity peripheral arterial disease. Physical Exam: GENERAL: NAD OOB in chair SKIN: Warm and dry. no rash EYES: Pupils equal and round. No scleral icterus. No injection or drainage. CARDIOVASCULAR: Regular rate and rhythm. RESPIRATORY: No accessory muscle use. Clear to auscultation. Breath sounds decreased bilaterally. GASTROINTESTINAL: Abdomen soft, non-tender, nondistended. Hepatic and splenic margins not palpable. MUSCULOSKELETAL: Extremities without clubbing, cyanosis, + b/l edema. L foot with less edema R foot with post op dressing, small amount of blood on the dressing NEUROLOGICAL: awake alert follows commands PSYCHIATRIC:calm, cooperative Assessment and Plan - Plan RLE Cellulitis/Abscess/Osteo, s/p I&D and Bone Biopsy by Dr. Gorman 06/01/18, sp repeat I+D 06/12 for recurrent abscess MSSA and Anaerobes intraop cultures 06/01/2018 Lisa Cath placement 06/05/18 for IV antibiotics as outpatient. Metastatic lung cancer s/p Pneumectomy s/p Chemotherapy Immune compromised. ALEXANDER- slowly improving PVD sp bypass Recs: Continue Ancef IV Continue Flagyl oral anticipate abx for 6 weeks period from last debridement [facility] for OPAT OPAT filled out pt has Rc mera pt , sig other
--- NOTE | 2018-06-20 17:49 | P.DCO ---
Post Hospital Infusion Therapy Location of Infusion Therapy: [facility] Infusion Therapy Order Patient Weight: 110.5 kg - Diagnosis (1) Osteomyelitis of right foot Code(s): M86.9 - Osteomyelitis, unspecified - Administer Medication Cefazolin Dose: 2 grams IV Directions: q 8 hours Start Treatment: 06/21/18 Stop Treatment: 07/31/18 - Additional Information Venous Access: Tunneled Catheter Additional Instructions: [x] Peripheral flush and dressing changes per protocol [x] Implanted port and central set up mechanic automatic line: * Implanted port: 10 ml Normal Saline followed by 5 ml Heparin 100 units/ml Heparin flush after each use and monthly to maintain. [] May leave port accessed during therapy. [] May leave peripheral site accessed for duration of therapy. [x] If patient has SOB or respiratory distress, check oxygen saturation. If less than 90% or clinical signs of respiratory distress, administer oxygen at 2 L/min. via nasal cannula and notify physician. [x] Anaphylaxis/Reaction orders: * Stop infusion. * Keep IV line open with saline flush. * Notify physician. * Monitor vital signs every 15 minutes until symptoms resolve. * Check Oxygen saturation; Oxygen at 2 L/min. via nasal cannula if less than 90% or clinical signs of respiratory distress. * Administer diphenhydramine (Benadryl) 25 mg IV STAT, (unless patient has received as pre-med). May repeat once, if necessary. * Solu-Cortef 250 mg IVP over 30-60 seconds, use 100 mg vials for each dissolution. * Epinephrine (1mg/1 ml) 0.3 mg subcutaneously or IVP now with any signs of respiratory distress. * Check with physician for new additional pre-med orders if patient is re- challenged or re-treated. [x] May remove PICC line when treatment complete, after confirming with Physician. [x] If the patient is admitted to the hospital, the ED, or transferred via [facility] , complete transfer form including medication reconciliation order sheet. Weekly Labs: CBC w/diff, CMP Allergies penicillin G Allergy (Severe, Verified 05/27/18 12:05) EDEMA
[2018-06-20] MEDS ORDERED: ceFAZolin 2 GM Premix Inj 2 GM/100 ML BAG IV.SIG SCH (18:00)
[2018-06-20] MEDS ORDERED: ceFAZolin Inj 2,000 MG in Sodium Chlor 0.9% Inj 80 ML IV.SIG SCH (18:00)
[2018-06-20] MEDS: Finasteride 5 MG Tablet PO SCH (18:44)
--- NOTE | 2018-06-20 21:09 | P.PNPOD ---
Subjective Interval history: s/p I&D right foot/ankle Physical Exam Vital signs: Vital Signs 06/20/18 00:00 06/20/18 04:00 06/20/18 07:42 Temperature 97.5 F L 98 F Pulse Rate 67 64 77 Respiratory Rate 16 16 Blood Pressure 133/86 139/75 Pulse Oximetry 95 98 06/20/18 07:49 06/20/18 07:50 06/20/18 11:05 Temperature 98.6 F Pulse Rate 75 85 Respiratory Rate 18 Blood Pressure 135/82 Pulse Oximetry 92 L 95 06/20/18 11:54 06/20/18 15:00 06/20/18 15:58 Temperature 98.3 F 98.4 F Pulse Rate 80 68 Respiratory Rate 18 16 16 Blood Pressure 135/72 114/71 Pulse Oximetry 93 L 95 06/20/18 16:00 06/20/18 16:57 Temperature Pulse Rate 72 Respiratory Rate Blood Pressure Pulse Oximetry 95 Intake & Output 06/20/18 06/20/18 06/21/18 06:59 18:59 06:59 Intake Total 200 / 200 1320 / 1320 Output Total 350 / 350 825 / 825 Balance -150 / -150 495 / 495 Weight 110.5 kg Intake: IV 200 / 200 100 / 100 Ancef Inj 1,000 MG In NS Inj 200 / 200 100 / 100 100 ML @ 200 mls/hr IV.SIG Q8H [facility] Rx#:[id number] Oral 1220 / 1220 Output: Urine 350 / 350 75 / 75 Urine Amount (Catheter) 750 / 750 Indwelling Urethral Catheter 750 / 750 Other: Date of Last Bowel Movement 06/18/18 06/19/18 Narrative: Right medial ankle and right dorsal forefoot with packing in place and sutures intact. No gui purulence noted. There is mild fibrotic tissue at the opening of each tract. Minimal edema. No gross erythema. No foul odor present. Medications and Allergies Active Medications: Active Medications Acetaminophen (Tylenol) 650 mg PO Q4H PRN PRN Reason: Fever, headache, pain 1-4 Hydrocodone Bitart/Acetaminophen ([place] 5/325) 1 tab PO Q4H PRN PRN Reason: Pain 5-10 Last Admin: 06/20/18 14:58 Dose: 1 tab Al Hydroxide/Mg Hydroxide (Milk Of Magnesia Liq) 30 ml PO Q12H PRN PRN Reason: Mild Constipation Albuterol (Duoneb Neb (Prn)) 1 ampul NEB Q4HR NEB PRN PRN Reason: SOB/WHEEZING Last Admin: 06/12/18 13:09 Dose: 1 ampul Amlodipine Besylate (Norvasc) 10 mg PO DAILY [facility] Last Admin: 06/20/18 08:06 Dose: 10 mg Apixaban (Eliquis) 5 mg PO BID [facility] Last Admin: 06/18/18 10:02 Dose: 5 mg Atorvastatin Calcium (Lipitor) 80 mg PO DAILY [facility] Last Admin: 06/20/18 08:06 Dose: 80 mg Bisacodyl (Dulcolax Supp) 10 mg RECTAL DAILY PRN PRN Reason: SEVERE CONSITIPATION Bupropion HCl (Wellbutrin Sr) 100 mg PO BID [facility] Last Admin: 06/20/18 08:06 Dose: 100 mg Colchicine (Colcrys) 0.6 mg PO DAILY [facility] Last Admin: 06/20/18 08:02 Dose: Not Given Digoxin (Lanoxin) 125 mcg PO DAILY [facility] Last Admin: 06/20/18 08:05 Dose: 125 mcg Finasteride (Proscar) 5 mg PO DAILY [facility] Last Admin: 06/20/18 18:44 Dose: 5 mg Folic Acid (Folic Acid) 1 mg PO DAILY [facility] Last Admin: 06/20/18 08:06 Dose: 1 mg Furosemide (Lasix Inj) 20 mg IV.PUSH BID@0900,1800 [facility] Last Admin: 06/20/18 18:44 Dose: 20 mg Heparin Sodium (Porcine) (Heparin Central Flush) 0 unit IV.FLUSH DAILY [facility] Last Admin: 06/20/18 08:04 Dose: 500 unit Heparin Sodium (Porcine) (Heparin Central Flush) 0 unit IV.FLUSH PRN PRN PRN Reason: Flush each lumen Last Admin: 06/16/18 06:44 Dose: 250 unit Sodium Chloride (Ns Inj) 500 mls @ 30 mls/hr IV.SIG .Q10H [facility] Last Admin: 06/19/18 15:43 Dose: Not Given Cefazolin/Sodium Chloride (Ancef 2 Gm Premix Inj) 2 gm in 100 mls @ 200 mls/hr IV.SIG Q8H [facility] Lactulose (Lactulose Liq) 30 ml PO DAILY PRN PRN Reason: SEVERE CONSITIPATION Melatonin (Melatonin) 5 mg PO HS PRN PRN Reason: INSOMNIA Last Admin: 06/19/18 01:19 Dose: 5 mg Metoprolol Tartrate (Lopressor) 100 mg PO BID [facility] Last Admin: 06/20/18 08:05 Dose: 100 mg Metronidazole (Flagyl) 500 mg PO Q6H [facility] Last Admin: 06/20/18 18:44 Dose: 500 mg Ondansetron HCl (Zofran Inj) 4 mg IV.PUSH Q6H PRN PRN Reason: NAUSEA OR VOMITING Last Admin: 06/17/18 06:32 Dose: 4 mg Ondansetron HCl (Zofran Odt) 8 mg PO Q8H PRN PRN Reason: NAUSEA Last Admin: 06/17/18 11:59 Dose: 8 mg Oxycodone HCl (Roxicodone) 5 mg PO Q4H PRN PRN Reason: PAIN SCALE 1 TO 5 Senna/Docusate Sodium (Salma-Colace) 1 tab PO BID [facility] Last Admin: 06/20/18 08:03 Dose: Not Given Sennosides (Senokot) 17.2 mg PO Q12H PRN PRN Reason: Moderate Constipation Sodium Chloride (Ns Flush) 2 ml IV.FLUSH BID [facility] Last Admin: 06/20/18 08:07 Dose: 2 ml Sodium Chloride (Ns Flush) 2 ml IV.FLUSH PRN PRN PRN Reason: FLUSH AFTER USING IV ACCESS Tamsulosin HCl (Flomax) 0.4 mg PO [facility] Allergies Allergy/AdvReac Type Severity Reaction Status Date / Time penicillin G Allergy Severe EDEMA Verified 05/27/18 12:05 Home Medications Medication Instructions Recorded Confirmed Type amlodipine 10 mg PO DAILY 05/27/18 06/10/18 History atorvastatin 80 mg PO DAILY 05/27/18 06/10/18 History bupropion HCl 100 mg PO BID 05/27/18 06/10/18 History colchicine 0.6 mg PO DAILY 05/27/18 06/10/18 History digoxin 0.125 mg PO DAILY 05/27/18 06/10/18 History folic acid 1 mg PO DAILY 05/27/18 06/10/18 History metoprolol tartrate 1 mg/kg PO BID 05/27/18 06/10/18 History ondansetron [Zofran ODT] 8 mg PO Q8HR PRN 05/27/18 06/10/18 History cefazolin 2 g IV Q8H 06/10/18 06/10/18 History Results - Labs CBC & Chem 7: 06/20/18 05:20 06/20/18 05:20 Laboratory Results - last 24 hr 06/20/18 06/20/18 05:20 05:20 WBC 9.6 RBC 2.60 L Hgb 8.6 L Hct 25.7 L MCV 98.8 MCH 33.1 MCHC 33.5 RDW 14.7 Plt Count 487 H MPV 7.5 Sodium 143 Potassium 4.1 Chloride 102 Carbon Dioxide 33.6 H Anion Gap 7 BUN 15 Creatinine 1.58 H Estimated GFR 43 L Random Glucose 78 Calcium 8.0 L Microbiology 06/12/18 17:00 Wound - Foot Acid Fast Bacilli Smear - Final No acid fast bacilli seen 06/12/18 17:00 Wound - Foot Mycobacterial Culture - Preliminary No growth in 1 week 06/12/18 17:00 Wound - Foot Fungal Smear - Final No fungal elements seen 06/12/18 17:00 Wound - Foot Fungal Culture - Preliminary No growth in 1 week 06/12/18 17:00 Wound - Foot Fungal Smear - Final No fungal elements seen 06/12/18 17:00 Wound - Foot Fungal Culture - Preliminary No growth in 1 week 06/12/18 17:00 Wound - Foot Acid Fast Bacilli Smear - Final No acid fast bacilli seen 06/12/18 17:00 Wound - Foot Mycobacterial Culture - Preliminary No growth in 1 week Assessment and Plan - Assessment (1) Abscess of right foot Code(s): L02.611 - Cutaneous abscess of right foot Status: Acute (2) Osteomyelitis of right foot Code(s): M86.9 - Osteomyelitis, unspecified Status: Acute - Plan Addressed 's concerns regarding why the first surgery did not involve the ankle. I explained that 05/30/18 MRI findings were as follows: CONCLUSION: 1. There is abnormal soft tissue and fluid adjacent to the distal portion of the second metatarsal. There is abnormal bone marrow edema in the distal half to one third portion of the second metatarsal highly suspicious for osteomyelitis. 2. 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 3. Status post previous amputation of the second toe. And that there was no mention of possible abscess to the ankle at the time of his first surgery, and nothing to indicate that surgery further proximal needed to take place, or else it would have at that time. I also explained that his first surgery at that time was to prevent progression of further infection, but it progressed in spite of efforts. I also explained that his significant comorbidities set him up to not fight infection well, and that could have contributed to progression. Continue daily packing and podiatry will need to be re-consulted if patient is admitted to [place] 9 floor to follow patient weekly.
[2018-06-20] MEDS: ceFAZolin 2 GM Premix Inj 2 GM/100 ML BAG IV.SIG SCH (23:02)
[2018-06-21] MEDS: metroNIDAZOLE 500 MG Tablet PO SCH ×4 (05:45→23:56)
[2018-06-21] MEDS: ceFAZolin 2 GM Premix Inj 2 GM/100 ML BAG IV.SIG SCH ×3 (05:45→22:05)
[2018-06-21] MEDS: Finasteride 5 MG Tablet PO SCH (09:50)
[2018-06-21] MEDS: Digoxin 125 MCG Tablet PO SCH (09:50)
[2018-06-21] MEDS: Metoprolol Tartrate 100 MG Tablet PO SCH ×2 (09:50→20:41)
[2018-06-21] MEDS: Folic Acid 1 MG Tablet PO SCH (09:50)
[2018-06-21] MEDS: Senna/Docusate Sodium 8.6/50 MG Tablet PO SCH ×2 (09:50→20:42)
[2018-06-21] MEDS: buPROPion 100 MG ER 12 HR Tablet PO SCH ×2 (09:50→20:41)
[2018-06-21] MEDS: amLODIPine 10 MG Tablet PO SCH (09:54)
--- NOTE | 2018-06-21 13:15 | P.PNVS ---
Subjective Post Op Day #: 2 Procedure: R fem-PT with cryo Subjective/Hospital Course: continues to look great pain seems to be better controlled anxious to get to rehab Objective Vital Signs / I&O: Vital Signs 06/20/18 15:00 06/20/18 15:58 06/20/18 16:00 Temperature 98.4 F Pulse Rate 68 72 Respiratory Rate 16 16 Blood Pressure 114/71 Pulse Oximetry 95 06/20/18 16:57 06/20/18 20:00 06/21/18 00:00 Temperature 97.4 F L 97.7 F Pulse Rate 60 72 Respiratory Rate 18 18 Blood Pressure 118/71 114/72 Pulse Oximetry 95 98 100 06/21/18 04:00 06/21/18 04:01 06/21/18 09:06 Temperature 98.5 F 98.4 F Pulse Rate 70 74 73 Respiratory Rate 16 16 Blood Pressure 118/75 112/63 Pulse Oximetry 98 93 L 06/21/18 09:12 Temperature Pulse Rate Respiratory Rate Blood Pressure Pulse Oximetry 95 Intake & Output 06/20/18 06/21/18 06/21/18 18:59 06:59 18:59 Intake Total 1320 / 1320 700 / 700 Output Total 825 / 825 700 / 700 Balance 495 / 495 0 / 0 Weight 110.5 kg 110 kg Intake: IV 100 / 100 200 / 200 Ancef 2 GM Premix Inj 2 gm In 200 / 200 100 ml @ 200 mls/hr IV.SIG Q8H MAUDE Rx#:[id number] Ancef Inj 1,000 MG In NS Inj 100 / 100 100 ML @ 200 mls/hr IV.SIG Q8H MUADE Rx#:[id number] Oral 1220 / 1220 500 / 500 Output: Urine 75 / 75 700 / 700 Urine Amount (Catheter) 750 / 750 Indwelling Urethral Catheter 750 / 750 Other: Date of Last Bowel Movement 06/19/18 06/21/18 # Bowel Movements 1 Exam: R groin Prevena in place R LE incision c/d/i strong PT signal at ankle Microbiology 06/12/18 17:00 Acid Fast Bacilli Smear - Final Wound - Foot No acid fast bacilli seen Mycobacterial Culture - Preliminary No growth in 1 week 06/12/18 17:00 Fungal Smear - Final Wound - Foot No fungal elements seen Fungal Culture - Preliminary No growth in 1 week 06/12/18 17:00 Fungal Smear - Final Wound - Foot No fungal elements seen Fungal Culture - Preliminary No growth in 1 week 06/12/18 17:00 Acid Fast Bacilli Smear - Final Wound - Foot No acid fast bacilli seen Mycobacterial Culture - Preliminary No growth in 1 week Assessment and Plan - Assessment (1) Osteomyelitis of right foot Code(s): M86.9 - Osteomyelitis, unspecified Status: Acute (2) PAD (peripheral artery disease) Code(s): I73.9 - Peripheral vascular disease, unspecified Status: Acute - Plan POD#2 s/p R LE bypass Bypass patent by exam 1. OOB ad fidencio as tolerated 2. Ok to resume all anticoagulation 3. clear for rehab from a vascular surgery standpoint Prevena off on Tuesday (POD#7)
--- NOTE | 2018-06-21 16:02 | P.PNADD ---
Addendum to Inpatient Note Additional information: OPAT filled out for cefazolin OK to dc cont flagyl x 3 more weeks
--- NOTE | 2018-06-21 16:53 | P.PN ---
Subjective Interval history: Nursing denies any deterioration since last night. Patient himself has no new complaints. Looking forward to discharge when available. Says he was able to urinate last night while, has not required further catheterizations. Physical Exam Vital signs: Vital Signs 06/20/18 16:57 06/20/18 20:00 06/21/18 00:00 Temperature 97.4 F L 97.7 F Pulse Rate 60 72 Respiratory Rate 18 18 Blood Pressure 118/71 114/72 Pulse Oximetry 95 98 100 06/21/18 04:00 06/21/18 04:01 06/21/18 09:06 Temperature 98.5 F 98.4 F Pulse Rate 70 74 73 Respiratory Rate 16 16 Blood Pressure 118/75 112/63 Pulse Oximetry 98 93 L 06/21/18 09:12 06/21/18 12:00 06/21/18 13:24 Temperature 97.9 F Pulse Rate 74 65 Respiratory Rate 18 Blood Pressure 114/64 Pulse Oximetry 95 96 Intake & Output 06/20/18 06/21/18 06/21/18 18:59 06:59 18:59 Intake Total 1320 / 1320 700 / 700 Output Total 825 / 825 700 / 700 Balance 495 / 495 0 / 0 Weight 110 kg 110.5 kg Intake: IV 100 / 100 200 / 200 Ancef 2 GM Premix Inj 2 gm In 200 / 200 100 ml @ 200 mls/hr IV.SIG Q8H MAUDE Rx#:[id number] Ancef Inj 1,000 MG In NS Inj 100 / 100 100 ML @ 200 mls/hr IV.SIG Q8H MAUDE Rx#:[id number] Oral 1220 / 1220 500 / 500 Output: Urine 75 / 75 700 / 700 Urine Amount (Catheter) 750 / 750 Indwelling Urethral Catheter 750 / 750 Other: Date of Last Bowel Movement 06/19/18 06/21/18 # Bowel Movements 1 Narrative: Right foot in postop dressing Lying in bed, awake and alert, no acute distress, unlabored breathing - Urinary Catheter Management Indwelling Urethral Catheter Cath placed during this visit: yes, but has since been removed by the nurse Reason for continuing: Decision to DC catheter Insertion date: 06/19/18 Insertion time: 11:51 Removal date: 06/20/18 Removal time: 08:00 Results - Labs CBC & Chem 7: 06/20/18 05:20 09/25/18 05:20 Microbiology 06/12/18 17:00 Wound - Foot Acid Fast Bacilli Smear - Final No acid fast bacilli seen 06/12/18 17:00 Wound - Foot Mycobacterial Culture - Preliminary No growth in 1 week 06/12/18 17:00 Wound - Foot Fungal Smear - Final No fungal elements seen 06/12/18 17:00 Wound - Foot Fungal Culture - Preliminary No growth in 1 week 06/12/18 17:00 Wound - Foot Fungal Smear - Final No fungal elements seen 06/12/18 17:00 Wound - Foot Fungal Culture - Preliminary No growth in 1 week 06/12/18 17:00 Wound - Foot Acid Fast Bacilli Smear - Final No acid fast bacilli seen 06/12/18 17:00 Wound - Foot Mycobacterial Culture - Preliminary No growth in 1 week Assessment and Plan - Assessment (1) Cellulitis Code(s): L03.90 - Cellulitis, unspecified Status: Acute (2) Lower extremity edema Code(s): R60.0 - Localized edema Status: Acute (3) PNA (pneumonia) Code(s): J18.9 - Pneumonia, unspecified organism Status: Acute (4) Lung cancer Code(s): C34.90 - Malignant neoplasm of unspecified part of unspecified bronchus or lung Status: Acute - Plan This is a 72-year-old male with a PMH of Metastatic Lung CA s/p Pneumectomy, HTN , AAA Repair, CAD and RLE Cellulitis/Osteo who presented to the ER w/ complaints of left lower extremity swelling starting 06/11/2018. Pt follows w/ Dr. Knight, had first round of Chemo 05/18/18, followed by nausea, vomiting and diarrhea, recent admit on 05/27/18 for Neutropenic Fever and RLE Cellulitis/ Abscess/Osteo, s/p I&D and Bone Biopsy by Dr. Gorman 06/01/18, Lisa Cath placement 06/05/18, Cultures +S aureus and mixed guilherme, s/p eval by ID, d/c'd on Ancef 1gm IV q8h and Flagyl 500mg PO qid. Right lower extremity abscess/cellulitis Right lower ext peripheral arterial disease - ID, Podiatry following. iv cefazolin and po flagyl - s/p Rt Ft I&D with second metatarsal debridement on 06/12/2018. - S/p Angiogram done on 06/15/2018. Status post RLE bypass surgery. Back on apixaban Possible aspiration pneumonia -cefazolin and flagyl Acute urinary retention -Improved after starting Flomax and finasteride Hx of Metastatic Lung cancer Chronic Afib Hypertension - Continue Amlodipine, lopressor, lipitor -Back on apixaban Lower extremity edema - 2D echo shows ejection fraction 50%. Continue Lasix 20mg IV BID. - Lower extremity edema likely due to low albumin. - Keep legs elevated. Anxiety -Avoid benzos as much as possible, trial of Vistaril Full code. resuming apixaban [employer] Prescription Drug Monitoring Database has been queried and verified prior to prescribing the controlled subsection. Patient is having significant pain caused by his foot condition which will last more than 3 days. Trial of alternative treatment options other than prescribed opioids has not helped. I believe that it is medically necessary to treat the patients pain because it is affecting patients ability to return to function. Discharge Planning: Patient not desiring but does reluctantly accept a rehab placement inevitability. Pending infectious disease and podiatry clearance (1) Cellulitis Qualifiers: Site of cellulitis: extremity Site of cellulitis of extremity: lower extremity Laterality: right Qualified Code(s): L03.115 - Cellulitis of right lower limb
[2018-06-21] MEDS: Heparin Central Flush 100 UNIT/ML 5 ML Vial IV.FLUSH SCH (18:39)
[2018-06-22] MEDS: ceFAZolin 2 GM Premix Inj 2 GM/100 ML BAG IV.SIG SCH ×3 (05:47→22:22)
[2018-06-22] MEDS: metroNIDAZOLE 500 MG Tablet PO SCH ×4 (05:47→23:18)
--- NOTE | 2018-06-22 09:29 | P.PNVS ---
Subjective Post Op Day #: 3 Procedure: R fem-PT with cryo Subjective/Hospital Course: 72/M S/P R LE revasculation Pt w/o complaints Pt continues to look great Pain controlled UE/LE swelling improved Objective Vital Signs / I&O: Vital Signs 06/21/18 12:00 06/21/18 13:24 06/21/18 17:01 Temperature 97.9 F 98.7 F Pulse Rate 74 65 89 Respiratory Rate 18 20 Blood Pressure 114/64 119/68 Pulse Oximetry 96 95 06/21/18 18:00 06/21/18 19:44 06/21/18 20:00 Temperature 97 F L Pulse Rate 64 67 Respiratory Rate 16 Blood Pressure 119/68 Pulse Oximetry 95 95 06/22/18 00:00 06/22/18 04:00 06/22/18 07:07 Temperature 97.7 F 97.8 F Pulse Rate 65 72 80 Respiratory Rate 16 16 Blood Pressure 118/66 121/66 Pulse Oximetry 94 L 95 Intake & Output 06/21/18 06/22/18 06/22/18 18:59 06:59 18:59 Intake Total 540 / 540 Output Total 400 / 400 Balance 140 / 140 Weight 110.5 kg Intake: IV 300 / 300 Ancef 2 GM Premix Inj 2 gm In 300 / 300 100 ml @ 200 mls/hr IV.SIG Q8H MAUDE Rx#:[id number] Oral 240 / 240 Output: Urine 400 / 400 Other: # Voids 1 Date of Last Bowel Movement 06/21/18 # Bowel Movements 1 Exam: 72/M GCS 15, A&OX3, Speech clear RRR Resp even + strong biphasic R PT heard via Doppler Incision to R LE intact w/o R/D/S/O Prevena wound vac to R groin intact w/o swelling or hematoma LE warm w/ motor intact Assessment and Plan - Assessment (1) Osteomyelitis of right foot Code(s): M86.9 - Osteomyelitis, unspecified Status: Acute (2) PAD (peripheral artery disease) Code(s): I73.9 - Peripheral vascular disease, unspecified Status: Acute - Plan POD#3 s/p R LE bypass Bypass patent by exam Plan Continue PT/OOB ad fidencio as tolerated Pt clear for rehab from a vascular surgery standpoint Will remove Prevena wound vac from R groin on Shivam (POD#7) Arrange post op f/u in a few weeks with a surveillance FRANKY [facility] [place] [phone]
[2018-06-22] MEDS: buPROPion 100 MG ER 12 HR Tablet PO SCH ×2 (09:48→20:31)
[2018-06-22] MEDS: Metoprolol Tartrate 100 MG Tablet PO SCH ×2 (09:48→20:25)
[2018-06-22] MEDS: Senna/Docusate Sodium 8.6/50 MG Tablet PO SCH ×2 (09:48→20:25)
[2018-06-22] MEDS: Finasteride 5 MG Tablet PO SCH (09:49)
[2018-06-22] MEDS: Folic Acid 1 MG Tablet PO SCH (09:49)
[2018-06-22] MEDS: amLODIPine 10 MG Tablet PO SCH (09:49)
[2018-06-22] MEDS: Digoxin 125 MCG Tablet PO SCH (09:49)
[2018-06-22] MEDS: Heparin Central Flush 100 UNIT/ML 5 ML Vial IV.FLUSH SCH (11:36)
--- NOTE | 2018-06-22 16:51 | P.DS ---
Date of admission: 06/11/18 01:20 Primary care physician: Odette Rodas Brief History from admission: This is a 72-year-old male with a PMH of Metastatic Lung CA s/p Pneumectomy, HTN , AAA Repair, CAD and RLE Cellulitis/Osteo who presented to the ER w/ complaints of left lower extremity swelling starting earlier today. Pt follows w/ Dr. Knight, had first round of Chemo 05/18/18, followed by nausea, vomiting and diarrhea, recent admit on 05/27/18 for Neutropenic Fever and RLE Cellulitis/ Abscess/Osteo, s/p I&D and Bone Biopsy by Dr. Gorman 06/01/18, Lisa Cath placement 06/05/18, Cultures +S aureus and mixed guilherme, s/p eval by ID, d/c'd on Ancef 1gm IV q8h and Flagyl 500mg PO qid. at bedside states she has been administering antibiotics as prescribed and doing dressing changes. Notes foot "looks good", however while in ER, notes RLE w/ increasing erythema and edema. No reported fever/chills. Pt notes intermittent SOB, uses O2 at home as needed. On arrival, BP 160/82, HR 88, O2 sat 96% on RA, Afebrile. WBC 16.2. INR 1.4. Creatinine 1.58, BNP 672. Troponin negative. CXR w/ right IJ, no pneumo. Bilateral Doppler negative for DVT. CTA Chest negative for PE, focal airspace consolidation right lower lobe. DS: Diagnosis - Discharge Diagnosis (1) Cellulitis Status: Acute (2) Lower extremity edema Status: Acute (3) PNA (pneumonia) Status: Acute (4) Lung cancer Status: Acute DS: Medications - Discharge Medications Prescriptions: furosemide 20 mg PO DAILY PRN #30 tab PRN Reason: swelling hydrocodone-acetaminophen 1 tab PO Q6H PRN #21 tab PRN Reason: Pain metoprolol tartrate 100 mg PO BID #60 tab metronidazole 500 mg PO Q6H #84 tab tamsulosin 0.4 mg PO HS #30 cap DS: Summary Hospital Course: This is a 72-year-old male with a PMH of Metastatic Lung CA s/p Pneumectomy, HTN , AAA Repair, CAD and RLE Cellulitis/Osteo who presented to the ER w/ complaints of left lower extremity swelling starting 06/11/2018. Pt follows w/ Dr. Knight, had first round of Chemo 05/18/18, followed by nausea, vomiting and diarrhea, recent admit on 05/27/18 for Neutropenic Fever and RLE Cellulitis/ Abscess/Osteo, s/p I&D and Bone Biopsy by Dr. Gorman 06/01/18, Lisa Cath placement 06/05/18, Cultures +S aureus and mixed guilherme, s/p eval by ID, d/c'd on Ancef 1gm IV q8h and Flagyl 500mg PO qid. Patient underwent right foot I&D with second metatarsal debridement on 06/12 from which the foot wound grew out MSSA staph aureus. Infectious disease had been co-managing the patient with cefazolin and Flagyl for lower extremity cellulitis as well as possible aspiration pneumonia. Patient underwent an angiogram on 06/15 and then underwent right lower extremity femoropopliteal bypass surgery as well. Patient did have some acute urine retention which resolved with Flomax and finasteride. Patient has met maximal benefit from hospitalization is clinically stable for discharge to rehab. - Time Spent with Patient Total time spent providing and/or coordinating discharge services: Less than 30 minutes - Quality: VTE Deep Vein Thrombosis/Pulmonary Embolism Present on Admission: No Exam Vital signs: Vital Signs 06/21/18 17:01 06/21/18 18:00 06/21/18 19:44 Temperature 98.7 F Pulse Rate 89 64 Respiratory Rate 20 Blood Pressure 119/68 Pulse Oximetry 95 95 06/21/18 20:00 06/22/18 00:00 06/22/18 04:00 Temperature 97 F L 97.7 F 97.8 F Pulse Rate 67 65 72 Respiratory Rate 16 16 16 Blood Pressure 119/68 118/66 121/66 Pulse Oximetry 95 94 L 95 06/22/18 07:07 06/22/18 09:46 06/22/18 12:00 Temperature 98.2 F 98.2 F Pulse Rate 80 73 82 Respiratory Rate 16 18 Blood Pressure 114/66 102/67 Pulse Oximetry 69 L 97 Intake & Output 06/21/18 06/22/18 06/22/18 18:59 06:59 18:59 Intake Total 540 / 540 Output Total 400 / 400 Balance 140 / 140 Weight 110.5 kg Intake: IV 300 / 300 Ancef 2 GM Premix Inj 2 gm In 300 / 300 100 ml @ 200 mls/hr IV.SIG Q8H MAUDE Rx#:[id number] Oral 240 / 240 Output: Urine 400 / 400 Other: # Voids 1 Date of Last Bowel Movement 06/21/18 # Bowel Movements 1 Narrative: Clear lungs bilaterally, unlabored breathing Right foot in postop dressing Results Procedures completed during hospitalization: s/p Rt Ft I&D with second metatarsal debridement on 06/12/2018. Angiogram done on 06/15/2018. Right femoral to posterior tibial artery bypass with cryopreserved vein. Completed studies during hospitalization: Pending at discharge 06/12/18 07:33 Surgical [PTH] Routine Labs on day of discharge: Preliminary micro results at discharge 06/12/18 17:00 Mycobacterial Culture - Preliminary Wound - Foot No growth in 1 week 06/12/18 17:00 Fungal Culture - Preliminary Wound - Foot No growth in 1 week 06/12/18 17:00 Fungal Culture - Preliminary Wound - Foot No growth in 1 week 06/12/18 17:00 Mycobacterial Culture - Preliminary Wound - Foot No growth in 1 week - Impressions ITS Impressions Chest X-Ray 06/10/18 19:44 CONCLUSION: Right IJ central venous catheter in place. No evidence of pneumothorax. Venous Doppler Study 06/10/18 19:44 CONCLUSION: No evidence of lower extremity DVT on the right or left. Chest CTA 06/11/18 00:00 CONCLUSION: 1. No CT evidence for pulmonary artery embolism as questioned. 2. Focal patchy airspace consolidation in the right lower lobe concerning for bronchopneumonia/aspiration. 3. Postsurgical features with associated right upper lobe volume loss and scarring. 4. Coronary artery calcifications. 5. Mild ascending thoracic aortic aneurysm measuring up to 4.3 cm. 6. Additional ancillary findings, as above. Ankle MRI 06/12/18 00:00 CONCLUSION: 1. Soft tissue swelling is noted along the dorsum of the ankle and proximal foot as well as medially and laterally in the regions of the malleoli. Subcutaneous fluid collection is noted along the dorsal aspect of the proximal third fourth and fifth metatarsals but is incompletely evaluated on this examination. This raises the possibility of subcutaneous abscess. Extremity Arterial Study 06/13/18 00:00 CONCLUSION: 1. Findings consistent with [id number] bilateral lower extremity peripheral arterial disease. Discharge Plan - Discharge Disposition Patient Disposition: Discharge to SNF - Discharge Condition Condition: Stable - Discharge Order Discharge Orders: Discharge Order (Routine); Ordered 06/21/18 Ordered By: Darrius Rutherford Vascular Surgery Clear for Discharge (Routine); Ordered 06/21/18 Ordered By: Chris Neely - Physicians Team Primary Care Provider: Odette Rodas Attending Provider: Darrius Rutherford Other Providers: Anabell Garcia MD ; Tika Villela ; Marko Cao DPM ; Patricia Angel MD ; Chris Neely MD ; Nicole Moffett MD
[2018-06-23] MEDS: ceFAZolin 2 GM Premix Inj 2 GM/100 ML BAG IV.SIG SCH ×3 (05:28→22:02)
[2018-06-23] MEDS: metroNIDAZOLE 500 MG Tablet PO SCH ×4 (05:28→23:26)
[2018-06-23] MEDS: Folic Acid 1 MG Tablet PO SCH (08:52)
[2018-06-23] MEDS: Senna/Docusate Sodium 8.6/50 MG Tablet PO SCH ×2 (08:53→21:35)
[2018-06-23] MEDS: Metoprolol Tartrate 100 MG Tablet PO SCH ×2 (08:53→21:32)
[2018-06-23] MEDS: Finasteride 5 MG Tablet PO SCH (08:55)
[2018-06-23] MEDS: Digoxin 125 MCG Tablet PO SCH (08:56)
[2018-06-23] MEDS: amLODIPine 10 MG Tablet PO SCH (08:58)
[2018-06-23] MEDS: buPROPion 100 MG ER 12 HR Tablet PO SCH ×2 (08:59→21:29)
[2018-06-23] MEDS: Heparin Central Flush 100 UNIT/ML 5 ML Vial IV.FLUSH SCH (09:24)
--- NOTE | 2018-06-23 15:39 | P.CONREH ---
History of Present Illness Service: Physical medicine and rehabilitation Consult date: 06/23/18 Reason for Consult: Comprehensive rehabilitation evaluation Primary Care Provider: Odette Rodas Chief Complaint: PVD/Stagnant wound healing R foot wound History of Present Illness: Marko Henry is a 72-year-old [id number] male who initially started his first round of chemotherapy 05/18/18 for metastatic lung cancer. He was subsequently admitted to [facility] with neutropenic fever 05/27/18 and was found to have right lower extremity cellulitis/abscess/osteomyelitis. On 06/01/18 he underwent I&D with bone biopsy. Lisa catheter was placed 06/05/18 and he was started on Ancef and Flagyl IV. He was subsequently discharged home 06/07/18. He was readmitted 06/11/18 with right lower extremity erythema consistent with cellulitis. On 06/12/18 he underwent right foot and ankle I&D with debridement of the second right metatarsal head. On 06/15/18 he underwent angiogram and was found to have occluded SFA, popliteal artery and anterior tibial arteries. On he underwent right femoral to posterior tibial bypass. He currently has a Jeni dressing in place at the right groin. Right foot dressing is actually being changed daily. His current receiving IV ceftezole and and p.o. Flagyl per ID recommendations. IV Lasix is being used for right lower extremity edema. Hemoglobin and hematocrit most recently 8.6/25.7. Most recent creatinine 1.58. He is currently receiving Roxicodone for pain management. Review of Systems Constitutional: Reports fatigue, Reports lack of energy Eyes: Denies double vision Ears, Nose, Mouth, and Throat: Denies difficulty swallowing Cardiovascular: Denies chest pain Respiratory: Denies cough Gastrointestinal: Denies abdominal pain, Denies nausea Genitourinary: Denies urinary incontinence Musculoskeletal: Reports numbness (Feet bilaterally) Skin/Breast: Denies skin ulcer (Present during hospitalization but per report has resolved) Neurologic: Denies confusion, Denies headache(s), Denies loss of vision Psychiatric: Denies confusion Hematologic/Lymphatic: Denies easy bruising Allergic/Immunologic: Denies wheezing PMFSH - History History Provided By: Patient, Family Member - Medical History Medical History: Medical History (Last Reviewed 06/23/18 @ 15:37 by Nita Danielle) Aneurysm Bone metastases Gout Hernia High cholesterol Hypertension Left cavernous carotid aneurysm Lung cancer Stroke Thoracoabdominal aortic aneurysm (TAAA) - Surgical History Surgical History: Surgical History (Last Reviewed 06/23/18 @ 15:37 by Nita Danielle) Status post carotid surgery (Inactive) Atherosclerosis of bypass graft of lower extremity (Resolved) Renal artery bypass graft pseudoaneurysm (Acute) H/O pneumonectomy H/O splenectomy History of complete ray amputation of second toe of right foot History of incisional hernia repair History of total right knee replacement S/P AAA (abdominal aortic aneurysm) repair - Family History Family History: Family History (Last Reviewed 06/23/18 @ 15:37 by Nita Danielle) Sister Aneurysm Father Heart attack Stroke - Social History I have reviewed the patient's Social History: Yes - Tobacco History Second Hand Smoke Exposure: No Tobacco Use In Past 30 Days: No Smoking Status: Former smoker Tobacco Type: Cigarettes Packs Per Day: 2 Years Smoked: 20 - Alcohol History How Often Do You Have a Drink Containing Alcohol: Never - Substance Use History Substance History: No History of Abuse, Past History - Travel History History of Recent Travel: No Recent Travel in the [place] Within the Last 8 Weeks: No Recent Travel Out of the Country Within the Last 8 Weeks: No - Immunization History Tetanus Immunization: >5 Years Hx Influenza Vaccine This Season: No Medications and Allergies Active Medications: Active Medications Acetaminophen (Tylenol) 650 mg PO Q4H PRN PRN Reason: Fever, headache, pain 1-4 Hydrocodone Bitart/Acetaminophen ([place] 5/325) 1 tab PO Q4H PRN PRN Reason: Pain 5-10 Last Admin: 06/23/18 10:52 Dose: 1 tab Al Hydroxide/Mg Hydroxide (Milk Of Thai Simeon) 30 ml PO Q12H PRN PRN Reason: Mild Constipation Albuterol (Duoneb Neb (Prn)) 1 ampul NEB Q4HR NEB PRN PRN Reason: SOB/WHEEZING Last Admin: 06/12/18 13:09 Dose: 1 ampul Amlodipine Besylate (Norvasc) 10 mg PO DAILY [facility] Last Admin: 06/23/18 08:58 Dose: 10 mg Apixaban (Eliquis) 5 mg PO BID [facility] Last Admin: 06/23/18 08:53 Dose: 5 mg Atorvastatin Calcium (Lipitor) 80 mg PO DAILY [facility] Last Admin: 06/23/18 08:56 Dose: 80 mg Bisacodyl (Dulcolax Supp) 10 mg RECTAL DAILY PRN PRN Reason: SEVERE CONSITIPATION Bupropion HCl (Wellbutrin Sr) 100 mg PO BID [facility] Last Admin: 06/23/18 08:59 Dose: 100 mg Colchicine (Colcrys) 0.6 mg PO DAILY [facility] Last Admin: 06/23/18 08:57 Dose: Not Given Digoxin (Lanoxin) 125 mcg PO DAILY [facility] Last Admin: 06/23/18 08:56 Dose: 125 mcg Finasteride (Proscar) 5 mg PO DAILY [facility] Last Admin: 06/23/18 08:55 Dose: Not Given Folic Acid (Folic Acid) 1 mg PO DAILY [facility] Last Admin: 06/23/18 08:52 Dose: 1 mg Furosemide (Lasix Inj) 20 mg IV.PUSH BID@0900,1800 [facility] Last Admin: 06/23/18 10:50 Dose: Not Given Heparin Sodium (Porcine) (Heparin Central Flush) 0 unit IV.FLUSH DAILY [facility] Last Admin: 06/23/18 09:24 Dose: 500 unit Heparin Sodium (Porcine) (Heparin Central Flush) 0 unit IV.FLUSH PRN PRN PRN Reason: Flush each lumen Last Admin: 06/16/18 06:44 Dose: 250 unit Sodium Chloride (Ns Inj) 500 mls @ 30 mls/hr IV.SIG .Q10H [facility] Last Admin: 06/19/18 15:43 Dose: Not Given Cefazolin/Sodium Chloride (Ancef 2 Gm Premix Inj) 2 gm in 100 mls @ 200 mls/hr IV.SIG Q8H [facility] Last Admin: 06/23/18 13:50 Dose: 200 mls/hr Lactulose (Lactulose Liq) 30 ml PO DAILY PRN PRN Reason: SEVERE CONSITIPATION Melatonin (Melatonin) 5 mg PO HS PRN PRN Reason: INSOMNIA Last Admin: 06/19/18 01:19 Dose: 5 mg Metoprolol Tartrate (Lopressor) 100 mg PO BID [facility] Last Admin: 06/23/18 08:53 Dose: 100 mg Metronidazole (Flagyl) 500 mg PO Q6H [facility] Last Admin: 06/23/18 12:37 Dose: 500 mg Ondansetron HCl (Zofran Inj) 4 mg IV.PUSH Q6H PRN PRN Reason: NAUSEA OR VOMITING Last Admin: 06/17/18 06:32 Dose: 4 mg Ondansetron HCl (Zofran Odt) 8 mg PO Q8H PRN PRN Reason: NAUSEA Last Admin: 06/22/18 12:53 Dose: 8 mg Oxycodone HCl (Roxicodone) 5 mg PO Q4H PRN PRN Reason: PAIN SCALE 1 TO 5 Last Admin: 06/22/18 20:25 Dose: 5 mg Senna/Docusate Sodium (Salma-Colace) 1 tab PO BID [facility] Last Admin: 06/23/18 08:53 Dose: Not Given Sennosides (Senokot) 17.2 mg PO Q12H PRN PRN Reason: Moderate Constipation Sodium Chloride (Ns Flush) 2 ml IV.FLUSH BID [facility] Last Admin: 06/23/18 10:51 Dose: 2 ml Sodium Chloride (Ns Flush) 2 ml IV.FLUSH PRN PRN PRN Reason: FLUSH AFTER USING IV ACCESS Last Admin: 06/23/18 05:29 Dose: 2 ml Tamsulosin HCl (Flomax) 0.4 mg PO HS [facility] Last Admin: 06/22/18 20:25 Dose: Not Given Allergies Allergy/AdvReac Type Severity Reaction Status Date / Time penicillin G Allergy Severe EDEMA Verified 05/27/18 12:05 Home Medications Medication Instructions Recorded Confirmed Type amlodipine 10 mg PO DAILY 05/27/18 06/10/18 History atorvastatin 80 mg PO DAILY 05/27/18 06/10/18 History bupropion HCl 100 mg PO BID 05/27/18 06/10/18 History colchicine 0.6 mg PO DAILY 05/27/18 06/10/18 History digoxin 0.125 mg PO DAILY 05/27/18 06/10/18 History folic acid 1 mg PO DAILY 05/27/18 06/10/18 History metoprolol tartrate 1 mg/kg PO BID 05/27/18 06/10/18 History ondansetron [Zofran ODT] 8 mg PO Q8HR PRN 05/27/18 06/10/18 History cefazolin 2 g IV Q8H 06/10/18 06/10/18 History Exam - Physical Examination Vital Signs / I&O: Vital Signs 06/22/18 18:00 06/22/18 19:27 06/22/18 20:20 Temperature 98.0 F 97.9 F Pulse Rate 72 68 69 Respiratory Rate 20 18 Blood Pressure 107/59 L 122/72 Pulse Oximetry 97 95 06/22/18 20:55 06/22/18 23:17 06/23/18 00:05 Temperature 98.4 F Pulse Rate 69 64 Respiratory Rate 18 18 Blood Pressure 121/67 Pulse Oximetry 96 06/23/18 04:00 06/23/18 04:29 06/23/18 08:00 Temperature 97.9 F 97.9 F Pulse Rate 67 75 69 Respiratory Rate 18 14 Blood Pressure 125/77 111/73 Pulse Oximetry 96 98 06/23/18 12:00 Temperature 98.1 F Pulse Rate 67 Respiratory Rate 16 Blood Pressure 112/67 Pulse Oximetry 96 Intake & Output 06/22/18 06/23/18 06/23/18 18:59 06:59 18:59 Intake Total 100 / 100 200 / 200 Output Total 300 / 300 Balance 100 / 100 -100 / -100 Weight 110.3 kg Intake: IV 100 / 100 200 / 200 Ancef 2 GM Premix Inj 2 gm In 100 / 100 200 / 200 100 ml @ 200 mls/hr IV.SIG Q8H [facility] Rx#:[id number] Output: Urine 300 / 300 Other: Date of Last Bowel Movement 06/22/18 Intake & Output 06/21/18 06/22/18 06/23/18 06/24/18 06:59 06:59 06:59 06:59 Intake Total 2019 540 / 540 300 / 300 Output Total 1525 / 1525 400 / 400 300 / 300 Balance 495 / 495 140 / 140 0 / 0 Weight 110 kg 110.5 kg 110.3 kg General: No acute distress, Other ( at bedside) Respiratory: Lungs CTA, Non-labored respirations, BS equal (Decreased in the bases bilaterally), Other (Lisa is in place) Gastrointestinal: Positive bowel sounds, Non-distended, Non-tender Date of Last Bowel Movement: 06/22/18 Cardiovascular: Normal rate, Regular rhythm Skin: Incision (Right groin Jeni dressing is in place), Other (Right lower extremity dressing is in place; decreased sensation in the right great toe; patient is able to flex and extend with trace movement) Psychiatric: Cooperative, Appropriate mood & affect - Neurologic Orientation: oriented to: Self, Place, Time, Situation Neurologic: Cranial nerves (Grossly intact 2 through 12), Speech (Intelligible) Motor: Right Upper Extremity (4+/5), Left Upper Extremity (4+/5), Right Lower Extremity (Limited testing due to right groin and right foot dressings but grossly 4-4+/5), Left Lower Extremity (4+/5) Sensory: Decreased in the distal lower extremities distal to the ankles bilaterally to light touch Results - Labs CBC & Chem 7: 06/20/18 05:20 06/20/18 05:20 Assessment and Plan (1) Osteomyelitis of right foot Status: Acute Code(s): M86.9 - Osteomyelitis, unspecified (2) Pneumonia Status: Acute Code(s): J18.9 - Pneumonia, unspecified organism (3) Lung cancer Status: Acute Code(s): C34.90 - Malignant neoplasm of unspecified part of unspecified bronchus or lung (4) PAD (peripheral artery disease) Status: Acute Code(s): I73.9 - Peripheral vascular disease, unspecified - Plan Assessment: 1. Metastatic lung cancer status post pneumonectomy and chemotherapy with neutropenic fever 2. Right lower extremity cellulitis/osteomyelitis status post I&D with bone biopsy 06/01/18 with subsequent right foot and ankle I&D and debridement of second metatarsal head 06/12/18 3. Right femoral artery to posterior tibial artery bypass 06/19/18 4. Hypertension 5. History of coronary artery disease Recommendations: 1. Patient is now contact guard to standby assist to ambulate 20 feet with a rolling walker. Prior to admission April 2018 patient was independent with all mobility and ADLs. Continue to mobilize as tolerated 2. Occupational Therapy is addressing ADLs and now minimal assistance for upper body dressing and moderate assistance for lower body dressing and toileting. Continue to advance independence with ADLs 3. Patient will benefit from ongoing inpatient rehabilitation and peer to peer review with insurance carrier was completed. 4. Will follow and follow in outpatient clinic as appropriate at discharge Thank you for this consult. (2) Pneumonia Qualifiers: Pneumonia type: due to unspecified organism Laterality: right Lung location : lower lobe of lung Qualified Code(s): J18.1 - Lobar pneumonia, unspecified organism
--- NOTE | 2018-06-23 17:11 | P.PNADD ---
Addendum to Inpatient Note Reason for Addendum: Corrected Documentation Additional information: Patient seen, resting in bed comfortably, no acute distress, unlabored breathing. Pending placement.
--- NOTE | 2018-06-23 17:21 | P.PNPOD ---
Subjective Interval history: s/p right foot I&D x 2. Pt and his feel the wounds are progressing well since having vascular surgery. [facility] Physical Exam Vital signs: Vital Signs 06/22/18 18:00 06/22/18 19:27 06/22/18 20:20 Temperature 98.0 F 97.9 F Pulse Rate 72 68 69 Respiratory Rate 20 18 Blood Pressure 107/59 L 122/72 Pulse Oximetry 97 95 06/22/18 20:55 06/22/18 23:17 06/23/18 00:05 Temperature 98.4 F Pulse Rate 69 64 Respiratory Rate 18 18 Blood Pressure 121/67 Pulse Oximetry 96 06/23/18 04:00 06/23/18 04:29 06/23/18 08:00 Temperature 97.9 F 97.9 F Pulse Rate 67 75 69 Respiratory Rate 18 14 Blood Pressure 125/77 111/73 Pulse Oximetry 96 98 06/23/18 12:00 06/23/18 16:00 Temperature 98.1 F 97.9 F Pulse Rate 67 72 Respiratory Rate 16 16 Blood Pressure 112/67 120/73 Pulse Oximetry 96 95 Intake & Output 06/22/18 06/23/18 06/23/18 18:59 06:59 18:59 Intake Total 100 / 100 200 / 200 Output Total 300 / 300 Balance 100 / 100 -100 / -100 Weight 110.3 kg Intake: IV 100 / 100 200 / 200 Ancef 2 GM Premix Inj 2 gm In 100 / 100 200 / 200 100 ml @ 200 mls/hr IV.SIG Q8H [facility] Rx#:[id number] Output: Urine 300 / 300 Other: Date of Last Bowel Movement 06/22/18 06/22/18 Narrative: Right dorsal proximal wound fibrogranular bed 7cm x 2cm x 1cm, serous drainage, no erythema, no malodor, no exposed bone or tendon. Right dorsal distal wound 2cm x 2cm x 1cm fibrogranular wound bed serous drainage, no erythema, no malodor, no exposed bone or tendon. Medications and Allergies Active Medications: Active Medications Acetaminophen (Tylenol) 650 mg PO Q4H PRN PRN Reason: Fever, headache, pain 1-4 Hydrocodone Bitart/Acetaminophen ([place] 5/325) 1 tab PO Q4H PRN PRN Reason: Pain 5-10 Last Admin: 06/23/18 10:52 Dose: 1 tab Al Hydroxide/Mg Hydroxide (Milk Of Magnirma Liq) 30 ml PO Q12H PRN PRN Reason: Mild Constipation Albuterol (Duoneb Neb (Prn)) 1 ampul NEB Q4HR NEB PRN PRN Reason: SOB/WHEEZING Last Admin: 06/12/18 13:09 Dose: 1 ampul Amlodipine Besylate (Norvasc) 10 mg PO DAILY [facility] Last Admin: 06/23/18 08:58 Dose: 10 mg Apixaban (Eliquis) 5 mg PO BID [facility] Last Admin: 06/23/18 08:53 Dose: 5 mg Atorvastatin Calcium (Lipitor) 80 mg PO DAILY [facility] Last Admin: 06/23/18 08:56 Dose: 80 mg Bisacodyl (Dulcolax Supp) 10 mg RECTAL DAILY PRN PRN Reason: SEVERE CONSITIPATION Bupropion HCl (Wellbutrin Sr) 100 mg PO BID [facility] Last Admin: 06/23/18 08:59 Dose: 100 mg Colchicine (Colcrys) 0.6 mg PO DAILY [facility] Last Admin: 06/23/18 08:57 Dose: Not Given Digoxin (Lanoxin) 125 mcg PO DAILY [facility] Last Admin: 06/23/18 08:56 Dose: 125 mcg Finasteride (Proscar) 5 mg PO DAILY [facility] Last Admin: 06/23/18 08:55 Dose: Not Given Folic Acid (Folic Acid) 1 mg PO DAILY [facility] Last Admin: 06/23/18 08:52 Dose: 1 mg Furosemide (Lasix Inj) 20 mg IV.PUSH BID@0900,1800 [facility] Last Admin: 06/23/18 10:50 Dose: Not Given Heparin Sodium (Porcine) (Heparin Central Flush) 0 unit IV.FLUSH DAILY [facility] Last Admin: 06/23/18 09:24 Dose: 500 unit Heparin Sodium (Porcine) (Heparin Central Flush) 0 unit IV.FLUSH PRN PRN PRN Reason: Flush each lumen Last Admin: 06/16/18 06:44 Dose: 250 unit Sodium Chloride (Ns Inj) 500 mls @ 30 mls/hr IV.SIG .Q10H [facility] Last Admin: 06/19/18 15:43 Dose: Not Given Cefazolin/Sodium Chloride (Ancef 2 Gm Premix Inj) 2 gm in 100 mls @ 200 mls/hr IV.SIG Q8H [facility] Last Admin: 06/23/18 13:50 Dose: 200 mls/hr Lactulose (Lactulose Liq) 30 ml PO DAILY PRN PRN Reason: SEVERE CONSITIPATION Melatonin (Melatonin) 5 mg PO HS PRN PRN Reason: INSOMNIA Last Admin: 06/19/18 01:19 Dose: 5 mg Metoprolol Tartrate (Lopressor) 100 mg PO BID [facility] Last Admin: 06/23/18 08:53 Dose: 100 mg Metronidazole (Flagyl) 500 mg PO Q6H [facility] Last Admin: 06/23/18 12:37 Dose: 500 mg Ondansetron HCl (Zofran Inj) 4 mg IV.PUSH Q6H PRN PRN Reason: NAUSEA OR VOMITING Last Admin: 06/17/18 06:32 Dose: 4 mg Ondansetron HCl (Zofran Odt) 8 mg PO Q8H PRN PRN Reason: NAUSEA Last Admin: 06/22/18 12:53 Dose: 8 mg Oxycodone HCl (Roxicodone) 5 mg PO Q4H PRN PRN Reason: PAIN SCALE 1 TO 5 Last Admin: 06/22/18 20:25 Dose: 5 mg Senna/Docusate Sodium (Salma-Colace) 1 tab PO BID [facility] Last Admin: 06/23/18 08:53 Dose: Not Given Sennosides (Senokot) 17.2 mg PO Q12H PRN PRN Reason: Moderate Constipation Sodium Chloride (Ns Flush) 2 ml IV.FLUSH BID [facility] Last Admin: 06/23/18 10:51 Dose: 2 ml Sodium Chloride (Ns Flush) 2 ml IV.FLUSH PRN PRN PRN Reason: FLUSH AFTER USING IV ACCESS Last Admin: 06/23/18 05:29 Dose: 2 ml Tamsulosin HCl (Flomax) 0.4 mg PO HS [facility] Last Admin: 06/22/18 20:25 Dose: Not Given Allergies Allergy/AdvReac Type Severity Reaction Status Date / Time penicillin G Allergy Severe EDEMA Verified 05/27/18 12:05 Home Medications Medication Instructions Recorded Confirmed Type amlodipine 10 mg PO DAILY 05/27/18 06/10/18 History atorvastatin 80 mg PO DAILY 05/27/18 06/10/18 History bupropion HCl 100 mg PO BID 05/27/18 06/10/18 History colchicine 0.6 mg PO DAILY 05/27/18 06/10/18 History digoxin 0.125 mg PO DAILY 05/27/18 06/10/18 History folic acid 1 mg PO DAILY 05/27/18 06/10/18 History metoprolol tartrate 1 mg/kg PO BID 05/27/18 06/10/18 History ondansetron [Zofran ODT] 8 mg PO Q8HR PRN 05/27/18 06/10/18 History cefazolin 2 g IV Q8H 06/10/18 06/10/18 History Results - Labs CBC & Chem 7: 06/20/18 05:20 06/20/18 05:20 - Procedures s/p Rt Ft I&D with second metatarsal debridement on 06/12/2018. Angiogram done on 06/15/2018. Right femoral to posterior tibial artery bypass with cryopreserved vein. Assessment and Plan - Assessment (1) Abscess of right foot Code(s): L02.611 - Cutaneous abscess of right foot Status: Acute (2) Osteomyelitis of right foot Code(s): M86.9 - Osteomyelitis, unspecified Status: Acute - Plan -pt needs a wound VAC arranged for the right foot before d/c, case management and wound care consulted -cont daily packing until VAC is obtained -cont abx as ordered -reconsult podiatry when pt is admitted to [facility] in surgical shoe
[2018-06-24] MEDS: metroNIDAZOLE 500 MG Tablet PO SCH ×2 (05:34→12:22)
[2018-06-24] MEDS: ceFAZolin 2 GM Premix Inj 2 GM/100 ML BAG IV.SIG SCH (05:34)
[2018-06-24 08:02] VITALS: RESP 18
[2018-06-24] MEDS ORDERED: ALPRAZolam 0.25 MG Tablet PO PRN (09:15)
[2018-06-24] MEDS: Digoxin 125 MCG Tablet PO SCH (09:38)
[2018-06-24] MEDS: Metoprolol Tartrate 100 MG Tablet PO SCH (09:38)
[2018-06-24] MEDS: Finasteride 5 MG Tablet PO SCH (09:38)
[2018-06-24] MEDS: buPROPion 100 MG ER 12 HR Tablet PO SCH (09:38)
[2018-06-24] MEDS: amLODIPine 10 MG Tablet PO SCH (09:38)
[2018-06-24] MEDS: Folic Acid 1 MG Tablet PO SCH (09:38)
[2018-06-24] MEDS: Heparin Central Flush 100 UNIT/ML 5 ML Vial IV.FLUSH SCH (09:42)
[2018-06-24] MEDS: Senna/Docusate Sodium 8.6/50 MG Tablet PO SCH (09:52)
--- NOTE | 2018-06-24 11:41 | P.PNIM ---
Subjective Interval history: 72-year-old male with metastatic lung cancer admitted for treatment of right lower extremity abscess and risk of aspiration pneumonia. Patient states that he had some shortness of breath this morning but attributes it to feelings of anxiety. He was disappointed because [facility] [employer] [facility] He [facility] decided to pay for that [id number] but it is a large financial obligation and this has stressed him out. Physical Exam Vital signs: Vital Signs 06/23/18 12:00 06/23/18 16:00 06/23/18 17:27 Temperature 98.1 F 97.9 F Pulse Rate 67 72 Respiratory Rate 16 16 Blood Pressure 112/67 120/73 Pulse Oximetry 96 95 95 06/23/18 20:00 06/24/18 00:00 06/24/18 04:00 Temperature 97.3 F L 97.6 F 97.9 F Pulse Rate 77 74 64 Respiratory Rate 16 16 16 Blood Pressure 125/81 131/79 124/68 Pulse Oximetry 95 94 L 92 L 06/24/18 07:45 06/24/18 08:00 Temperature 97.4 F L Pulse Rate 76 73 Respiratory Rate 18 Blood Pressure 124/70 Pulse Oximetry 99 Intake & Output 06/23/18 06/24/18 06/24/18 18:59 06:59 18:59 Intake Total 300 / 300 Balance 300 / 300 Weight 107 kg Intake: IV 300 / 300 Ancef 2 GM Premix Inj 2 gm In 300 / 300 100 ml @ 200 mls/hr IV.SIG Q8H [facility] Rx#:[id number] Other: Date of Last Bowel Movement 06/22/18 06/23/18 Narrative: GENERAL: AAOx3, somewhat anxious, breathing comfortably SKIN: Warm and dry. No rashes, right lower extremity missing 2 toes, foot wrapped in gauze dressing HEAD: Atruamtic, normocephalic. EYES: No scleral icterus. No injection or drainage. ENT: Moist mucous membranes, patent nares, no erythema of oropharynx. NECK: Supple, trachea midline. No JVD or lymphadenopathy. Normal thyroid. CARDIOVASCULAR: Regular rate and rhythm. No murmurs, gallops, or rubs. RESPIRATORY: Breath sounds clear equal bilaterally. No crackles or wheezes. No accessory muscle use. GASTROINTESTINAL: Abdomen soft, non-tender, nondistended, normal active bowel sounds MUSCULOSKELETAL: No cyanosis, or edema. NEURO: CN II-XII grossly intact, no focal deficits, no slurring of speech - Urinary Catheter Management Indwelling Urethral Catheter Cath placed during this visit: yes, but has since been removed by the nurse Reason for continuing: Decision to DC catheter Insertion date: 06/19/18 Insertion time: 11:51 Removal date: 06/20/18 Removal time: 08:00 Results - Labs CBC & Chem 7: 06/20/18 05:20 06/20/18 05:20 - Procedures s/p Rt Ft I&D with second metatarsal debridement on 06/12/2018. Angiogram done on 06/15/2018. Right femoral to posterior tibial artery bypass with cryopreserved vein. Assessment and Plan - Assessment (1) Cellulitis Code(s): L03.90 - Cellulitis, unspecified Status: Acute (2) Lower extremity edema Code(s): R60.0 - Localized edema Status: Acute (3) PNA (pneumonia) Code(s): J18.9 - Pneumonia, unspecified organism Status: Acute (4) Lung cancer Code(s): C34.90 - Malignant neoplasm of unspecified part of unspecified bronchus or lung Status: Acute - Plan Right lower extremity abscess/cellulitis Underlying right lower ext peripheral arterial disease s/p I&D of right second metatarsal with debridement on 06/12/2018 Continue with IV cefazolin for 6 weeks following debridement per infectious disease Continue with apixaban following angiogram done on 06/15/[address], Ancef added back to discharge medications Acute urinary retention Improved after starting Flomax and finasteride Hx of Metastatic Lung cancer Patient would like to get better from his foot infection in order to go home and deal with this larger problem Chronic Afib Continue Lopressor and apixaban Hypertension Continue Amlodipine, lopressor, lipitor Lower extremity edema 2D echo shows cardiac ejection fraction 50%. Continue Lasix 20mg IV BID. Anxiety Patient stated he felt better on low-dose of Xanax, 0.125mg every 6 as needed Discharge planning Patient has no active discharge order, transitioning to [facility] pending self- financing (1) Cellulitis Qualifiers: Site of cellulitis: extremity Site of cellulitis of extremity: lower extremity Laterality: right Qualified Code(s): L03.115 - Cellulitis of right lower limb
[2018-06-24 12:04] VITALS: BP 116/71; PULSE 76; TEMP 97.8; O2SAT 97
== END 2018-06-24 12:30 ==
LOC: NEPC 18:24 → NEDA 06-11 01:20 → HCIN 06-11 07:45
PROVIDERS: ADMIT Family Medicine; ATTEND Family Medicine
PROC: ANGIOLE (2018-06-15 13:00)